=== PATIENT | male | born 1965 | race Caucasian/White ===

== ENCOUNTER 2016-08-30 08:44 | Inpatient (IN) | payer OTHER ==
[2016-08-30 10:52] VITALS: BMI 24.5
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
[2016-08-30] MEDS ORDERED: diphenhydrAMINE HCL 50 MG CAPSULE PO PRN (12:52)
[2016-08-30] MEDS ORDERED: MAGNESIUM HYDROX 2400MG/30ML ORAL SUSPENSION 30 ML CUP PO PRN (12:52)
[2016-08-30] MEDS ORDERED: MAGNESIUM CITRATE 300 ML BOTTLE PO PRN (12:52)
[2016-08-30] MEDS ORDERED: MENTHOL/PHENOL 1 EACH UD MM PRN (12:52)
[2016-08-30] MEDS ORDERED: LOPERAMIDE HCL 2 MG CAPSULE PO PRN (12:52)
[2016-08-30] MEDS ORDERED: hydrOXYzine PAMOATE 50 MG CAPSULE (FP) PO PRN (12:52)
[2016-08-30] MEDS ORDERED: MAG HYDROX/AL HYDROX/SIMETH 30 ML UNIT-DOSE CUP PO PRN (12:52)
[2016-08-30] MEDS ORDERED: P-EPHED 60MG/TRIPROLIDI 2.5MG TABLET PO PRN (12:52)
[2016-08-30] MEDS ORDERED: chlordiazePOXIDE HCL 25 MG CAPSULE PO PRN (12:52)
[2016-08-30] MEDS ORDERED: NICOTINE POLACRILEX 2 MG GUM BUC PRN (12:52)
[2016-08-30] MEDS ORDERED: ACETAMINOPHEN 325 MG TABLET (FP) PO PRN (12:52)
[2016-08-30] MEDS ORDERED: guaiFENesin/D-METHORPHAN HB 10 ML UNIT-DOSE CUPS PO PRN (12:52)
[2016-08-30] MEDS ORDERED: chlordiazePOXIDE HCL 25 MG CAPSULE PO ONE (13:03)
[2016-08-30] MEDS: NICOTINE 21 MG/24 HOURS TOPICAL PATCH TD SCH (13:55)
[2016-08-30] MEDS: chlordiazePOXIDE HCL 25 MG CAPSULE PO SCH ×2 (17:13→22:20)
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
[2016-08-30 20:01] LABS: URINE APPEARANCE CLEAR; URINE BILIRUBIN NEGATIVE (NEGATIVE); URINE COLOR STRAW; URINE GLUCOSE (UA) NEGATIVE (NEGATIVE); URINE KETONE NEGATIVE (NEGATIVE); URINE LEUK ESTERASE NEGATIVE (NEGATIVE); URINE NITRITE NEGATIVE (NEGATIVE); URINE PROTEIN NEGATIVE (NEGATIVE); URINE UROBILINOGEN NEGATIVE E.U./dl (0.2-1.0)
[2016-08-30 20:03] LABS: URINE BLOOD 1+ (NEGATIVE)
[2016-08-30 20:15] LABS: URINE RBC 1 /hpf (0-3); URINE WBC <1 /hpf (3-5)
[2016-08-30] MEDS: THIAMINE HCL 100 MG TABLET (FP) PO SCH (22:20)
[2016-08-30] MEDS: MIRTAZAPINE 15 MG TABLET (FP) PO SCH (22:21)
[2016-08-31] MEDS: chlordiazePOXIDE HCL 25 MG CAPSULE PO SCH ×4 (05:20→22:24)
[2016-08-31] MEDS: IBUPROFEN 400 MG TABLET (FP) PO PRN ×2 (05:21→12:15)
[2016-08-31] MEDS: METHADONE HCL 40 MG DISPERSABLE TABLET PO SCH (05:21)
[2016-08-31] MEDS: PRENATAL VITAMINS W/ FOLIC ACID TABLET (FP) PO SCH (10:33)
[2016-08-31] MEDS: NICOTINE 21 MG/24 HOURS TOPICAL PATCH TD SCH (10:34)
[2016-08-31 10:36] LABS: MCH 29.1 pg (25.7-33.7); MCHC 33.7 g/dl (32.0-35.9); MEAN CELL VOLUME 86.3 fl (80-96); PLATELET COUNT 128 K/MM3 (134-434); RDW 14.9 % (11.9-15.9); WHITE BLOOD COUNT 4.1 K/mm3 (4.0-10.0)
[2016-08-31 10:46] LABS: ALBUMIN 3.8 g/dl (3.4-5.0); ANION GAP 9 (8-16); CALCIUM 8.6 mg/dL (8.5-10.1); CO2 28 mmol/L (21-32); GLUCOSE,RANDOM 92 mg/dL (74-106)
[2016-08-31 10:50] LABS: ALK PHOS 149 U/L (45-117); BILIRUBIN,TOTAL 0.8 mg/dL (0.2-1.0); CREATININE 0.9 mg/dL (0.7-1.3); SGOT/AST 70 U/L (15-37); SGPT/ALT 41 U/L (12-78); TOT PROT 7.8 g/dl (6.4-8.2)
--- NOTE | 2016-08-31 13:38 | PN ---
[facility] CIWA - CIWA Score Nausea/Vomitin-Mild Nausea/No Vomiting Muscle Tremors: 4-Moderate,w/Arms Extend Anxiety: 4-Mod. Anxious/Guarded Agitation: 4-Moderately Restless Paroxysmal Sweats: 3 Orientation: 0-Oriented Tacttile Disturbances: 1-Very Mild Itch/Numbness Auditory Disturbances: 0-None Visual Disturbances: 0-None Headache: 0-None Present CIWA-Ar Total Score: 17 BHS Progress Note (SOAP) Subjective: Anxiety,tremors,sweating,interrupted sleep,restless. Objective: 08/31/16 13:37 Vital Signs - 8 hr 08/31/16 08/31/16 06:20 09:29 Temperature 95.8 F L 96.6 F L Pulse Rate 80 68 Respiratory 16 18 Rate Blood Pressure 113/78 94/63 Laboratory Tests 08/30/16 08/31/16 08/31/16 19:45 06:20 06:20 WBC 4.1 RBC 4.60 Hgb 13.4 Hct 39.6 MCV 86.3 MCHC 33.7 RDW 14.9 D Plt Count 128 L D MPV 8.0 Sodium 135 L Potassium 4.2 Chloride 98 Carbon Dioxide 28 Anion Gap 9 BUN 7 Creatinine 0.9 D Creat Clearance w eGFR > 60 Random Glucose 92 Calcium 8.6 Total Bilirubin 0.8 AST 70 H D ALT 41 D Alkaline Phosphatase 149 H D Total Protein 7.8 Albumin 3.8 Urine Color Straw Urine Appearance Clear Urine pH 6.0 D Ur Specific [place] 1.003 Urine Protein Negative Urine Glucose (UA) Negative Urine Ketones Negative Urine Blood 1+ H Urine Nitrite Negative Urine Bilirubin Negative Urine Urobilinogen Negative Ur Leukocyte Esterase Negative Urine RBC 1 Urine WBC <1 Ur Epithelial Cells Rare labs noted Assessment: 08/31/16 13:38 Withdrawal sx Plan: Continue detox
--- NOTE | 2016-08-31 18:32 | EKG ---
Test Reason : Blood Pressure : / mmHG Vent. Rate : 069 BPM Atrial Rate : 069 BPM P-R Int : 140 ms QRS Dur : 094 ms QT Int : 436 ms P-R-T Axes : 020 019 049 degrees QTc Int : 467 ms NORMAL SINUS RHYTHM NORMAL ECG WHEN COMPARED WITH ECG OF 13-APR-2013 09:03, NO SIGNIFICANT CHANGE WAS FOUND Confirmed by KARYN CASAREZ MD ([id number]) on 08/31/2016 6:31:46 PM Referred By: Kodi Garcia Confirmed By:KARYN CASAREZ MD
[2016-08-31] MEDS: MIRTAZAPINE 15 MG TABLET (FP) PO SCH (22:24)
[2016-08-31] MEDS: THIAMINE HCL 100 MG TABLET (FP) PO SCH (22:24)
[2016-09-01] MEDS: IBUPROFEN 400 MG TABLET (FP) PO PRN ×3 (05:20→22:26)
[2016-09-01] MEDS: METHADONE HCL 40 MG DISPERSABLE TABLET PO SCH (05:21)
[2016-09-01] MEDS: chlordiazePOXIDE HCL 25 MG CAPSULE PO SCH ×2 (05:21→10:22)
[2016-09-01] MEDS: PRENATAL VITAMINS W/ FOLIC ACID TABLET (FP) PO SCH (10:22)
[2016-09-01] MEDS: NICOTINE 21 MG/24 HOURS TOPICAL PATCH TD SCH (10:22)
--- NOTE | 2016-09-01 11:09 | PN ---
[facility] CIWA - CIWA Score Nausea/Vomitin-No Nausea/No Vomiting Muscle Tremors: 4-Moderate,w/Arms Extend Anxiety: 4-Mod. Anxious/Guarded Agitation: 3 Paroxysmal Sweats: 3 Orientation: 0-Oriented Tacttile Disturbances: 0-None Auditory Disturbances: 0-None Visual Disturbances: 0-None Headache: 0-None Present CIWA-Ar Total Score: 14 S Progress Note (SOAP) Subjective: Anxiety,tremors,sweating,interrupted sleep,restless Objective: 09/01/16 11:08 Vital Signs - 8 hr 09/01/16 09/01/16 09/01/16 03:32 06:24 09:36 Temperature 97.0 F L 98.2 F Pulse Rate 63 58 L Respiratory 18 18 18 Rate Blood Pressure 109/73 106/67 Laboratory Last Values WBC 4.1 K/mm3 (4.0-10.0) 08/31/16 06:20 RBC 4.60 M/mm3 (4.00-5.60) 08/31/16 06:20 Hgb 13.4 GM/dL (11.7-16.9) 08/31/16 06:20 Hct 39.6 % (35.4-49) 08/31/16 06:20 MCV 86.3 fl (80-96) 08/31/16 06:20 MCHC 33.7 g/dl (32.0-35.9) 08/31/16 06:20 RDW 14.9 % (11.9-15.9) D 08/31/16 06:20 Plt Count 128 K/MM3 (134-434) L D 08/31/16 06:20 MPV 8.0 fl (7.5-11.1) 08/31/16 06:20 Sodium 135 mmol/L (136-145) L 08/31/16 06:20 Potassium 4.2 mmol/L (3.5-5.1) 08/31/16 06:20 Chloride 98 mmol/L (98-107) 08/31/16 06:20 Carbon Dioxide 28 mmol/L (21-32) 08/31/16 06:20 Anion Gap 9 (8-16) 08/31/16 06:20 BUN 7 mg/dL (7-18) 08/31/16 06:20 Creatinine 0.9 mg/dL (0.7-1.3) D 08/31/16 06:20 Creat Clearance w eGFR > 60 (>60) 08/31/16 06:20 Random Glucose 92 mg/dL (74-106) 08/31/16 06:20 Calcium 8.6 mg/dL (8.5-10.1) 08/31/16 06:20 Total Bilirubin 0.8 mg/dL (0.2-1.0) 08/31/16 06:20 AST 70 U/L (15-37) H D 08/31/16 06:20 ALT 41 U/L (12-78) D 08/31/16 06:20 Alkaline Phosphatase 149 U/L (45-117) H D 08/31/16 06:20 Total Protein 7.8 g/dl (6.4-8.2) 08/31/16 06:20 Albumin 3.8 g/dl (3.4-5.0) 08/31/16 06:20 Urine Color Straw 08/30/16 19:45 Urine Appearance Clear 08/30/16 19:45 Urine pH 6.0 (5.0-8.0) D 08/30/16 19:45 Ur Specific [place] 1.003 (1.001-1.035) 08/30/16 19:45 Urine Protein Negative (NEGATIVE) 08/30/16 19:45 Urine Glucose (UA) Negative (NEGATIVE) 08/30/16 19:45 Urine Ketones Negative (NEGATIVE) 08/30/16 19:45 Urine Blood 1+ (NEGATIVE) H 08/30/16 19:45 Urine Nitrite Negative (NEGATIVE) 08/30/16 19:45 Urine Bilirubin Negative (NEGATIVE) 08/30/16 19:45 Urine Urobilinogen Negative E.U./dl (0.2-1.0) 08/30/16 19:45 Ur Leukocyte Esterase Negative (NEGATIVE) 08/30/16 19:45 Urine RBC 1 /hpf (0-3) 08/30/16 19:45 Urine WBC <1 /hpf (3-5) 08/30/16 19:45 Ur Epithelial Cells Rare /hpf (FEW) 08/30/16 19:45 RPR Titer Nonreactive (NONREACTIVE) 08/31/16 06:20 labs noted Assessment: 09/01/16 11:08 Withdrawal sx. Plan: Continue detox
[2016-09-01] MEDS: chlordiazePOXIDE 5 MG CAPSULE PO SCH ×2 (17:16→22:25)
[2016-09-01] MEDS: MIRTAZAPINE 15 MG TABLET (FP) PO SCH (22:25)
[2016-09-01] MEDS: THIAMINE HCL 100 MG TABLET (FP) PO SCH (22:25)
[2016-09-02] MEDS: IBUPROFEN 400 MG TABLET (FP) PO PRN ×3 (05:03→22:16)
[2016-09-02] MEDS: METHADONE HCL 40 MG DISPERSABLE TABLET PO SCH (05:03)
[2016-09-02] MEDS: chlordiazePOXIDE 5 MG CAPSULE PO SCH ×2 (05:03→10:17)
[2016-09-02] MEDS: PRENATAL VITAMINS W/ FOLIC ACID TABLET (FP) PO SCH (10:17)
[2016-09-02] MEDS: NICOTINE 21 MG/24 HOURS TOPICAL PATCH TD SCH (10:17)
--- NOTE | 2016-09-02 13:30 | PN ---
BHS Progress Note (SOAP) Subjective: Sweating,interrupted sleep,restless Objective: 09/02/16 13:29 Vital Signs - 8 hr 09/02/16 09/02/16 06:14 10:25 Temperature 96.4 F L 97 F L Pulse Rate 62 64 Respiratory 18 18 Rate Blood Pressure 105/63 97/61 Laboratory Last Values WBC 4.1 K/mm3 (4.0-10.0) 08/31/16 06:20 RBC 4.60 M/mm3 (4.00-5.60) 08/31/16 06:20 Hgb 13.4 GM/dL (11.7-16.9) 08/31/16 06:20 Hct 39.6 % (35.4-49) 08/31/16 06:20 MCV 86.3 fl (80-96) 08/31/16 06:20 MCHC 33.7 g/dl (32.0-35.9) 08/31/16 06:20 RDW 14.9 % (11.9-15.9) D 08/31/16 06:20 Plt Count 128 K/MM3 (134-434) L D 08/31/16 06:20 MPV 8.0 fl (7.5-11.1) 08/31/16 06:20 Sodium 135 mmol/L (136-145) L 08/31/16 06:20 Potassium 4.2 mmol/L (3.5-5.1) 08/31/16 06:20 Chloride 98 mmol/L (98-107) 08/31/16 06:20 Carbon Dioxide 28 mmol/L (21-32) 08/31/16 06:20 Anion Gap 9 (8-16) 08/31/16 06:20 BUN 7 mg/dL (7-18) 08/31/16 06:20 Creatinine 0.9 mg/dL (0.7-1.3) D 08/31/16 06:20 Creat Clearance w eGFR > 60 (>60) 08/31/16 06:20 Random Glucose 92 mg/dL (74-106) 08/31/16 06:20 Calcium 8.6 mg/dL (8.5-10.1) 08/31/16 06:20 Total Bilirubin 0.8 mg/dL (0.2-1.0) 08/31/16 06:20 AST 70 U/L (15-37) H D 08/31/16 06:20 ALT 41 U/L (12-78) D 08/31/16 06:20 Alkaline Phosphatase 149 U/L (45-117) H D 08/31/16 06:20 Total Protein 7.8 g/dl (6.4-8.2) 08/31/16 06:20 Albumin 3.8 g/dl (3.4-5.0) 08/31/16 06:20 Urine Color Straw 08/30/16 19:45 Urine Appearance Clear 08/30/16 19:45 Urine pH 6.0 (5.0-8.0) D 08/30/16 19:45 Ur Specific [place] 1.003 (1.001-1.035) 08/30/16 19:45 Urine Protein Negative (NEGATIVE) 08/30/16 19:45 Urine Glucose (UA) Negative (NEGATIVE) 08/30/16 19:45 Urine Ketones Negative (NEGATIVE) 08/30/16 19:45 Urine Blood 1+ (NEGATIVE) H 08/30/16 19:45 Urine Nitrite Negative (NEGATIVE) 08/30/16 19:45 Urine Bilirubin Negative (NEGATIVE) 08/30/16 19:45 Urine Urobilinogen Negative E.U./dl (0.2-1.0) 08/30/16 19:45 Ur Leukocyte Esterase Negative (NEGATIVE) 08/30/16 19:45 Urine RBC 1 /hpf (0-3) 08/30/16 19:45 Urine WBC <1 /hpf (3-5) 08/30/16 19:45 Ur Epithelial Cells Rare /hpf (FEW) 08/30/16 19:45 RPR Titer Nonreactive (NONREACTIVE) 08/31/16 06:20 labs noted Assessment: 09/02/16 13:29 Withdrawal sx. Plan: Continue detox
[2016-09-02] MEDS: chlordiazePOXIDE HCL 10 MG CAPSULE PO SCH ×2 (17:11→22:17)
[2016-09-02] MEDS: MIRTAZAPINE 15 MG TABLET (FP) PO SCH (22:17)
[2016-09-02] MEDS: THIAMINE HCL 100 MG TABLET (FP) PO SCH (22:17)
[2016-09-03] MEDS: chlordiazePOXIDE HCL 10 MG CAPSULE PO SCH (05:09)
[2016-09-03] MEDS: METHADONE HCL 40 MG DISPERSABLE TABLET PO SCH (05:09)
[2016-09-03 06:02] VITALS: BP 101/63; PULSE 67; TEMP 97.1
[2016-09-03] MEDS: IBUPROFEN 400 MG TABLET (FP) PO PRN (06:09)
--- NOTE | 2016-09-03 10:29 | DS ---
[facility] Detox Discharge Summary Admission Date: 08/30/16 Discharge Date: 09/03/16 - History Present History: Alcohol Dependence, Cannabis Dependence, Cocaine Dependence, MMTP Pertinent Past History: Hep c Psoriasis - Physical Exam Results Vital Signs: Vital Signs Temperature 97.1 F L 09/03/16 06:01 Pulse Rate 67 09/03/16 06:01 Respiratory Rate 16 09/03/16 06:01 Blood Pressure 101/63 09/03/16 06:01 O2 Sat by Pulse Oximetry (%) Pertinent Admission Physical Exam Findings: Withdrawal sx. Laboratory Last Values WBC 4.1 K/mm3 (4.0-10.0) 08/31/16 06:20 RBC 4.60 M/mm3 (4.00-5.60) 08/31/16 06:20 Hgb 13.4 GM/dL (11.7-16.9) 08/31/16 06:20 Hct 39.6 % (35.4-49) 08/31/16 06:20 MCV 86.3 fl (80-96) 08/31/16 06:20 MCHC 33.7 g/dl (32.0-35.9) 08/31/16 06:20 RDW 14.9 % (11.9-15.9) D 08/31/16 06:20 Plt Count 128 K/MM3 (134-434) L D 08/31/16 06:20 MPV 8.0 fl (7.5-11.1) 08/31/16 06:20 Sodium 135 mmol/L (136-145) L 08/31/16 06:20 Potassium 4.2 mmol/L (3.5-5.1) 08/31/16 06:20 Chloride 98 mmol/L (98-107) 08/31/16 06:20 Carbon Dioxide 28 mmol/L (21-32) 08/31/16 06:20 Anion Gap 9 (8-16) 08/31/16 06:20 BUN 7 mg/dL (7-18) 08/31/16 06:20 Creatinine 0.9 mg/dL (0.7-1.3) D 08/31/16 06:20 Creat Clearance w eGFR > 60 (>60) 08/31/16 06:20 Random Glucose 92 mg/dL (74-106) 08/31/16 06:20 Calcium 8.6 mg/dL (8.5-10.1) 08/31/16 06:20 Total Bilirubin 0.8 mg/dL (0.2-1.0) 08/31/16 06:20 AST 70 U/L (15-37) H D 08/31/16 06:20 ALT 41 U/L (12-78) D 08/31/16 06:20 Alkaline Phosphatase 149 U/L (45-117) H D 08/31/16 06:20 Total Protein 7.8 g/dl (6.4-8.2) 08/31/16 06:20 Albumin 3.8 g/dl (3.4-5.0) 08/31/16 06:20 Urine Color Straw 08/30/16 19:45 Urine Appearance Clear 08/30/16 19:45 Urine pH 6.0 (5.0-8.0) D 08/30/16 19:45 Ur Specific [place] 1.003 (1.001-1.035) 08/30/16 19:45 Urine Protein Negative (NEGATIVE) 08/30/16 19:45 Urine Glucose (UA) Negative (NEGATIVE) 08/30/16 19:45 Urine Ketones Negative (NEGATIVE) 08/30/16 19:45 Urine Blood 1+ (NEGATIVE) H 08/30/16 19:45 Urine Nitrite Negative (NEGATIVE) 08/30/16 19:45 Urine Bilirubin Negative (NEGATIVE) 08/30/16 19:45 Urine Urobilinogen Negative E.U./dl (0.2-1.0) 08/30/16 19:45 Ur Leukocyte Esterase Negative (NEGATIVE) 08/30/16 19:45 Urine RBC 1 /hpf (0-3) 08/30/16 19:45 Urine WBC <1 /hpf (3-5) 08/30/16 19:45 Ur Epithelial Cells Rare /hpf (FEW) 08/30/16 19:45 RPR Titer Nonreactive (NONREACTIVE) 08/31/16 06:20 Labs noted - Treatment Hospital Course: Detox Protocol Followed, Detoxed Safely, Responded well, Discharged Condition Good, Rehab Referral Accepted Patient has Accepted a Rehab Referral to: [facility] - Medication Discharge Medications: Ambulatory Orders Mirtazapine [Remeron -] 30 mg PO HS #30 tablet 08/30/16 Mirtazapine [Remeron -] 45 mg PO HS 08/30/16 - Diagnosis (1) Alcohol dependence with uncomplicated withdrawal Current Visit: Yes Status: Acute (2) Opioid dependence on agonist therapy Current Visit: Yes Status: Acute (3) Nicotine dependence Current Visit: Yes Status: Acute Qualifiers: Nicotine product type: cigarettes Substance use status: uncomplicated Qualified Code(s): F17.210 - Nicotine dependence, cigarettes, uncomplicated (4) Cocaine dependence, uncomplicated Current Visit: Yes Status: Acute (5) Insomnia Current Visit: Yes Status: Acute (6) Substance induced mood disorder Current Visit: Yes Status: Acute (7) Hepatitis C Current Visit: Yes Status: Chronic Qualifiers: Viral hepatitis chronicity: chronic Hepatic coma status: without hepatic coma Qualified Code(s): B18.2 - Chronic viral hepatitis C (8) Psoriasis Current Visit: No Status: Chronic - AMA Did Patient Leave Against Medical Advice: No
== END 2016-09-03 09:03 | disposition home or self-care (01) | DRG 773 ==
LOC: YASAS 08:44 → Y3N 12:39
PROVIDERS: ADMIT Internal Medicine; ATTEND Internal Medicine
PROC: HZ2ZZZZ Detoxification Services for Substance Abuse Treatment (ICD-10-PCS; principal; 2016-09-03)
DX: F11.20 Opioid dependence, uncomplicated (principal); F10.230 Alcohol dependence with withdrawal, uncomplicated; F14.20 Cocaine dependence, uncomplicated; F12.20 Cannabis dependence, uncomplicated; F17.210 Nicotine dependence, cigarettes, uncomplicated; F19.24 Other psychoactive substance dependence with psychoactive substance-induced mood disorder; B18.2 Chronic viral hepatitis C; G47.00 Insomnia, unspecified; L40.9 Psoriasis, unspecified
CPT/HCPCS: 36415; 80053; 81003; 81015; 85027; 86593; 93005; 93010

== ENCOUNTER 2017-01-07 11:16 | Inpatient (IN) | payer OTHER ==
[2017-01-07 11:46] VITALS: BMI 23.5
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
[2017-01-07] MEDS ORDERED: MAGNESIUM CITRATE 300 ML BOTTLE PO PRN (14:24)
[2017-01-07] MEDS ORDERED: MAGNESIUM HYDROX 2400MG/30ML ORAL SUSPENSION 30 ML CUP PO PRN (14:24)
[2017-01-07] MEDS ORDERED: NICOTINE POLACRILEX 4 MG GUM BUC PRN (14:24)
[2017-01-07] MEDS ORDERED: guaiFENesin/D-METHORPHAN HB 10 ML UNIT-DOSE CUPS PO PRN (14:24)
[2017-01-07] MEDS ORDERED: chlordiazePOXIDE HCL 25 MG CAPSULE PO PRN (14:24)
[2017-01-07] MEDS ORDERED: MENTHOL/PHENOL 1 EACH UD MM PRN (14:24)
[2017-01-07] MEDS ORDERED: P-EPHED 60MG/TRIPROLIDI 2.5MG TABLET PO PRN (14:24)
[2017-01-07] MEDS ORDERED: LOPERAMIDE HCL 2 MG CAPSULE PO PRN (14:24)
[2017-01-07] MEDS ORDERED: hydrOXYzine PAMOATE 50 MG CAPSULE (FP) PO PRN (14:24)
[2017-01-07] MEDS ORDERED: MAG HYDROX/AL HYDROX/SIMETH 30 ML UNIT-DOSE CUP PO PRN (14:24)
[2017-01-07] MEDS ORDERED: chlordiazePOXIDE HCL 25 MG CAPSULE PO ONE (14:33)
[2017-01-07 16:45] LABS: URINE APPEARANCE CLEAR; URINE BILIRUBIN NEGATIVE (NEGATIVE); URINE BLOOD 2+ (NEGATIVE); URINE COLOR STRAW; URINE GLUCOSE (UA) NEGATIVE (NEGATIVE); URINE KETONE NEGATIVE (NEGATIVE); URINE LEUK ESTERASE NEGATIVE (NEGATIVE); URINE NITRITE NEGATIVE (NEGATIVE); URINE PROTEIN NEGATIVE (NEGATIVE); URINE UROBILINOGEN NEGATIVE mg/dL (0.2-1.0)
[2017-01-07] MEDS: chlordiazePOXIDE HCL 25 MG CAPSULE PO SCH ×2 (16:51→22:11)
[2017-01-07 17:04] LABS: URINE RBC 1 /hpf (0-3)
[2017-01-07] MEDS: THIAMINE HCL 100 MG TABLET (FP) PO SCH (22:11)
[2017-01-07] MEDS: diphenhydrAMINE HCL 50 MG CAPSULE PO PRN (22:11)
[2017-01-07] MEDS: FLUOCINONIDE 0.05% CREAM (15 GM TUBE) TP SCH ×2 (22:11)
[2017-01-08] MEDS: IBUPROFEN 400 MG TABLET (FP) PO PRN ×2 (05:57→19:56)
[2017-01-08] MEDS: chlordiazePOXIDE HCL 25 MG CAPSULE PO SCH ×4 (05:58→22:36)
[2017-01-08] MEDS ORDERED: ONDANSETRON *ODT* 4 MG TABLET SL PRN (09:07)
--- NOTE | 2017-01-08 09:12 | CONSULT ---
[facility] Psychiatric Consult - Data Date of interview: 01/08/17 Admission source: [facility] Identifying data: This is 51 years old male with no psychiatric hospitalization history intoxicated with: Alcohol, Methadone, Cannabis and Nicotine Substance Abuse History: - Smoking Cessation. Smoking history: Current every day smoker. Have you smoked in the past 12 months: Yes. Aproximately how many cigarettes per day: 10. Cigars Per Day: 0. Hx Chewing Tobacco Use: No. Initiated information on smoking cessation: Yes. 'Breaking Loose' booklet given : 01/07/17. - Substance & Tx. History. Hx Alcohol Use: Yes. Hx Substance Use : Yes. Substance Use Type: Alcohol, Heroin, Marijuana. Hx Substance Use Treatment: Yes (last detox 08/2016 with [facility]). - Substances Abused. Heroin. Route: Injection. Frequency: Daily. Amount used: 1-2 bags. Age of first use: 13. Date of Last Use: 01/06/17. Alcohol. Route: Oral. Frequency: Daily. Amount used: malt liquor(24 cans-16 oz cans). Age of first use: 13. Date of Last Use: 01/07/17. Marijuana/Hashish. Route: Smoking. Frequency: Daily. Amount used: 1 blunt. Age of first use: 13. Date of Last Use: 01/06/17 Medical History: Psoriasis, Seizure history, MMTP 120mg per day, Hep C+ Psychiatric History: Patient reprots history of depression , as per computer carries MDD, preoccupied with insomnia, reportsd taking prior to admission: Remeron 45mg po qhs Mental Status Exam - Mental Status Exam Alert and Oriented to: Person Cognitive Function: Fair Patient Appearance: Unkempt, Disheveled Mood: Sad Affect: Flat Patient Behavior: Sedated Speech Pattern: Delayed Voice Loudness: Mildly Soft/Quiet Thought Process: Circumstantial Thought Disorder: Being Controlled Hallucinations: Denies Suicidal Ideation: Denies Homicidal Ideation: Denies Insight/Judgement: Fair Sleep: Difficulty falling asleep Appetite: Fair Muscle strength/Tone: Mild Hypotonicity Gait/Station: Shuffling Additional Comments: Remeron 45mg po qhs Psychiatric Findings - Problem List ([place] 1, 2,3) (1) Alcohol dependence with uncomplicated withdrawal Current Visit: Yes Status: Chronic (2) Methadone maintenance therapy patient Current Visit: Yes Status: Chronic Comment: last dose taken today 120mg. dose verification pending (3) Nicotine dependence Current Visit: Yes Status: Chronic Qualifiers: Nicotine product type: cigarettes Substance use status: uncomplicated Qualified Code(s): F17.210 - Nicotine dependence, cigarettes, uncomplicated (4) Opioid dependence Current Visit: Yes Status: Acute (5) Drug-induced mood disorder Current Visit: Yes Status: Acute - Initial Treatment Plan Initial Treatment Plan: Remeron 45mg po qhs
[2017-01-08 10:06] LABS: ALBUMIN 3.8 g/dl (3.4-5.0); ALK PHOS 163 U/L (45-117); ANION GAP 8 (8-16); BILIRUBIN,TOTAL 0.7 mg/dL (0.2-1.0); CALCIUM 8.7 mg/dL (8.5-10.1); CO2 30 mmol/L (21-32); CREATININE 0.6 mg/dL (0.7-1.3); GLUCOSE,RANDOM 94 mg/dL (74-106); SGOT/AST 98 U/L (15-37); SGPT/ALT 81 U/L (12-78); TOT PROT 7.8 g/dl (6.4-8.2)
[2017-01-08 10:17] LABS: MCH 29.7 pg (25.7-33.7); MCHC 34.1 g/dl (32.0-35.9); MEAN CELL VOLUME 87.2 fl (80-96); MEAN PLT VOLUME 7.8 fl (7.5-11.1); PLATELET COUNT 111 K/MM3 (134-434); RDW 13.7 % (11.9-15.9); WHITE BLOOD COUNT 5.4 K/mm3 (4.0-10.0)
--- NOTE | 2017-01-08 10:31 | PN ---
S CIWA - CIWA Score Nausea/Vomitin Muscle Tremors: 3 Anxiety: 3 Agitation: 3 Paroxysmal Sweats: 1-Minimal Palms Moist Orientation: 0-Oriented Tacttile Disturbances: 1-Very Mild Itch/Numbness Auditory Disturbances: 1-Very Mild Visual Disturbances: 1-Very Mild Sensitivity Headache: 2-Mild CIWA-Ar Total Score: 18 BHS Progress Note (SOAP) Subjective: alert,irritable,anxious,interrupted sleep,tremor,nausea,vomiting,pain in the back Objective: 01/08/17 10:29 Vital Signs Temperature 98.1 F 01/08/17 10:04 Pulse Rate 82 01/08/17 10:04 Respiratory Rate 18 01/08/17 10:04 Blood Pressure 146/82 01/08/17 10:04 O2 Sat by Pulse Oximetry (%) ekgnsr,normal ecg Laboratory Last Values WBC 5.4 K/mm3 (4.0-10.0) D 01/08/17 06:00 RBC 4.52 M/mm3 (4.00-5.60) 01/08/17 06:00 Hgb 13.4 GM/dL (11.7-16.9) 01/08/17 06:00 Hct 39.4 % (35.4-49) 01/08/17 06:00 MCV 87.2 fl (80-96) 01/08/17 06:00 MCH 29.7 pg (25.7-33.7) 01/08/17 06:00 MCHC 34.1 g/dl (32.0-35.9) 01/08/17 06:00 RDW 13.7 % (11.9-15.9) 01/08/17 06:00 Plt Count 111 K/MM3 (134-434) L 01/08/17 06:00 MPV 7.8 fl (7.5-11.1) 01/08/17 06:00 Urine Color Straw 01/07/17 15:00 Urine Appearance Clear 01/07/17 15:00 Urine pH 6.0 (5.0-8.0) 01/07/17 15:00 Ur Specific [place] <= 1.005 (1.005-1.025) 01/07/17 15:00 Urine Protein Negative (NEGATIVE) 01/07/17 15:00 Urine Glucose (UA) Negative (NEGATIVE) 01/07/17 15:00 Urine Ketones Negative (NEGATIVE) 01/07/17 15:00 Urine Blood 2+ (NEGATIVE) H 01/07/17 15:00 Urine Nitrite Negative (NEGATIVE) 01/07/17 15:00 Urine Bilirubin Negative (NEGATIVE) 01/07/17 15:00 Urine Urobilinogen Negative mg/dL (0.2-1.0) 01/07/17 15:00 Ur Leukocyte Esterase Negative (NEGATIVE) 01/07/17 15:00 Urine RBC 1 /hpf (0-3) 01/07/17 15:00 Urine WBC None /hpf (3-5) 01/07/17 15:00 Ur Epithelial Cells Rare /hpf (FEW) 01/07/17 15:00 labs pending Assessment: 01/08/17 10:30 withdrawal symptom Plan: continue detox
[2017-01-08] MEDS: PRENATAL VITAMINS W/ FOLIC ACID TABLET (FP) PO SCH (10:35)
[2017-01-08] MEDS: METHADONE HCL 40 MG DISPERSABLE TABLET PO SCH (10:35)
[2017-01-08] MEDS: FLUOCINONIDE 0.05% CREAM (15 GM TUBE) TP SCH ×4 (10:36→22:50)
[2017-01-08] MEDS: NICOTINE 21 MG/24 HOURS TOPICAL PATCH TD SCH (10:36)
--- NOTE | 2017-01-08 12:56 | EKG ---
Test Reason : Blood Pressure : / mmHG Vent. Rate : 067 BPM Atrial Rate : 067 BPM P-R Int : 148 ms QRS Dur : 096 ms QT Int : 442 ms P-R-T Axes : 031 022 060 degrees QTc Int : 467 ms NORMAL SINUS RHYTHM NORMAL ECG WHEN COMPARED WITH ECG OF 30-AUG-2016 13:06, NO SIGNIFICANT CHANGE WAS FOUND Confirmed by GLENN HOWARD MD ([id number]) on 01/08/2017 12:55:27 PM Referred By: Kodi Garcia Confirmed By:GLENN HOWARD MD
[2017-01-08] MEDS: CYCLOBENZAPRINE HCL 10 MG TABLET (FP) PO PRN (22:37)
[2017-01-08] MEDS: MIRTAZAPINE 15 MG TABLET (FP) PO SCH (22:37)
[2017-01-08] MEDS: THIAMINE HCL 100 MG TABLET (FP) PO SCH (22:37)
[2017-01-09] MEDS: chlordiazePOXIDE HCL 25 MG CAPSULE PO SCH ×2 (05:58→11:08)
[2017-01-09] MEDS: METHADONE HCL 40 MG DISPERSABLE TABLET PO SCH (05:58)
[2017-01-09] MEDS: CYCLOBENZAPRINE HCL 10 MG TABLET (FP) PO PRN ×2 (05:59→22:25)
[2017-01-09] MEDS: IBUPROFEN 400 MG TABLET (FP) PO PRN ×2 (06:00→22:26)
--- NOTE | 2017-01-09 11:00 | PN ---
S CIWA - CIWA Score Nausea/Vomitin Muscle Tremors: 3 Anxiety: 3 Agitation: 2 Paroxysmal Sweats: 1-Minimal Palms Moist Orientation: 0-Oriented Tacttile Disturbances: 1-Very Mild Itch/Numbness Auditory Disturbances: 1-Very Mild Visual Disturbances: 1-Very Mild Sensitivity Headache: 2-Mild CIWA-Ar Total Score: 17 BHS Progress Note (SOAP) Subjective: ALERT,IRRITABLE,ANXIOUS,INTERRUPTED SLEEP,TREMOR Objective: 01/09/17 10:58 Vital Signs Temperature 98.4 F 01/09/17 09:28 Pulse Rate 77 01/09/17 09:28 Respiratory Rate 16 01/09/17 09:28 Blood Pressure 124/77 01/09/17 09:28 O2 Sat by Pulse Oximetry (%) Laboratory Last Values WBC 5.4 K/mm3 (4.0-10.0) D 01/08/17 06:00 RBC 4.52 M/mm3 (4.00-5.60) 01/08/17 06:00 Hgb 13.4 GM/dL (11.7-16.9) 01/08/17 06:00 Hct 39.4 % (35.4-49) 01/08/17 06:00 MCV 87.2 fl (80-96) 01/08/17 06:00 MCH 29.7 pg (25.7-33.7) 01/08/17 06:00 MCHC 34.1 g/dl (32.0-35.9) 01/08/17 06:00 RDW 13.7 % (11.9-15.9) 01/08/17 06:00 Plt Count 111 K/MM3 (134-434) L 01/08/17 06:00 MPV 7.8 fl (7.5-11.1) 01/08/17 06:00 Sodium 136 mmol/L (136-145) 01/08/17 06:00 Potassium 3.9 mmol/L (3.5-5.1) 01/08/17 06:00 Chloride 98 mmol/L (98-107) 01/08/17 06:00 Carbon Dioxide 30 mmol/L (21-32) 01/08/17 06:00 Anion Gap 8 (8-16) 01/08/17 06:00 BUN 5 mg/dL (7-18) L D 01/08/17 06:00 Creatinine 0.6 mg/dL (0.7-1.3) L D 01/08/17 06:00 Creat Clearance w eGFR > 60 (>60) 01/08/17 06:00 Random Glucose 94 mg/dL (74-106) 01/08/17 06:00 Calcium 8.7 mg/dL (8.5-10.1) 01/08/17 06:00 Total Bilirubin 0.7 mg/dL (0.2-1.0) 01/08/17 06:00 AST 98 U/L (15-37) H D 01/08/17 06:00 ALT 81 U/L (12-78) H D 01/08/17 06:00 Alkaline Phosphatase 163 U/L (45-117) H 01/08/17 06:00 Total Protein 7.8 g/dl (6.4-8.2) 01/08/17 06:00 Albumin 3.8 g/dl (3.4-5.0) 01/08/17 06:00 Urine Color Straw 01/07/17 15:00 Urine Appearance Clear 01/07/17 15:00 Urine pH 6.0 (5.0-8.0) 01/07/17 15:00 Ur Specific [place] <= 1.005 (1.005-1.025) 01/07/17 15:00 Urine Protein Negative (NEGATIVE) 01/07/17 15:00 Urine Glucose (UA) Negative (NEGATIVE) 01/07/17 15:00 Urine Ketones Negative (NEGATIVE) 01/07/17 15:00 Urine Blood 2+ (NEGATIVE) H 01/07/17 15:00 Urine Nitrite Negative (NEGATIVE) 01/07/17 15:00 Urine Bilirubin Negative (NEGATIVE) 01/07/17 15:00 Urine Urobilinogen Negative mg/dL (0.2-1.0) 01/07/17 15:00 Ur Leukocyte Esterase Negative (NEGATIVE) 01/07/17 15:00 Urine RBC 1 /hpf (0-3) 01/07/17 15:00 Urine WBC None /hpf (3-5) 01/07/17 15:00 Ur Epithelial Cells Rare /hpf (FEW) 01/07/17 15:00 RPR Titer Nonreactive (NONREACTIVE) 01/08/17 06:00 Assessment: 01/09/17 10:59 WITHDRAWAL SYMPTOM Plan: CONTINUE DETOX
[2017-01-09] MEDS: FLUOCINONIDE 0.05% CREAM (15 GM TUBE) TP SCH ×4 (11:06→22:28)
[2017-01-09] MEDS: NICOTINE 21 MG/24 HOURS TOPICAL PATCH TD SCH (11:07)
[2017-01-09] MEDS: PRENATAL VITAMINS W/ FOLIC ACID TABLET (FP) PO SCH (11:08)
[2017-01-09] MEDS: ACETAMINOPHEN 325 MG TABLET (FP) PO PRN (15:30)
[2017-01-09] MEDS: chlordiazePOXIDE 5 MG CAPSULE PO SCH ×2 (17:33→22:25)
[2017-01-09] MEDS: diphenhydrAMINE HCL 50 MG CAPSULE PO PRN (22:25)
[2017-01-09] MEDS: MIRTAZAPINE 15 MG TABLET (FP) PO SCH (22:25)
[2017-01-09] MEDS: THIAMINE HCL 100 MG TABLET (FP) PO SCH (22:25)
[2017-01-10] MEDS: ACETAMINOPHEN 325 MG TABLET (FP) PO PRN (03:23)
[2017-01-10] MEDS: chlordiazePOXIDE 5 MG CAPSULE PO SCH ×2 (05:29→11:00)
[2017-01-10] MEDS: METHADONE HCL 40 MG DISPERSABLE TABLET PO SCH (05:29)
[2017-01-10] MEDS: CYCLOBENZAPRINE HCL 10 MG TABLET (FP) PO PRN ×2 (05:31→22:31)
[2017-01-10] MEDS: PRENATAL VITAMINS W/ FOLIC ACID TABLET (FP) PO SCH (10:59)
[2017-01-10] MEDS: IBUPROFEN 400 MG TABLET (FP) PO PRN (11:01)
[2017-01-10] MEDS: FLUOCINONIDE 0.05% CREAM (15 GM TUBE) TP SCH ×4 (11:03→22:55)
[2017-01-10] MEDS: NICOTINE 21 MG/24 HOURS TOPICAL PATCH TD SCH (11:11)
--- NOTE | 2017-01-10 11:51 | PN ---
S Progress Note (SOAP) Subjective: ALERT,IRRITABLE,ANXIOUS,INTERRUPTED SLEEP Objective: 01/10/17 11:50 Vital Signs Temperature 96.6 F L 01/10/17 10:00 Pulse Rate 95 H 01/10/17 10:00 Respiratory Rate 20 01/10/17 10:00 Blood Pressure 120/81 01/10/17 10:00 O2 Sat by Pulse Oximetry (%) Assessment: 01/10/17 11:51 WITHDRAWAL SYMPTOM Plan: CONTINUE DETOX,DISCHARGE IN AM AT 0700
[2017-01-10] MEDS: chlordiazePOXIDE HCL 10 MG CAPSULE PO SCH ×2 (17:15→22:30)
[2017-01-10] MEDS: THIAMINE HCL 100 MG TABLET (FP) PO SCH (22:29)
[2017-01-10] MEDS: MIRTAZAPINE 15 MG TABLET (FP) PO SCH (22:29)
[2017-01-11] MEDS: ACETAMINOPHEN 325 MG TABLET (FP) PO PRN (02:45)
[2017-01-11] MEDS: METHADONE HCL 40 MG DISPERSABLE TABLET PO SCH (05:33)
[2017-01-11] MEDS: chlordiazePOXIDE HCL 10 MG CAPSULE PO SCH (05:33)
[2017-01-11] MEDS: CYCLOBENZAPRINE HCL 10 MG TABLET (FP) PO PRN (05:33)
[2017-01-11] MEDS: IBUPROFEN 400 MG TABLET (FP) PO PRN (05:35)
[2017-01-11 06:14] VITALS: BP 116/70; PULSE 80; TEMP 97.5
== END 2017-01-11 06:50 | disposition home or self-care (01) | DRG 773 ==
LOC: YASAS 11:16 → Y6N 14:11
PROVIDERS: ADMIT Internal Medicine; ATTEND Internal Medicine
PROC: HZ2ZZZZ Detoxification Services for Substance Abuse Treatment (ICD-10-PCS; principal; 2017-01-07)
DX: F10.230 Alcohol dependence with withdrawal, uncomplicated (principal); F11.20 Opioid dependence, uncomplicated; F17.210 Nicotine dependence, cigarettes, uncomplicated; F19.24 Other psychoactive substance dependence with psychoactive substance-induced mood disorder; L40.9 Psoriasis, unspecified; Z86.69 Personal history of other diseases of the nervous system and sense organs
CPT/HCPCS: 36415; 80053; 81003; 81015; 85027; 86593; 93005; 93010

== ENCOUNTER 2017-03-11 14:37 | Inpatient (IN) | payer OTHER ==
[2017-03-11 16:59] VITALS: BMI 22.9
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
[2017-03-11] MEDS ORDERED: guaiFENesin/D-METHORPHAN HB 10 ML UNIT-DOSE CUPS PO PRN (18:46)
[2017-03-11] MEDS ORDERED: MENTHOL/PHENOL 1 EACH UD MM PRN (18:46)
[2017-03-11] MEDS ORDERED: P-EPHED 60MG/TRIPROLIDI 2.5MG TABLET PO PRN (18:46)
[2017-03-11] MEDS ORDERED: MAG HYDROX/AL HYDROX/SIMETH 30 ML UNIT-DOSE CUP PO PRN (18:46)
[2017-03-11] MEDS ORDERED: chlordiazePOXIDE HCL 25 MG CAPSULE PO PRN (18:46)
[2017-03-11] MEDS ORDERED: chlordiazePOXIDE HCL 25 MG CAPSULE PO ONE (18:46)
[2017-03-11] MEDS ORDERED: NICOTINE POLACRILEX 2 MG GUM BUC PRN (18:46)
[2017-03-11] MEDS ORDERED: LOPERAMIDE HCL 2 MG CAPSULE PO PRN (18:46)
[2017-03-11] MEDS ORDERED: MAGNESIUM CITRATE 300 ML BOTTLE PO PRN (18:46)
[2017-03-11] MEDS ORDERED: ONDANSETRON *ODT* 4 MG TABLET SL PRN (18:51)
[2017-03-11] MEDS ORDERED: cloNIDine HCL 0.1 MG TABLET PO PRN ×2 (18:52→18:53)
[2017-03-11] MEDS ORDERED: diphenhydrAMINE HCL 50 MG CAPSULE PO PRN (22:00)
[2017-03-11] MEDS: METHOCARBAMOL 500 MG TABLET PO SCH (22:24)
[2017-03-11] MEDS: RANITIDINE HCL 150 MG TABLET (FP) PO SCH (22:24)
[2017-03-11] MEDS: THIAMINE HCL 100 MG TABLET (FP) PO SCH (22:24)
[2017-03-11] MEDS: chlordiazePOXIDE HCL 25 MG CAPSULE PO SCH (22:26)
[2017-03-11] MEDS: TRIAMCINOLONE ACET 0.1% OINT 15 GM TUBE TP SCH (22:26)
[2017-03-11] MEDS: LIDOCAINE PATCH REMOVAL MC SCH (22:27)
[2017-03-11 23:13] LABS: URINE APPEARANCE CLEAR; URINE BILIRUBIN NEGATIVE (NEGATIVE); URINE BLOOD 2+ (NEGATIVE); URINE COLOR LTYELLOW; URINE GLUCOSE (UA) NEGATIVE (NEGATIVE); URINE KETONE NEGATIVE (NEGATIVE); URINE LEUK ESTERASE NEGATIVE (NEGATIVE); URINE NITRITE NEGATIVE (NEGATIVE); URINE PROTEIN NEGATIVE (NEGATIVE); URINE UROBILINOGEN NEGATIVE mg/dL (0.2-1.0)
[2017-03-11 23:34] LABS: URINE RBC 2 /hpf (0-3); URINE WBC <1 /hpf (3-5)
[2017-03-12] MEDS: chlordiazePOXIDE HCL 25 MG CAPSULE PO SCH ×4 (05:36→22:22)
[2017-03-12] MEDS ORDERED: METHADONE HCL 10 MG TABLET PO SCH (08:45)
[2017-03-12 09:41] LABS: MCH 28.5 pg (25.7-33.7); MCHC 33.4 g/dl (32.0-35.9); MEAN CELL VOLUME 85.2 fl (80-96); MEAN PLT VOLUME 7.6 fl (7.5-11.1); PLATELET COUNT 115 K/MM3 (134-434); RDW 14.4 % (11.9-15.9)
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
[2017-03-12] MEDS ORDERED: METHADONE HCL 40 MG DISPERSABLE TABLET ONE (09:56)
[2017-03-12] MEDS ORDERED: METHADONE HCL 10 MG TABLET ONE (09:56)
[2017-03-12 10:07] LABS: ALBUMIN 3.3 g/dl (3.4-5.0); ALK PHOS 133 U/L (45-117); ANION GAP 6 (8-16); BILIRUBIN,TOTAL 0.8 mg/dL (0.2-1.0); CO2 30 mmol/L (21-32); CREATININE 0.7 mg/dL (0.7-1.3); GLUCOSE,RANDOM 85 mg/dL (74-106); SGOT/AST 65 U/L (15-37); SGPT/ALT 43 U/L (12-78); TOT PROT 7.4 g/dl (6.4-8.2)
[2017-03-12] MEDS: TRIAMCINOLONE ACET 0.1% OINT 15 GM TUBE TP SCH ×4 (10:33→22:22)
[2017-03-12] MEDS: LIDOCAINE 5% TOPICAL PATCH TP SCH (10:33)
[2017-03-12] MEDS: METHADONE 120 MG, METHADONE 20 MG PO SCH (10:34)
[2017-03-12] MEDS: NICOTINE 14 MG/24 HOURS TOPICAL PATCH TD SCH (11:52)
[2017-03-12] MEDS: PRENATAL VITAMINS W/ FOLIC ACID TABLET (FP) PO SCH (11:53)
[2017-03-12] MEDS: RANITIDINE HCL 150 MG TABLET (FP) PO SCH ×2 (11:53→22:23)
--- NOTE | 2017-03-12 11:53 | EKG ---
Test Reason : Blood Pressure : / mmHG Vent. Rate : 064 BPM Atrial Rate : 064 BPM P-R Int : 136 ms QRS Dur : 096 ms QT Int : 456 ms P-R-T Axes : 035 054 068 degrees QTc Int : 470 ms NORMAL SINUS RHYTHM WITH SINUS ARRHYTHMIA NORMAL ECG WHEN COMPARED WITH ECG OF 07-JAN-2017 15:55, NO SIGNIFICANT CHANGE WAS FOUND Confirmed by LEE CALERO, GLENN ([id number]) on 03/12/2017 11:52:32 AM Referred By: Kodi Garcia Confirmed By:GLENN HOWARD MD
[2017-03-12] MEDS: METHOCARBAMOL 500 MG TABLET PO SCH ×4 (11:54→22:23)
--- NOTE | 2017-03-12 12:53 | PN ---
S CIWA - CIWA Score Nausea/Vomitin Muscle Tremors: None Anxiety: 4-Mod. Anxious/Guarded Agitation: 2 Paroxysmal Sweats: 3 Orientation: 0-Oriented Tacttile Disturbances: 0-None Auditory Disturbances: 3-Moderate Harsh/Frighten Visual Disturbances: 2-Mild Sensitivity Headache: 0-None Present CIWA-Ar Total Score: 17 BHS Progress Note (SOAP) Subjective: Nausea, Sweating, Body Aches, Interrupted sleep. Objective: PT. A & O X 3. NO ACUTE DISTRESS. 03/12/17 12:51 Vital Signs Temperature 97.0 F L 03/12/17 09:42 Pulse Rate 81 03/12/17 09:42 Respiratory Rate 20 03/12/17 09:42 Blood Pressure 97/65 03/12/17 09:42 O2 Sat by Pulse Oximetry (%) Laboratory Tests 03/11/17 03/12/17 03/12/17 21:30 07:00 07:00 WBC 4.0 RBC 4.55 Hgb 12.9 Hct 38.8 MCV 85.2 MCH 28.5 MCHC 33.4 RDW 14.4 Plt Count 115 L MPV 7.6 Sodium 135 L Potassium 4.2 Chloride 99 Carbon Dioxide 30 Anion Gap 6 L BUN 8 D Creatinine 0.7 Creat Clearance w eGFR > 60 Random Glucose 85 Calcium 9.0 Total Bilirubin 0.8 AST 65 H D ALT 43 D Alkaline Phosphatase 133 H Total Protein 7.4 Albumin 3.3 L Urine Color Ltyellow Urine Appearance Clear Urine pH 6.0 Ur Specific [place] <= 1.005 Urine Protein Negative Urine Glucose (UA) Negative Urine Ketones Negative Urine Blood 2+ H Urine Nitrite Negative Urine Bilirubin Negative Urine Urobilinogen Negative Urine RBC 2 Urine WBC <1 Ur Epithelial Cells Rare RPR Titer 03/12/17 07:00 WBC RBC Hgb Hct MCV MCH MCHC RDW Plt Count MPV Sodium Potassium Chloride Carbon Dioxide Anion Gap BUN Creatinine Creat Clearance w eGFR Random Glucose Calcium Total Bilirubin AST ALT Alkaline Phosphatase Total Protein Albumin Urine Color Urine Appearance Urine pH Ur Specific [place] Urine Protein Urine Glucose (UA) Urine Ketones Urine Blood Urine Nitrite Urine Bilirubin Urine Urobilinogen Urine RBC Urine WBC Ur Epithelial Cells RPR Titer Nonreactive LABS NOTED. Assessment: 03/12/17 12:51 WITHDRAWAL SYMPTOMS. Plan: CONTINUE DETOX. REPEAT UA. INCREASE DAILY PO FLUID INTAKE.
[2017-03-12] MEDS: THIAMINE HCL 100 MG TABLET (FP) PO SCH (22:22)
[2017-03-12] MEDS: MIRTAZAPINE 15 MG TABLET (FP) PO SCH (22:23)
[2017-03-12] MEDS: LIDOCAINE PATCH REMOVAL MC SCH (23:12)
[2017-03-13] MEDS ORDERED: METHADONE HCL 10 MG TABLET ONE (03:23)
[2017-03-13] MEDS ORDERED: METHADONE HCL 40 MG DISPERSABLE TABLET ONE (03:24)
[2017-03-13] MEDS: METHADONE 120 MG, METHADONE 20 MG PO SCH (05:41)
[2017-03-13] MEDS: chlordiazePOXIDE HCL 25 MG CAPSULE PO SCH ×3 (05:41→17:20)
[2017-03-13] MEDS: ACETAMINOPHEN 325 MG TABLET (FP) PO PRN (05:42)
[2017-03-13] MEDS: PRENATAL VITAMINS W/ FOLIC ACID TABLET (FP) PO SCH (10:26)
[2017-03-13] MEDS: TRIAMCINOLONE ACET 0.1% OINT 15 GM TUBE TP SCH ×4 (10:26→22:18)
[2017-03-13] MEDS: METHOCARBAMOL 500 MG TABLET PO SCH ×4 (10:26→22:16)
[2017-03-13] MEDS: RANITIDINE HCL 150 MG TABLET (FP) PO SCH ×2 (10:27→22:17)
[2017-03-13] MEDS: NICOTINE 14 MG/24 HOURS TOPICAL PATCH TD SCH (10:27)
[2017-03-13] MEDS: LIDOCAINE 5% TOPICAL PATCH TP SCH (10:28)
--- NOTE | 2017-03-13 12:13 | PN ---
[facility] CIWA - CIWA Score Nausea/Vomitin-No Nausea/No Vomiting Muscle Tremors: 4-Moderate,w/Arms Extend Anxiety: 3 Agitation: 2 Paroxysmal Sweats: 3 Orientation: 0-Oriented Tacttile Disturbances: 0-None Auditory Disturbances: 2-Mild Harshness/Frighten Visual Disturbances: 3-Moderate Sensitivity Headache: 0-None Present CIWA-Ar Total Score: 17 S Progress Note (SOAP) Subjective: Tremors, Body Aches, Sweating, Interrupted sleep. Objective: PT. A & O X 3. NO ACUTE DISTRESS. 03/13/17 12:13 Vital Signs Temperature 96.7 F L 03/13/17 09:24 Pulse Rate 107 H 03/13/17 09:24 Respiratory Rate 20 03/13/17 09:24 Blood Pressure 147/84 03/13/17 09:24 O2 Sat by Pulse Oximetry (%) Laboratory Tests 03/11/17 03/12/17 03/12/17 21:30 07:00 07:00 WBC 4.0 RBC 4.55 Hgb 12.9 Hct 38.8 MCV 85.2 MCH 28.5 MCHC 33.4 RDW 14.4 Plt Count 115 L MPV 7.6 Sodium 135 L Potassium 4.2 Chloride 99 Carbon Dioxide 30 Anion Gap 6 L BUN 8 D Creatinine 0.7 Creat Clearance w eGFR > 60 Random Glucose 85 Calcium 9.0 Total Bilirubin 0.8 AST 65 H D ALT 43 D Alkaline Phosphatase 133 H Total Protein 7.4 Albumin 3.3 L Urine Color Ltyellow Urine Appearance Clear Urine pH 6.0 Ur Specific [place] <= 1.005 Urine Protein Negative Urine Glucose (UA) Negative Urine Ketones Negative Urine Blood 2+ H Urine Nitrite Negative Urine Bilirubin Negative Urine Urobilinogen Negative Urine RBC 2 Urine WBC <1 Ur Epithelial Cells Rare RPR Titer 03/12/17 07:00 WBC RBC Hgb Hct MCV MCH MCHC RDW Plt Count MPV Sodium Potassium Chloride Carbon Dioxide Anion Gap BUN Creatinine Creat Clearance w eGFR Random Glucose Calcium Total Bilirubin AST ALT Alkaline Phosphatase Total Protein Albumin Urine Color Urine Appearance Urine pH Ur Specific [place] Urine Protein Urine Glucose (UA) Urine Ketones Urine Blood Urine Nitrite Urine Bilirubin Urine Urobilinogen Urine RBC Urine WBC Ur Epithelial Cells RPR Titer Nonreactive LABS NOTED. RESULTS OF REPEAT UA NOTED. 03/13/17 12:15 Assessment: 03/13/17 12:14 WITHDRAWAL SYMPTOMS. Plan: CONTINUE DETOX.
[2017-03-13 16:15] LABS: URINE APPEARANCE CLEAR; URINE BILIRUBIN NEGATIVE (NEGATIVE); URINE BLOOD 1+ (NEGATIVE); URINE COLOR AMBER; URINE GLUCOSE (UA) NEGATIVE (NEGATIVE); URINE KETONE NEGATIVE (NEGATIVE); URINE LEUK ESTERASE TRACE (NEGATIVE); URINE NITRITE NEGATIVE (NEGATIVE); URINE PROTEIN NEGATIVE (NEGATIVE)
[2017-03-13 16:28] LABS: URINE BACTERIA RARE /hpf (NONE SEEN); URINE MUCUS RARE; URINE RBC 5 /hpf (0-3); URINE WBC 1 /hpf (3-5)
[2017-03-13] MEDS: THIAMINE HCL 100 MG TABLET (FP) PO SCH (22:16)
[2017-03-13] MEDS: chlordiazePOXIDE 5 MG CAPSULE PO SCH (22:16)
[2017-03-13] MEDS: LIDOCAINE PATCH REMOVAL MC SCH (22:17)
[2017-03-13] MEDS: MIRTAZAPINE 15 MG TABLET (FP) PO SCH (22:17)
[2017-03-14] MEDS ORDERED: METHADONE HCL 10 MG TABLET ONE (03:50)
[2017-03-14] MEDS ORDERED: METHADONE HCL 40 MG DISPERSABLE TABLET ONE (03:51)
[2017-03-14] MEDS: chlordiazePOXIDE 5 MG CAPSULE PO SCH ×3 (05:20→17:21)
[2017-03-14] MEDS: METHADONE 120 MG, METHADONE 20 MG PO SCH (05:20)
[2017-03-14] MEDS: ACETAMINOPHEN 325 MG TABLET (FP) PO PRN (05:21)
[2017-03-14] MEDS: RANITIDINE HCL 150 MG TABLET (FP) PO SCH ×2 (10:10→22:10)
[2017-03-14] MEDS: METHOCARBAMOL 500 MG TABLET PO SCH ×4 (10:10→22:10)
[2017-03-14] MEDS: PRENATAL VITAMINS W/ FOLIC ACID TABLET (FP) PO SCH (10:10)
[2017-03-14] MEDS: LIDOCAINE 5% TOPICAL PATCH TP SCH (10:11)
[2017-03-14] MEDS: TRIAMCINOLONE ACET 0.1% OINT 15 GM TUBE TP SCH ×4 (10:11→22:09)
[2017-03-14] MEDS: NICOTINE 14 MG/24 HOURS TOPICAL PATCH TD SCH (10:11)
[2017-03-14] MEDS: DOCUSATE SODIUM 100 MG CAPSULE (FP) PO SCH ×2 (12:12→22:10)
--- NOTE | 2017-03-14 12:55 | PN ---
BHS Progress Note (SOAP) Subjective: Interrupted sleep, Body Aches, Constipation, Stomach cramping. Objective: PT. A & O X 3, OBSERVED AMBULATING ON UNIT. NO ACUTE DISTRESS. 03/14/17 12:52 Vital Signs Temperature 98.0 F 03/14/17 10:16 Pulse Rate 85 03/14/17 10:16 Respiratory Rate 18 03/14/17 10:16 Blood Pressure 143/93 03/14/17 10:16 O2 Sat by Pulse Oximetry (%) Laboratory Tests 03/11/17 03/12/17 03/12/17 21:30 07:00 07:00 WBC 4.0 RBC 4.55 Hgb 12.9 Hct 38.8 MCV 85.2 MCH 28.5 MCHC 33.4 RDW 14.4 Plt Count 115 L MPV 7.6 Sodium 135 L Potassium 4.2 Chloride 99 Carbon Dioxide 30 Anion Gap 6 L BUN 8 D Creatinine 0.7 Creat Clearance w eGFR > 60 Random Glucose 85 Calcium 9.0 Total Bilirubin 0.8 AST 65 H D ALT 43 D Alkaline Phosphatase 133 H Total Protein 7.4 Albumin 3.3 L Urine Color Ltyellow Urine Appearance Clear Urine pH 6.0 Ur Specific [place] <= 1.005 Urine Protein Negative Urine Glucose (UA) Negative Urine Ketones Negative Urine Blood 2+ H Urine Nitrite Negative Urine Bilirubin Negative Urine Urobilinogen Negative Ur Leukocyte Esterase Urine RBC 2 Urine WBC <1 Ur Epithelial Cells Rare Urine Bacteria Urine Mucus RPR Titer 03/12/17 03/13/17 07:00 16:00 WBC RBC Hgb Hct MCV MCH MCHC RDW Plt Count MPV Sodium Potassium Chloride Carbon Dioxide Anion Gap BUN Creatinine Creat Clearance w eGFR Random Glucose Calcium Total Bilirubin AST ALT Alkaline Phosphatase Total Protein Albumin Urine Color [place] Urine Appearance Clear Urine pH 6.0 Ur Specific [place] 1.020 Urine Protein Negative Urine Glucose (UA) Negative Urine Ketones Negative Urine Blood 1+ H Urine Nitrite Negative Urine Bilirubin Negative Urine Urobilinogen 2.0 Ur Leukocyte Esterase Trace Urine RBC 5 Urine WBC 1 Ur Epithelial Cells Rare Urine Bacteria Rare Urine Mucus Rare RPR Titer Nonreactive LABS NOTED. RESULTS OF REPEAT UA NOTED. 03/14/17 12:53 Assessment: 03/14/17 12:52 WITHDRAWAL SYMPTOMS. Plan: CONTINUE DETOX. INCREASE DAILY PO FLUID INTAKE. PATIENT ADVISED TO FOLLOW-UP [facility] ([facility] FOR AFTERCARE AFTER DISCHARGE FROM DETOX.
[2017-03-14] MEDS: chlordiazePOXIDE HCL 10 MG CAPSULE PO SCH (22:09)
[2017-03-14] MEDS: MIRTAZAPINE 15 MG TABLET (FP) PO SCH (22:10)
[2017-03-14 22:34] VITALS: BP 125/83; PULSE 73; TEMP 96.3
[2017-03-14] MEDS: LIDOCAINE PATCH REMOVAL MC SCH (22:50)
[2017-03-14] MEDS: THIAMINE HCL 100 MG TABLET (FP) PO SCH (22:51)
[2017-03-15] MEDS ORDERED: METHADONE HCL 40 MG DISPERSABLE TABLET ONE (04:31)
[2017-03-15] MEDS ORDERED: METHADONE HCL 10 MG TABLET ONE (04:31)
[2017-03-15] MEDS: METHADONE 120 MG, METHADONE 20 MG PO SCH (05:17)
[2017-03-15] MEDS: chlordiazePOXIDE HCL 10 MG CAPSULE PO SCH (05:17)
[2017-03-15] MEDS: ACETAMINOPHEN 325 MG TABLET (FP) PO PRN (05:19)
--- NOTE | 2017-04-03 17:45 | DS ---
[facility] Detox Discharge Summary Admission Date: 03/11/17 Discharge Date: 03/15/17 - History Present History: Alcohol Dependence Additional Comments: return to [facility] Pertinent Past History: ancxiety, depression, insomnia, nicotine dependence - Physical Exam Results Vital Signs: Vital Signs Temperature 96.3 F L 03/14/17 22:33 Pulse Rate 73 03/14/17 22:33 Respiratory Rate 18 03/15/17 03:33 Blood Pressure 125/83 03/14/17 22:33 O2 Sat by Pulse Oximetry (%) Pertinent Admission Physical Exam Findings: withdrawal sx - Treatment Hospital Course: Detox Protocol Followed Patient has Accepted a Rehab Referral to: [facility] for follow up - Medication Discharge Medications: Ambulatory Orders Clonidine HCl [Catapres -] 0.3 mg PO DAILY 03/11/17 Mirtazapine [Remeron -] 45 mg PO HS #30 tablet 03/12/17 - Diagnosis (1) Alcohol dependence with uncomplicated withdrawal Status: Acute (2) Drug-induced mood disorder Status: Acute (3) History of posttraumatic stress disorder (PTSD) Status: Acute (4) MDD (major depressive disorder) Status: Acute (5) Nicotine dependence Status: Acute Qualifiers: Nicotine product type: cigarettes Substance use status: in withdrawal Qualified Code(s): F17.213 - Nicotine dependence, cigarettes, with withdrawal; F17.213 - Nicotine dependence, cigarettes, with withdrawal (6) Opioid dependence Status: Acute (7) Weight loss Status: Acute (8) GERD (gastroesophageal reflux disease) Status: Chronic Qualifiers: Esophagitis presence: without esophagitis Qualified Code(s): K21.9 - Gastro-esophageal reflux disease without esophagitis; K21.9 - Gastro- esophageal reflux disease without esophagitis; K21.9 - Gastro-esophageal reflux disease without esophagitis (9) Hepatitis C carrier Status: Chronic (10) Methadone maintenance therapy patient Status: Chronic (11) Psoriasis Status: Chronic - AMA Did Patient Leave Against Medical Advice: No
== END 2017-03-15 06:45 | disposition home or self-care (01) | DRG 773 ==
LOC: YASAS 14:37 → Y3N 19:25
PROVIDERS: ADMIT Internal Medicine; ATTEND Internal Medicine
PROC: HZ2ZZZZ Detoxification Services for Substance Abuse Treatment (ICD-10-PCS; principal; 2017-03-11)
DX: F10.230 Alcohol dependence with withdrawal, uncomplicated (principal); F11.20 Opioid dependence, uncomplicated; F17.213 Nicotine dependence, cigarettes, with withdrawal; F33.9 Major depressive disorder, recurrent, unspecified; F43.10 Post-traumatic stress disorder, unspecified; B18.2 Chronic viral hepatitis C; L40.9 Psoriasis, unspecified; K21.9 Gastro-esophageal reflux disease without esophagitis; Z86.69 Personal history of other diseases of the nervous system and sense organs; Z87.898 Personal history of other specified conditions
CPT/HCPCS: 36415; 80053; 81003; 81015; 85027; 86593; 93005; 93010

== ENCOUNTER 2017-05-15 11:21 | Inpatient (IN) | payer OTHER ==
[2017-05-15 11:56] VITALS: BMI 23.8
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
[2017-05-15] MEDS ORDERED: MENTHOL/PHENOL 1 EACH UD MM PRN (13:58)
[2017-05-15] MEDS ORDERED: P-EPHED 60MG/TRIPROLIDI 2.5MG TABLET PO PRN (13:58)
[2017-05-15] MEDS ORDERED: guaiFENesin/D-METHORPHAN HB 10 ML UNIT-DOSE CUPS PO PRN (13:58)
[2017-05-15] MEDS ORDERED: chlordiazePOXIDE HCL 25 MG CAPSULE PO PRN (13:58)
[2017-05-15] MEDS ORDERED: LOPERAMIDE HCL 2 MG CAPSULE PO PRN (13:58)
[2017-05-15] MEDS ORDERED: MAGNESIUM CITRATE 300 ML BOTTLE PO PRN (13:58)
[2017-05-15] MEDS ORDERED: NICOTINE POLACRILEX 4 MG GUM BUC PRN (13:58)
[2017-05-15] MEDS ORDERED: hydrOXYzine PAMOATE 50 MG CAPSULE (FP) PO PRN (13:58)
[2017-05-15] MEDS ORDERED: IBUPROFEN 400 MG TABLET (FP) PO PRN (13:58)
[2017-05-15] MEDS ORDERED: MAGNESIUM HYDROX 2400MG/30ML ORAL SUSPENSION 30 ML CUP PO PRN (13:58)
[2017-05-15] MEDS ORDERED: MAG HYDROX/AL HYDROX/SIMETH 30 ML UNIT-DOSE CUP PO PRN (13:58)
[2017-05-15] MEDS ORDERED: ACETAMINOPHEN 325 MG TABLET (FP) PO PRN (14:08)
[2017-05-15] MEDS ORDERED: chlordiazePOXIDE HCL 25 MG CAPSULE PO ONE (14:10)
[2017-05-15 16:42] LABS: URINE APPEARANCE CLEAR; URINE BILIRUBIN NEGATIVE (NEGATIVE); URINE BLOOD 2+ (NEGATIVE); URINE COLOR STRAW; URINE GLUCOSE (UA) NEGATIVE (NEGATIVE); URINE KETONE NEGATIVE (NEGATIVE); URINE LEUK ESTERASE NEGATIVE (NEGATIVE); URINE NITRITE NEGATIVE (NEGATIVE); URINE PROTEIN NEGATIVE (NEGATIVE); URINE UROBILINOGEN NEGATIVE mg/dL (0.2-1.0)
[2017-05-15 17:24] LABS: URINE WBC <1 /hpf (3-5)
[2017-05-15] MEDS: chlordiazePOXIDE HCL 25 MG CAPSULE PO SCH ×2 (17:55→22:38)
[2017-05-15 20:14] LABS: URINE LEUK ESTERASE Negative (NEGATIVE)
[2017-05-15] MEDS: THIAMINE HCL 100 MG TABLET (FP) PO SCH (22:38)
[2017-05-15] MEDS: DICLOFENAC SODIUM PO SCH (22:38)
[2017-05-16] MEDS: chlordiazePOXIDE HCL 25 MG CAPSULE PO SCH ×4 (05:55→22:26)
[2017-05-16] MEDS ORDERED: METHADONE HCL 10 MG TABLET PO ONE (09:00)
[2017-05-16] MEDS ORDERED: METHADONE 120 MG, METHADONE 20 MG, METHADONE 5 MG PO ONE (09:20)
--- NOTE | 2017-05-16 10:50 | EKG ---
Test Reason : Blood Pressure : / mmHG Vent. Rate : 062 BPM Atrial Rate : 062 BPM P-R Int : 136 ms QRS Dur : 094 ms QT Int : 466 ms P-R-T Axes : 005 024 031 degrees QTc Int : 472 ms NORMAL SINUS RHYTHM NORMAL ECG WHEN COMPARED WITH ECG OF 11-MAR-2017 20:22, NO SIGNIFICANT CHANGE WAS FOUND Confirmed by MD DEEDEE, LEBRON ([id number]) on 05/16/2017 10:50:46 AM Referred By: Confirmed By:LEBRON MARK MD
[2017-05-16] MEDS ORDERED: METHADONE HCL 40 MG DISPERSABLE TABLET ONE (10:51)
[2017-05-16] MEDS ORDERED: METHADONE HCL 10 MG TABLET ONE (10:51)
--- NOTE | 2017-05-16 10:52 | PN ---
S CIWA - CIWA Score Nausea/Vomitin-Mild Nausea/No Vomiting Muscle Tremors: 4-Moderate,w/Arms Extend Anxiety: 4-Mod. Anxious/Guarded Agitation: 3 Paroxysmal Sweats: 3 Orientation: 0-Oriented Tacttile Disturbances: 1-Very Mild Itch/Numbness Auditory Disturbances: 0-None Visual Disturbances: 0-None Headache: 0-None Present CIWA-Ar Total Score: 16 BHS Progress Note (SOAP) Subjective: Sweating,anxiety,tremors,interrupted sleep,restless. Objective: 05/16/17 10:51 Vital Signs - 8 hr 05/16/17 05/16/17 05/16/17 03:30 06:00 10:00 Temperature 97.9 F 97.7 F Pulse Rate 57 L 63 Respiratory 18 18 18 Rate Blood Pressure 138/74 115/71 Laboratory Tests 05/15/17 15:15 Urine Color Straw Urine Appearance Clear Urine pH 6.0 Ur Specific [place] 1.002 Urine Protein Negative Urine Glucose (UA) Negative Urine Ketones Negative Urine Blood 2+ H Urine Nitrite Negative Urine Bilirubin Negative Urine Urobilinogen Negative Ur Leukocyte Esterase Negative Urine WBC (Auto) <1 Urine RBC (Auto) None Ur Epithelial Cells Rare Assessment: 05/16/17 10:51 Withdrawal sx. Plan: Continue detox
[2017-05-16] MEDS: NICOTINE 21 MG/24 HOURS TOPICAL PATCH TD SCH (10:53)
[2017-05-16] MEDS: PRENATAL VITAMINS W/ FOLIC ACID TABLET (FP) PO SCH (10:53)
[2017-05-16] MEDS: DICLOFENAC SODIUM PO SCH ×2 (10:54→22:26)
--- NOTE | 2017-05-16 10:54 | PN ---
Psychiatric Progress Note Vital Signs: Vital Signs Period Temp Pulse Resp BP Sys/Buenrostro Pulse Ox Last 24 Hr 97.6 F-97.9 F 57-96 18-19 95-138/48-78 Current Medications: Active Medications Generic Name Dose Route Start Last Admin Trade Name Freq PRN Reason Stop Dose Admin Acetaminophen 650 mg 05/15/17 14:08 05/16/17 05:57 Tylenol - PO 650 mg Q4H PRN Administration FEVER OR PAIN Al Hydroxide/Mg Hydroxide 30 ml 05/15/17 13:58 Mylanta Oral Suspension - PO Q6H PRN DYSPEPSIA Chlordiazepoxide HCl 50 mg 05/15/17 17:00 05/16/17 05:55 Librium - PO 05/16/17 11:01 50 mg [id number] MARILIA Administration Chlordiazepoxide HCl 25 mg 05/16/17 17:00 Librium - PO 05/17/17 11:01 [id number] MARILIA Chlordiazepoxide HCl 15 mg 05/17/17 17:00 Librium - PO 05/18/17 11:01 [id number] MARILIA Chlordiazepoxide HCl 25 mg 05/15/17 13:58 Librium - PO 05/18/17 13:57 Q4H PRN WITHDRAWAL(CONT SUBST) Chlordiazepoxide HCl 10 mg 05/18/17 17:00 Librium - PO 05/19/17 11:01 [id number] MARILIA Eucalyptus/Menthol/Phenol/Sorbitol 1 each 05/15/17 13:58 Cepastat Lozenge - MM Q4H PRN SORE THROAT Guaifenesin 10 ml 05/15/17 13:58 Robitussin Dm - PO Q6H PRN COUGH Hydroxyzine Pamoate 50 mg 05/15/17 13:58 Vistaril - PO Q4H PRN AGITATION Loperamide HCl 4 mg 05/15/17 13:58 Imodium - PO Q6H PRN DIARRHEA Magnesium Citrate 300 ml 05/15/17 13:58 Citroma - PO Q48H PRN CONSTIPATION Magnesium Hydroxide 30 ml 05/15/17 13:58 Milk Of Magnesia - PO DAILY PRN CONSTIPATION Methadone HCl 120 mg/ 145 mg 05/17/17 06:00 Methadone HCl 20 mg/ Methadone PO 05/23/17 05:59 HCl 5 mg DAILY@0600 MARILIA Nicotine 21 mg 05/16/17 10:00 Nicoderm Patch - TD DAILY MARILIA Nicotine Polacrilex 4 mg 05/15/17 13:58 Nicorette Gum - BUC Q2H PRN NICOTINE REPLACEMENT RX Non-Formulary Medication 75 mg 05/15/17 22:00 05/15/17 22:38 Diclofenac Sodium [Voltaren -] PO 75 mg BID MARILIA Administration Multivit/Folic Acid/Iron 1 tab 05/16/17 10:00 Vitamins (Sjr) - PO DAILY MARILIA Pseudoephedrine/Triprolidine 1 combo 05/15/17 13:58 Actifed - PO TID PRN NASAL CONGESTION Thiamine HCl 100 mg 05/15/17 22:00 05/15/17 22:38 Vitamin B1 - PO 100 mg HS MARILIA Administration
[2017-05-16 11:03] LABS: MCH 28.9 pg (25.7-33.7); MCHC 33.7 g/dl (32.0-35.9); MEAN CELL VOLUME 85.9 fl (80-96); MEAN PLT VOLUME 7.8 fl (7.5-11.1); PLATELET COUNT 118 K/MM3 (134-434); RDW 15.6 % (11.9-15.9); WHITE BLOOD COUNT 6.3 K/mm3 (4.0-10.0)
[2017-05-16 11:07] LABS: ALBUMIN 3.7 g/dl (3.4-5.0); ANION GAP 6 (8-16); CALCIUM 8.2 mg/dL (8.5-10.1); CO2 28 mmol/L (21-32); GLUCOSE,RANDOM 91 mg/dL (74-106)
[2017-05-16 11:11] LABS: ALK PHOS 178 U/L (45-117); BILIRUBIN,TOTAL 0.8 mg/dL (0.2-1.0); CREATININE 0.7 mg/dL (0.7-1.3); SGOT/AST 104 U/L (15-37); SGPT/ALT 75 U/L (12-78); TOT PROT 8.1 g/dl (6.4-8.2)
[2017-05-16] MEDS ORDERED: ONDANSETRON *ODT* 4 MG TABLET SL PRN (11:53)
[2017-05-16] MEDS ORDERED: ONDANSETRON *ODT* 4 MG TABLET SL ONE (12:26)
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
[2017-05-16] MEDS: MIRTAZAPINE 15 MG TABLET (FP) PO SCH (22:26)
[2017-05-16] MEDS: THIAMINE HCL 100 MG TABLET (FP) PO SCH (22:27)
[2017-05-17] MEDS ORDERED: METHADONE HCL 5 MG TABLET ONE (04:54)
[2017-05-17] MEDS ORDERED: METHADONE HCL 10 MG TABLET ONE (04:55)
[2017-05-17] MEDS ORDERED: METHADONE HCL 40 MG DISPERSABLE TABLET ONE (04:55)
[2017-05-17] MEDS: chlordiazePOXIDE HCL 25 MG CAPSULE PO SCH ×2 (05:24→11:09)
[2017-05-17] MEDS: METHADONE 120 MG, METHADONE 20 MG, METHADONE 5 MG PO SCH (05:24)
[2017-05-17] MEDS ORDERED: METHADONE HCL 10 MG TABLET PO SCH (06:00)
[2017-05-17] MEDS ORDERED: METHADONE 120 MG, METHADONE 20 MG, METHADONE 5 MG PO SCH (06:00)
[2017-05-17] MEDS: DICLOFENAC SODIUM PO SCH ×2 (11:09→22:57)
[2017-05-17] MEDS: PRENATAL VITAMINS W/ FOLIC ACID TABLET (FP) PO SCH (11:09)
[2017-05-17] MEDS: NICOTINE 21 MG/24 HOURS TOPICAL PATCH TD SCH (11:10)
--- NOTE | 2017-05-17 14:25 | PN ---
S CIWA - CIWA Score Nausea/Vomitin Muscle Tremors: 4-Moderate,w/Arms Extend Anxiety: 3 Agitation: 3 Paroxysmal Sweats: 3 Orientation: 0-Oriented Tacttile Disturbances: 0-None Auditory Disturbances: 0-None Visual Disturbances: 0-None Headache: 0-None Present CIWA-Ar Total Score: 15 S Progress Note (SOAP) Subjective: Sweating,anxiety,tremors,restless,interrupted sleep Objective: 05/17/17 14:24 Vital Signs - 8 hr 05/17/17 05/17/17 06:27 10:00 Temperature 97.7 F 98.1 F Pulse Rate 74 71 Respiratory 18 18 Rate Blood Pressure 107/68 96/59 Laboratory Tests 05/15/17 05/16/17 05/16/17 15:15 06:00 06:00 WBC 6.3 D RBC 4.76 Hgb 13.8 Hct 40.9 MCV 85.9 MCH 28.9 MCHC 33.7 RDW 15.6 Plt Count 118 L MPV 7.8 Sodium 132 L Potassium 4.3 Chloride 98 Carbon Dioxide 28 Anion Gap 6 L BUN 5 L D Creatinine 0.7 Creat Clearance w eGFR > 60 Random Glucose 91 Calcium 8.2 L Total Bilirubin 0.8 AST 104 H D ALT 75 D Alkaline Phosphatase 178 H D Total Protein 8.1 Albumin 3.7 Urine Color Straw Urine Appearance Clear Urine pH 6.0 Ur Specific [place] 1.002 Urine Protein Negative Urine Glucose (UA) Negative Urine Ketones Negative Urine Blood 2+ H Urine Nitrite Negative Urine Bilirubin Negative Urine Urobilinogen Negative Ur Leukocyte Esterase Negative Urine WBC (Auto) <1 Urine RBC (Auto) None Ur Epithelial Cells Rare RPR Titer 05/16/17 06:00 WBC RBC Hgb Hct MCV MCH MCHC RDW Plt Count MPV Sodium Potassium Chloride Carbon Dioxide Anion Gap BUN Creatinine Creat Clearance w eGFR Random Glucose Calcium Total Bilirubin AST ALT Alkaline Phosphatase Total Protein Albumin Urine Color Urine Appearance Urine pH Ur Specific [place] Urine Protein Urine Glucose (UA) Urine Ketones Urine Blood Urine Nitrite Urine Bilirubin Urine Urobilinogen Ur Leukocyte Esterase Urine WBC (Auto) Urine RBC (Auto) Ur Epithelial Cells RPR Titer Nonreactive Assessment: 05/17/17 14:25 Withdrawal sx. Plan: Continue detox
[2017-05-17] MEDS: chlordiazePOXIDE 5 MG CAPSULE PO SCH ×2 (17:18→22:56)
[2017-05-17] MEDS: THIAMINE HCL 100 MG TABLET (FP) PO SCH (22:55)
[2017-05-17] MEDS: MIRTAZAPINE 15 MG TABLET (FP) PO SCH (22:56)
[2017-05-18] MEDS ORDERED: METHADONE HCL 5 MG TABLET ONE (05:22)
[2017-05-18] MEDS ORDERED: METHADONE HCL 40 MG DISPERSABLE TABLET ONE (05:23)
[2017-05-18] MEDS ORDERED: METHADONE HCL 10 MG TABLET ONE (05:23)
[2017-05-18] MEDS: METHADONE 120 MG, METHADONE 20 MG, METHADONE 5 MG PO SCH (05:49)
[2017-05-18] MEDS: chlordiazePOXIDE 5 MG CAPSULE PO SCH ×2 (05:50→10:27)
[2017-05-18] MEDS: PRENATAL VITAMINS W/ FOLIC ACID TABLET (FP) PO SCH (10:27)
[2017-05-18] MEDS: NICOTINE 21 MG/24 HOURS TOPICAL PATCH TD SCH (10:27)
[2017-05-18] MEDS: DICLOFENAC SODIUM PO SCH ×2 (10:27→22:32)
--- NOTE | 2017-05-18 14:04 | PN ---
[facility] Progress Note (SOAP) Subjective: unable to sleep throughout the night anxiousness Objective: 05/18/17 14:04 Vital Signs Temperature 97 F L 05/18/17 10:25 Pulse Rate 74 05/18/17 10:25 Respiratory Rate 18 05/18/17 10:25 Blood Pressure 98/61 05/18/17 10:25 O2 Sat by Pulse Oximetry (%) Laboratory Last Values WBC 6.3 K/mm3 (4.0-10.0) D 05/16/17 06:00 RBC 4.76 M/mm3 (4.00-5.60) 05/16/17 06:00 Hgb 13.8 GM/dL (11.7-16.9) 05/16/17 06:00 Hct 40.9 % (35.4-49) 05/16/17 06:00 MCV 85.9 fl (80-96) 05/16/17 06:00 MCH 28.9 pg (25.7-33.7) 05/16/17 06:00 MCHC 33.7 g/dl (32.0-35.9) 05/16/17 06:00 RDW 15.6 % (11.9-15.9) 05/16/17 06:00 Plt Count 118 K/MM3 (134-434) L 05/16/17 06:00 MPV 7.8 fl (7.5-11.1) 05/16/17 06:00 Sodium 132 mmol/L (136-145) L 05/16/17 06:00 Potassium 4.3 mmol/L (3.5-5.1) 05/16/17 06:00 Chloride 98 mmol/L (98-107) 05/16/17 06:00 Carbon Dioxide 28 mmol/L (21-32) 05/16/17 06:00 Anion Gap 6 (8-16) L 05/16/17 06:00 BUN 5 mg/dL (7-18) L D 05/16/17 06:00 Creatinine 0.7 mg/dL (0.7-1.3) 05/16/17 06:00 Creat Clearance w eGFR > 60 (>60) 05/16/17 06:00 Random Glucose 91 mg/dL (74-106) 05/16/17 06:00 Calcium 8.2 mg/dL (8.5-10.1) L 05/16/17 06:00 Total Bilirubin 0.8 mg/dL (0.2-1.0) 05/16/17 06:00 AST 104 U/L (15-37) H D 05/16/17 06:00 ALT 75 U/L (12-78) D 05/16/17 06:00 Alkaline Phosphatase 178 U/L (45-117) H D 05/16/17 06:00 Total Protein 8.1 g/dl (6.4-8.2) 05/16/17 06:00 Albumin 3.7 g/dl (3.4-5.0) 05/16/17 06:00 Urine Color Straw 05/15/17 15:15 Urine Appearance Clear 05/15/17 15:15 Urine pH 6.0 (5.0-8.0) 05/15/17 15:15 Ur Specific Rebuck 1.002 (1.001-1.035) 05/15/17 15:15 Urine Protein Negative (NEGATIVE) 05/15/17 15:15 Urine Glucose (UA) Negative (NEGATIVE) 05/15/17 15:15 Urine Ketones Negative (NEGATIVE) 05/15/17 15:15 Urine Blood 2+ (NEGATIVE) H 05/15/17 15:15 Urine Nitrite Negative (NEGATIVE) 05/15/17 15:15 Urine Bilirubin Negative (NEGATIVE) 05/15/17 15:15 Urine Urobilinogen Negative mg/dL (0.2-1.0) 05/15/17 15:15 Ur Leukocyte Esterase Negative (NEGATIVE) 05/15/17 15:15 Urine WBC (Auto) <1 /hpf (3-5) 05/15/17 15:15 Urine RBC (Auto) None /hpf (0-3) 05/15/17 15:15 Ur Epithelial Cells Rare /HPF (FEW) 05/15/17 15:15 RPR Titer Nonreactive (NONREACTIVE) 05/16/17 06:00 lab noted Assessment: 05/18/17 14:04 withdrawal sx Plan: continue detox
[2017-05-18] MEDS: chlordiazePOXIDE HCL 10 MG CAPSULE PO SCH ×2 (17:45→22:32)
[2017-05-18] MEDS: THIAMINE HCL 100 MG TABLET (FP) PO SCH (22:32)
[2017-05-18] MEDS: MIRTAZAPINE 15 MG TABLET (FP) PO SCH (22:32)
[2017-05-19] MEDS ORDERED: METHADONE HCL 5 MG TABLET ONE (04:34)
[2017-05-19] MEDS ORDERED: METHADONE HCL 10 MG TABLET ONE (04:35)
[2017-05-19] MEDS ORDERED: METHADONE HCL 40 MG DISPERSABLE TABLET ONE (04:35)
[2017-05-19] MEDS: chlordiazePOXIDE HCL 10 MG CAPSULE PO SCH (05:29)
[2017-05-19] MEDS: METHADONE 120 MG, METHADONE 20 MG, METHADONE 5 MG PO SCH (05:29)
--- NOTE | 2017-05-19 08:38 | DS ---
[facility] Detox Discharge Summary Admission Date: 05/15/17 Discharge Date: 05/19/17 - History Present History: Alcohol Dependence, Cocaine Dependence, Opioid Dependence, MMTP - Physical Exam Results Vital Signs: Vital Signs Temperature 97.5 F L 05/19/17 06:13 Pulse Rate 58 L 05/19/17 06:13 Respiratory Rate 16 05/19/17 06:13 Blood Pressure 138/85 05/19/17 06:13 O2 Sat by Pulse Oximetry (%) - Treatment Hospital Course: Detox Protocol Followed, Detoxed Safely, Responded well, Discharged Condition Good, Rehab Referral Accepted - Medication Discharge Medications: Ambulatory Orders Diclofenac Sodium [Voltaren -] 75 mg PO BID 05/15/17 - Diagnosis (1) Alcohol dependence with uncomplicated withdrawal Current Visit: Yes Status: Chronic (2) Nicotine dependence Current Visit: Yes Status: Chronic Qualifiers: Nicotine product type: cigarettes Substance use status: uncomplicated Qualified Code(s): F17.210 - Nicotine dependence, cigarettes, uncomplicated (3) GERD (gastroesophageal reflux disease) Current Visit: Yes Status: Chronic Qualifiers: Esophagitis presence: without esophagitis (4) Hepatitis C carrier Current Visit: Yes Status: Chronic (5) Methadone maintenance therapy patient Current Visit: Yes Status: Chronic - AMA Did Patient Leave Against Medical Advice: No
[2017-05-19 09:59] VITALS: BP 114/78; PULSE 97; TEMP 96.6
== END 2017-05-19 09:18 | disposition home or self-care (01) | DRG 773 ==
LOC: YASAS 11:21 → Y6N 13:37
PROVIDERS: ADMIT Internal Medicine; ATTEND Internal Medicine
PROC: HZ2ZZZZ Detoxification Services for Substance Abuse Treatment (ICD-10-PCS; principal; 2017-05-15)
DX: F11.20 Opioid dependence, uncomplicated (principal); F10.230 Alcohol dependence with withdrawal, uncomplicated; F14.20 Cocaine dependence, uncomplicated; F17.210 Nicotine dependence, cigarettes, uncomplicated; F33.9 Major depressive disorder, recurrent, unspecified; B18.2 Chronic viral hepatitis C; K21.9 Gastro-esophageal reflux disease without esophagitis
CPT/HCPCS: 36415; 80053; 81003; 81015; 85027; 86593; 93005; 93010

== ENCOUNTER 2018-12-02 11:38 | Inpatient (IN) | payer OTHER ==
[2018-12-02 13:41] VITALS: BMI 24.7
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
[2018-12-02] MEDS ORDERED: chlordiazePOXIDE HCL 25 MG CAPSULE PO PRN (16:25)
[2018-12-02] MEDS ORDERED: MAG HYDROX/AL HYDROX/SIMETH 30 ML UNIT-DOSE CUP PO PRN (16:25)
[2018-12-02] MEDS ORDERED: ACETAMINOPHEN 325 MG TABLET (FP) PO PRN ×2 (16:25)
[2018-12-02] MEDS ORDERED: hydrOXYzine PAMOATE 25 MG CAPSULE (FP) PO PRN (16:25)
[2018-12-02] MEDS ORDERED: MENTHOL/PHENOL 1 EACH UD MM PRN (16:25)
[2018-12-02] MEDS ORDERED: METHOCARBAMOL 500 MG TABLET PO PRN (16:25)
[2018-12-02] MEDS ORDERED: NICOTINE POLACRILEX 4 MG GUM BUC PRN (16:25)
[2018-12-02] MEDS ORDERED: MAGNESIUM HYDROX 2400MG/30ML ORAL SUSPENSION 30 ML CUP PO PRN (16:25)
[2018-12-02] MEDS ORDERED: ONDANSETRON *ODT* 4 MG TABLET SL PRN (16:25)
[2018-12-02] MEDS ORDERED: P-EPHED 60MG/TRIPROLIDI 2.5MG TABLET PO PRN (16:25)
[2018-12-02] MEDS ORDERED: BISMUTH SUBSALICYLATE 524 MG/30 ML UD PO PRN (16:25)
[2018-12-02] MEDS ORDERED: MAGNESIUM CITRATE 300 ML BOTTLE PO PRN (16:25)
[2018-12-02] MEDS ORDERED: chlordiazePOXIDE HCL 25 MG CAPSULE PO ONE (17:00)
[2018-12-02] MEDS ORDERED: TUBERCULIN PPD 5 TU/0.1ML VIAL ID ONE (17:22)
[2018-12-02] MEDS: FLUOCINONIDE 0.05% CREAM (60 GM TUBE) TP SCH ×2 (18:40→22:01)
[2018-12-02] MEDS: THIAMINE HCL 100 MG TABLET (FP) PO SCH (22:00)
[2018-12-02] MEDS: chlordiazePOXIDE HCL 25 MG CAPSULE PO SCH (22:00)
[2018-12-03] MEDS ORDERED: METHADONE HCL 40 MG DISPERSABLE TABLET ONE (04:46)
[2018-12-03] MEDS ORDERED: METHADONE HCL 10 MG TABLET ONE (04:46)
[2018-12-03] MEDS ORDERED: METHADONE HCL 5 MG TABLET ONE (04:46)
[2018-12-03] MEDS: chlordiazePOXIDE HCL 25 MG CAPSULE PO SCH ×4 (05:18→22:05)
[2018-12-03] MEDS: IBUPROFEN 400 MG TABLET (FP) PO PRN (05:18)
[2018-12-03] MEDS: METHADONE 120 MG, METHADONE 20 MG, METHADONE 5 MG PO SCH (05:18)
[2018-12-03] MEDS ORDERED: METHADONE HCL 40 MG DISPERSABLE TABLET PO SCH (06:00)
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
[2018-12-03] MEDS: NICOTINE 21 MG/24 HOURS TOPICAL PATCH TD SCH (10:17)
[2018-12-03] MEDS: FLUOCINONIDE 0.05% CREAM (60 GM TUBE) TP SCH ×4 (10:18→22:05)
[2018-12-03] MEDS: PRENATAL VITAMINS W/ FOLIC ACID TABLET (FP) PO SCH (10:18)
[2018-12-03 11:03] LABS: HEMATOCRIT 41.7 % (35.4-49); HEMOGLOBIN 13.9 GM/dL (11.7-16.9); MCH 29.4 pg (25.7-33.7); MCHC 33.3 g/dl (32.0-35.9); MEAN CELL VOLUME 88.2 fl (80-96); MEAN PLT VOLUME 7.6 fl (7.5-11.1); PLATELET COUNT 125 K/MM3 (134-434); RBC 4.73 M/mm3 (4.00-5.60); RDW 14.3 % (11.9-15.9); WHITE BLOOD COUNT 3.5 K/mm3 (4.0-10.0)
[2018-12-03 11:06] LABS: ALBUMIN 3.7 g/dl (3.4-5.0); BILIRUBIN,TOTAL 1.6 mg/dL (0.2-1); BLOOD UREA NITROGEN 6.7 mg/dL (7-18); CALCIUM 9.5 mg/dL (8.5-10.1); CREATININE 0.7 mg/dL (0.55-1.3); POTASSIUM 3.9 mmol/L (3.5-5.1); TOT PROT 8.4 g/dl (6.4-8.2)
--- NOTE | 2018-12-03 13:34 | PN ---
S CIWA - CIWA Score Nausea/Vomitin Muscle Tremors: 2 Anxiety: 2 Agitation: 2 Paroxysmal Sweats: 1-Minimal Palms Moist Orientation: 0-Oriented Tacttile Disturbances: 1-Very Mild Itch/Numbness Auditory Disturbances: 1-Very Mild Visual Disturbances: 0-None Headache: 2-Mild CIWA-Ar Total Score: 13 S Progress Note (SOAP) Subjective: alert,irritable,anxious,interrupted sleep,tremor,painin the body Objective: 12/03/18 13:32 Vital Signs Temperature 97.0 F L 12/03/18 13:08 Pulse Rate 70 12/03/18 13:08 Respiratory Rate 18 12/03/18 13:08 Blood Pressure 108/68 12/03/18 13:08 O2 Sat by Pulse Oximetry (%) Laboratory Last Values WBC 3.5 K/mm3 (4.0-10.0) L 12/03/18 07:30 RBC 4.73 M/mm3 (4.00-5.60) 12/03/18 07:30 Hgb 13.9 GM/dL (11.7-16.9) 12/03/18 07:30 Hct 41.7 % (35.4-49) 12/03/18 07:30 MCV 88.2 fl (80-96) 12/03/18 07:30 MCH 29.4 pg (25.7-33.7) 12/03/18 07:30 MCHC 33.3 g/dl (32.0-35.9) 12/03/18 07:30 RDW 14.3 % (11.9-15.9) 12/03/18 07:30 Plt Count 125 K/MM3 (134-434) L 12/03/18 07:30 MPV 7.6 fl (7.5-11.1) 12/03/18 07:30 Sodium 133 mmol/L (136-145) L 12/03/18 07:30 Potassium 3.9 mmol/L (3.5-5.1) 12/03/18 07:30 Chloride 96 mmol/L (98-107) L 12/03/18 07:30 Carbon Dioxide 33 mmol/L (21-32) H 12/03/18 07:30 Anion Gap 5 MMOL/L (8-16) L 12/03/18 07:30 BUN 6.7 mg/dL (7-18) L 12/03/18 07:30 Creatinine 0.7 mg/dL (0.55-1.3) 12/03/18 07:30 Est GFR (CKD-EPI)AfAm 125.75 12/03/18 07:30 Est GFR (CKD-EPI)NonAf 108.50 12/03/18 07:30 Random Glucose 87 mg/dL (74-106) 12/03/18 07:30 Calcium 9.5 mg/dL (8.5-10.1) 12/03/18 07:30 Total Bilirubin 1.6 mg/dL (0.2-1) H 12/03/18 07:30 AST 75 U/L (15-37) H 12/03/18 07:30 ALT 33 U/L (13-61) 12/03/18 07:30 Alkaline Phosphatase 156 U/L (45-117) H 12/03/18 07:30 Total Protein 8.4 g/dl (6.4-8.2) H 12/03/18 07:30 Albumin 3.7 g/dl (3.4-5.0) 12/03/18 07:30 RPR Titer Nonreactive (NONREACTIVE) 12/03/18 07:30 Assessment: 12/03/18 13:33 withdrawal symptom Plan: continue detox
--- NOTE | 2018-12-03 13:41 | EKG ---
Test Reason : Blood Pressure : / mmHG Vent. Rate : 057 BPM Atrial Rate : 057 BPM P-R Int : 136 ms QRS Dur : 094 ms QT Int : 506 ms P-R-T Axes : 003 034 054 degrees QTc Int : 492 ms SINUS BRADYCARDIA PROLONGED QT ABNORMAL ECG WHEN COMPARED WITH ECG OF 15-MAY-2017 15:03, NO SIGNIFICANT CHANGE WAS FOUND Confirmed by NADIR CANAS MD ([id number]) on 12/03/2018 1:41:21 PM Referred By: Confirmed By:NADIR CANAS MD
[2018-12-03] MEDS: MIRTAZAPINE 15 MG TABLET (FP) PO SCH (22:05)
[2018-12-03] MEDS: THIAMINE HCL 100 MG TABLET (FP) PO SCH (22:05)
[2018-12-03] MEDS: MELATONIN 5 MG TABLETS PO PRN (22:06)
[2018-12-04] MEDS ORDERED: METHADONE HCL 10 MG TABLET ONE (04:40)
[2018-12-04] MEDS ORDERED: METHADONE HCL 40 MG DISPERSABLE TABLET ONE (04:41)
[2018-12-04] MEDS ORDERED: METHADONE HCL 5 MG TABLET ONE (04:41)
[2018-12-04] MEDS: METHADONE 120 MG, METHADONE 20 MG, METHADONE 5 MG PO SCH (05:53)
[2018-12-04] MEDS: chlordiazePOXIDE HCL 25 MG CAPSULE PO SCH ×3 (05:54→17:14)
[2018-12-04] MEDS: IBUPROFEN 400 MG TABLET (FP) PO PRN (07:15)
[2018-12-04] MEDS: PRENATAL VITAMINS W/ FOLIC ACID TABLET (FP) PO SCH (10:14)
[2018-12-04] MEDS: FLUOCINONIDE 0.05% CREAM (60 GM TUBE) TP SCH ×4 (10:14→22:12)
[2018-12-04] MEDS: NICOTINE 21 MG/24 HOURS TOPICAL PATCH TD SCH (10:14)
--- NOTE | 2018-12-04 13:17 | PN ---
S CIWA - CIWA Score Nausea/Vomitin Muscle Tremors: 2 Anxiety: 2 Agitation: 2 Paroxysmal Sweats: No Perspiration Orientation: 0-Oriented Tacttile Disturbances: 1-Very Mild Itch/Numbness Auditory Disturbances: 1-Very Mild Visual Disturbances: 0-None Headache: 2-Mild CIWA-Ar Total Score: 12 S Progress Note (SOAP) Subjective: alert,irritable,anxious,interrupted sleep,tremor Objective: 12/04/18 13:17 Vital Signs Temperature 98.3 F 12/04/18 09:34 Pulse Rate 76 12/04/18 09:34 Respiratory Rate 18 12/04/18 09:34 Blood Pressure 102/65 12/04/18 09:34 O2 Sat by Pulse Oximetry (%) 12/04/18 13:18 Laboratory Last Values WBC 3.5 K/mm3 (4.0-10.0) L 12/03/18 07:30 RBC 4.73 M/mm3 (4.00-5.60) 12/03/18 07:30 Hgb 13.9 GM/dL (11.7-16.9) 12/03/18 07:30 Hct 41.7 % (35.4-49) 12/03/18 07:30 MCV 88.2 fl (80-96) 12/03/18 07:30 MCH 29.4 pg (25.7-33.7) 12/03/18 07:30 MCHC 33.3 g/dl (32.0-35.9) 12/03/18 07:30 RDW 14.3 % (11.9-15.9) 12/03/18 07:30 Plt Count 125 K/MM3 (134-434) L 12/03/18 07:30 MPV 7.6 fl (7.5-11.1) 12/03/18 07:30 Sodium 133 mmol/L (136-145) L 12/03/18 07:30 Potassium 3.9 mmol/L (3.5-5.1) 12/03/18 07:30 Chloride 96 mmol/L (98-107) L 12/03/18 07:30 Carbon Dioxide 33 mmol/L (21-32) H 12/03/18 07:30 Anion Gap 5 MMOL/L (8-16) L 12/03/18 07:30 BUN 6.7 mg/dL (7-18) L 12/03/18 07:30 Creatinine 0.7 mg/dL (0.55-1.3) 12/03/18 07:30 Est GFR (CKD-EPI)AfAm 125.75 12/03/18 07:30 Est GFR (CKD-EPI)NonAf 108.50 12/03/18 07:30 Random Glucose 87 mg/dL (74-106) 12/03/18 07:30 Calcium 9.5 mg/dL (8.5-10.1) 12/03/18 07:30 Total Bilirubin 1.6 mg/dL (0.2-1) H 12/03/18 07:30 AST 75 U/L (15-37) H 12/03/18 07:30 ALT 33 U/L (13-61) 12/03/18 07:30 Alkaline Phosphatase 156 U/L (45-117) H 12/03/18 07:30 Total Protein 8.4 g/dl (6.4-8.2) H 12/03/18 07:30 Albumin 3.7 g/dl (3.4-5.0) 12/03/18 07:30 RPR Titer Nonreactive (NONREACTIVE) 12/03/18 07:30 Assessment: 12/04/18 13:17 withdrawal symptom Plan: continue detox
[2018-12-04] MEDS: MIRTAZAPINE 15 MG TABLET (FP) PO SCH (22:11)
[2018-12-04] MEDS: THIAMINE HCL 100 MG TABLET (FP) PO SCH (22:11)
[2018-12-04] MEDS: chlordiazePOXIDE HCL 10 MG CAPSULE PO SCH (22:11)
[2018-12-04] MEDS: MELATONIN 5 MG TABLETS PO PRN (22:12)
[2018-12-05] MEDS ORDERED: METHADONE HCL 10 MG TABLET ONE (04:10)
[2018-12-05] MEDS ORDERED: METHADONE HCL 40 MG DISPERSABLE TABLET ONE (04:10)
[2018-12-05] MEDS ORDERED: METHADONE HCL 5 MG TABLET ONE (04:10)
[2018-12-05] MEDS: METHADONE 120 MG, METHADONE 20 MG, METHADONE 5 MG PO SCH (05:50)
[2018-12-05] MEDS: IBUPROFEN 400 MG TABLET (FP) PO PRN (05:50)
[2018-12-05] MEDS: chlordiazePOXIDE HCL 10 MG CAPSULE PO SCH ×3 (05:50→17:56)
[2018-12-05] MEDS: PRENATAL VITAMINS W/ FOLIC ACID TABLET (FP) PO SCH (10:42)
[2018-12-05] MEDS: FLUOCINONIDE 0.05% CREAM (60 GM TUBE) TP SCH ×4 (10:42→22:48)
[2018-12-05] MEDS: NICOTINE 21 MG/24 HOURS TOPICAL PATCH TD SCH (10:43)
--- NOTE | 2018-12-05 14:17 | PN ---
[facility] CIWA - CIWA Score Nausea/Vomitin-No Nausea/No Vomiting Muscle Tremors: None Anxiety: 0-No Anxiety, at Ease Agitation: 1-Slight > Activity Paroxysmal Sweats: No Perspiration Orientation: 0-Oriented Tacttile Disturbances: 0-None Auditory Disturbances: 0-None Visual Disturbances: 0-None Headache: 0-None Present CIWA-Ar Total Score: 1 BHS Progress Note (SOAP) Subjective: Patient denies current Withdrawal / Detox symptoms and reports that he feels well overall at this time. Objective: PATIENT A & O X 3, OBSERVED AMBULATING ON UNIT UNASSISTED. IN NO ACUTE DISTRESS. 12/05/18 14:12 Vital Signs Temperature 96.4 F L 12/05/18 13:39 Pulse Rate 81 12/05/18 13:39 Respiratory Rate 18 12/05/18 13:39 Blood Pressure 92/63 12/05/18 13:39 O2 Sat by Pulse Oximetry (%) Laboratory Tests 12/03/18 12/03/18 12/03/18 07:30 07:30 07:30 WBC 3.5 L RBC 4.73 Hgb 13.9 Hct 41.7 MCV 88.2 MCH 29.4 MCHC 33.3 RDW 14.3 Plt Count 125 L MPV 7.6 Sodium 133 L Potassium 3.9 Chloride 96 L Carbon Dioxide 33 H Anion Gap 5 L BUN 6.7 L Creatinine 0.7 Est GFR (CKD-EPI)AfAm 125.75 Est GFR (CKD-EPI)NonAf 108.50 Random Glucose 87 Calcium 9.5 Total Bilirubin 1.6 H AST 75 H ALT 33 Alkaline Phosphatase 156 H Total Protein 8.4 H Albumin 3.7 RPR Titer Nonreactive LABS NOTED. PATIENT HAS HAD LOW WBC AND PLATELET LEVELS AND ELEVATED TOTAL BILIRUBIN AND LIVER ENZYMES LEVELS ON PREVIOUS ADMISSIONS. 12/05/18 14:14 Assessment: 12/05/18 14:16 WITHDRAWAL SYMPTOMS. LEUKOPENIA. ELVATED AST LEVEL ELEVATED ALKALINE PHOSPHATASE LEVEL. HYPERBILIRUBINEMIA. Plan: CONTINUE DETOX. PATIENT REPORTS PRODUCTIVE COUGH (YELLOW-COLORED PHLEGM) X APPROX. 2 WEEKS. PATIENT ALSO REPORTS NASAL CONGESTION. LUNG SOUNDS AUSCULTATED CLEAR AND EQUAL BILATERALLY. Z-PACK NOT ADVISED AT THIS TIME DUE TO HISTORY OF M.M.T.P. WILL ORDERED AUGMENTIN X 7 DAYS.
[2018-12-05] MEDS: AMOX TR/POT CLAV 875MG/125MG TABLETS (FP) PO SCH (17:56)
[2018-12-05] MEDS: MIRTAZAPINE 15 MG TABLET (FP) PO SCH (22:48)
[2018-12-05] MEDS: THIAMINE HCL 100 MG TABLET (FP) PO SCH (22:49)
[2018-12-05] MEDS: MELATONIN 5 MG TABLETS PO PRN (22:49)
[2018-12-05] MEDS ORDERED: chlordiazePOXIDE HCL 10 MG CAPSULE PO SCH (23:00)
[2018-12-06] MEDS ORDERED: METHADONE HCL 5 MG TABLET ONE (04:20)
[2018-12-06] MEDS ORDERED: METHADONE HCL 10 MG TABLET ONE (04:20)
[2018-12-06] MEDS ORDERED: METHADONE HCL 40 MG DISPERSABLE TABLET ONE (04:20)
[2018-12-06] MEDS: METHADONE 120 MG, METHADONE 20 MG, METHADONE 5 MG PO SCH (05:57)
[2018-12-06 06:22] VITALS: BP 108/66; PULSE 90; TEMP 97.6
[2018-12-06] MEDS: AMOX TR/POT CLAV 875MG/125MG TABLETS (FP) PO SCH (08:16)
--- NOTE | 2018-12-06 12:37 | DS ---
[facility] Detox Discharge Summary Admission Date: 12/02/18 Discharge Date: 12/06/18 - History Present History: Alcohol Dependence, Cocaine Dependence, MMTP Additional Comments: Pt discharged today. To follow up with MMTP for CD aftercare. Pt reports he has primary care with Dr. Doug Davis at [address] [place] [address]. Pertinent Past History: Please see Dx below - Physical Exam Results Vital Signs: Vital Signs Temperature 97.6 F 12/06/18 06:21 Pulse Rate 90 12/06/18 06:21 Respiratory Rate 18 12/06/18 06:21 Blood Pressure 108/66 12/06/18 06:21 O2 Sat by Pulse Oximetry (%) Pertinent Admission Physical Exam Findings: withdrawal sx Laboratory Tests 12/03/18 12/03/18 12/03/18 07:30 07:30 07:30 WBC 3.5 L RBC 4.73 Hgb 13.9 Hct 41.7 MCV 88.2 MCH 29.4 MCHC 33.3 RDW 14.3 Plt Count 125 L MPV 7.6 Sodium 133 L Potassium 3.9 Chloride 96 L Carbon Dioxide 33 H Anion Gap 5 L BUN 6.7 L Creatinine 0.7 Est GFR (CKD-EPI)AfAm 125.75 Est GFR (CKD-EPI)NonAf 108.50 Random Glucose 87 Calcium 9.5 Total Bilirubin 1.6 H AST 75 H ALT 33 Alkaline Phosphatase 156 H Total Protein 8.4 H Albumin 3.7 RPR Titer Nonreactive - Treatment Hospital Course: Detox Protocol Followed, Detoxed Safely, Responded well, Discharged Condition Good - Medication Discharge Medications: Ambulatory Orders Clonazepam [Klonopin] 1 mg PO 12/02/18 Remeron Soltab - 12/02/18 Amoxicillin/Potassium Clav [Augmentin 875-125 Tablet] 1 each PO BID 7 Days #14 tablet 12/05/18 - Diagnosis (1) Alcohol dependence with uncomplicated withdrawal Status: Acute (2) Cocaine dependence Status: Acute Qualifiers: Substance use status: uncomplicated Qualified Code(s): F14.20 - Cocaine dependence, uncomplicated (3) GERD (gastroesophageal reflux disease) Status: Chronic Qualifiers: Esophagitis presence: without esophagitis (4) Hepatitis C carrier Status: Chronic (5) Methadone maintenance therapy patient Status: Chronic (6) Nicotine dependence Status: Acute Qualifiers: Nicotine product type: cigarettes Substance use status: in withdrawal Qualified Code(s): F17.213 - Nicotine dependence, cigarettes, with withdrawal (7) Psoriasis Status: Chronic - AMA Did Patient Leave Against Medical Advice: No
== END 2018-12-06 08:50 | disposition home or self-care (01) | DRG 773 ==
LOC: YASAS 11:38 → Y3N 16:32
PROVIDERS: ADMIT Surgery; ATTEND Surgery
PROC: HZ2ZZZZ Detoxification Services for Substance Abuse Treatment (ICD-10-PCS; principal; 2018-12-02)
DX: F10.230 Alcohol dependence with withdrawal, uncomplicated (principal); F11.20 Opioid dependence, uncomplicated; F14.20 Cocaine dependence, uncomplicated; F17.213 Nicotine dependence, cigarettes, with withdrawal; F19.24 Other psychoactive substance dependence with psychoactive substance-induced mood disorder; F19.282 Other psychoactive substance dependence with psychoactive substance-induced sleep disorder; F32.9 Major depressive disorder, single episode, unspecified; K21.9 Gastro-esophageal reflux disease without esophagitis; B18.2 Chronic viral hepatitis C; L40.9 Psoriasis, unspecified; D72.819 Decreased white blood cell count, unspecified; R74.0 Nonspecific elevation of levels of transaminase and lactic acid dehydrogenase [LDH]; R74.8 Abnormal levels of other serum enzymes; R63.4 Abnormal weight loss; Z86.69 Personal history of other diseases of the nervous system and sense organs
CPT/HCPCS: 36415; 80053; 85027; 86593; 93005; 93010; Q0162

== ENCOUNTER 2020-01-08 18:17 | Inpatient (IN) | payer OTHER ==
[2020-01-08 21:45] VITALS: BMI 18.5
[2020-01-08] MEDS ORDERED: chlordiazePOXIDE HCL 25 MG CAPSULE PO PRN (21:56)
[2020-01-08] MEDS ORDERED: MAGNESIUM HYDROX 2400MG/30ML ORAL SUSPENSION 30 ML CUP PO PRN (21:56)
[2020-01-08] MEDS ORDERED: NICOTINE POLACRILEX 2 MG GUM BUC PRN (21:56)
[2020-01-08] MEDS ORDERED: BISMUTH SUBSALICYLATE 524 MG/30 ML UD PO PRN (21:56)
[2020-01-08] MEDS ORDERED: hydrOXYzine PAMOATE 25 MG CAPSULE (FP) PO PRN (21:56)
[2020-01-08] MEDS ORDERED: IBUPROFEN 400 MG TABLET (FP) PO PRN (21:56)
[2020-01-08] MEDS ORDERED: MAGNESIUM CITRATE 300 ML BOTTLE PO PRN (21:56)
[2020-01-08] MEDS ORDERED: MAG HYDROX/AL HYDROX/SIMETH 30 ML UNIT-DOSE CUP PO PRN (21:56)
[2020-01-08] MEDS ORDERED: MENTHOL/PHENOL 1 EACH UD MM PRN (21:56)
[2020-01-08] MEDS ORDERED: ACETAMINOPHEN 325 MG TABLET (FP) PO PRN ×2 (21:56)
[2020-01-08] MEDS ORDERED: METHOCARBAMOL 500 MG TABLET PO PRN (21:56)
[2020-01-08] MEDS ORDERED: THIAMINE HCL 100 MG TABLET (FP) PO SCH (22:00)
[2020-01-08] MEDS ORDERED: MELATONIN 5 MG TABLETS PO SCH (22:00)
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
[2020-01-08] MEDS ORDERED: LORazepam 1 MG TABLET PO PRN ×3 (22:25→23:44)
[2020-01-08] MEDS ORDERED: LORazepam 2 MG/ML SDV VIAL IM ONE (22:37)
[2020-01-08] MEDS ORDERED: ONDANSETRON *ODT* 4 MG TABLET SL ONE (22:45)
[2020-01-08 22:56] VITALS: TEMP 97.3
[2020-01-08 22:57] VITALS: BP 150/96; PULSE 89
[2020-01-08] MEDS ORDERED: LORazepam 2 MG TABLET PO SCH (23:00)
[2020-01-08] MEDS ORDERED: chlordiazePOXIDE HCL 25 MG CAPSULE PO SCH (23:00)
--- NOTE | 2020-01-08 23:26 | PN ---
[facility] Progress Note Note: Patient was admitted to detox from alcohol. He was actively withdrawing, lethargic and dehydrated. He was sent to the floor at 10.17PM and had a a grand mal seizure for about 3 minutes at 10.40PM. Patient has a history of alcohol related seizures. Ativan 2mg intramuscular, oxygen at 3 liters per minute and 911 call initiated. Patient denies chest pain, shortness of breath, abdominal pain, headache, palpitations, dizziness, fever, chills, nausea, vomiting, diarrhea, constipation, dysuria, frequency and urgency. Patient is to be transferred to [facility] ER for further evaluation. Endorsed to Dr. Nunes Vital Signs Temperature 97.3 F L 01/08/20 22:17 Pulse Rate 89 01/08/20 22:55 Respiratory Rate 20 01/08/20 22:17 Blood Pressure 150/96 01/08/20 22:55 O2 Sat by Pulse Oximetry (%) 93 L 01/08/20 22:55 Action: Transfer patient to ER
[2020-01-09] MEDS: LORazepam 2 MG TABLET PO SCH ×4 (01:20→11:00)
[2020-01-09] MEDS ORDERED: LORazepam 1 MG TABLET PO SCH (05:00)
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
[2020-01-09] MEDS ORDERED: NICOTINE 14 MG/24 HOURS TOPICAL PATCH TD SCH (10:00)
[2020-01-09] MEDS ORDERED: PRENATAL VITAMINS W/ FOLIC ACID TABLET (FP) PO SCH (10:00)
[2020-01-10] MEDS ORDERED: LORazepam 0.5 MG TABLET PO PRN ×2
[2020-01-10] MEDS ORDERED: LORazepam 0.5 MG TABLET PO SCH (05:00)
[2020-01-10] MEDS ORDERED: LORazepam 1 MG TABLET PO SCH ×2 (05:00)
[2020-01-10] MEDS ORDERED: chlordiazePOXIDE HCL 25 MG CAPSULE PO SCH (05:00)
--- NOTE | 2020-01-10 10:27 | EKG ---
Test Reason : Blood Pressure : / mmHG Vent. Rate : 059 BPM Atrial Rate : 059 BPM P-R Int : 130 ms QRS Dur : 100 ms QT Int : 504 ms P-R-T Axes : 018 057 068 degrees QTc Int : 498 ms SINUS BRADYCARDIA PROLONGED QT ABNORMAL ECG WHEN COMPARED WITH ECG OF 09-JAN-2020 00:40, VENT. RATE HAS DECREASED BY 33 BPM Confirmed by Rodrick Childress ([id number]) on 01/10/2020 10:27:06 AM Referred By: Confirmed By:Rodrick Childress
[2020-01-11] MEDS ORDERED: LORazepam 0.5 MG TABLET PO PRN
[2020-01-11] MEDS ORDERED: chlordiazePOXIDE HCL 10 MG CAPSULE PO PRN
[2020-01-11] MEDS ORDERED: LORazepam 0.5 MG TABLET PO SCH ×2 (05:00)
[2020-01-11] MEDS ORDERED: chlordiazePOXIDE HCL 10 MG CAPSULE PO SCH (05:00)
[2020-01-11] MEDS ORDERED: LORazepam 0.5 MG TABLET PO ONE (05:00)
[2020-01-12] MEDS ORDERED: chlordiazePOXIDE HCL 10 MG CAPSULE PO SCH (05:00)
[2020-01-12] MEDS ORDERED: LORazepam 0.5 MG TABLET PO ONE ×2 (05:00)
[2020-01-13] MEDS ORDERED: chlordiazePOXIDE HCL 10 MG CAPSULE PO ONE (05:00)
== END 2020-01-09 14:47 | disposition short-term general hospital (02) | DRG 773 ==
LOC: YASAS 18:17 → Y6N 22:18
PROVIDERS: ADMIT Allergy & Immunology; ATTEND Allergy & Immunology
PROC: HZ2ZZZZ Detoxification Services for Substance Abuse Treatment (ICD-10-PCS; principal; 2020-01-08)
DX: F10.230 Alcohol dependence with withdrawal, uncomplicated (principal); F10.220 Alcohol dependence with intoxication, uncomplicated; F11.23 Opioid dependence with withdrawal; F17.210 Nicotine dependence, cigarettes, uncomplicated; F33.9 Major depressive disorder, recurrent, unspecified; K21.9 Gastro-esophageal reflux disease without esophagitis; G40.409 Other generalized epilepsy and epileptic syndromes, not intractable, without status epilepticus; R53.83 Other fatigue; E86.0 Dehydration; R00.0 Tachycardia, unspecified; L40.9 Psoriasis, unspecified
CPT/HCPCS: 82962; 93005; 93010; U0003

== ENCOUNTER 2020-01-08 23:24 | Inpatient (IN) | payer OTHER ==
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
[2020-01-09] MEDS ORDERED: LORazepam 2 MG/ML SDV VIAL ONE ×2 (00:12→01:00)
[2020-01-09 00:53] LABS: BASO % 0.4 % (0-2.0); HEMATOCRIT 34.6 % (35.4-49); HEMOGLOBIN 11.5 GM/dL (11.7-16.9); LYMPH % 6.8 % (8-40); MCH 29.1 pg (25.7-33.7); MCHC 33.2 g/dl (32.0-35.9); MEAN CELL VOLUME 87.6 fl (80-96); MEAN PLT VOLUME 7.7 fl (7.5-11.1); MONO % 4.5 % (3.8-10.2); NEUT % 88.3 % (42.8-82.8); PLATELET COUNT 56 K/MM3 (134-434); RBC 3.96 M/mm3 (4.00-5.60); RDW 15.5 % (11.9-15.9)
[2020-01-09 01:00] LABS: INR 0.99 (0.83-1.09); PROTHROMBIN TIME (PATIENT) 11.7 SEC (9.7-13.0)
[2020-01-09] MEDS ORDERED: FAMOTIDINE 20 MG/50 ML IVPB 20 MG/50 ML MG IVPB ONE ×2 (01:00→01:21)
[2020-01-09 01:02] LABS: ACTIVATED PTT 29.8 SECONDS (25.2-36.5)
[2020-01-09 01:14] LABS: ALBUMIN 3.3 g/dl (3.4-5.0); ALK PHOS 112 U/L (45-117); ANION GAP 14 MMOL/L (8-16); BILIRUBIN,TOTAL 1.1 mg/dL (0.2-1); BLOOD UREA NITROGEN 4.9 mg/dL (7-18); CHLORIDE 101 mmol/L (98-107); CO2 26 mmol/L (21-32); CREATININE 0.8 mg/dL (0.55-1.3); GLUCOSE,RANDOM 133 mg/dL (74-106); POTASSIUM 4.4 mmol/L (3.5-5.1); SGOT/AST 69 U/L (15-37); SGPT/ALT 24 U/L (13-61); SODIUM 140 mmol/L (136-145); TOT PROT 7.9 g/dl (6.4-8.2)
[2020-01-09 01:40] LABS: EPI CELLS >36 /uL (0-25.1); HYALINE CASTS 3 /uL (0-3.1); URINE APPEARANCE CLEAR; URINE BACTERIA 244 /uL (0-1359); URINE BILIRUBIN NEGATIVE (NEGATIVE); URINE COLOR YELLOW; URINE GLUCOSE (UA) NEGATIVE (NEGATIVE); URINE KETONE NEGATIVE (NEGATIVE); URINE LEUK ESTERASE NEGATIVE (NEGATIVE); URINE NITRITE NEGATIVE (NEGATIVE); URINE PROTEIN 3+ (NEGATIVE); URINE WBC 25 /uL (0-25.8)
[2020-01-09 01:54] LABS: COCAINE, UR NEGATIVE ng/ml (CUTOFF=300); PHENCYCLIDINE,URINE NEGATIVE ng/ml (CUTOFF=25); URINE AMPHETAMINES NEGATIVE ng/ml (CUTOFF=500); URINE BARBITURATES NEGATIVE ng/ml (CUTOFF=200)
--- NOTE | 2020-01-09 02:11 | CONSULT ---
Consultation: REQUESTING PROVIDER:ED CONSULT REQUEST: We have been asked to medically evaluate this patient for ICU HISTORY OF PRESENT ILLNESS: 54 yo M PMH of seizure disorder,GERD, arthritis, psoriasis, Hep. C. (treated), anxiety, and depression. polysubstance abuse( alcohol, heroin) presents to ED from [facility] for 3 minute tonic -clonic seizure . Seizure was ablated with ativan. pt was at [facility] for alcohol detox. pt states he drinks 3 -six packs of beer and malt liquor daily. his last drink was yesterday morning. pt states tht he has a history of seizures and used to be on medication for seizures. REVIEW OF SYSTEMS: CONSTITUTIONAL: Absent: fever, chills, diaphoresis, generalized weakness, malaise, loss of appetite, weight change HEENT: Absent: rhinorrhea, nasal congestion, throat pain, throat swelling, difficulty swallowing, mouth swelling, ear pain, eye pain, visual changes CARDIOVASCULAR: Absent: chest pain, syncope, palpitations, irregular heart rate, lightheadedness, peripheral edema RESPIRATORY: Absent: cough, shortness of breath, dyspnea with exertion, orthopnea, wheezing, stridor, hemoptysis GASTROINTESTINAL: Present: nausea Absent: abdominal pain, abdominal distension, nausea, vomiting, diarrhea, constipation, melena, hematochezia GENITOURINARY: Absent: dysuria, frequency, urgency, hesitancy, hematuria, flank pain, genital pain MUSCULOSKELETAL: Absent: myalgia, arthralgia, joint swelling, back pain, neck pain SKIN: Absent: rash, itching, pallor NEUROLOGIC: Absent: headache, focal weakness or paresthesias, dizziness, unsteady gait, seizure, mental status changes, bladder or bowel incontinence PSYCHIATRIC: Present: anxiety Absent:depression, suicidal or homicidal ideation, hallucinations. PHYSICAL EXAMINATION Vital Signs - 24 hr 01/08/20 23:39 Temperature 98.3 F Pulse Rate 102 H Respiratory 20 Rate Blood Pressure 144/93 O2 Sat by Pulse 95 Oximetry (%) GENERAL: Awake, alert, and fully oriented, in no acute distress. HEAD: Normal with no signs of trauma. EARS, NOSE, THROAT: dry mucous membranes. LUNGS: Breath sounds equal, clear to auscultation bilaterally. No accessory muscle use. HEART: Regular rate and rhythm, normal S1 and S2 without murmur, ABDOMEN: Soft, nontender, not distended, normoactive bowel sounds, no guarding, no rebound, MUSCULOSKELETAL: No CVA tenderness. UPPER EXTREMITIES: 2+ pulses, warm, well-perfused. No peripheral edema. LOWER EXTREMITIES: 2+ pulses, warm, well-perfused. No calf tenderness. No peripheral edema. NEUROLOGICAL: Cranial nerves II-XII intact. Normal speech CIWA 8 , tremulous, nausea, anxiety, agitation Laboratory Last Values WBC 7.0 K/mm3 (4.0-10.0) 01/09/20 00:31 RBC 3.96 M/mm3 (4.00-5.60) L 01/09/20 00:31 Hgb 11.5 GM/dL (11.7-16.9) L 01/09/20 00: Hct 34.6 % (35.4-49) L D 01/09/20 00: MCV 87.6 fl (80-96) 01/09/20 00: MCH 29.1 pg (25.7-33.7) 01/09/20 00: MCHC 33.2 g/dl (32.0-35.9) 01/09/20 00: RDW 15.5 % (11.9-15.9) 01/09/20 00: Plt Count 56 K/MM3 (134-434) L D 01/09/20 00: MPV 7.7 fl (7.5-11.1) 01/09/20 00: Absolute Neuts (auto) 6.1 K/mm3 (1.5-8.0) 01/09/20 00: Neutrophils % 88.3 % (42.8-82.8) H D 01/09/20 00: Lymphocytes % 6.8 % (8-40) L D 01/09/20 00: Monocytes % 4.5 % (3.8-10.2) 01/09/20 00: Eosinophils % 0.0 % (0-4.5) D 01/09/20 00: Basophils % 0.4 % (0-2.0) 01/09/20 00: Nucleated RBC % 0 % (0-0) 01/09/20 00: PT with INR 11.70 SEC (9.7-13.0) 01/09/20 00:31 INR 0.99 (0.83-1.09) 01/09/20 00:31 PTT (Actin FS) 29.8 SECONDS (25.2-36.5) 01/09/20 00:31 Sodium 140 mmol/L (136-145) 01/09/20 00:31 Potassium 4.4 mmol/L (3.5-5.1) 01/09/20 00:31 Chloride 101 mmol/L (98-107) 01/09/20 00:31 Carbon Dioxide 26 mmol/L (21-32) 01/09/20 00:31 Anion Gap 14 MMOL/L (8-16) 01/09/20 00:31 BUN 4.9 mg/dL (7-18) L 01/09/20 00:31 Creatinine 0.8 mg/dL (0.55-1.3) 01/09/20 00:31 Est GFR (CKD-EPI)AfAm 118.20 08 00:31 Est GFR (CKD-EPI)NonAf 101.99 01/09/20 00:31 Random Glucose 133 mg/dL (74-106) H 01/09/20 00:31 Calcium 9.0 mg/dL (8.5-10.1) 01/09/20 00:31 Total Bilirubin 1.1 mg/dL (0.2-1) H 01/09/20 00:31 AST 69 U/L (15-37) H 01/09/20 00:31 ALT 24 U/L (13-61) 01/09/20 00:31 Alkaline Phosphatase 112 U/L (45-117) 01/09/20 00:31 Creatine Kinase 389 U/L (26-308) H 01/09/20 00:31 Creatine Kinase Index 3.4 % (0.0-5.0) 01/09/20 00:31 CK-MB (CK-2) 13.3 ng/mL (0.5-3.6) H 01/09/20 00:31 Troponin I < 0.02 ng/ml (0.00-0.05) 01/09/20 00:31 Total Protein 7.9 g/dl (6.4-8.2) 01/09/20 00:31 Albumin 3.3 g/dl (3.4-5.0) L 01/09/20 00:31 Urine Color Yellow 01/09/20 00:12 Urine Appearance Clear 01/09/20 00:12 Urine pH 7.0 (5.0-8.0) 01/09/20 00:12 Ur Specific [place] 1.015 (1.010-1.035) 01/09/20 00:12 Urine Protein 3+ (NEGATIVE) H 01/09/20 00:12 Urine Glucose (UA) Negative (NEGATIVE) 01/09/20 00:12 Urine Ketones Negative (NEGATIVE) 01/09/20 00:12 Urine Blood 2+ (NEGATIVE) H 01/09/20 00:12 Urine Nitrite Negative (NEGATIVE) 01/09/20 00:12 Urine Bilirubin Negative (NEGATIVE) 01/09/20 00:12 Urine Urobilinogen 1.0 mg/dL (0.2-1.0) 01/09/20 00:12 Ur Leukocyte Esterase Negative (NEGATIVE) 01/09/20 00:12 Urine WBC (Auto) 25 /uL (0-25.8) 01/09/20 00:12 Urine Casts (Auto) 3 /uL (0-3.1) 01/09/20 00:12 U Epithel Cells (Auto) >36 /uL (0-25.1) 01/09/20 00:12 Urine Bacteria (Auto) 244 /uL (0-1359) 01/09/20 00:12 Barbiturate Screen Negative ng/ml (AJYPGV=847) 01/09/20 00:12 Phencyclidine Screen Negative ng/ml (CUTOFF=25) 01/09/20 00:12 Ur Amphetamines Screen Negative ng/ml (ADMLDZ=778) 01/09/20 00:12 MDMA (Ecstasy) Screen Negative ng/ml (WXUWJB=900) 01/09/20 00:12 Cocaine Screen Negative ng/ml (RVDFFP=908) 01/09/20 00:12 U Marijuana (THC) Screen Negative ng/ml (CUTOFF=50) 01/09/20 00:12 ASSESSMENT/PLAN: 54 yo M PMH of seizure disorder, alcohol abuse presents to ED from [facility] for 3 minute tonic -clonic seizure . ICU is consulted for alcohol withdrawal seizure 2/2 Alcohol withdrawal vs SDH? vs other neuro cause on my exam pt is in no acute distress, communicating and participating in exam , CIWA 8. pt received Ativan 2mg x 2 doses while in ED . would recommend CT head . last CT head was in 2012. especially considering thrombocytopenia would recommend alcohol level would recommend Neuro consult would recommend keppra load please check electrolytes would give thiamine, folate , IVF , Multivitamins continue to monitor CIWA closely and place on Ativan protocol seizure precaution, aspiration precaution would need medical reconciliation at this time, pt has no indication for ICU level care, please re-consult if necessary Dispo: Please feel free to re-consult if necessary. Thank you for this consultative opportunity. ATTENDING PHYSICIAN STATEMENT I saw and evaluated the patient. I reviewed the resident's note and discussed the case with the resident. I agree with the resident's findings and plan as documented. SUBJECTIVE: OBJECTIVE: ASSESSMENT AND PLAN:
--- NOTE | 2020-01-09 02:35 | PN ---
Teaching Attending Note Name of Resident: Anurag Hunt ATTENDING PHYSICIAN STATEMENT I saw and evaluated the patient. I reviewed the resident's note and discussed the case with the resident. I agree with the resident's findings and plan as documented. SUBJECTIVE: Patient is a 54 year old undomiciled man with a PMH of Seizure disorder (used to be on anticonvulsant medication), Low back pain, Tobacco use, GERD, Arthritis, Psoriasis, Hepatitis C disease, Anxiety, Depression and Polysubstance abuse (alcohol, heroin - on methadone) who presents to ER from [facility] after a 3 minute tonic -clonic seizure. Seizure was treated with Ativan. Patient reports he drinks 3 -six packs of beer and malt liquor daily. His last drink was yesterday morning. Patient denies chest pain, shortness of breath, abdominal pain, headache, palpitations, dizziness, fever, chills, nausea, vomiting, diarrhea, constipation, dysuria, frequency, urgency, melena, hematochezia or hematuria. No sick contacts or recent travels. Family history is unremarkable. OBJECTIVE: Somnolent but arousable Vital Signs Period Temp Pulse Resp BP Sys/Buenrostro Pulse Ox Last 24 Hr 98.3 F 102 20 144/93 95 HEENT: No Jaundice, eye redness or discharge, PERRLA, EOMI. Normocephalic, atraumatic. External ears are normal and hearing is grossly intact. No nasal dis charge. Neck: Supple, nontender. No palpable adenopathy or thyromegaly. No JVD Chest: Good effort. Clear to auscultation and percussion. Heart: Regular. No S3, rub or murmur Abdomen: Not distended, soft, nontender and no HSM. No rebound or guarding. Normal bowel sounds. Ext: Peripheral pulses intact. No leg edema. Skin: Warm and dry. No petechiae, rash or ecchymosis. Neuro: Somnolent but arousable. No asterexis or tremors. Oriented x3. CN 2-12 grossly intact. Sensation grossly intact in all four extremities and DTR are symmetric. Psych: Appropriate mood and affect. Good insight. Home Medications Medication Instructions Recorded Mirtazapine [Remeron -] 45 mg PO HS 01/08/20 Abnormal Lab Results 01/09/20 01/09/20 01/09/20 00:12 00:12 00:31 RBC 3.96 L Hgb 11.5 L Hct 34.6 L D Plt Count 56 L D Neutrophils % 88.3 H D Lymphocytes % 6.8 L D BUN Random Glucose Total Bilirubin AST Creatine Kinase CK-MB (CK-2) Albumin Urine Protein 3+ H Urine Blood 2+ H Opiates Screen Positive A* Methadone Screen Positive A* Benzodiazepines Screen Positive A* 01/09/20 00:31 RBC Hgb Hct Plt Count Neutrophils % Lymphocytes % BUN 4.9 L Random Glucose 133 H Total Bilirubin 1.1 H AST 69 H Creatine Kinase 389 H CK-MB (CK-2) 13.3 H Albumin 3.3 L Urine Protein Urine Blood Opiates Screen Methadone Screen Benzodiazepines Screen ASSESSMENT AND PLAN: 1. Seizure/Alcohol withdrawal - Unclear if he had epilepsy or whether his seizure history was all due to alcohol withdrawal. Will load him with Keppra 1 gm IV pending verification form his PCP. No evidence of acute intracranial pathology on noncontrast head CT scan. Consult Neurology. Will implement [facility] alcohol withdrawal protocol and do neurochecks. Implement seizure, fall and aspiration precautions. Treat with IV Banana bag, thiamine and folic acid. Monitor and replete electrolytes (Ca,Mg,K,P). Counseled patient about abstaining from alcohol. Will consult data capture specialist and refer to alcohol detox upon discharge. Severe thrombocytopenia likely related to alcoholism. Platelet count was 125K in November 2018. Will get upper abdominal sonogram, avoid Heparin and consult Hematology. Rhabdomyolysis and "myoglobinuria" likely due to seizure - will monitor CPK, calcium and phosphate as he is hydrated. Viral testing for COVID-19 ordered and patient placed on airborne, droplet and contact isolation. EKG shows NSR at 92/minute and QTc [address]-T wave changes. Initial troponin is negative. Will avoid drugs that may prolong QTc. Urine toxicology showed opiates, methadone and benzodiazepines. Will continue comprehensive care for all of patients comorbid conditions. 2. Hypoalbuminemia - Possibly due to combined effects of proteinuria, malnutrition and inflammation associated with comorbid conditions. Will ensure adequate dietary protein intake and also consult wire basket maker. 3. Tobacco Use Counseled on risks associated with tobacco use. We will provide patient all the necessary assistance to facilitate smoking cessation and prescribe Nicotine patch. 4. Anemia - Likely multifactorial. Will do basic anemia work up including serial stool guaiacs, reticulocyte count, B12/folate levels and iron studies. 5. DVT prophylaxis - SCD -monitor for capillary rupture. 6. Advance directives - Full code
[2020-01-09 02:42] LABS: OPIATES, URI POSITIVE ng/ml (CUTOFF=300); URINE BENZODIAZEPINES POSITIVE ng/ml (CUTOFF=200)
[2020-01-09 02:43] LABS: METHADONE, UR POSITIVE ng/ml (CUTOFF=300)
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
[2020-01-09] MEDS ORDERED: DOCUSATE SODIUM 100 MG CAPSULE (FP) PO PRN (04:26)
[2020-01-09] MEDS ORDERED: LORazepam 1 MG TABLET PO PRN (04:39)
[2020-01-09] MEDS ORDERED: FOLIC ACID 1 MG TABLET (FP) PO ONE (04:47)
[2020-01-09] MEDS ORDERED: THIAMINE HCL 200 MG/2 ML VIAL IVPB ONE (04:47)
[2020-01-09] MEDS ORDERED: LORazepam 0.5 MG TABLET ONE ×2 (05:37→11:05)
[2020-01-09] MEDS ORDERED: THIAMINE HCL 200 MG/2 ML VIAL ONE (05:37)
[2020-01-09] MEDS ORDERED: FOLIC ACID 1 MG TABLET (FP) ONE (05:38)
[2020-01-09] MEDS: LORazepam 2 MG TABLET PO SCH ×3 (05:40→17:49)
[2020-01-09] MEDS: SODIUM CHLORIDE 1,000 ML IV SCH (05:51)
[2020-01-09] MEDS: INSULIN SLIDING SCALE (NOVOLOG) 1 VIAL SQ SCH ×4 (06:31→22:52)
[2020-01-09 06:47] LABS: BASO % 0.6 % (0-2.0); HEMATOCRIT 31.4 % (35.4-49); HEMOGLOBIN 10.4 GM/dL (11.7-16.9); LYMPH % 16.4 % (8-40); MCH 28.9 pg (25.7-33.7); MCHC 33.1 g/dl (32.0-35.9); MEAN CELL VOLUME 87.2 fl (80-96); MEAN PLT VOLUME 7.5 fl (7.5-11.1); MONO % 5.3 % (3.8-10.2); NEUT % 77.7 % (42.8-82.8); PLATELET COUNT 48 K/MM3 (134-434); RDW 15.3 % (11.9-15.9); WHITE BLOOD COUNT 4.7 K/mm3 (4.0-10.0)
[2020-01-09 07:02] LABS: INR 1.03 (0.83-1.09); PROTHROMBIN TIME (PATIENT) 12.1 SEC (9.7-13.0)
[2020-01-09 07:05] LABS: ACTIVATED PTT 31.4 SECONDS (25.2-36.5)
[2020-01-09 07:18] LABS: MAGNESIUM 1.7 mg/dL (1.8-2.4); PHOSPHOROUS 3.1 mg/dL (2.5-4.9)
--- NOTE | 2020-01-09 08:17 | HOSP ---
Subjective - Review of Symptoms Events since last encounter: Seen and examined on stretcher in ED. Sent from [facility] after witness seizure. States he was taking a "yellow pill" for his seizures years ago. No anticonvu lsants on file at home pharmacy Would like to go back to [facility] when medically stable. General: Yes: Fatigue Neurological: Yes: Seizures, Other (tremors) Physical Examination Vital Signs: Vital Signs Temperature 98.9 F 01/09/20 06:05 Pulse Rate 63 01/09/20 07:43 Respiratory Rate 16 01/09/20 07:43 Blood Pressure 150/96 01/09/20 07:43 O2 Sat by Pulse Oximetry (%) 98 01/09/20 07:43 Constitutional: Yes: No Distress, Anxious, Thin Eyes: Yes: WNL, Conjunctiva Clear, EOM Intact HENT: Yes: WNL, Atraumatic, Normocephalic Neck: Yes: WNL, Supple, Trachea Midline Cardiovascular: Yes: WNL, Regular Rate and Rhythm Respiratory: Yes: WNL, Regular, CTA Bilaterally Gastrointestinal: Yes: WNL, Normal Bowel Sounds ...Rectal Exam: Yes: Deferred Renal/: Yes: WNL Breast(s): Yes: WNL Musculoskeletal: Yes: WNL Edema: No Peripheral Pulses WNL: Yes Peripheral Pulses: Left Radial: 2+, Right Radial: 2+, Left Doralis Pedis: 2+, Right Dorsalis Pedis: 2+, Left Femoral: 2+, Right Femoral: 2+ Integumentary: Yes: WNL Neurological: Yes: Alert, Oriented, Cran Nerves II-XII Intact, Tremors ...Motor Strength: WNL Psychiatric: Yes: Alert, Oriented Labs: CBC, BMP 01/09/20 06:00 01/09/20 00:31 Hospitalist Encounter Assessment: Admitted for witness seizure at [facility]. No seizure activity noted overnight. Seizures possibly 2/2 EtOH withdrawal vs Seizure Disorder -[facility] IMG-ONCALL:: neg acute path. Mild cortical atrophy -UDS: positive for opiates, methadone, benzo - s/p keppra load w/ 1000BID - Neuro consult([facility]): -c/w keppra can change to PO Polysubstance Use -CIWA 19(at [facility]), current CIWA 6 - c/wAtivan protocol - c/w thiamine, folate, mvi - Addiction Medicine consult(Arvin) --recs pending Thrombocytopenia --new, possibly related to EtOH vs splenomegaly vs other > Plt 46 -US-abd US +splenomegaly, fatty liver - c/t Plt - no chemical dvt ppx - hematology consult tomorrow if plt do not trend up Mild Rhabdomyolysis --likely 2/2 to seizure - CK 389 - UA: protein 3+, blood 2+(likely myoglobin), WBC 25, bact 244, epith >36 - IVF - c/t trend Transmaminitis --possibly 2/2 EtOH hepatitis -AST/ALT 69/24, Tbil 1.1 -US RUQ --with fatty liver -avoid hepatotoxic agents FEN - sodium controlled diet - NS @75 Dispo mainatin as inpatinet full code Full note to follow tomorrow CIWA Score - CIWA Score Nausea/Vomitin-Mild Nausea/No Vomiting Muscle Tremors: 3 Anxiety: 1-Mildly Anxious Agitation: 0-Normal Activity Paroxysmal Sweats: No Perspiration Orientation: 0-Oriented Tacttile Disturbances: 1-Very Mild Itch/Numbness Auditory Disturbances: 0-None Visual Disturbances: 0-None Headache: 0-None Present CIWA-Ar Total Score: 6
[2020-01-09 08:34] LABS: URINE RBC 142.7 /uL (0-23.9)
[2020-01-09 08:35] LABS: YEAST NON SEEN (NEGATIVE)
[2020-01-09] MEDS ORDERED: levETIRAcetam 500 MG/5 ML INJECTION VIAL IVPB ONE (09:11)
[2020-01-09] MEDS ORDERED: MULTIVITAMINS (DAILY MVI) TABLET (FP) ONE (09:11)
[2020-01-09] MEDS: MULTIVITAMINS (DAILY MVI) TABLET (FP) PO SCH (09:19)
[2020-01-09] MEDS ORDERED: levETIRAcetam 500 MG/5 ML INJECTION VIAL IVPB SCH (10:00)
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
--- NOTE | 2020-01-09 13:14 | PDOC ---
*Physical Exam - Vital Signs Last Vital Signs Temp Pulse Resp BP Pulse Ox 97.9 F 63 17 143/77 100 01/09/20 13:09 01/09/20 13:09 01/09/20 13:09 01/09/20 13:09 01/09/20 12:50 ED Treatment Course - LABORATORY CBC & Chemistry Diagram: 01/09/20 06:00 01/09/20 00:31 - ADDITIONAL ORDERS Additional order review: Laboratory Results 01/09/20 01/09/20 01/09/20 00:31 00:31 00:12 Sodium 140 Potassium 4.4 Chloride 101 Carbon Dioxide 26 Anion Gap 14 BUN 4.9 L Creatinine 0.8 Est GFR (CKD-EPI)AfAm 118.20 Est GFR (CKD-EPI)NonAf 101.99 Random Glucose 133 H Calcium 9.0 Total Bilirubin 1.1 H AST 69 H ALT 24 Alkaline Phosphatase 112 Creatine Kinase 389 H Creatine Kinase Index 3.4 CK-MB (CK-2) 13.3 H Troponin I < 0.02 Total Protein 7.9 Albumin 3.3 L Urine Color Urine Appearance Urine pH Ur Specific Mck[place] Urine Protein Urine Glucose (UA) Urine Ketones Urine Blood Urine Nitrite Urine Bilirubin Urine Urobilinogen Ur Leukocyte Esterase Urine WBC (Auto) Urine RBC (Auto) Urine Casts (Auto) U Epithel Cells (Auto) U Sm Round Cell (Auto) Urine Bacteria (Auto) Urine Yeast (Auto) Opiates Screen Positive A* Methadone Screen Positive A* Barbiturate Screen Negative Phencyclidine Screen Negative Ur Amphetamines Screen Negative MDMA (Ecstasy) Screen Negative Benzodiazepines Screen Positive A* Cocaine Screen Negative U Marijuana (THC) Screen Negative Alcohol, Quantitative < 3 01/09/20 00:12 Sodium Potassium Chloride Carbon Dioxide Anion Gap BUN Creatinine Est GFR (CKD-EPI)AfAm Est GFR (CKD-EPI)NonAf Random Glucose Calcium Total Bilirubin AST ALT Alkaline Phosphatase Creatine Kinase Creatine Kinase Index CK-MB (CK-2) Troponin I Total Protein Albumin Urine Color Yellow Urine Appearance Clear Urine pH 7.0 Ur Specific Mck[place]ney 1.015 Urine Protein 3+ H Urine Glucose (UA) Negative Urine Ketones Negative Urine Blood 2+ H Urine Nitrite Negative Urine Bilirubin Negative Urine Urobilinogen 1.0 Ur Leukocyte Esterase Negative Urine WBC (Auto) 25 Urine RBC (Auto) 142.7 Urine Casts (Auto) 3 U Epithel Cells (Auto) >36 U Sm Round Cell (Auto) Non seen Urine Bacteria (Auto) 244 Urine Yeast (Auto) Non seen Opiates Screen Methadone Screen Barbiturate Screen Phencyclidine Screen Ur Amphetamines Screen MDMA (Ecstasy) Screen Benzodiazepines Screen Cocaine Screen U Marijuana (THC) Screen Alcohol, Quantitative 01/09/20 00:31 RBC 3.96 L MCV 87.6 MCHC 33.2 RDW 15.5 MPV 7.7 Neutrophils % 88.3 H D Lymphocytes % 6.8 L D Monocytes % 4.5 Eosinophils % 0.0 D Basophils % 0.4 - Medications Given in the ED: ED Medications Discontinued Medications Generic Name Dose Route Start Last Admin Trade Name Freq PRN Reason Stop Dose Admin Folic Acid 1 mg 01/09/20 04:47 01/09/20 05:40 Folic Acid - PO 01/09/20 04:48 1 mg ONCE ONE Administration Famotidine/Sodium Chloride 20 mg in 50 mls @ 100 mls/hr 01/09/20 01:00 01/09/20 01:28 Pepcid 20 Mg Premixed Ivpb - IVPB 01/09/20 01:29 100 mls/hr ONCE ONE Administration Lorazepam 2 mg 01/09/20 00:06 01/09/20 00:45 Ativan Injection - IVPUSH 01/09/20 00:07 2 mg ONCE ONE Administration Lorazepam 2 mg 01/09/20 00:19 01/09/20 01:21 Ativan Injection - IVPUSH 01/09/20 00:20 2 mg ONCE ONE Administration Thiamine HCl 200 mg 01/09/20 04:47 01/09/20 05:40 Vitamin B1 Injection - IVPB 01/09/20 04:48 200 mg ONCE ONE Administration Medical Decision Making - Medical Decision Making 01/09/20 13:12 Called to pt's bedside for unwitnessed fall. Pt states he slipped while getting out of bed, landed forward on his outstretched hands. Denies headstrike. Complains of mild pain in R shoulder. On my exam, pt has no evidence of head injury. No spinal tenderness or stepoffs. No bony deformity in RUE. Full ROM. Pt assisted back into bed. Discharge - Discharge Information Problems reviewed: Yes Clinical Impression/Diagnosis: Fall - Follow up/Referral - Patient Discharge Instructions - Post Discharge Activity
[2020-01-09] MEDS ORDERED: LORazepam 1 MG TABLET PO SCH (17:30)
[2020-01-09 18:15] VITALS: BMI 17.7
[2020-01-09] MEDS: LORazepam 1 MG TABLET PO SCH ×2 (18:30→22:53)
[2020-01-09 19:56] LABS: HEMATOCRIT 32.6 % (35.4-49); MCH 29.7 pg (25.7-33.7); MCHC 33.9 g/dl (32.0-35.9); MEAN CELL VOLUME 87.8 fl (80-96); MEAN PLT VOLUME 8.3 fl (7.5-11.1); PLATELET COUNT 41 K/MM3 (134-434); RBC 3.71 M/mm3 (4.00-5.60); RDW 15.3 % (11.9-15.9)
[2020-01-09] MEDS: levETIRAcetam 500 MG TABLET (FP) PO SCH (22:53)
[2020-01-10] MEDS: LORazepam 1 MG TABLET PO SCH ×3 (04:25→17:49)
[2020-01-10] MEDS: INSULIN SLIDING SCALE (NOVOLOG) 1 VIAL SQ SCH ×3 (06:27→17:51)
[2020-01-10 06:48] LABS: BASO % 0.5 % (0-2.0); EOS % 0.5 % (0-4.5); HEMATOCRIT 34.1 % (35.4-49); HEMOGLOBIN 11.3 GM/dL (11.7-16.9); LYMPH % 25.2 % (8-40); MCHC 33.2 g/dl (32.0-35.9); MEAN CELL VOLUME 87.5 fl (80-96); MEAN PLT VOLUME 8.3 fl (7.5-11.1); NEUT % 67.8 % (42.8-82.8); PLATELET COUNT 44 K/MM3 (134-434); RDW 15.5 % (11.9-15.9); WHITE BLOOD COUNT 4.1 K/mm3 (4.0-10.0)
[2020-01-10 06:59] LABS: ALBUMIN 3.2 g/dl (3.4-5.0); BILIRUBIN,TOTAL 1.8 mg/dL (0.2-1); BLOOD UREA NITROGEN 5.2 mg/dL (7-18); CALCIUM 8.8 mg/dL (8.5-10.1); CREATININE 0.5 mg/dL (0.55-1.3); MAGNESIUM 1.3 mg/dL (1.8-2.4); POTASSIUM 3.1 mmol/L (3.5-5.1); TOT PROT 7.6 g/dl (6.4-8.2)
--- NOTE | 2020-01-10 08:35 | PN ---
Progress Note (short form) - Note Progress Note: Neurology CHIEF COMPLAINT: seizure HISTORY OF PRESENT ILLNESS: 54M w/ pmh of HepC (dx 2004, spontaneous resolution), GERD, depression, Methadone(80mg, [address] w/ [facility]), heroin bag yesterday, usually takes daily via sniffing, has history of IVDU, chronic EtOH usage disorder(6- pack x3 or 4). BIBA from [facility] after sustaining a "grand mal seizure" lasting 3mins shortly after being admitted to [facility] recently. Last drink was morning prior to presenting to [facility]. Patient states he drinks first thing in the morning; has tremors when he doesn't drink, says onset "depends". Last seizure was a "while back"; states he has a seizure medication, doesn't recall which and doesn't take it daily. Patient states he has had 3 seizures in his life. Thinks that only 1 was related to EtOH-withdrawal. Has had IVDU-related abscesses. Homeless since 17y/o. Gets money because he "hustles". Walks the streets without assistive device. Occasionally, will stay his mother's house. 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 CIWA score of 19. Platelets 48, AST/ALT 69/24. Patient received ativan 2mg IM x2 in ER. Head CT completed, right paramedian lacunar infart, likely chronic, no evidence of acute intracranial pathology. Seizure episode likely in context of substance abuse. This morning, asking for his pills, slightly aggitated. No significant neurologic complaints at this time and otherwise appears to be at baseline. Active Medications Docusate Sodium (Colace -) 100 mg PO BID PRN PRN Reason: CONSTIPATION Sodium Chloride (Normal Saline -) 1,000 mls @ 75 mls/hr IV ASDIR [facility] Last Admin: 01/09/20 05:51 Dose: 75 mls/hr Documented by: Insulin Aspart (Novolog Vial Sliding Scale -) 1 vial SQ [facility]; Protocol Last Admin: 01/10/20 06:27 Dose: Not Given Documented by: Levetiracetam (Keppra -) 1,000 mg PO BID [facility] Last Admin: 01/09/20 22:53 Dose: 1,000 mg Documented by: Lorazepam (Ativan -) 1 mg PO 0500,1100,1700,2300 [facility] Stop: 01/10/20 23:01 Last Admin: 01/10/20 04:25 Dose: 1 mg Documented by: Lorazepam (Ativan -) 1 mg PO Q4H PRN PRN Reason: Symptoms of Withdrawal Stop: 01/11/20 00:00 Last Admin: 01/10/20 07:06 Dose: 1 mg Documented by: Lorazepam (Ativan -) 0.5 mg PO Q6H [facility] Stop: 01/11/20 23:01 Lorazepam (Ativan -) 0.5 mg PO Q4H PRN PRN Reason: Symptoms of Withdrawal Stop: 01/12/20 00:00 Lorazepam (Ativan -) 0.5 mg PO ONCE ONE Stop: 01/12/20 05:01 Multivitamins/Minerals/Vitamin C (Tab-A-Vit -) 1 tab PO DAILY [facility] Last Admin: 01/09/20 09:19 Dose: 1 tab Documented by: Thiamine HCl (Vitamin B1 -) 100 mg PO DAILY [facility] PHYSICAL EXAMINATION Vital Signs Period Temp Pulse Resp BP Sys/Buenrostro Pulse Ox Last 24 Hr 97.9 F-98.4 F 60-81 16-18 139-167/73-82 100-100 GENERAL: lethargic, somonlent, A&Ox4, in no acute distress. HEAD: NC. Mild temporal wasting EYES: Pupils equal, round and reactive to light, no pinpoint pupils, sclera anicteric, conjunctiva clear. EARS, NOSE, THROAT: Moist mucous membranes. No orophayngeal exudate. No tongue fasciculations NECK: supple without lymphadenopathy, JVD, or masses. LUNGS: Breath sounds equal, clear to auscultation bilaterally. No wheezes, and no crackles. No accessory muscle use. HEART: Regular rate and rhythm, normal S1 and S2 without murmur, rub or gallop. ABDOMEN: Soft, nontender, not distended, no guarding, no rebound, no masses. MUSCULOSKELETAL: Normal range of motion at all joints. No bony deformities or tenderness. No CVA tenderness. Thin muscle bulk UPPER EXTREMITIES: 2+ pulses, warm, well-perfused. No cyanosis. No clubbing. No peripheral edema. LOWER EXTREMITIES: 2+ pulses, warm, well-perfused. No calf tenderness. No peripheral edema. B/l fungal toenails NEUROLOGICAL: Normal speech. CN II-XII intact. Strength 5/5 of BUE and BLE. CIWA 9: mild GE, agitation, moderate tremors with outsretched hands, no tongue f asisculations CBCD WBC 4.1 K/mm3 (4.0-10.0) 01/10/20 05:24 RBC 3.90 M/mm3 (4.00-5.60) L 01/10/20 05:24 Hgb 11.3 GM/dL (11.7-16.9) L 01/10/20 05:24 Hct 34.1 % (35.4-49) L 01/10/20 05:24 MCV 87.5 fl (80-96) 01/10/20 05:24 MCHC 33.2 g/dl (32.0-35.9) 01/10/20 05:24 RDW 15.5 % (11.9-15.9) 01/10/20 05:24 Plt Count 44 K/MM3 (134-434) L 01/10/20 05:24 MPV 8.3 fl (7.5-11.1) 01/10/20 05:24 CMP Sodium 135 mmol/L (136-145) L 01/10/20 05:24 Potassium 3.1 mmol/L (3.5-5.1) L 01/10/20 05:24 Chloride 97 mmol/L (98-107) L 01/10/20 05:24 Carbon Dioxide 27 mmol/L (21-32) 01/10/20 05:24 Anion Gap 11 MMOL/L (8-16) 01/10/20 05:24 BUN 5.2 mg/dL (7-18) L 01/10/20 05:24 Creatinine 0.5 mg/dL (0.55-1.3) L 01/10/20 05:24 Random Glucose 79 mg/dL (74-106) 01/10/20 05:24 Calcium 8.8 mg/dL (8.5-10.1) 01/10/20 05:24 Total Bilirubin 1.8 mg/dL (0.2-1) H 01/10/20 05:24 AST 84 U/L (15-37) H 01/10/20 05:24 ALT 30 U/L (13-61) 01/10/20 05:24 Alkaline Phosphatase 108 U/L (45-117) 01/10/20 05:24 Total Protein 7.6 g/dl (6.4-8.2) 01/10/20 05:24 Albumin 3.2 g/dl (3.4-5.0) L 01/10/20 05:24 CARDIAC ENZYMES Creatine Kinase 393 U/L (26-308) H 01/09/20 19:17 Troponin I < 0.02 ng/ml (0.00-0.05) 01/09/20 00:31 ASSESSMENT/PLAN: 54M w/ pmh of HepC (dx 2004, spontaneous resolution), GERD, depression, Methadone(80mg, [address] w/ [facility]), heroin bag yesterday, usually takes daily via sniffing, has history of IVDU, chronic EtOH usage disorder(6- pack x3 or 4). BIBA from [facility] after sustaining a "grand mal seizure" lasting 3mins shortly after being admitted to [facility] recently. Last drink was morning prior to presenting to [facility]. Patient states he drinks first thing in the morning; has tremors when he doesn't drink, says onset "depends". Last seizure was a "while back"; states he has a seizure medication, doesn't recall which and doesn't take it daily. Patient states he has had 3 seizures in his life. Thinks that only 1 was related to EtOH-withdrawal. Has had IVDU-related abscesses. Homeless since 17y/o. Gets money because he "hustles". Walks the streets without assistive device. Occasionally, will stay his mother's house. 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 CIWA score of 19. Platelets 48, AST/ALT 69/24. Patient received ativan 2mg IM x2 in ER. Head CT completed, right paramedian lacunar infart, likely chronic, no evidence of acute intracranial pathology.Seizure episode likely in context of substance abuse. Treatment requires cessation of substances, AEDS would not be effective in patients with abuse/withdrawal but Keppra has be continued. Continue mgmt of substance abuse, detox, librium protocal. Monitor lytes, maintain hydration. Etoh cessation.
[2020-01-10] MEDS ORDERED: MAGNESIUM SULF 50% (8.12 MEQ/2 ML-1 GM VIAL) IVPB ONE (09:11)
--- NOTE | 2020-01-10 09:14 | PN ---
Progress Note, Physician Chief Complaint: Patient wants to go as he could not get his meds and denies any nausea vomiting abdominal pain he is unaware about time place and person but no hallucinations no delusions. History of Present Illness: 54 years old man poor historian was transferred to [place] ED from [facility] on January 09, 2020 after a witnessed tonic-clonic seizure after few hours of hospitalization, patient has history of polysubstance abuse active heroine on methadone program (80mg, [address] w/ [facility]), patient has history of seizure disorder, hypertension, polysubstance abuse, active heroin, cocaine, alcohol recently discharged from [facility] on December 19, 2020 following medication: Keppra 500 mg twice daily, thiamine 100 mg daily, folic acid 1 g daily, labetalol 100 mg twice daily, amlodipine 10 mg daily [confirm from patient pharmacy] patient blood work-up shows hypokalemia and hypomagnesemia that is repleted, patient U tox is positive for opiates, methadon e and barbiturate, office hospitalization evaluated by neurology consult recommended continue Keppra, CT head shows no acute changes, case discussed with addiction consult Dr. Arvin corrales at [facility] for detox program. - Current Medication List Current Medications: Active Medications Docusate Sodium (Colace -) 100 mg PO BID PRN PRN Reason: CONSTIPATION Sodium Chloride (Normal Saline -) 1,000 mls @ 75 mls/hr IV ASDIR [facility] Last Admin: 01/09/20 05:51 Dose: 75 mls/hr Documented by: Insulin Aspart (Novolog Vial Sliding Scale -) 1 vial SQ [facility]; Protocol Last Admin: 01/10/20 06:27 Dose: Not Given Documented by: Levetiracetam (Keppra -) 1,000 mg PO BID [facility] Last Admin: 01/09/20 22:53 Dose: 1,000 mg Documented by: Lorazepam (Ativan -) 1 mg PO 0500,1100,1700,2300 [facility] Stop: 01/10/20 23:01 Last Admin: 01/10/20 04:25 Dose: 1 mg Documented by: Lorazepam (Ativan -) 1 mg PO Q4H PRN PRN Reason: Symptoms of Withdrawal Stop: 01/11/20 00:00 Last Admin: 01/10/20 07:06 Dose: 1 mg Documented by: Lorazepam (Ativan -) 0.5 mg PO Q6H MARILIA Stop: 01/11/20 23:01 Lorazepam (Ativan -) 0.5 mg PO Q4H PRN PRN Reason: Symptoms of Withdrawal Stop: 01/12/20 00:00 Lorazepam (Ativan -) 0.5 mg PO ONCE ONE Stop: 01/12/20 05:01 Magnesium Sulfate (Magnesium Sulfate) 2 gm IVPB ONCE ONE Stop: 01/10/20 09:12 Multivitamins/Minerals/Vitamin C (Tab-A-Vit -) 1 tab PO DAILY [facility] Last Admin: 01/09/20 09:19 Dose: 1 tab Documented by: Thiamine HCl (Vitamin B1 -) 100 mg PO DAILY [facility] - Objective Vital Signs: Vital Signs Temperature 98.1 F 01/10/20 06:00 Pulse Rate 81 01/10/20 06:00 Respiratory Rate 18 01/10/20 06:00 Blood Pressure 151/73 01/10/20 06:00 O2 Sat by Pulse Oximetry (%) 100 01/09/20 21:00 General: Middle-aged man confused and disabled, comfortable, not in distress HEENT mucous membranes moist, no anemia, no jaundice, PERRLA, no nystagmus Neck: No JVD, supple, no bruit, thyroid palpably normal, normal carotid pulsations. Chest: Nontender, clear to auscultation bilaterally CVS: S1-S2 regular no murmur/gallop/rub Abdomen: Nondistended, soft, bowel sounds present. 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) Ultrasound: Report Reviewed (Right upper quadrant: Fatty infiltration, gallbladder polyps require follow-up imaging) EKG: Report Reviewed (94/min regular, QTc [address] changes) Problem List - Problems (1) Alcohol related seizure Assessment/Plan: Patient is history of alcohol withdrawal seizure on Keppra confirm from patient pharmacy and previous medication takes Keppra 500 mg twice daily present with seizure witnessed at [facility], remained seizure-free after receiving Keppra loading, will start on Keppra 500 mg twice daily, evaluated by neurology consult recommended continue Keppra 5 mg twice daily. Problems reviewed: Yes Code(s): R56.9 - UNSPECIFIED CONVULSIONS (2) GERD (gastroesophageal reflux disease) Assessment/Plan: Continue PPI Problems reviewed: Yes Code(s): K21.9 - GASTRO-ESOPHAGEAL REFLUX DISEASE WITHOUT ESOPHAGITIS Qualifiers: Esophagitis presence: without esophagitis Qualified Code(s): K21.9 - Gastro-esophageal reflux disease without esophagitis (3) Hepatitis C carrier Assessment/Plan: History of lipid hepatitis C unclear with associated are not Problems reviewed: Yes Code(s): B18.2 - CHRONIC VIRAL HEPATITIS C (4) MDD (major depressive disorder) Assessment/Plan: Not on any medication at present not in acute psychosis or depressive episodes. Problems reviewed: Yes Code(s): F32.9 - MAJOR DEPRESSIVE DISORDER, SINGLE EPISODE, UNSPECIFIED Qualifiers: Major depression recurrence: unspecified whether recurrent (5) Methadone maintenance therapy patient Assessment/Plan: History of IV drug use methadone dose confirmed from [facility] methadone clinic patient is taking 80 mg/day last dose was filled on January 07. Problems reviewed: Yes Code(s): F11.20 - OPIOID DEPENDENCE, UNCOMPLICATED (6) Transaminitis Assessment/Plan: Due to polysubstance abuse, hep C and alcohol ultrasound shows fatty infil tration and Problems reviewed: Yes Code(s): R74.0 - NONSPEC ELEV OF LEVELS OF TRANSAMNS & LACTIC ACID DEHYDRGNSE (7) Hypertension Assessment/Plan: Education confirmed from pharmacy is and amlodipine 10 mg daily, currently blood pressure is well controlled on amlodipine 5 mg" optimize as needed. Problems reviewed: Yes Code(s): I10 - ESSENTIAL (PRIMARY) HYPERTENSION (8) Alcohol withdrawal Assessment/Plan: Monitor CIWA score, continue thiamine, folic acid lorazepam every 6 hourly for alcohol withdrawal seizure and agitation. Problems reviewed: Yes Code(s): F10.239 - ALCOHOL DEPENDENCE WITH WITHDRAWAL, UNSPECIFIED (9) Hypokalemia Assessment/Plan: 3.1 today received KCl 40 mEq p.o. and 20 mEq once follow-up BMP in a.m. Problems reviewed: Yes Code(s): E87.6 - HYPOKALEMIA (10) Hypomagnesemia Assessment/Plan: Magnesium level 1.3 received 2 mg magnesium sulfate follow-up magnesium level in a.m. Problems reviewed: Yes Code(s): E83.42 - HYPOMAGNESEMIA
[2020-01-10] MEDS: MULTIVITAMINS (DAILY MVI) TABLET (FP) PO SCH (09:24)
[2020-01-10] MEDS: levETIRAcetam 500 MG TABLET (FP) PO SCH (09:24)
[2020-01-10] MEDS ORDERED: THIAMINE HCL 100 MG TABLET (FP) PO SCH (10:00)
[2020-01-10] MEDS ORDERED: MAGNESIUM SULFATE IN WATER 2 GM/50 ML IVPB IVPB ONE (10:00)
--- NOTE | 2020-01-10 10:03 | EKG ---
Test Reason : Blood Pressure : / mmHG Vent. Rate : 092 BPM Atrial Rate : 092 BPM P-R Int : 124 ms QRS Dur : 090 ms QT Int : 410 ms P-R-T Axes : 034 066 081 degrees QTc Int : 507 ms NORMAL SINUS RHYTHM PROLONGED QT ABNORMAL ECG WHEN COMPARED WITH ECG OF 02-DEC-2018 16:43, VENT. RATE HAS INCREASED BY 35 BPM Confirmed by Rodrick Childress ([id number]) on 01/10/2020 10:03:39 AM Referred By: Confirmed By:Rodrick Childress
[2020-01-10] MEDS: SODIUM CHLORIDE 1,000 ML IV SCH (11:15)
[2020-01-10] MEDS ORDERED: METHADONE HCL 40 MG DISPERSABLE TABLET PO SCH (12:15)
[2020-01-10] MEDS ORDERED: POTASSIUM CHLORIDE TABS 20 MEQ TABLET.ER (FP) PO SCH (12:45)
[2020-01-10] MEDS ORDERED: POTASSIUM CHLORIDE 20 MEQ PREMIX IVPB 100 ML IVPB SCH (12:45)
[2020-01-10 13:15] VITALS: BP 121/65; PULSE 85; TEMP 98.3
[2020-01-10] MEDS: KCL 10 MEQ IVPB 10 MEQ/100 ML INFUS.BAG IVPB SCH ×2 (13:39→14:37)
--- NOTE | 2020-01-10 15:43 | DS ---
Physical Examination Vital Signs: Vital Signs Temperature 98.3 F 01/10/20 11:11 Pulse Rate 85 01/10/20 11:11 Respiratory Rate 16 01/10/20 11:11 Blood Pressure 121/65 01/10/20 11:11 O2 Sat by Pulse Oximetry (%) 99 01/10/20 10:00 General: Middle-aged man confused and disheveld, comfortable, not in distress HEENT mucous membranes moist, no anemia, no jaundice, PERRLA, no nystagmus Neck: No JVD, supple, no bruit, thyroid palpably normal, normal carotid pulsations. Chest: Nontender, clear to auscultation bilaterally CVS: S1-S2 regular no murmur/gallop/rub Abdomen: Nondistended, soft, bowel sounds present. Extremities: No edema., No Calf tenderness, pulses present TREASURY CONSULTANT: Alert but confused, no gross motor sensory deficit Labs: CBC, BMP 01/10/20 05:24 01/10/20 05:24 Discharge Summary Problems reviewed: Yes Reason For Visit: ALCOHOL WITHDRAWL SEIZURE Current Active Problems Alcohol withdrawal (Acute) Fall (Acute) Hypertension (Acute) Hypokalemia (Acute) Hypomagnesemia (Acute) Transaminitis (Acute) Hospital Course: 54 years old man poor historian was transferred to [place] ED from [facility] on January 09, 2020 after a witnessed tonic-clonic seizure after few hours of hospitalization, patient has history of polysubstance abuse active heroine on methadone program (80mg, [address] w/ [facility]), patient has history of seizure disorder, hypertension, polysubstance abuse, active heroin, cocaine, al cohol recently discharged from [facility] on December 19, 2020 following medication: Keppra 500 mg twice daily, thiamine 100 mg daily, folic acid 1 g daily, labetalol 100 mg twice daily, amlodipine 10 mg daily [confirm from patient pharmacy] patient blood work-up shows hypokalemia and hypomagnesemia that is repleted, patient U tox is positive for opiates, methadone and barbiturate, office hospitalization evaluated by neurology consult recommended continue Keppra, CT head shows no acute changes, case discussed with addiction consult Dr. Sheridan accepted at [facility] for detox program. - Instructions Diet, Activity, Other Instructions: Low-salt low-cholesterol Referrals: ON STAFF,NOT [Primary Care Provider] - Disposition: TRANSFER ACUTE CARE/OTHER HOSP - Home Medications Comprehensive Discharge Medication List: Ambulatory Orders Mirtazapine [Remeron -] 45 mg PO HS 01/08/20 Amlodipine Besylate [Norvasc -] 5 mg PO DAILY tablet 01/10/20 Docusate Sodium [Colace -] 100 mg PO BID PRN capsule 01/10/20 LORazepam [Ativan] 1 mg PO 0500,1100,1700,2300 tablet 01/10/20 LORazepam [Ativan] 1 mg PO Q4H PRN tablet 01/10/20 Methadone [Dolophine -] 80 mg PO DAILY@0600 tablet 01/10/20 Thiamine HCl [Vitamin B1 -] 100 mg PO DAILY tablet 01/10/20 levETIRAcetam [Keppra -] 500 mg PO BID tablet 01/10/20
[2020-01-10] MEDS ORDERED: levETIRAcetam 500 MG TABLET (FP) PO SCH (22:00)
[2020-01-11] MEDS ORDERED: LORazepam 0.5 MG TABLET PO PRN
[2020-01-11] MEDS ORDERED: LORazepam 0.5 MG TABLET PO SCH (05:00)
[2020-01-11] MEDS ORDERED: amLODIPine BESYLATE 5 MG TABLET (FP) PO SCH (10:00)
[2020-01-12] MEDS ORDERED: LORazepam 0.5 MG TABLET PO ONE (05:00)
--- NOTE | 2020-01-14 19:37 | PDOC ---
Documentation entered by Neena Aburto SCRIBE, acting as scribe for Khadijah Kendrick MD. Khadijah Kendrick MD: This documentation has been prepared by the Lamonte stanford Lincy, SCRIBE, under my direction and personally reviewed by me in its entirety. I confirm that the documentation accurately reflects all work, treatment, procedures, and medical decision making performed by me. Attending Attestation - Resident Resident Name: ManjuMariela - ED Attending Attestation I have performed the following: I have examined & evaluated the patient, The case was reviewed & discussed with the resident, I agree w/resident's findings & plan - HPI HPI: 01/09/20 02:10 The patient is a 54-year-old male who presents to the emergency department from [facility] s/p a 3-minute seizure episode. The patient was given 2mg Ativan at [facility]. Per records, the patient had a history of alcohol-related seizure - Physicial Exam PE: 01/14/20 19:37 PE: GENERAL: A+Ox3 NAD HEAD: NCAT EYES: PERRLA, EOMI, sclera anicteric, conjunctiva clear ENT: Auricles normal inspection, hearing grossly normal, nares patent, oropharynx clear without exudates. Moist mucosa NECK: Normal ROM, supple, no lymphadenopathy, JVD, or masses LUNGS: No distress, speaks full sentences, clear to auscultation bilaterally HEART: [id number], no murmurs, rubs or gallops, peripheral pulses normal and equal bilaterally. ABDOMEN: Soft, nontender, normoactive bowel sounds. No guarding, no rebound. No masses EXTREMITIES :hand tremor with extension. No abrsions lesions; no asymmetry NEUROLOGICAL:CN2-12 intact. Normal speech, normal gait, no gross focal deficits SKIN: Warm, Dry, normal turgor, no rashes/lesions - Medical Decision Making 01/14/20 19:39 Pt admitted. See resident note for details Discharge - Discharge Information Problems reviewed: Yes Clinical Impression/Diagnosis: Fall Condition: Stable Disposition: I.P. ALCOHOL/SUBS ABUSE REHAB - Follow up/Referral - Patient Discharge Instructions - Post Discharge Activity
== END 2020-01-10 18:40 | disposition short-term general hospital (02) | DRG 53 ==
LOC: JER 23:24 → JERBED 01-09 02:22 → J7W 01-09 17:18
PROVIDERS: ADMIT Internal Medicine; ATTEND Internal Medicine
DX: G40.909 Epilepsy, unspecified, not intractable, without status epilepticus (principal); F10.239 Alcohol dependence with withdrawal, unspecified; F17.210 Nicotine dependence, cigarettes, uncomplicated; B18.2 Chronic viral hepatitis C; I10 Essential (primary) hypertension; K21.9 Gastro-esophageal reflux disease without esophagitis; E88.09 Other disorders of plasma-protein metabolism, not elsewhere classified; F11.20 Opioid dependence, uncomplicated; D69.6 Thrombocytopenia, unspecified; R82.1 Myoglobinuria; E83.42 Hypomagnesemia; E87.6 Hypokalemia; R74.0 Nonspecific elevation of levels of transaminase and lactic acid dehydrogenase [LDH]; M62.82 Rhabdomyolysis; E46 Unspecified protein-calorie malnutrition; Z68.1 Body mass index [BMI] 19.9 or less, adult; L40.9 Psoriasis, unspecified; F41.8 Other specified anxiety disorders; D64.9 Anemia, unspecified
CPT/HCPCS: 36415; 70450-TC; 76700-TC; 80053; 80307; 81003; 82550; 82553; 82607; 82728; 82746; 82962; 83540; 83550; 83735; 84100; 84443; 84484; 85025; 85027; 85610; 85730; 93005; 93010; 97116-GP; 97161-GP; 99285-25

== ENCOUNTER 2021-09-25 11:33 | Inpatient (IN) | payer OTHER ==
[2021-09-25] MEDS ORDERED: DICYCLOMINE HCL 10 MG CAPSULE PO PRN (12:35)
[2021-09-25] MEDS ORDERED: ACETAMINOPHEN 325 MG TABLET (FP) PO PRN ×2 (12:35)
[2021-09-25] MEDS ORDERED: BENZOCAINE/MENTHOL (CHLORASEPTIC ) LOZENGE MM PRN (12:35)
[2021-09-25] MEDS ORDERED: NICOTINE 10 MG CARTRIDGE (INHALER) IH PRN (12:35)
[2021-09-25] MEDS ORDERED: METHOCARBAMOL 500 MG TABLET PO PRN (12:35)
[2021-09-25] MEDS ORDERED: ONDANSETRON *ODT* 4 MG TABLET SL PRN (12:35)
[2021-09-25] MEDS ORDERED: MAG HYDROX/AL HYDROX/SIMETH 30 ML UNIT-DOSE CUP PO PRN (12:35)
[2021-09-25] MEDS ORDERED: LORazepam 1 MG TABLET PO PRN (12:35)
[2021-09-25] MEDS ORDERED: LOPERAMIDE HCL 2 MG CAPSULE PO PRN (12:35)
[2021-09-25] MEDS ORDERED: MAGNESIUM HYDROX 2400MG/30ML ORAL SUSPENSION 30 ML CUP PO PRN (12:35)
[2021-09-25] MEDS ORDERED: BISMUTH SUBSALICYLATE 262 MG/15 ML BTL PO PRN (12:35)
[2021-09-25] MEDS ORDERED: MAGNESIUM CITRATE 300 ML BOTTLE PO PRN (12:35)
[2021-09-25 14:34] VITALS: BMI 21.9
[2021-09-25] MEDS: IBUPROFEN 400 MG TABLET (FP) PO PRN (15:50)
[2021-09-25] MEDS: CLINDAMYCIN HCL 150 MG CAPSULE (FP) PO SCH ×2 (15:50→22:29)
[2021-09-25] MEDS: hydrOXYzine PAMOATE 25 MG CAPSULE (FP) PO SCH ×3 (15:50→22:30)
[2021-09-25] MEDS: PRENATAL VITAMINS W/ FOLIC ACID TABLET (FP) PO SCH (15:52)
[2021-09-25] MEDS: NICOTINE 14 MG/24 HOURS TOPICAL PATCH TD SCH (15:52)
[2021-09-25 17:06] LABS: HEMATOCRIT 30.1 % (35.4-49); HEMOGLOBIN 10.1 GM/dL (11.7-16.9); MCHC 33.5 g/dl (32.0-35.9); MEAN CELL VOLUME 92.4 fl (80-96); MEAN PLT VOLUME 7.7 fl (7.5-11.1); PLATELET COUNT 173 10^3/uL (134-434); RBC 3.25 M/mm3 (4.00-5.60); RDW 12.3 % (11.9-15.9); WHITE BLOOD COUNT 5.1 K/mm3 (4.0-10.0)
[2021-09-25 17:21] LABS: CALCIUM 8.5 mg/dL (8.5-10.1)
[2021-09-25 17:22] LABS: ALBUMIN 3.1 g/dl (3.4-5.0); BLOOD UREA NITROGEN 8.8 mg/dL (7-18)
[2021-09-25 17:25] LABS: CREATININE 0.8 mg/dL (0.55-1.3)
[2021-09-25 17:26] LABS: BILIRUBIN,TOTAL 0.8 mg/dL (0.2-1)
[2021-09-25 17:27] LABS: TOT PROT 7.2 g/dl (6.4-8.2)
[2021-09-25] MEDS: LORazepam 2 MG TABLET PO SCH ×2 (17:33→22:30)
[2021-09-25] MEDS: MELATONIN 5 MG TABLETS PO SCH (22:30)
[2021-09-25] MEDS: THIAMINE HCL 100 MG TABLET (FP) PO SCH (22:30)
[2021-09-25] MEDS: levETIRAcetam 500 MG TABLET (FP) PO SCH (22:30)
[2021-09-26] MEDS: hydrOXYzine PAMOATE 25 MG CAPSULE (FP) PO SCH ×5 (05:25→22:33)
[2021-09-26] MEDS: CLINDAMYCIN HCL 150 MG CAPSULE (FP) PO SCH ×3 (05:25→22:33)
[2021-09-26] MEDS: LORazepam 2 MG TABLET PO SCH ×4 (05:25→22:34)
[2021-09-26] MEDS ORDERED: methaDONE HCL 10 MG TABLET PO ONE (09:18)
[2021-09-26] MEDS ORDERED: methaDONE HCL 10 MG TABLET PO SCH (09:30)
[2021-09-26] MEDS ORDERED: methaDONE HCL 10 MG TABLET ONE ×2 (09:57→10:25)
[2021-09-26] MEDS ORDERED: methaDONE HCL 40 MG DISPERSABLE TABLET ONE (10:26)
[2021-09-26] MEDS: levETIRAcetam 500 MG TABLET (FP) PO SCH ×2 (10:42→22:33)
[2021-09-26] MEDS: amLODIPine BESYLATE 5 MG TABLET (FP) PO SCH (10:42)
[2021-09-26] MEDS: NICOTINE 14 MG/24 HOURS TOPICAL PATCH TD SCH (10:46)
[2021-09-26] MEDS: PRENATAL VITAMINS W/ FOLIC ACID TABLET (FP) PO SCH (10:46)
[2021-09-26] MEDS: IBUPROFEN 400 MG TABLET (FP) PO PRN (15:01)
[2021-09-26] MEDS: MIRTAZAPINE 15 MG TABLET (FP) PO SCH (22:33)
[2021-09-26] MEDS: MELATONIN 5 MG TABLETS PO SCH (22:33)
[2021-09-26] MEDS: THIAMINE HCL 100 MG TABLET (FP) PO SCH (22:33)
[2021-09-27] MEDS: hydrOXYzine PAMOATE 25 MG CAPSULE (FP) PO SCH ×5 (05:34→22:52)
[2021-09-27] MEDS: CLINDAMYCIN HCL 150 MG CAPSULE (FP) PO SCH ×3 (05:34→22:52)
[2021-09-27] MEDS ORDERED: methaDONE HCL 40 MG DISPERSABLE TABLET ONE (05:35)
[2021-09-27] MEDS ORDERED: methaDONE HCL 10 MG TABLET ONE (05:35)
[2021-09-27] MEDS: LORazepam 1 MG TABLET PO SCH ×4 (05:35→22:56)
[2021-09-27] MEDS: levETIRAcetam 500 MG TABLET (FP) PO SCH ×2 (10:34→22:53)
[2021-09-27] MEDS: amLODIPine BESYLATE 5 MG TABLET (FP) PO SCH (10:34)
[2021-09-27] MEDS: IBUPROFEN 400 MG TABLET (FP) PO PRN (10:35)
[2021-09-27] MEDS: NICOTINE 14 MG/24 HOURS TOPICAL PATCH TD SCH (11:02)
[2021-09-27] MEDS: PRENATAL VITAMINS W/ FOLIC ACID TABLET (FP) PO SCH (11:03)
[2021-09-27 16:08] LABS: SARS-CoV-2 NAA Not Detected (Not Detected)
[2021-09-27] MEDS: MELATONIN 5 MG TABLETS PO SCH (22:52)
[2021-09-27] MEDS: MIRTAZAPINE 15 MG TABLET (FP) PO SCH (22:53)
[2021-09-27] MEDS: THIAMINE HCL 100 MG TABLET (FP) PO SCH (22:53)
[2021-09-28] MEDS ORDERED: LORazepam 0.5 MG TABLET PO PRN
[2021-09-28] MEDS ORDERED: methaDONE HCL 40 MG DISPERSABLE TABLET ONE (04:39)
[2021-09-28] MEDS ORDERED: methaDONE HCL 10 MG TABLET ONE (04:39)
[2021-09-28] MEDS: CLINDAMYCIN HCL 150 MG CAPSULE (FP) PO SCH ×3 (05:36→22:31)
[2021-09-28] MEDS: LORazepam 0.5 MG TABLET PO SCH ×4 (05:37→22:33)
[2021-09-28] MEDS: hydrOXYzine PAMOATE 25 MG CAPSULE (FP) PO SCH ×5 (08:01→22:31)
[2021-09-28] MEDS: PRENATAL VITAMINS W/ FOLIC ACID TABLET (FP) PO SCH (10:43)
[2021-09-28] MEDS: NICOTINE 14 MG/24 HOURS TOPICAL PATCH TD SCH (10:43)
[2021-09-28] MEDS: amLODIPine BESYLATE 5 MG TABLET (FP) PO SCH (10:43)
[2021-09-28] MEDS: levETIRAcetam 500 MG TABLET (FP) PO SCH ×2 (10:43→22:31)
[2021-09-28] MEDS ORDERED: ALBUTEROL SO4 HFA INHALER IH PRN (15:40)
[2021-09-28] MEDS: IBUPROFEN 400 MG TABLET (FP) PO PRN (18:59)
[2021-09-28] MEDS: MELATONIN 5 MG TABLETS PO SCH (22:31)
[2021-09-28] MEDS: THIAMINE HCL 100 MG TABLET (FP) PO SCH (22:31)
[2021-09-28] MEDS: MIRTAZAPINE 15 MG TABLET (FP) PO SCH (22:32)
[2021-09-29] MEDS ORDERED: methaDONE HCL 10 MG TABLET ONE (04:20)
[2021-09-29] MEDS ORDERED: methaDONE HCL 40 MG DISPERSABLE TABLET ONE (04:20)
[2021-09-29] MEDS ORDERED: LORazepam 0.5 MG TABLET PO ONE (05:00)
[2021-09-29] MEDS: CLINDAMYCIN HCL 150 MG CAPSULE (FP) PO SCH ×3 (05:55→22:07)
[2021-09-29] MEDS: hydrOXYzine PAMOATE 25 MG CAPSULE (FP) PO SCH ×2 (06:01→10:28)
[2021-09-29] MEDS: PRENATAL VITAMINS W/ FOLIC ACID TABLET (FP) PO SCH (10:28)
[2021-09-29] MEDS: levETIRAcetam 500 MG TABLET (FP) PO SCH ×2 (10:28→22:07)
[2021-09-29] MEDS: amLODIPine BESYLATE 5 MG TABLET (FP) PO SCH (10:28)
[2021-09-29] MEDS: NICOTINE 14 MG/24 HOURS TOPICAL PATCH TD SCH (10:29)
[2021-09-29] MEDS ORDERED: hydrOXYzine PAMOATE 25 MG CAPSULE (FP) PO PRN (13:34)
[2021-09-29] MEDS: IBUPROFEN 400 MG TABLET (FP) PO PRN (18:06)
[2021-09-29] MEDS: FLUOCINONIDE 0.05% CREAM (15 GM TUBE) TP SCH ×2 (19:10→23:33)
[2021-09-29] MEDS: MIRTAZAPINE 15 MG TABLET (FP) PO SCH (22:07)
[2021-09-29] MEDS: THIAMINE HCL 100 MG TABLET (FP) PO SCH (22:08)
[2021-09-29] MEDS: MELATONIN 5 MG TABLETS PO SCH (22:09)
[2021-09-30] MEDS ORDERED: methaDONE HCL 10 MG TABLET ONE (04:21)
[2021-09-30] MEDS ORDERED: methaDONE HCL 40 MG DISPERSABLE TABLET ONE (04:21)
[2021-09-30] MEDS: CLINDAMYCIN HCL 150 MG CAPSULE (FP) PO SCH (06:08)
[2021-09-30 09:02] VITALS: PULSE 82
[2021-09-30] MEDS: amLODIPine BESYLATE 5 MG TABLET (FP) PO SCH (09:30)
[2021-09-30] MEDS: levETIRAcetam 500 MG TABLET (FP) PO SCH (09:30)
[2021-09-30] MEDS: PRENATAL VITAMINS W/ FOLIC ACID TABLET (FP) PO SCH (09:31)
[2021-09-30] MEDS: FLUOCINONIDE 0.05% CREAM (15 GM TUBE) TP SCH (09:31)
[2021-09-30] MEDS: NICOTINE 14 MG/24 HOURS TOPICAL PATCH TD SCH (09:31)
[2021-09-30 09:42] VITALS: BP 155/90; TEMP 97.8
== END 2021-09-30 10:00 | disposition home or self-care (01) | DRG 773 ==
LOC: YASAS 11:33 → Y6N 14:52
PROVIDERS: ADMIT Allergy & Immunology; ATTEND Allergy & Immunology
PROC: HZ2ZZZZ Detoxification Services for Substance Abuse Treatment (ICD-10-PCS; principal; 2021-09-25)
DX: F10.230 Alcohol dependence with withdrawal, uncomplicated (principal); F14.20 Cocaine dependence, uncomplicated; F11.20 Opioid dependence, uncomplicated; F17.210 Nicotine dependence, cigarettes, uncomplicated; F10.280 Alcohol dependence with alcohol-induced anxiety disorder; F32.A Depression, unspecified; D50.9 Iron deficiency anemia, unspecified; G40.909 Epilepsy, unspecified, not intractable, without status epilepticus; I10 Essential (primary) hypertension; J45.909 Unspecified asthma, uncomplicated; B18.2 Chronic viral hepatitis C; L40.0 Psoriasis vulgaris; L03.115 Cellulitis of right lower limb; L03.116 Cellulitis of left lower limb; M54.50 Low back pain, unspecified; Z62.810 Personal history of physical and sexual abuse in childhood; R63.4 Abnormal weight loss; Z68.21 Body mass index [BMI] 21.0-21.9, adult; Z28.310 Unvaccinated for COVID-19
CPT/HCPCS: 36415; 73610-TC-RT-FY; 73630-TC-RT-FY; 80053; 82962; 85027; 86780; C9803-CS; U0003; U0005

== ENCOUNTER 2021-12-14 15:54 | Inpatient (IN) | payer OTHER ==
[2021-12-14 19:25] VITALS: BMI 23.1
[2021-12-14] MEDS ORDERED: DICYCLOMINE HCL 10 MG CAPSULE PO PRN (20:09)
[2021-12-14] MEDS ORDERED: BENZOCAINE/MENTHOL (CHLORASEPTIC ) LOZENGE MM PRN (20:09)
[2021-12-14] MEDS ORDERED: ACETAMINOPHEN 325 MG TABLET (FP) PO PRN ×2 (20:09)
[2021-12-14] MEDS ORDERED: BISMUTH SUBSALICYLATE 524 MG/30 ML PO PRN (20:09)
[2021-12-14] MEDS ORDERED: ONDANSETRON *ODT* 4 MG TABLET SL PRN (20:09)
[2021-12-14] MEDS ORDERED: IBUPROFEN 400 MG TABLET (FP) PO PRN (20:09)
[2021-12-14] MEDS ORDERED: chlordiazePOXIDE HCL 25 MG CAPSULE PO PRN (20:09)
[2021-12-14] MEDS ORDERED: MAG HYDROX/AL HYDROX/SIMETH 30 ML UNIT-DOSE CUP PO PRN (20:09)
[2021-12-14] MEDS ORDERED: IBUPROFEN 600 MG TABLET (FP) PO PRN (20:09)
[2021-12-14] MEDS ORDERED: LOPERAMIDE HCL 2 MG CAPSULE PO PRN (20:09)
[2021-12-14] MEDS ORDERED: MAGNESIUM HYDROX 2400MG/30ML ORAL SUSPENSION 30 ML CUP PO PRN (20:09)
[2021-12-14] MEDS ORDERED: MAGNESIUM CITRATE 300 ML BOTTLE PO PRN (20:09)
[2021-12-14] MEDS: NICOTINE 14 MG/24 HOURS TOPICAL PATCH TD SCH (21:44)
[2021-12-14] MEDS ORDERED: chlordiazePOXIDE HCL 25 MG CAPSULE ONE (21:47)
[2021-12-14] MEDS ORDERED: hydrOXYzine PAMOATE 25 MG CAPSULE (FP) PO ONE (21:47)
[2021-12-14] MEDS: hydrOXYzine PAMOATE 25 MG CAPSULE (FP) PO SCH (21:48)
[2021-12-14] MEDS: MELATONIN 5 MG TABLETS PO SCH (21:48)
[2021-12-14] MEDS: THIAMINE HCL 100 MG TABLET (FP) PO SCH (21:48)
[2021-12-14] MEDS: chlordiazePOXIDE HCL 25 MG CAPSULE PO SCH (22:14)
[2021-12-15] MEDS ORDERED: chlordiazePOXIDE HCL 25 MG CAPSULE ONE ×2 (06:40→10:21)
[2021-12-15] MEDS: hydrOXYzine PAMOATE 25 MG CAPSULE (FP) PO SCH ×5 (06:40→22:19)
[2021-12-15] MEDS: chlordiazePOXIDE HCL 25 MG CAPSULE PO SCH ×4 (06:40→22:20)
[2021-12-15] MEDS ORDERED: hydrOXYzine PAMOATE 25 MG CAPSULE (FP) PO ONE (06:40)
[2021-12-15] MEDS ORDERED: ONDANSETRON *ODT* 4 MG TABLET ONE (06:44)
[2021-12-15] MEDS ORDERED: methaDONE HCL 40 MG DISPERSABLE TABLET PO SCH (08:30)
[2021-12-15] MEDS ORDERED: methaDONE HCL 10 MG TABLET (FOR DETOX USE ONLY) ONE (09:42)
[2021-12-15 10:33] LABS: HEMATOCRIT 31.6 % (35.4-49); HEMOGLOBIN 10.9 GM/dL (11.7-16.9); MCH 29.8 pg (25.7-33.7); MCHC 34.5 g/dl (32.0-35.9); MEAN CELL VOLUME 86.4 fl (80-96); MEAN PLT VOLUME 7.3 fl (7.5-11.1); PLATELET COUNT 77 10^3/uL (134-434); RBC 3.65 M/mm3 (4.00-5.60); RDW 13.9 % (11.9-15.9); WHITE BLOOD COUNT 3.1 K/mm3 (4.0-10.0)
[2021-12-15 10:42] LABS: CALCIUM 8.7 mg/dL (8.5-10.1)
[2021-12-15 10:43] LABS: ALBUMIN 3.3 g/dl (3.4-5.0); BLOOD UREA NITROGEN 8.4 mg/dL (7-18)
[2021-12-15 10:46] LABS: CREATININE 0.8 mg/dL (0.55-1.3)
[2021-12-15 10:47] LABS: BILIRUBIN,TOTAL 1.2 mg/dL (0.2-1); TOT PROT 7.3 g/dl (6.4-8.2)
[2021-12-15] MEDS ORDERED: methaDONE HCL 40 MG DISPERSABLE TABLET ONE (11:35)
[2021-12-15] MEDS ORDERED: methaDONE HCL 10 MG TABLET ONE (11:35)
[2021-12-15] MEDS: NICOTINE 14 MG/24 HOURS TOPICAL PATCH TD SCH (11:49)
[2021-12-15] MEDS: levETIRAcetam 500 MG TABLET (FP) PO SCH ×2 (11:49→22:19)
[2021-12-15] MEDS: amLODIPine BESYLATE 10 MG TABLET (FP) PO SCH (11:49)
[2021-12-15] MEDS: PRENATAL VITAMINS W/ FOLIC ACID TABLET (FP) PO SCH (11:49)
[2021-12-15] MEDS: PANTOPRAZOLE 40 MG TABLET PO SCH (11:49)
[2021-12-15] MEDS: metoPROLOL SUCCINATE 25 MG TAB.SR.24H (FP) PO SCH (11:49)
[2021-12-15] MEDS: MIRTAZAPINE 15 MG TABLET (FP) PO SCH (22:19)
[2021-12-15] MEDS: THIAMINE HCL 100 MG TABLET (FP) PO SCH (22:19)
[2021-12-15] MEDS: MELATONIN 5 MG TABLETS PO SCH (22:19)
[2021-12-16] MEDS ORDERED: methaDONE HCL 10 MG TABLET ONE (03:28)
[2021-12-16] MEDS ORDERED: methaDONE HCL 40 MG DISPERSABLE TABLET ONE (03:28)
[2021-12-16] MEDS: hydrOXYzine PAMOATE 25 MG CAPSULE (FP) PO SCH ×6 (05:29→22:27)
[2021-12-16] MEDS: chlordiazePOXIDE HCL 25 MG CAPSULE PO SCH ×4 (05:29→22:28)
[2021-12-16] MEDS: PRENATAL VITAMINS W/ FOLIC ACID TABLET (FP) PO SCH (10:15)
[2021-12-16] MEDS: amLODIPine BESYLATE 10 MG TABLET (FP) PO SCH (10:15)
[2021-12-16] MEDS: levETIRAcetam 500 MG TABLET (FP) PO SCH ×2 (10:15→22:27)
[2021-12-16] MEDS: PANTOPRAZOLE 40 MG TABLET PO SCH (10:15)
[2021-12-16] MEDS: metoPROLOL SUCCINATE 25 MG TAB.SR.24H (FP) PO SCH (10:15)
[2021-12-16] MEDS: METHOCARBAMOL 500 MG TABLET PO PRN (10:16)
[2021-12-16] MEDS: NICOTINE 14 MG/24 HOURS TOPICAL PATCH TD SCH (10:19)
[2021-12-16] MEDS: MELATONIN 5 MG TABLETS PO SCH (22:27)
[2021-12-16] MEDS: MIRTAZAPINE 15 MG TABLET (FP) PO SCH (22:28)
[2021-12-16] MEDS: THIAMINE HCL 100 MG TABLET (FP) PO SCH (22:28)
[2021-12-17] MEDS ORDERED: chlordiazePOXIDE HCL 10 MG CAPSULE PO PRN
[2021-12-17] MEDS ORDERED: methaDONE HCL 10 MG TABLET ONE (04:28)
[2021-12-17] MEDS ORDERED: methaDONE HCL 40 MG DISPERSABLE TABLET ONE (04:29)
[2021-12-17] MEDS: hydrOXYzine PAMOATE 25 MG CAPSULE (FP) PO SCH ×5 (06:33→22:20)
[2021-12-17] MEDS: chlordiazePOXIDE HCL 10 MG CAPSULE PO SCH ×4 (06:33→22:20)
[2021-12-17] MEDS: NICOTINE 14 MG/24 HOURS TOPICAL PATCH TD SCH (10:17)
[2021-12-17] MEDS: PANTOPRAZOLE 40 MG TABLET PO SCH (10:18)
[2021-12-17] MEDS: PRENATAL VITAMINS W/ FOLIC ACID TABLET (FP) PO SCH (10:18)
[2021-12-17] MEDS: amLODIPine BESYLATE 10 MG TABLET (FP) PO SCH (10:18)
[2021-12-17] MEDS: metoPROLOL SUCCINATE 25 MG TAB.SR.24H (FP) PO SCH (10:18)
[2021-12-17] MEDS: levETIRAcetam 500 MG TABLET (FP) PO SCH ×2 (10:18→22:19)
[2021-12-17] MEDS: MIRTAZAPINE 15 MG TABLET (FP) PO SCH (22:19)
[2021-12-17] MEDS: THIAMINE HCL 100 MG TABLET (FP) PO SCH (22:20)
[2021-12-17] MEDS: MELATONIN 5 MG TABLETS PO SCH (22:20)
[2021-12-17] MEDS: METHOCARBAMOL 500 MG TABLET PO PRN (22:21)
[2021-12-18] MEDS ORDERED: methaDONE HCL 40 MG DISPERSABLE TABLET ONE (04:41)
[2021-12-18] MEDS ORDERED: methaDONE HCL 10 MG TABLET ONE (04:41)
[2021-12-18] MEDS: hydrOXYzine PAMOATE 25 MG CAPSULE (FP) PO SCH ×5 (06:24→23:04)
[2021-12-18] MEDS: chlordiazePOXIDE HCL 10 MG CAPSULE PO SCH ×2 (06:24→18:50)
[2021-12-18] MEDS: amLODIPine BESYLATE 10 MG TABLET (FP) PO SCH (10:28)
[2021-12-18] MEDS: PANTOPRAZOLE 40 MG TABLET PO SCH (10:28)
[2021-12-18] MEDS: NICOTINE 14 MG/24 HOURS TOPICAL PATCH TD SCH (10:28)
[2021-12-18] MEDS: PRENATAL VITAMINS W/ FOLIC ACID TABLET (FP) PO SCH (10:28)
[2021-12-18] MEDS: levETIRAcetam 500 MG TABLET (FP) PO SCH ×2 (10:28→23:04)
[2021-12-18] MEDS: metoPROLOL SUCCINATE 25 MG TAB.SR.24H (FP) PO SCH (10:28)
[2021-12-18] MEDS: MIRTAZAPINE 15 MG TABLET (FP) PO SCH (23:04)
[2021-12-18] MEDS: THIAMINE HCL 100 MG TABLET (FP) PO SCH (23:04)
[2021-12-18] MEDS: MELATONIN 5 MG TABLETS PO SCH (23:04)
[2021-12-19] MEDS ORDERED: methaDONE HCL 10 MG TABLET ONE (04:51)
[2021-12-19] MEDS ORDERED: methaDONE HCL 40 MG DISPERSABLE TABLET ONE (04:52)
[2021-12-19] MEDS ORDERED: chlordiazePOXIDE HCL 10 MG CAPSULE PO ONE (05:00)
[2021-12-19] MEDS: hydrOXYzine PAMOATE 25 MG CAPSULE (FP) PO SCH ×2 (05:31→10:06)
[2021-12-19] MEDS: levETIRAcetam 500 MG TABLET (FP) PO SCH (10:06)
[2021-12-19] MEDS: metoPROLOL SUCCINATE 25 MG TAB.SR.24H (FP) PO SCH (10:06)
[2021-12-19] MEDS: NICOTINE 14 MG/24 HOURS TOPICAL PATCH TD SCH (10:06)
[2021-12-19] MEDS: amLODIPine BESYLATE 10 MG TABLET (FP) PO SCH (10:06)
[2021-12-19] MEDS: PANTOPRAZOLE 40 MG TABLET PO SCH (10:06)
[2021-12-19] MEDS: PRENATAL VITAMINS W/ FOLIC ACID TABLET (FP) PO SCH (10:06)
[2021-12-19 12:48] VITALS: BP 119/74; PULSE 74; TEMP 97.5
== END 2021-12-19 12:50 | disposition other institution (70) | DRG 773 ==
LOC: YASAS 15:54 → Y3N 12-15 11:51
PROVIDERS: ADMIT Allergy & Immunology; ATTEND Surgery
PROC: HZ2ZZZZ Detoxification Services for Substance Abuse Treatment (ICD-10-PCS; principal; 2021-12-15)
DX: F10.230 Alcohol dependence with withdrawal, uncomplicated (principal); F11.20 Opioid dependence, uncomplicated; F12.10 Cannabis abuse, uncomplicated; F17.210 Nicotine dependence, cigarettes, uncomplicated; F19.24 Other psychoactive substance dependence with psychoactive substance-induced mood disorder; F41.9 Anxiety disorder, unspecified; F32.A Depression, unspecified; F43.10 Post-traumatic stress disorder, unspecified; I10 Essential (primary) hypertension; L40.9 Psoriasis, unspecified; B18.2 Chronic viral hepatitis C; R63.4 Abnormal weight loss; Z68.23 Body mass index [BMI] 23.0-23.9, adult; Z28.310 Unvaccinated for COVID-19; Z91.14 Patient's other noncompliance with medication regimen
CPT/HCPCS: 36415; 80053; 85027; 86780; C9803-CS; Q0162; U0003; U0005

== ENCOUNTER 2021-12-19 12:53 | Inpatient (IN) | payer OTHER ==
[2021-12-19] MEDS ORDERED: MAGNESIUM HYDROX 2400MG/30ML ORAL SUSPENSION 30 ML CUP PO PRN (14:10)
[2021-12-19] MEDS ORDERED: LOPERAMIDE HCL 2 MG CAPSULE PO PRN (14:10)
[2021-12-19] MEDS ORDERED: IBUPROFEN 400 MG TABLET (FP) PO PRN (14:10)
[2021-12-19] MEDS ORDERED: guaiFENesin 200 MG/10 ML 10 ML UNIT-DOSE CUPS PO PRN (14:10)
[2021-12-19] MEDS ORDERED: P-EPHED 60MG/TRIPROLIDI 2.5MG TABLET PO PRN (14:10)
[2021-12-19] MEDS ORDERED: MAGNESIUM CITRATE 300 ML BOTTLE PO PRN (14:10)
[2021-12-19] MEDS ORDERED: BENZOCAINE/MENTHOL (CHLORASEPTIC ) LOZENGE MM PRN (14:10)
[2021-12-19] MEDS ORDERED: ALBUTEROL SO4 HFA INHALER IH PRN (14:12)
[2021-12-19] MEDS: MIRTAZAPINE 15 MG TABLET (FP) PO SCH (21:03)
[2021-12-19] MEDS: levETIRAcetam 500 MG TABLET (FP) PO SCH (21:03)
[2021-12-19] MEDS: THIAMINE HCL 100 MG TABLET (FP) PO SCH (21:03)
[2021-12-19] MEDS: MELATONIN 5 MG TABLETS PO SCH (21:04)
[2021-12-20] MEDS ORDERED: methaDONE HCL 40 MG DISPERSABLE TABLET ONE (05:58)
[2021-12-20] MEDS ORDERED: methaDONE HCL 10 MG TABLET ONE (05:58)
[2021-12-20] MEDS ORDERED: methaDONE HCL 10 MG TABLET PO SCH (06:00)
[2021-12-20] MEDS: levETIRAcetam 500 MG TABLET (FP) PO SCH ×2 (09:35→21:05)
[2021-12-20] MEDS: PRENATAL VITAMINS W/ FOLIC ACID TABLET (FP) PO SCH (09:35)
[2021-12-20] MEDS: amLODIPine BESYLATE 10 MG TABLET (FP) PO SCH (09:36)
[2021-12-20] MEDS: NICOTINE 7 MG/24 HOURS TOPICAL PATCH TD SCH (09:36)
[2021-12-20] MEDS: PANTOPRAZOLE 40 MG TABLET PO SCH (09:37)
[2021-12-20] MEDS: metoPROLOL SUCCINATE 25 MG TAB.SR.24H (FP) PO SCH (09:37)
[2021-12-20] MEDS: MELATONIN 5 MG TABLETS PO SCH (21:05)
[2021-12-20] MEDS: THIAMINE HCL 100 MG TABLET (FP) PO SCH (21:05)
[2021-12-20] MEDS: MIRTAZAPINE 15 MG TABLET (FP) PO SCH (21:05)
[2021-12-21] MEDS ORDERED: methaDONE HCL 40 MG DISPERSABLE TABLET ONE (03:29)
[2021-12-21] MEDS ORDERED: methaDONE HCL 10 MG TABLET ONE (03:29)
[2021-12-21] MEDS: NICOTINE 7 MG/24 HOURS TOPICAL PATCH TD SCH (09:32)
[2021-12-21] MEDS: PRENATAL VITAMINS W/ FOLIC ACID TABLET (FP) PO SCH (09:32)
[2021-12-21] MEDS: levETIRAcetam 500 MG TABLET (FP) PO SCH ×2 (09:33→21:02)
[2021-12-21] MEDS: PANTOPRAZOLE 40 MG TABLET PO SCH (09:33)
[2021-12-21] MEDS: MAG HYDROX/AL HYDROX/SIMETH 30 ML UNIT-DOSE CUP PO PRN (11:56)
[2021-12-21] MEDS: metoPROLOL SUCCINATE 25 MG TAB.SR.24H (FP) PO SCH (12:02)
[2021-12-21] MEDS: amLODIPine BESYLATE 10 MG TABLET (FP) PO SCH (12:03)
[2021-12-21] MEDS: MELATONIN 5 MG TABLETS PO SCH (21:01)
[2021-12-21] MEDS: THIAMINE HCL 100 MG TABLET (FP) PO SCH (21:01)
[2021-12-21] MEDS: MIRTAZAPINE 15 MG TABLET (FP) PO SCH (21:02)
[2021-12-22] MEDS ORDERED: methaDONE HCL 10 MG TABLET ONE (03:56)
[2021-12-22] MEDS ORDERED: methaDONE HCL 40 MG DISPERSABLE TABLET ONE (03:57)
[2021-12-22] MEDS: PANTOPRAZOLE 40 MG TABLET PO SCH (09:45)
[2021-12-22] MEDS: metoPROLOL SUCCINATE 25 MG TAB.SR.24H (FP) PO SCH ×2 (09:45→09:50)
[2021-12-22] MEDS: NICOTINE 7 MG/24 HOURS TOPICAL PATCH TD SCH (09:46)
[2021-12-22] MEDS: levETIRAcetam 500 MG TABLET (FP) PO SCH ×2 (09:47→21:22)
[2021-12-22] MEDS: amLODIPine BESYLATE 10 MG TABLET (FP) PO SCH (09:49)
[2021-12-22] MEDS: PRENATAL VITAMINS W/ FOLIC ACID TABLET (FP) PO SCH (09:49)
[2021-12-22] MEDS: MELATONIN 5 MG TABLETS PO SCH (21:22)
[2021-12-22] MEDS: MIRTAZAPINE 15 MG TABLET (FP) PO SCH (21:22)
[2021-12-22] MEDS: THIAMINE HCL 100 MG TABLET (FP) PO SCH (21:22)
[2021-12-23] MEDS ORDERED: methaDONE HCL 10 MG TABLET ONE (04:02)
[2021-12-23] MEDS ORDERED: methaDONE HCL 40 MG DISPERSABLE TABLET ONE (04:02)
[2021-12-23] MEDS: PRENATAL VITAMINS W/ FOLIC ACID TABLET (FP) PO SCH (09:53)
[2021-12-23] MEDS: levETIRAcetam 500 MG TABLET (FP) PO SCH ×2 (09:54→21:12)
[2021-12-23] MEDS: metoPROLOL SUCCINATE 25 MG TAB.SR.24H (FP) PO SCH (09:54)
[2021-12-23] MEDS: NICOTINE 7 MG/24 HOURS TOPICAL PATCH TD SCH (09:55)
[2021-12-23] MEDS: amLODIPine BESYLATE 10 MG TABLET (FP) PO SCH (09:55)
[2021-12-23] MEDS: PANTOPRAZOLE 40 MG TABLET PO SCH (09:55)
[2021-12-23] MEDS: MELATONIN 5 MG TABLETS PO SCH (21:12)
[2021-12-23] MEDS: MIRTAZAPINE 15 MG TABLET (FP) PO SCH (21:12)
[2021-12-23] MEDS: THIAMINE HCL 100 MG TABLET (FP) PO SCH (21:12)
[2021-12-24] MEDS ORDERED: methaDONE HCL 10 MG TABLET ONE (03:43)
[2021-12-24] MEDS ORDERED: methaDONE HCL 40 MG DISPERSABLE TABLET ONE (03:43)
[2021-12-24] MEDS: metoPROLOL SUCCINATE 25 MG TAB.SR.24H (FP) PO SCH (09:48)
[2021-12-24] MEDS: levETIRAcetam 500 MG TABLET (FP) PO SCH ×2 (09:48→21:01)
[2021-12-24] MEDS: PRENATAL VITAMINS W/ FOLIC ACID TABLET (FP) PO SCH (09:48)
[2021-12-24] MEDS: amLODIPine BESYLATE 10 MG TABLET (FP) PO SCH (09:48)
[2021-12-24] MEDS: PANTOPRAZOLE 40 MG TABLET PO SCH (09:48)
[2021-12-24] MEDS: NICOTINE 7 MG/24 HOURS TOPICAL PATCH TD SCH (09:49)
[2021-12-24] MEDS: THIAMINE HCL 100 MG TABLET (FP) PO SCH (21:01)
[2021-12-24] MEDS: FLUOCINONIDE 0.05% CREAM (15 GM TUBE) TP SCH (21:02)
[2021-12-24] MEDS: MIRTAZAPINE 15 MG TABLET (FP) PO SCH (21:02)
[2021-12-24] MEDS: MELATONIN 5 MG TABLETS PO SCH (21:02)
[2021-12-25] MEDS ORDERED: methaDONE HCL 40 MG DISPERSABLE TABLET ONE (04:14)
[2021-12-25] MEDS ORDERED: methaDONE HCL 10 MG TABLET ONE (04:14)
[2021-12-25] MEDS: PANTOPRAZOLE 40 MG TABLET PO SCH (06:00)
[2021-12-25] MEDS: PRENATAL VITAMINS W/ FOLIC ACID TABLET (FP) PO SCH (09:44)
[2021-12-25] MEDS: levETIRAcetam 500 MG TABLET (FP) PO SCH ×2 (09:44→21:09)
[2021-12-25] MEDS: metoPROLOL SUCCINATE 25 MG TAB.SR.24H (FP) PO SCH (09:44)
[2021-12-25] MEDS: FLUOCINONIDE 0.05% CREAM (15 GM TUBE) TP SCH ×2 (09:45→21:10)
[2021-12-25] MEDS: NICOTINE 7 MG/24 HOURS TOPICAL PATCH TD SCH (09:45)
[2021-12-25] MEDS: amLODIPine BESYLATE 10 MG TABLET (FP) PO SCH (09:45)
[2021-12-25] MEDS: NICOTINE 10 MG CARTRIDGE (INHALER) IH PRN (09:46)
[2021-12-25] MEDS: MELATONIN 5 MG TABLETS PO SCH (21:09)
[2021-12-25] MEDS: THIAMINE HCL 100 MG TABLET (FP) PO SCH (21:09)
[2021-12-25] MEDS: hydrOXYzine PAMOATE 25 MG CAPSULE (FP) PO PRN (21:09)
[2021-12-25] MEDS: MIRTAZAPINE 15 MG TABLET (FP) PO SCH (21:09)
[2021-12-26] MEDS ORDERED: methaDONE HCL 40 MG DISPERSABLE TABLET ONE (03:47)
[2021-12-26] MEDS ORDERED: methaDONE HCL 10 MG TABLET ONE (03:47)
[2021-12-26] MEDS: PANTOPRAZOLE 40 MG TABLET PO SCH (06:25)
[2021-12-26] MEDS: NICOTINE 10 MG CARTRIDGE (INHALER) IH PRN (06:25)
[2021-12-26] MEDS: PRENATAL VITAMINS W/ FOLIC ACID TABLET (FP) PO SCH (09:41)
[2021-12-26] MEDS: amLODIPine BESYLATE 10 MG TABLET (FP) PO SCH (09:41)
[2021-12-26] MEDS: levETIRAcetam 500 MG TABLET (FP) PO SCH ×2 (09:41→21:07)
[2021-12-26] MEDS: NICOTINE 7 MG/24 HOURS TOPICAL PATCH TD SCH (09:42)
[2021-12-26] MEDS: FLUOCINONIDE 0.05% CREAM (15 GM TUBE) TP SCH ×2 (09:42→21:07)
[2021-12-26] MEDS: metoPROLOL SUCCINATE 25 MG TAB.SR.24H (FP) PO SCH (09:43)
[2021-12-26] MEDS ORDERED: ONDANSETRON *ODT* 4 MG TABLET SL PRN (12:19)
[2021-12-26] MEDS: THIAMINE HCL 100 MG TABLET (FP) PO SCH (21:07)
[2021-12-26] MEDS: MAG HYDROX/AL HYDROX/SIMETH 30 ML UNIT-DOSE CUP PO PRN (21:07)
[2021-12-26] MEDS: MELATONIN 5 MG TABLETS PO SCH (21:07)
[2021-12-26] MEDS: MIRTAZAPINE 15 MG TABLET (FP) PO SCH (21:07)
[2021-12-27] MEDS ORDERED: methaDONE HCL 10 MG TABLET ONE (05:44)
[2021-12-27] MEDS ORDERED: methaDONE HCL 40 MG DISPERSABLE TABLET ONE (05:44)
[2021-12-27] MEDS: PANTOPRAZOLE 40 MG TABLET PO SCH (06:04)
[2021-12-27] MEDS: NICOTINE 10 MG CARTRIDGE (INHALER) IH PRN ×2 (09:54→21:02)
[2021-12-27] MEDS: amLODIPine BESYLATE 10 MG TABLET (FP) PO SCH (09:54)
[2021-12-27] MEDS: metoPROLOL SUCCINATE 25 MG TAB.SR.24H (FP) PO SCH (09:54)
[2021-12-27] MEDS: PRENATAL VITAMINS W/ FOLIC ACID TABLET (FP) PO SCH (09:54)
[2021-12-27] MEDS: levETIRAcetam 500 MG TABLET (FP) PO SCH ×2 (09:55→21:01)
[2021-12-27] MEDS: NICOTINE 7 MG/24 HOURS TOPICAL PATCH TD SCH (09:55)
[2021-12-27] MEDS: FLUOCINONIDE 0.05% CREAM (15 GM TUBE) TP SCH ×2 (09:55→21:01)
[2021-12-27] MEDS: ACETAMINOPHEN 325 MG TABLET (FP) PO PRN (17:27)
[2021-12-27] MEDS: MELATONIN 5 MG TABLETS PO SCH (21:01)
[2021-12-27] MEDS: THIAMINE HCL 100 MG TABLET (FP) PO SCH (21:01)
[2021-12-27] MEDS: MIRTAZAPINE 15 MG TABLET (FP) PO SCH (21:01)
[2021-12-27] MEDS: hydrOXYzine PAMOATE 25 MG CAPSULE (FP) PO PRN (21:03)
[2021-12-28] MEDS ORDERED: methaDONE HCL 10 MG TABLET ONE (03:12)
[2021-12-28] MEDS ORDERED: methaDONE HCL 40 MG DISPERSABLE TABLET ONE (03:12)
[2021-12-28] MEDS: NICOTINE 10 MG CARTRIDGE (INHALER) IH PRN (06:21)
[2021-12-28] MEDS: PANTOPRAZOLE 40 MG TABLET PO SCH (06:22)
[2021-12-28] MEDS: PRENATAL VITAMINS W/ FOLIC ACID TABLET (FP) PO SCH (09:37)
[2021-12-28] MEDS: levETIRAcetam 500 MG TABLET (FP) PO SCH ×2 (09:37→21:07)
[2021-12-28] MEDS: metoPROLOL SUCCINATE 25 MG TAB.SR.24H (FP) PO SCH (09:38)
[2021-12-28] MEDS: NICOTINE 7 MG/24 HOURS TOPICAL PATCH TD SCH (09:38)
[2021-12-28] MEDS: amLODIPine BESYLATE 10 MG TABLET (FP) PO SCH (09:38)
[2021-12-28] MEDS: FLUOCINONIDE 0.05% CREAM (15 GM TUBE) TP SCH ×2 (09:38→21:07)
[2021-12-28] MEDS: ACETAMINOPHEN 325 MG TABLET (FP) PO PRN (09:39)
[2021-12-28] MEDS: THIAMINE HCL 100 MG TABLET (FP) PO SCH (21:07)
[2021-12-28] MEDS: MIRTAZAPINE 15 MG TABLET (FP) PO SCH (21:07)
[2021-12-28] MEDS: MELATONIN 5 MG TABLETS PO SCH (21:07)
[2021-12-28 21:50] VITALS: RESP 18
[2021-12-29] MEDS ORDERED: methaDONE HCL 40 MG DISPERSABLE TABLET ONE (03:40)
[2021-12-29] MEDS ORDERED: methaDONE HCL 10 MG TABLET ONE (03:40)
[2021-12-29] MEDS: NICOTINE 10 MG CARTRIDGE (INHALER) IH PRN (05:48)
[2021-12-29] MEDS: PANTOPRAZOLE 40 MG TABLET PO SCH (07:06)
[2021-12-29] MEDS: levETIRAcetam 500 MG TABLET (FP) PO SCH ×2 (09:52→21:04)
[2021-12-29] MEDS: PRENATAL VITAMINS W/ FOLIC ACID TABLET (FP) PO SCH (09:52)
[2021-12-29] MEDS: metoPROLOL SUCCINATE 25 MG TAB.SR.24H (FP) PO SCH (09:52)
[2021-12-29] MEDS: amLODIPine BESYLATE 10 MG TABLET (FP) PO SCH (09:52)
[2021-12-29] MEDS: FLUOCINONIDE 0.05% CREAM (15 GM TUBE) TP SCH ×2 (09:53→21:04)
[2021-12-29] MEDS: NICOTINE 7 MG/24 HOURS TOPICAL PATCH TD SCH (09:53)
[2021-12-29] MEDS: MELATONIN 5 MG TABLETS PO SCH (21:03)
[2021-12-29] MEDS: THIAMINE HCL 100 MG TABLET (FP) PO SCH (21:03)
[2021-12-29] MEDS: MIRTAZAPINE 15 MG TABLET (FP) PO SCH (21:04)
[2021-12-30] MEDS ORDERED: methaDONE HCL 10 MG TABLET ONE (06:08)
[2021-12-30] MEDS ORDERED: methaDONE HCL 40 MG DISPERSABLE TABLET ONE (06:09)
[2021-12-30] MEDS: PANTOPRAZOLE 40 MG TABLET PO SCH (06:37)
[2021-12-30] MEDS: PRENATAL VITAMINS W/ FOLIC ACID TABLET (FP) PO SCH (09:41)
[2021-12-30] MEDS: metoPROLOL SUCCINATE 25 MG TAB.SR.24H (FP) PO SCH (09:41)
[2021-12-30] MEDS: levETIRAcetam 500 MG TABLET (FP) PO SCH ×2 (09:42→21:18)
[2021-12-30] MEDS: NICOTINE 10 MG CARTRIDGE (INHALER) IH PRN (09:43)
[2021-12-30] MEDS: amLODIPine BESYLATE 10 MG TABLET (FP) PO SCH (09:43)
[2021-12-30] MEDS: FLUOCINONIDE 0.05% CREAM (15 GM TUBE) TP SCH ×2 (09:43→21:19)
[2021-12-30] MEDS: NICOTINE 7 MG/24 HOURS TOPICAL PATCH TD SCH (09:43)
[2021-12-30] MEDS: hydrOXYzine PAMOATE 25 MG CAPSULE (FP) PO PRN (09:43)
[2021-12-30] MEDS: MELATONIN 5 MG TABLETS PO SCH (21:18)
[2021-12-30] MEDS: MIRTAZAPINE 15 MG TABLET (FP) PO SCH (21:18)
[2021-12-30] MEDS: THIAMINE HCL 100 MG TABLET (FP) PO SCH (21:18)
[2021-12-31] MEDS ORDERED: methaDONE HCL 10 MG TABLET ONE (04:52)
[2021-12-31] MEDS ORDERED: methaDONE HCL 40 MG DISPERSABLE TABLET ONE (04:52)
[2021-12-31] MEDS: PANTOPRAZOLE 40 MG TABLET PO SCH (06:35)
[2021-12-31] MEDS: FLUOCINONIDE 0.05% CREAM (15 GM TUBE) TP SCH ×2 (09:38→21:11)
[2021-12-31] MEDS: metoPROLOL SUCCINATE 25 MG TAB.SR.24H (FP) PO SCH (09:38)
[2021-12-31] MEDS: PRENATAL VITAMINS W/ FOLIC ACID TABLET (FP) PO SCH (09:38)
[2021-12-31] MEDS: NICOTINE 7 MG/24 HOURS TOPICAL PATCH TD SCH (09:38)
[2021-12-31] MEDS: NICOTINE 10 MG CARTRIDGE (INHALER) IH PRN (09:38)
[2021-12-31] MEDS: levETIRAcetam 500 MG TABLET (FP) PO SCH ×2 (09:38→21:11)
[2021-12-31] MEDS: hydrOXYzine PAMOATE 25 MG CAPSULE (FP) PO PRN (09:38)
[2021-12-31] MEDS: amLODIPine BESYLATE 10 MG TABLET (FP) PO SCH (09:40)
[2021-12-31] MEDS: MIRTAZAPINE 15 MG TABLET (FP) PO SCH (21:11)
[2021-12-31] MEDS: MELATONIN 5 MG TABLETS PO SCH (21:11)
[2021-12-31] MEDS: THIAMINE HCL 100 MG TABLET (FP) PO SCH (21:11)
[2022-01-01] MEDS ORDERED: methaDONE HCL 10 MG TABLET ONE (03:52)
[2022-01-01] MEDS ORDERED: methaDONE HCL 40 MG DISPERSABLE TABLET ONE (03:53)
[2022-01-01] MEDS: PANTOPRAZOLE 40 MG TABLET PO SCH (06:07)
[2022-01-01] MEDS: levETIRAcetam 500 MG TABLET (FP) PO SCH ×2 (10:14→21:04)
[2022-01-01] MEDS: PRENATAL VITAMINS W/ FOLIC ACID TABLET (FP) PO SCH (10:16)
[2022-01-01] MEDS: FLUOCINONIDE 0.05% CREAM (15 GM TUBE) TP SCH ×2 (10:45→21:05)
[2022-01-01] MEDS: NICOTINE 7 MG/24 HOURS TOPICAL PATCH TD SCH (10:45)
[2022-01-01] MEDS: amLODIPine BESYLATE 10 MG TABLET (FP) PO SCH (10:46)
[2022-01-01] MEDS: metoPROLOL SUCCINATE 25 MG TAB.SR.24H (FP) PO SCH (10:46)
[2022-01-01] MEDS: MIRTAZAPINE 15 MG TABLET (FP) PO SCH (21:04)
[2022-01-01] MEDS: THIAMINE HCL 100 MG TABLET (FP) PO SCH (21:04)
[2022-01-01] MEDS: MELATONIN 5 MG TABLETS PO SCH (21:05)
[2022-01-01] MEDS ORDERED: DOCUSATE SODIUM 100 MG CAPSULE (FP) PO SCH (22:00)
[2022-01-02] MEDS ORDERED: methaDONE HCL 40 MG DISPERSABLE TABLET ONE (03:57)
[2022-01-02] MEDS ORDERED: methaDONE HCL 10 MG TABLET ONE (03:57)
[2022-01-02] MEDS: PANTOPRAZOLE 40 MG TABLET PO SCH (06:24)
[2022-01-02] MEDS: hydrOXYzine PAMOATE 25 MG CAPSULE (FP) PO PRN (06:24)
[2022-01-02 08:23] VITALS: BP 161/89; PULSE 81; TEMP 98.2
[2022-01-02] MEDS: levETIRAcetam 500 MG TABLET (FP) PO SCH (09:04)
[2022-01-02] MEDS: PRENATAL VITAMINS W/ FOLIC ACID TABLET (FP) PO SCH (09:04)
[2022-01-02] MEDS: amLODIPine BESYLATE 10 MG TABLET (FP) PO SCH (09:04)
[2022-01-02] MEDS: FLUOCINONIDE 0.05% CREAM (15 GM TUBE) TP SCH (09:05)
[2022-01-02] MEDS: metoPROLOL SUCCINATE 25 MG TAB.SR.24H (FP) PO SCH (09:05)
[2022-01-02] MEDS: NICOTINE 7 MG/24 HOURS TOPICAL PATCH TD SCH (09:05)
== END 2022-01-02 09:17 | disposition home or self-care (01) | DRG 772 ==
LOC: YASAS 12:53 → Y5N 12:54 → Y3W 12-31 22:14
PROVIDERS: ADMIT Allergy & Immunology; ATTEND Psychiatry & Neurology Pain Medicine
PROC: HZ42ZZZ Group Counseling for Substance Abuse Treatment, Cognitive-Behavioral (ICD-10-PCS; principal; 2021-12-19)
DX: F11.20 Opioid dependence, uncomplicated (principal); F10.20 Alcohol dependence, uncomplicated; F14.20 Cocaine dependence, uncomplicated; F12.20 Cannabis dependence, uncomplicated; F17.210 Nicotine dependence, cigarettes, uncomplicated; I10 Essential (primary) hypertension; J45.909 Unspecified asthma, uncomplicated; L40.9 Psoriasis, unspecified; B18.2 Chronic viral hepatitis C; R56.9 Unspecified convulsions; R63.4 Abnormal weight loss; Z68.22 Body mass index [BMI] 22.0-22.9, adult
CPT/HCPCS: Q0162

== ENCOUNTER 2022-02-13 16:18 | Inpatient (IN) | payer OTHER ==
[2022-02-13 22:06] VITALS: BMI 18.6
[2022-02-13] MEDS ORDERED: ALBUTEROL SO4 HFA INHALER IH PRN (22:19)
[2022-02-13] MEDS ORDERED: MAG HYDROX/AL HYDROX/SIMETH 30 ML UNIT-DOSE CUP PO PRN (22:26)
[2022-02-13] MEDS ORDERED: guaiFENesin 200 MG/10 ML 10 ML UNIT-DOSE CUPS PO PRN (22:26)
[2022-02-13] MEDS ORDERED: P-EPHED 60MG/TRIPROLIDI 2.5MG TABLET PO PRN (22:26)
[2022-02-13] MEDS ORDERED: DICYCLOMINE HCL 10 MG CAPSULE PO PRN (22:26)
[2022-02-13] MEDS ORDERED: IBUPROFEN 600 MG TABLET (FP) PO PRN (22:26)
[2022-02-13] MEDS ORDERED: NICOTINE POLACRILEX 2 MG GUM BUC PRN (22:26)
[2022-02-13] MEDS ORDERED: ACETAMINOPHEN 325 MG TABLET (FP) PO PRN ×2 (22:26)
[2022-02-13] MEDS ORDERED: MAGNESIUM CITRATE 300 ML BOTTLE PO PRN (22:26)
[2022-02-13] MEDS ORDERED: BISMUTH SUBSALICYLATE 524 MG/30 ML PO PRN (22:26)
[2022-02-13] MEDS ORDERED: BENZOCAINE/MENTHOL (CHLORASEPTIC ) LOZENGE MM PRN (22:26)
[2022-02-13] MEDS ORDERED: MAGNESIUM HYDROX 2400MG/30ML ORAL SUSPENSION 30 ML CUP PO PRN (22:26)
[2022-02-13] MEDS ORDERED: ONDANSETRON *ODT* 4 MG TABLET SL PRN (22:26)
[2022-02-13] MEDS ORDERED: LOPERAMIDE HCL 2 MG CAPSULE PO PRN (22:26)
[2022-02-13] MEDS ORDERED: IBUPROFEN 400 MG TABLET (FP) PO PRN (22:26)
[2022-02-13] MEDS ORDERED: chlordiazePOXIDE HCL 25 MG CAPSULE PO PRN (22:28)
[2022-02-13] MEDS ORDERED: MIRTAZAPINE 15 MG TABLET (FP) PO ONE (22:28)
[2022-02-14] MEDS: levETIRAcetam 500 MG TABLET (FP) PO SCH ×3 (00:21→22:13)
[2022-02-14] MEDS: chlordiazePOXIDE HCL 25 MG CAPSULE PO SCH ×5 (00:21→22:14)
[2022-02-14 09:40] LABS: HEMATOCRIT 32.6 % (35.4-49); HEMOGLOBIN 11.3 GM/dL (11.7-16.9); MCH 30.6 pg (25.7-33.7); MCHC 34.6 g/dl (32.0-35.9); MEAN CELL VOLUME 88.5 fl (80-96); MEAN PLT VOLUME 6.9 fl (7.5-11.1); PLATELET COUNT 145 10^3/uL (134-434); RBC 3.68 M/mm3 (4.00-5.60); RDW 15.2 % (11.9-15.9); WHITE BLOOD COUNT 4.6 K/mm3 (4.0-10.0)
[2022-02-14] MEDS ORDERED: methaDONE HCL 40 MG DISPERSABLE TABLET PO SCH (10:15)
[2022-02-14 10:19] LABS: ALBUMIN 3.6 g/dl (3.4-5.0); BILIRUBIN,TOTAL 0.8 mg/dL (0.2-1); BLOOD UREA NITROGEN 13.7 mg/dL (7-18); CALCIUM 9.4 mg/dL (8.5-10.1); CREATININE 0.9 mg/dL (0.55-1.3); TOT PROT 7.8 g/dl (6.4-8.2)
[2022-02-14] MEDS: amLODIPine BESYLATE 10 MG TABLET (FP) PO SCH (10:23)
[2022-02-14] MEDS: metoPROLOL SUCCINATE 25 MG TAB.SR.24H (FP) PO SCH (10:23)
[2022-02-14] MEDS: PANTOPRAZOLE 40 MG TABLET PO SCH (10:24)
[2022-02-14] MEDS: PRENATAL VITAMINS W/ FOLIC ACID TABLET (FP) PO SCH (10:25)
[2022-02-14] MEDS: MELATONIN 5 MG TABLETS PO SCH (22:13)
[2022-02-14] MEDS: THIAMINE HCL 100 MG TABLET (FP) PO SCH (22:13)
[2022-02-14] MEDS: MIRTAZAPINE 15 MG TABLET (FP) PO SCH (22:13)
[2022-02-14] MEDS: METHOCARBAMOL 500 MG TABLET PO PRN (22:15)
[2022-02-15] MEDS: chlordiazePOXIDE HCL 10 MG CAPSULE PO SCH ×4 (06:05→22:14)
[2022-02-15] MEDS: METHOCARBAMOL 500 MG TABLET PO PRN (06:05)
[2022-02-15] MEDS: PRENATAL VITAMINS W/ FOLIC ACID TABLET (FP) PO SCH (10:56)
[2022-02-15] MEDS: levETIRAcetam 500 MG TABLET (FP) PO SCH ×2 (10:56→22:13)
[2022-02-15] MEDS: metoPROLOL SUCCINATE 25 MG TAB.SR.24H (FP) PO SCH (10:56)
[2022-02-15] MEDS: amLODIPine BESYLATE 10 MG TABLET (FP) PO SCH (10:56)
[2022-02-15] MEDS: PANTOPRAZOLE 40 MG TABLET PO SCH (10:56)
[2022-02-15] MEDS: MELATONIN 5 MG TABLETS PO SCH (22:13)
[2022-02-15] MEDS: MIRTAZAPINE 15 MG TABLET (FP) PO SCH (22:13)
[2022-02-15] MEDS: THIAMINE HCL 100 MG TABLET (FP) PO SCH (22:13)
[2022-02-16] MEDS ORDERED: chlordiazePOXIDE HCL 10 MG CAPSULE PO PRN
[2022-02-16] MEDS: chlordiazePOXIDE HCL 10 MG CAPSULE PO ONE (05:33)
[2022-02-16] MEDS: chlordiazePOXIDE HCL 10 MG CAPSULE PO SCH ×2 (05:35→17:45)
[2022-02-16] MEDS: amLODIPine BESYLATE 10 MG TABLET (FP) PO SCH (10:11)
[2022-02-16] MEDS: levETIRAcetam 500 MG TABLET (FP) PO SCH ×2 (10:11→22:08)
[2022-02-16] MEDS: PRENATAL VITAMINS W/ FOLIC ACID TABLET (FP) PO SCH (10:11)
[2022-02-16] MEDS: metoPROLOL SUCCINATE 25 MG TAB.SR.24H (FP) PO SCH (10:11)
[2022-02-16] MEDS: PANTOPRAZOLE 40 MG TABLET PO SCH (10:11)
[2022-02-16] MEDS: METHOCARBAMOL 500 MG TABLET PO PRN (10:12)
[2022-02-16] MEDS: THIAMINE HCL 100 MG TABLET (FP) PO SCH (22:08)
[2022-02-16] MEDS: MIRTAZAPINE 15 MG TABLET (FP) PO SCH (22:08)
[2022-02-16] MEDS: MELATONIN 5 MG TABLETS PO SCH (22:08)
[2022-02-17] MEDS: chlordiazePOXIDE HCL 10 MG CAPSULE PO ONE (05:40)
[2022-02-17 09:22] VITALS: BP 159/84; PULSE 74; RESP 18; TEMP 97.7
[2022-02-17] MEDS: levETIRAcetam 500 MG TABLET (FP) PO SCH (09:41)
[2022-02-17] MEDS: amLODIPine BESYLATE 10 MG TABLET (FP) PO SCH (09:41)
[2022-02-17] MEDS: PRENATAL VITAMINS W/ FOLIC ACID TABLET (FP) PO SCH (09:41)
[2022-02-17] MEDS: metoPROLOL SUCCINATE 25 MG TAB.SR.24H (FP) PO SCH (09:41)
[2022-02-17] MEDS: PANTOPRAZOLE 40 MG TABLET PO SCH (09:41)
== END 2022-02-17 09:34 | disposition home or self-care (01) | DRG 773 ==
LOC: YASAS 16:18 → Y3N 23:36
PROVIDERS: ADMIT Allergy & Immunology; ATTEND Family Medicine Addiction Medicine
PROC: HZ2ZZZZ Detoxification Services for Substance Abuse Treatment (ICD-10-PCS; principal; 2022-02-13)
DX: F11.23 Opioid dependence with withdrawal (principal); F10.230 Alcohol dependence with withdrawal, uncomplicated; F14.20 Cocaine dependence, uncomplicated; F17.210 Nicotine dependence, cigarettes, uncomplicated; F19.24 Other psychoactive substance dependence with psychoactive substance-induced mood disorder; F43.10 Post-traumatic stress disorder, unspecified; I10 Essential (primary) hypertension; K21.9 Gastro-esophageal reflux disease without esophagitis; Z86.19 Personal history of other infectious and parasitic diseases; Z28.310 Unvaccinated for COVID-19; Z28.9 Immunization not carried out for unspecified reason
CPT/HCPCS: 36415; 80053; 85027; 86780; C9803-CS; Q0162; U0003; U0005

== ENCOUNTER 2022-06-12 12:27 | Inpatient (IN) | payer OTHER ==
[2022-06-12 13:44] VITALS: BMI 22.8
[2022-06-12] MEDS ORDERED: POLYETHYLENE GLYCOL (HEALTHYLAX) 3350 17 GM PACKET PO PRN (14:58)
[2022-06-12] MEDS ORDERED: MAGNESIUM HYDROX 2400MG/30ML ORAL SUSPENSION 30 ML CUP PO PRN (14:58)
[2022-06-12] MEDS ORDERED: LOPERAMIDE HCL 2 MG CAPSULE PO PRN (14:58)
[2022-06-12] MEDS ORDERED: hydrOXYzine PAMOATE 25 MG CAPSULE (FP) PO PRN (14:58)
[2022-06-12] MEDS ORDERED: IBUPROFEN 600 MG TABLET (FP) PO PRN (14:58)
[2022-06-12] MEDS ORDERED: DICYCLOMINE HCL 10 MG CAPSULE PO PRN (14:58)
[2022-06-12] MEDS ORDERED: BISMUTH SUBSALICYLATE 524 MG/30 ML PO PRN (14:58)
[2022-06-12] MEDS ORDERED: MAG HYDROX/AL HYDROX/SIMETH 30 ML UNIT-DOSE CUP PO PRN (14:58)
[2022-06-12] MEDS ORDERED: BENZOCAINE/MENTHOL (CHLORASEPTIC ) LOZENGE MM PRN (14:58)
[2022-06-12] MEDS ORDERED: NALOXONE HCL (KLOXXADO) 8 MG SPRAY NS PRN (14:58)
[2022-06-12] MEDS ORDERED: ACETAMINOPHEN 325 MG TABLET (FP) PO PRN ×2 (14:58)
[2022-06-12] MEDS ORDERED: IBUPROFEN 400 MG TABLET (FP) PO PRN (14:58)
[2022-06-12] MEDS ORDERED: NICOTINE POLACRILEX 4 MG GUM BUC PRN (14:58)
[2022-06-12] MEDS ORDERED: ONDANSETRON *ODT* 4 MG TABLET SL PRN (14:58)
[2022-06-12] MEDS ORDERED: LORazepam 1 MG TABLET PO PRN (15:23)
[2022-06-12] MEDS: LORazepam 2 MG TABLET PO SCH ×2 (16:40→22:10)
[2022-06-12] MEDS: levETIRAcetam 500 MG TABLET (FP) PO SCH (22:10)
[2022-06-12] MEDS: THIAMINE HCL 100 MG TABLET (FP) PO SCH (22:10)
[2022-06-12] MEDS: MELATONIN 5 MG TABLETS PO SCH (22:24)
[2022-06-13] MEDS: LORazepam 2 MG TABLET PO SCH ×4 (05:41→22:40)
[2022-06-13] MEDS ORDERED: methaDONE HCL 10 MG TABLET PO SCH ×3 (06:00→10:15)
[2022-06-13] MEDS: levETIRAcetam 500 MG TABLET (FP) PO SCH ×2 (10:16→22:39)
[2022-06-13] MEDS: PRENATAL VITAMINS W/ FOLIC ACID TABLET (FP) PO SCH (10:16)
[2022-06-13 10:44] LABS: HEMATOCRIT 28.3 % (35.4-49); HEMOGLOBIN 9.6 GM/dL (11.7-16.9); MCH 30.3 pg (25.7-33.7); PLATELET COUNT 155 10^3/uL (134-434); RBC 3.18 M/mm3 (4.00-5.60); RDW 13.2 % (11.9-15.9); RETICULOCYTES 1.43 % (0.5-1.5); WHITE BLOOD COUNT 3.7 K/mm3 (4.0-10.0)
[2022-06-13 10:56] LABS: INR 1.03 (0.83-1.09); PROTHROMBIN TIME (PATIENT) 11.8 SEC (9.7-13.0)
[2022-06-13 10:58] LABS: ACTIVATED PTT 28.7 SECONDS (25.2-36.5)
[2022-06-13 11:05] LABS: CALCIUM 8.7 mg/dL (8.5-10.1)
[2022-06-13 11:06] LABS: ALBUMIN 2.9 g/dl (3.4-5.0); BLOOD UREA NITROGEN 12.1 mg/dL (7-18)
[2022-06-13 11:10] LABS: BILIRUBIN,TOTAL 0.8 mg/dL (0.2-1); TOT PROT 6.4 g/dl (6.4-8.2)
[2022-06-13] MEDS: NICOTINE 21 MG/24 HOURS TOPICAL PATCH TD SCH (11:25)
[2022-06-13] MEDS: MIRTAZAPINE 15 MG TABLET (FP) PO SCH (22:39)
[2022-06-13] MEDS: THIAMINE HCL 100 MG TABLET (FP) PO SCH (22:39)
[2022-06-13] MEDS: MELATONIN 5 MG TABLETS PO SCH (22:40)
[2022-06-14] MEDS: LORazepam 1 MG TABLET PO SCH ×4 (05:36→22:10)
[2022-06-14] MEDS: levETIRAcetam 500 MG TABLET (FP) PO SCH ×2 (10:17→22:09)
[2022-06-14] MEDS: PRENATAL VITAMINS W/ FOLIC ACID TABLET (FP) PO SCH (10:17)
[2022-06-14] MEDS: NICOTINE 21 MG/24 HOURS TOPICAL PATCH TD SCH (10:17)
[2022-06-14 14:34] LABS: HEMATOCRIT 29.4 % (35.4-49); HEMOGLOBIN 9.9 GM/dL (11.7-16.9); MCH 30.3 pg (25.7-33.7); MCHC 33.7 g/dl (32.0-35.9); MEAN CELL VOLUME 89.7 fl (80-96); MEAN PLT VOLUME 8.1 fl (7.5-11.1); PLATELET COUNT 183 10^3/uL (134-434); RBC 3.28 M/mm3 (4.00-5.60); RDW 13.2 % (11.9-15.9); RETICULOCYTES 1.58 % (0.5-1.5); WHITE BLOOD COUNT 4.2 K/mm3 (4.0-10.0)
[2022-06-14] MEDS: MIRTAZAPINE 15 MG TABLET (FP) PO SCH (22:10)
[2022-06-14] MEDS: MELATONIN 5 MG TABLETS PO SCH (22:10)
[2022-06-14] MEDS: THIAMINE HCL 100 MG TABLET (FP) PO SCH (22:10)
[2022-06-15] MEDS ORDERED: LORazepam 0.5 MG TABLET PO PRN
[2022-06-15] MEDS: LORazepam 0.5 MG TABLET PO SCH ×4 (05:27→22:06)
[2022-06-15] MEDS: PRENATAL VITAMINS W/ FOLIC ACID TABLET (FP) PO SCH (10:41)
[2022-06-15] MEDS: NICOTINE 21 MG/24 HOURS TOPICAL PATCH TD SCH (10:41)
[2022-06-15] MEDS: levETIRAcetam 500 MG TABLET (FP) PO SCH ×2 (10:41→22:05)
[2022-06-15] MEDS: MELATONIN 5 MG TABLETS PO SCH (22:05)
[2022-06-15] MEDS: THIAMINE HCL 100 MG TABLET (FP) PO SCH (22:05)
[2022-06-15] MEDS: MIRTAZAPINE 15 MG TABLET (FP) PO SCH (22:05)
[2022-06-16] MEDS ORDERED: LORazepam 0.5 MG TABLET PO ONE (05:00)
[2022-06-16] MEDS ORDERED: ALBUTEROL SO4 HFA INHALER IH PRN (08:54)
[2022-06-16] MEDS ORDERED: LACTULOSE 20 GM/30 ML UDC (FOR ORAL USE ONLY) PO SCH (10:00)
[2022-06-16 10:01] VITALS: RESP 18
[2022-06-16] MEDS: PRENATAL VITAMINS W/ FOLIC ACID TABLET (FP) PO SCH (10:48)
[2022-06-16] MEDS: levETIRAcetam 500 MG TABLET (FP) PO SCH (10:48)
[2022-06-16] MEDS: NICOTINE 21 MG/24 HOURS TOPICAL PATCH TD SCH (10:51)
[2022-06-16] MEDS ORDERED: FERROUS SO4 325 MG TABLET (FP) PO SCH (12:00)
[2022-06-16 13:29] VITALS: BP 125/77; PULSE 91; TEMP 97.8
== END 2022-06-16 13:45 | disposition home or self-care (01) | DRG 773 ==
LOC: YASAS 12:27 → Y6N 15:08
PROVIDERS: ADMIT Allergy & Immunology; ATTEND Surgery
PROC: HZ2ZZZZ Detoxification Services for Substance Abuse Treatment (ICD-10-PCS; principal; 2022-06-12)
DX: F10.230 Alcohol dependence with withdrawal, uncomplicated (principal); F11.20 Opioid dependence, uncomplicated; F12.20 Cannabis dependence, uncomplicated; F17.210 Nicotine dependence, cigarettes, uncomplicated; F19.280 Other psychoactive substance dependence with psychoactive substance-induced anxiety disorder; F19.282 Other psychoactive substance dependence with psychoactive substance-induced sleep disorder; F19.24 Other psychoactive substance dependence with psychoactive substance-induced mood disorder; F32.9 Major depressive disorder, single episode, unspecified; F43.10 Post-traumatic stress disorder, unspecified; D50.8 Other iron deficiency anemias; I10 Essential (primary) hypertension; J45.20 Mild intermittent asthma, uncomplicated; K21.9 Gastro-esophageal reflux disease without esophagitis; L40.9 Psoriasis, unspecified; B18.2 Chronic viral hepatitis C; R56.9 Unspecified convulsions; R79.89 Other specified abnormal findings of blood chemistry; Z62.810 Personal history of physical and sexual abuse in childhood; R63.4 Abnormal weight loss; Z68.22 Body mass index [BMI] 22.0-22.9, adult; Z28.310 Unvaccinated for COVID-19; Z28.9 Immunization not carried out for unspecified reason
CPT/HCPCS: 36415; 80053; 82140; 82607; 82746; 83540; 83550; 84450; 85027; 85045; 85610; 85730; 86780; 86803; 87522; 93005; 93010; C9803-CS; U0003; U0005

== ENCOUNTER 2022-06-17 12:10 | Inpatient (IN) | payer OTHER ==
[2022-06-17 12:40] VITALS: BMI 22.6
[2022-06-17] MEDS ORDERED: MAGNESIUM HYDROX 2400MG/30ML ORAL SUSPENSION 30 ML CUP PO PRN (14:11)
[2022-06-17] MEDS ORDERED: IBUPROFEN 400 MG TABLET (FP) PO PRN (14:11)
[2022-06-17] MEDS ORDERED: ACETAMINOPHEN 325 MG TABLET (FP) PO PRN (14:11)
[2022-06-17] MEDS ORDERED: BENZOCAINE/MENTHOL (CHLORASEPTIC ) LOZENGE MM PRN (14:11)
[2022-06-17] MEDS ORDERED: MAG HYDROX/AL HYDROX/SIMETH 30 ML UNIT-DOSE CUP PO PRN (14:11)
[2022-06-17] MEDS ORDERED: P-EPHED 60MG/TRIPROLIDI 2.5MG TABLET PO PRN (14:11)
[2022-06-17] MEDS ORDERED: LOPERAMIDE HCL 2 MG CAPSULE PO PRN (14:11)
[2022-06-17] MEDS ORDERED: POLYETHYLENE GLYCOL (HEALTHYLAX) 3350 17 GM PACKET PO PRN (14:11)
[2022-06-17] MEDS ORDERED: hydrOXYzine PAMOATE 25 MG CAPSULE (FP) PO PRN (14:11)
[2022-06-17] MEDS ORDERED: NICOTINE 10 MG CARTRIDGE (INHALER) IH PRN (14:11)
[2022-06-17] MEDS ORDERED: guaiFENesin 200 MG/10 ML 10 ML UNIT-DOSE CUPS PO PRN (14:11)
[2022-06-17] MEDS ORDERED: ALBUTEROL SO4 HFA INHALER IH PRN (14:16)
[2022-06-17] MEDS ORDERED: metoPROLOL SUCCINATE 25 MG TAB.SR.24H (FP) PO SCH (14:30)
[2022-06-17] MEDS ORDERED: amLODIPine BESYLATE 10 MG TABLET (FP) PO SCH (14:30)
[2022-06-17] MEDS: FERROUS SO4 325 MG TABLET (FP) PO SCH ×2 (19:18→22:01)
[2022-06-17] MEDS: NICOTINE 7 MG/24 HOURS TOPICAL PATCH TD SCH (19:18)
[2022-06-17] MEDS: metoPROLOL SUCCINATE 25 MG TAB.SR.24H (FP) PO SCH (19:19)
[2022-06-17] MEDS: amLODIPine BESYLATE 10 MG TABLET (FP) PO SCH (19:20)
[2022-06-17] MEDS: levETIRAcetam 500 MG TABLET (FP) PO SCH (22:01)
[2022-06-17] MEDS: LACTULOSE 20 GM/30 ML UDC (FOR ORAL USE ONLY) PO SCH (22:02)
[2022-06-17] MEDS: THIAMINE HCL 100 MG TABLET (FP) PO SCH (22:02)
[2022-06-17] MEDS: MELATONIN 5 MG TABLETS PO SCH (22:02)
[2022-06-18 00:10] LABS: URINE APPEARANCE CLEAR; URINE BILIRUBIN NEGATIVE (NEGATIVE); URINE COLOR YELLOW; URINE GLUCOSE (UA) NEGATIVE (NEGATIVE); URINE KETONE NEGATIVE (NEGATIVE); URINE LEUK ESTERASE NEGATIVE (NEGATIVE); URINE NITRITE NEGATIVE (NEGATIVE); URINE PROTEIN TRACE (NEGATIVE)
[2022-06-18] MEDS: FERROUS SO4 325 MG TABLET (FP) PO SCH ×3 (06:24→21:03)
[2022-06-18] MEDS ORDERED: methaDONE HCL 10 MG TABLET PO SCH (07:45)
[2022-06-18] MEDS: metoPROLOL SUCCINATE 25 MG TAB.SR.24H (FP) PO SCH (10:20)
[2022-06-18] MEDS: amLODIPine BESYLATE 10 MG TABLET (FP) PO SCH (10:20)
[2022-06-18] MEDS: levETIRAcetam 500 MG TABLET (FP) PO SCH ×2 (10:20→21:03)
[2022-06-18] MEDS: PRENATAL VITAMINS W/ FOLIC ACID TABLET (FP) PO SCH (10:20)
[2022-06-18] MEDS: NICOTINE 7 MG/24 HOURS TOPICAL PATCH TD SCH (10:21)
[2022-06-18] MEDS: LACTULOSE 20 GM/30 ML UDC (FOR ORAL USE ONLY) PO SCH ×2 (10:21→21:03)
[2022-06-18] MEDS: MELATONIN 5 MG TABLETS PO SCH (21:03)
[2022-06-18] MEDS: THIAMINE HCL 100 MG TABLET (FP) PO SCH (21:03)
[2022-06-19] MEDS: FERROUS SO4 325 MG TABLET (FP) PO SCH ×3 (06:25→21:24)
[2022-06-19] MEDS: levETIRAcetam 500 MG TABLET (FP) PO SCH ×2 (10:17→21:24)
[2022-06-19] MEDS: LACTULOSE 20 GM/30 ML UDC (FOR ORAL USE ONLY) PO SCH ×2 (10:17→21:25)
[2022-06-19] MEDS: NICOTINE 7 MG/24 HOURS TOPICAL PATCH TD SCH (10:17)
[2022-06-19] MEDS: metoPROLOL SUCCINATE 25 MG TAB.SR.24H (FP) PO SCH (10:18)
[2022-06-19] MEDS: amLODIPine BESYLATE 10 MG TABLET (FP) PO SCH (10:18)
[2022-06-19] MEDS: PRENATAL VITAMINS W/ FOLIC ACID TABLET (FP) PO SCH (10:18)
[2022-06-19] MEDS: THIAMINE HCL 100 MG TABLET (FP) PO SCH (21:24)
[2022-06-19] MEDS: MELATONIN 5 MG TABLETS PO SCH (21:24)
[2022-06-20] MEDS: FERROUS SO4 325 MG TABLET (FP) PO SCH ×3 (06:19→21:10)
[2022-06-20] MEDS: levETIRAcetam 500 MG TABLET (FP) PO SCH ×2 (09:30→21:10)
[2022-06-20] MEDS: PRENATAL VITAMINS W/ FOLIC ACID TABLET (FP) PO SCH (09:30)
[2022-06-20] MEDS: NICOTINE 7 MG/24 HOURS TOPICAL PATCH TD SCH (09:31)
[2022-06-20] MEDS: LACTULOSE 20 GM/30 ML UDC (FOR ORAL USE ONLY) PO SCH (09:31)
[2022-06-20] MEDS: metoPROLOL SUCCINATE 25 MG TAB.SR.24H (FP) PO SCH (09:31)
[2022-06-20] MEDS: amLODIPine BESYLATE 10 MG TABLET (FP) PO SCH (09:31)
[2022-06-20] MEDS: MELATONIN 5 MG TABLETS PO SCH (21:10)
[2022-06-20] MEDS: THIAMINE HCL 100 MG TABLET (FP) PO SCH (21:10)
[2022-06-21] MEDS: FERROUS SO4 325 MG TABLET (FP) PO SCH ×3 (05:58→21:20)
[2022-06-21] MEDS: metoPROLOL SUCCINATE 25 MG TAB.SR.24H (FP) PO SCH (09:47)
[2022-06-21] MEDS: levETIRAcetam 500 MG TABLET (FP) PO SCH ×2 (09:47→21:20)
[2022-06-21] MEDS: amLODIPine BESYLATE 10 MG TABLET (FP) PO SCH (09:47)
[2022-06-21] MEDS: PRENATAL VITAMINS W/ FOLIC ACID TABLET (FP) PO SCH (09:47)
[2022-06-21] MEDS: NICOTINE 7 MG/24 HOURS TOPICAL PATCH TD SCH (09:48)
[2022-06-21] MEDS: MELATONIN 5 MG TABLETS PO SCH (21:20)
[2022-06-21] MEDS: THIAMINE HCL 100 MG TABLET (FP) PO SCH (21:20)
[2022-06-22] MEDS: FERROUS SO4 325 MG TABLET (FP) PO SCH ×3 (05:49→21:24)
[2022-06-22] MEDS: PRENATAL VITAMINS W/ FOLIC ACID TABLET (FP) PO SCH (09:39)
[2022-06-22] MEDS: amLODIPine BESYLATE 10 MG TABLET (FP) PO SCH (09:41)
[2022-06-22] MEDS: NICOTINE 7 MG/24 HOURS TOPICAL PATCH TD SCH (09:41)
[2022-06-22] MEDS: levETIRAcetam 500 MG TABLET (FP) PO SCH ×2 (09:41→21:24)
[2022-06-22] MEDS: metoPROLOL SUCCINATE 25 MG TAB.SR.24H (FP) PO SCH (09:42)
[2022-06-22] MEDS: THIAMINE HCL 100 MG TABLET (FP) PO SCH (21:24)
[2022-06-22] MEDS: MELATONIN 5 MG TABLETS PO SCH (21:24)
[2022-06-23] MEDS: FERROUS SO4 325 MG TABLET (FP) PO SCH ×3 (05:50→21:05)
[2022-06-23] MEDS: levETIRAcetam 500 MG TABLET (FP) PO SCH ×2 (09:24→21:04)
[2022-06-23] MEDS: NICOTINE 7 MG/24 HOURS TOPICAL PATCH TD SCH (09:24)
[2022-06-23] MEDS: PRENATAL VITAMINS W/ FOLIC ACID TABLET (FP) PO SCH (09:24)
[2022-06-23] MEDS: metoPROLOL SUCCINATE 25 MG TAB.SR.24H (FP) PO SCH (09:25)
[2022-06-23] MEDS: MIRTAZAPINE 15 MG TABLET (FP) PO SCH (21:05)
[2022-06-23] MEDS: MELATONIN 5 MG TABLETS PO SCH (21:05)
[2022-06-23] MEDS: THIAMINE HCL 100 MG TABLET (FP) PO SCH (21:05)
[2022-06-24] MEDS: FERROUS SO4 325 MG TABLET (FP) PO SCH ×3 (06:13→21:09)
[2022-06-24] MEDS: PRENATAL VITAMINS W/ FOLIC ACID TABLET (FP) PO SCH (09:58)
[2022-06-24] MEDS: metoPROLOL SUCCINATE 25 MG TAB.SR.24H (FP) PO SCH (09:58)
[2022-06-24] MEDS: levETIRAcetam 500 MG TABLET (FP) PO SCH ×2 (09:58→21:09)
[2022-06-24] MEDS: NICOTINE 7 MG/24 HOURS TOPICAL PATCH TD SCH (09:59)
[2022-06-24] MEDS: MIRTAZAPINE 15 MG TABLET (FP) PO SCH (21:09)
[2022-06-24] MEDS: THIAMINE HCL 100 MG TABLET (FP) PO SCH (21:09)
[2022-06-24] MEDS: MELATONIN 5 MG TABLETS PO SCH (21:09)
[2022-06-25] MEDS: FERROUS SO4 325 MG TABLET (FP) PO SCH ×3 (05:55→21:07)
[2022-06-25] MEDS: levETIRAcetam 500 MG TABLET (FP) PO SCH ×2 (09:31→21:07)
[2022-06-25] MEDS: NICOTINE 7 MG/24 HOURS TOPICAL PATCH TD SCH (09:31)
[2022-06-25] MEDS: PRENATAL VITAMINS W/ FOLIC ACID TABLET (FP) PO SCH (09:31)
[2022-06-25] MEDS: amLODIPine BESYLATE 10 MG TABLET (FP) PO SCH (09:32)
[2022-06-25] MEDS: metoPROLOL SUCCINATE 25 MG TAB.SR.24H (FP) PO SCH (09:32)
[2022-06-25] MEDS: THIAMINE HCL 100 MG TABLET (FP) PO SCH (21:07)
[2022-06-25] MEDS: MIRTAZAPINE 15 MG TABLET (FP) PO SCH (21:07)
[2022-06-25] MEDS: MELATONIN 5 MG TABLETS PO SCH (21:07)
[2022-06-26] MEDS: FERROUS SO4 325 MG TABLET (FP) PO SCH ×3 (06:07→21:09)
[2022-06-26] MEDS: NICOTINE 7 MG/24 HOURS TOPICAL PATCH TD SCH (10:00)
[2022-06-26] MEDS: metoPROLOL SUCCINATE 25 MG TAB.SR.24H (FP) PO SCH (10:00)
[2022-06-26] MEDS: PRENATAL VITAMINS W/ FOLIC ACID TABLET (FP) PO SCH (10:00)
[2022-06-26] MEDS: amLODIPine BESYLATE 10 MG TABLET (FP) PO SCH (10:00)
[2022-06-26] MEDS: levETIRAcetam 500 MG TABLET (FP) PO SCH ×2 (10:00→21:08)
[2022-06-26] MEDS: THIAMINE HCL 100 MG TABLET (FP) PO SCH (21:08)
[2022-06-26] MEDS: MELATONIN 5 MG TABLETS PO SCH (21:08)
[2022-06-26] MEDS: MIRTAZAPINE 15 MG TABLET (FP) PO SCH (21:08)
[2022-06-27] MEDS: FERROUS SO4 325 MG TABLET (FP) PO SCH ×3 (06:09→21:05)
[2022-06-27] MEDS: levETIRAcetam 500 MG TABLET (FP) PO SCH ×2 (09:42→21:05)
[2022-06-27] MEDS: NICOTINE 7 MG/24 HOURS TOPICAL PATCH TD SCH (09:42)
[2022-06-27] MEDS: amLODIPine BESYLATE 10 MG TABLET (FP) PO SCH (09:42)
[2022-06-27] MEDS: PRENATAL VITAMINS W/ FOLIC ACID TABLET (FP) PO SCH (09:42)
[2022-06-27] MEDS: metoPROLOL SUCCINATE 25 MG TAB.SR.24H (FP) PO SCH (09:42)
[2022-06-27] MEDS: MIRTAZAPINE 15 MG TABLET (FP) PO SCH (21:05)
[2022-06-27] MEDS: MELATONIN 5 MG TABLETS PO SCH (21:05)
[2022-06-27] MEDS: THIAMINE HCL 100 MG TABLET (FP) PO SCH (21:06)
[2022-06-28] MEDS: FERROUS SO4 325 MG TABLET (FP) PO SCH ×3 (05:58→21:17)
[2022-06-28] MEDS: PRENATAL VITAMINS W/ FOLIC ACID TABLET (FP) PO SCH (09:53)
[2022-06-28] MEDS: metoPROLOL SUCCINATE 25 MG TAB.SR.24H (FP) PO SCH (09:53)
[2022-06-28] MEDS: amLODIPine BESYLATE 10 MG TABLET (FP) PO SCH (09:53)
[2022-06-28] MEDS: levETIRAcetam 500 MG TABLET (FP) PO SCH ×2 (09:53→21:17)
[2022-06-28] MEDS: NICOTINE 7 MG/24 HOURS TOPICAL PATCH TD SCH (09:54)
[2022-06-28] MEDS: MIRTAZAPINE 15 MG TABLET (FP) PO SCH (21:17)
[2022-06-28] MEDS: MELATONIN 5 MG TABLETS PO SCH (21:17)
[2022-06-28] MEDS: THIAMINE HCL 100 MG TABLET (FP) PO SCH (21:18)
[2022-06-29] MEDS: FERROUS SO4 325 MG TABLET (FP) PO SCH ×3 (05:57→21:08)
[2022-06-29] MEDS: NICOTINE 7 MG/24 HOURS TOPICAL PATCH TD SCH (09:42)
[2022-06-29] MEDS: levETIRAcetam 500 MG TABLET (FP) PO SCH ×2 (09:43→21:08)
[2022-06-29] MEDS: metoPROLOL SUCCINATE 25 MG TAB.SR.24H (FP) PO SCH (09:43)
[2022-06-29] MEDS: amLODIPine BESYLATE 10 MG TABLET (FP) PO SCH (09:43)
[2022-06-29] MEDS: PRENATAL VITAMINS W/ FOLIC ACID TABLET (FP) PO SCH (09:43)
[2022-06-29] MEDS: MELATONIN 5 MG TABLETS PO SCH (21:08)
[2022-06-29] MEDS: MIRTAZAPINE 15 MG TABLET (FP) PO SCH (21:08)
[2022-06-29] MEDS: THIAMINE HCL 100 MG TABLET (FP) PO SCH (21:08)
[2022-06-30] MEDS: FERROUS SO4 325 MG TABLET (FP) PO SCH ×3 (06:10→21:13)
[2022-06-30] MEDS: PRENATAL VITAMINS W/ FOLIC ACID TABLET (FP) PO SCH (09:34)
[2022-06-30] MEDS: NICOTINE 7 MG/24 HOURS TOPICAL PATCH TD SCH (09:35)
[2022-06-30] MEDS: amLODIPine BESYLATE 10 MG TABLET (FP) PO SCH (09:35)
[2022-06-30] MEDS: levETIRAcetam 500 MG TABLET (FP) PO SCH ×2 (09:35→21:13)
[2022-06-30] MEDS: metoPROLOL SUCCINATE 25 MG TAB.SR.24H (FP) PO SCH (09:35)
[2022-06-30] MEDS: THIAMINE HCL 100 MG TABLET (FP) PO SCH (21:13)
[2022-06-30] MEDS: MIRTAZAPINE 15 MG TABLET (FP) PO SCH (21:13)
[2022-06-30] MEDS: MELATONIN 5 MG TABLETS PO SCH (21:13)
[2022-07-01] MEDS: FERROUS SO4 325 MG TABLET (FP) PO SCH (05:47)
[2022-07-01 06:47] VITALS: BP 108/77; PULSE 73; RESP 18; TEMP 97.8
[2022-07-01] MEDS: levETIRAcetam 500 MG TABLET (FP) PO SCH (09:03)
[2022-07-01] MEDS: amLODIPine BESYLATE 10 MG TABLET (FP) PO SCH (09:03)
[2022-07-01] MEDS: NICOTINE 7 MG/24 HOURS TOPICAL PATCH TD SCH (09:03)
[2022-07-01] MEDS: metoPROLOL SUCCINATE 25 MG TAB.SR.24H (FP) PO SCH (09:03)
[2022-07-01] MEDS: PRENATAL VITAMINS W/ FOLIC ACID TABLET (FP) PO SCH (09:04)
== END 2022-07-01 09:09 | disposition home or self-care (01) | DRG 772 ==
LOC: YASAS 12:10 → Y3W 16:13
PROVIDERS: ADMIT Allergy & Immunology; ATTEND Psychiatry & Neurology Pain Medicine
PROC: HZ42ZZZ Group Counseling for Substance Abuse Treatment, Cognitive-Behavioral (ICD-10-PCS; principal; 2022-06-17)
DX: F11.20 Opioid dependence, uncomplicated (principal); F10.20 Alcohol dependence, uncomplicated; F17.210 Nicotine dependence, cigarettes, uncomplicated; F19.282 Other psychoactive substance dependence with psychoactive substance-induced sleep disorder; F19.24 Other psychoactive substance dependence with psychoactive substance-induced mood disorder; F31.9 Bipolar disorder, unspecified; F41.9 Anxiety disorder, unspecified; F43.10 Post-traumatic stress disorder, unspecified; I10 Essential (primary) hypertension; J45.909 Unspecified asthma, uncomplicated; B18.2 Chronic viral hepatitis C; R79.89 Other specified abnormal findings of blood chemistry; R63.4 Abnormal weight loss; Z68.22 Body mass index [BMI] 22.0-22.9, adult; Z28.310 Unvaccinated for COVID-19; Z28.9 Immunization not carried out for unspecified reason; Z86.69 Personal history of other diseases of the nervous system and sense organs
CPT/HCPCS: 81003; 82140; 87811; C9803-CS; U0003; U0005

== ENCOUNTER 2022-09-27 14:27 | Inpatient (IN) | payer OTHER ==
[2022-09-27 14:47] VITALS: BMI 21.2
[2022-09-27] MEDS ORDERED: NICOTINE 10 MG CARTRIDGE (INHALER) IH PRN (15:11)
[2022-09-27] MEDS ORDERED: NICOTINE POLACRILEX 2 MG GUM BUC PRN (15:11)
[2022-09-27] MEDS ORDERED: NALOXONE HCL (KLOXXADO) 8 MG SPRAY NS PRN (15:11)
[2022-09-27] MEDS ORDERED: LOPERAMIDE HCL 2 MG CAPSULE PO PRN (15:11)
[2022-09-27] MEDS ORDERED: MAGNESIUM HYDROX 2400MG/30ML ORAL SUSPENSION 30 ML CUP PO PRN (15:11)
[2022-09-27] MEDS ORDERED: IBUPROFEN 400 MG TABLET (FP) PO PRN (15:11)
[2022-09-27] MEDS ORDERED: MAG HYDROX/AL HYDROX/SIMETH 30 ML UNIT-DOSE CUP PO PRN (15:11)
[2022-09-27] MEDS ORDERED: IBUPROFEN 600 MG TABLET (FP) PO PRN (15:11)
[2022-09-27] MEDS ORDERED: BENZONATATE 200 MG CAPSULE PO PRN (15:11)
[2022-09-27] MEDS ORDERED: ONDANSETRON *ODT* 4 MG TABLET SL PRN (15:11)
[2022-09-27] MEDS ORDERED: NALOXONE HCL 0.4 MG/ML VIAL IM PRN (15:11)
[2022-09-27] MEDS ORDERED: POLYETHYLENE GLYCOL (HEALTHYLAX) 3350 17 GM PACKET PO PRN (15:11)
[2022-09-27] MEDS ORDERED: ACETAMINOPHEN 325 MG TABLET (FP) PO PRN (15:11)
[2022-09-27] MEDS ORDERED: BENZOCAINE/MENTHOL (CHLORASEPTIC ) LOZENGE MM PRN (15:11)
[2022-09-27] MEDS ORDERED: BISMUTH SUBSALICYLATE 262 MG/15 ML BTL PO PRN (15:11)
[2022-09-27] MEDS ORDERED: DICYCLOMINE HCL 10 MG CAPSULE PO PRN (15:11)
[2022-09-27] MEDS ORDERED: guaiFENesin 600 MG TABLET.ER (FP) PO PRN (15:11)
[2022-09-27] MEDS ORDERED: ALBUTEROL SO4 HFA INHALER IH PRN (15:14)
[2022-09-27] MEDS ORDERED: chlordiazePOXIDE HCL 25 MG CAPSULE PO PRN (15:15)
[2022-09-27] MEDS ORDERED: MIRTAZAPINE 15 MG TABLET (FP) PO ONE (22:00)
[2022-09-27] MEDS ORDERED: MELATONIN 5 MG TABLETS PO SCH (22:00)
[2022-09-27] MEDS: levETIRAcetam 500 MG TABLET (FP) PO SCH (22:42)
[2022-09-27] MEDS: MIRTAZAPINE 15 MG TABLET (FP) PO SCH (22:42)
[2022-09-27] MEDS: THIAMINE HCL 100 MG TABLET (FP) PO SCH (22:42)
[2022-09-27] MEDS: FERROUS SO4 325 MG TABLET (FP) PO SCH (22:43)
[2022-09-28] MEDS: TAMSULOSIN HCL 0.4 MG CAP PO SCH (10:30)
[2022-09-28] MEDS: amLODIPine BESYLATE 5 MG TABLET (FP) PO SCH (10:33)
[2022-09-28] MEDS: PRENATAL VITAMINS W/ FOLIC ACID TABLET (FP) PO SCH (10:33)
[2022-09-28] MEDS: levETIRAcetam 500 MG TABLET (FP) PO SCH ×2 (10:33→22:10)
[2022-09-28 10:34] LABS: CALCIUM 10.3 mg/dL (8.5-10.1)
[2022-09-28] MEDS: FERROUS SO4 325 MG TABLET (FP) PO SCH ×2 (10:34→22:10)
[2022-09-28 10:35] LABS: ALBUMIN 3.3 g/dl (3.4-5.0); BLOOD UREA NITROGEN 33.1 mg/dL (7-18)
[2022-09-28 10:38] LABS: CREATININE 2.1 mg/dL (0.55-1.3); HEMATOCRIT 31.4 % (35.4-49); HEMOGLOBIN 10.9 GM/dL (11.7-16.9); MCH 31.4 pg (25.7-33.7); MCHC 34.6 g/dl (32.0-35.9); MEAN CELL VOLUME 90.8 fl (80-96); MEAN PLT VOLUME 8.6 fl (7.5-11.1); PLATELET COUNT 76 10^3/uL (134-434); RBC 3.46 M/mm3 (4.00-5.60); WHITE BLOOD COUNT 3.1 K/mm3 (4.0-10.0)
[2022-09-28 10:40] LABS: BILIRUBIN,TOTAL 0.6 mg/dL (0.2-1)
[2022-09-28] MEDS ORDERED: PNEUMOC 20-VAL CONJ-DIP CRM/PF 0.5 ML SYRINGE IM ONE (12:00)
[2022-09-28] MEDS ORDERED: FLU VACC QS2022-23(6MOS UP)/PF 60 MCG/0.5 ML SYRINGE IM ONE (12:00)
[2022-09-28] MEDS: THIAMINE HCL 100 MG TABLET (FP) PO SCH (22:10)
[2022-09-28] MEDS: MIRTAZAPINE 15 MG TABLET (FP) PO SCH (22:11)
[2022-09-29] MEDS: chlordiazePOXIDE HCL 25 MG CAPSULE PO SCH ×4 (05:34→22:40)
[2022-09-29] MEDS: TAMSULOSIN HCL 0.4 MG CAP PO SCH (09:03)
[2022-09-29] MEDS: FERROUS SO4 325 MG TABLET (FP) PO SCH ×2 (10:11→22:40)
[2022-09-29] MEDS: PRENATAL VITAMINS W/ FOLIC ACID TABLET (FP) PO SCH (10:11)
[2022-09-29] MEDS: levETIRAcetam 500 MG TABLET (FP) PO SCH ×2 (10:11→22:40)
[2022-09-29] MEDS: amLODIPine BESYLATE 5 MG TABLET (FP) PO SCH (10:12)
[2022-09-29] MEDS: LACTULOSE 20 GM/30 ML UDC (FOR ORAL USE ONLY) PO SCH ×2 (14:09→22:40)
[2022-09-29] MEDS: THIAMINE HCL 100 MG TABLET (FP) PO SCH (22:40)
[2022-09-29] MEDS: MIRTAZAPINE 15 MG TABLET (FP) PO SCH (22:40)
[2022-09-30] MEDS: LACTULOSE 20 GM/30 ML UDC (FOR ORAL USE ONLY) PO SCH ×3 (05:23→22:13)
[2022-09-30] MEDS: chlordiazePOXIDE HCL 10 MG CAPSULE PO SCH ×4 (05:23→22:13)
[2022-09-30] MEDS: TAMSULOSIN HCL 0.4 MG CAP PO SCH (09:25)
[2022-09-30] MEDS: amLODIPine BESYLATE 5 MG TABLET (FP) PO SCH (10:08)
[2022-09-30] MEDS: levETIRAcetam 500 MG TABLET (FP) PO SCH ×2 (10:08→22:13)
[2022-09-30] MEDS: PRENATAL VITAMINS W/ FOLIC ACID TABLET (FP) PO SCH (10:08)
[2022-09-30] MEDS: FERROUS SO4 325 MG TABLET (FP) PO SCH ×2 (10:08→22:13)
[2022-09-30] MEDS: THIAMINE HCL 100 MG TABLET (FP) PO SCH (22:13)
[2022-09-30] MEDS: MIRTAZAPINE 15 MG TABLET (FP) PO SCH (22:13)
[2022-10-01] MEDS: chlordiazePOXIDE HCL 10 MG CAPSULE PO SCH ×2 (05:19→17:12)
[2022-10-01] MEDS: LACTULOSE 20 GM/30 ML UDC (FOR ORAL USE ONLY) PO SCH ×3 (05:19→22:21)
[2022-10-01] MEDS: TAMSULOSIN HCL 0.4 MG CAP PO SCH (08:23)
[2022-10-01] MEDS: amLODIPine BESYLATE 5 MG TABLET (FP) PO SCH (10:11)
[2022-10-01] MEDS: FERROUS SO4 325 MG TABLET (FP) PO SCH ×2 (10:12→22:22)
[2022-10-01] MEDS: levETIRAcetam 500 MG TABLET (FP) PO SCH ×2 (10:12→22:21)
[2022-10-01] MEDS: PRENATAL VITAMINS W/ FOLIC ACID TABLET (FP) PO SCH (10:12)
[2022-10-01 11:52] LABS: CALCIUM 9.3 mg/dL (8.5-10.1)
[2022-10-01 11:53] LABS: ALBUMIN 3.5 g/dl (3.4-5.0); BLOOD UREA NITROGEN 21.4 mg/dL (7-18)
[2022-10-01 11:56] LABS: CREATININE 1.5 mg/dL (0.55-1.3)
[2022-10-01 11:57] LABS: BILIRUBIN,TOTAL 0.4 mg/dL (0.2-1)
[2022-10-01 11:58] LABS: TOT PROT 7.6 g/dl (6.4-8.2)
[2022-10-01] MEDS: MIRTAZAPINE 15 MG TABLET (FP) PO SCH (22:21)
[2022-10-01] MEDS: THIAMINE HCL 100 MG TABLET (FP) PO SCH (22:21)
[2022-10-02] MEDS ORDERED: chlordiazePOXIDE HCL 10 MG CAPSULE PO ONE (05:00)
[2022-10-02] MEDS: LACTULOSE 20 GM/30 ML UDC (FOR ORAL USE ONLY) PO SCH (05:28)
[2022-10-02] MEDS: TAMSULOSIN HCL 0.4 MG CAP PO SCH (08:08)
[2022-10-02] MEDS: amLODIPine BESYLATE 5 MG TABLET (FP) PO SCH (10:28)
[2022-10-02] MEDS: FERROUS SO4 325 MG TABLET (FP) PO SCH (10:28)
[2022-10-02] MEDS: PRENATAL VITAMINS W/ FOLIC ACID TABLET (FP) PO SCH (10:28)
[2022-10-02] MEDS: levETIRAcetam 500 MG TABLET (FP) PO SCH (10:28)
[2022-10-02 13:41] VITALS: BP 106/66; PULSE 68; RESP 17; TEMP 98.1
== END 2022-10-02 01:00 | disposition other institution (70) | DRG 773 ==
LOC: YASAS 14:27 → Y6N 15:21
PROVIDERS: ADMIT Allergy & Immunology; ATTEND Surgery
PROC: HZ2ZZZZ Detoxification Services for Substance Abuse Treatment (ICD-10-PCS; principal; 2022-09-27)
DX: F10.230 Alcohol dependence with withdrawal, uncomplicated (principal); F11.20 Opioid dependence, uncomplicated; F17.210 Nicotine dependence, cigarettes, uncomplicated; F43.10 Post-traumatic stress disorder, unspecified; I10 Essential (primary) hypertension; N40.0 Benign prostatic hyperplasia without lower urinary tract symptoms; R79.89 Other specified abnormal findings of blood chemistry; Z62.810 Personal history of physical and sexual abuse in childhood; Z86.19 Personal history of other infectious and parasitic diseases; Z86.59 Personal history of other mental and behavioral disorders; Z86.69 Personal history of other diseases of the nervous system and sense organs
CPT/HCPCS: 36415; 74177-TC; 80048; 80053; 80307; 82140; 82248; 82962; 83036; 83605; 83690; 83735; 84100; 84484; 85027; 85610; 93005; 93010; 99285-25; C9803-CS; G0378; Q9967; U0003; U0005

== ENCOUNTER 2022-10-02 13:06 | Inpatient (IN) | payer OTHER ==
[2022-10-02] MEDS ORDERED: NICOTINE 7 MG/24 HOURS TOPICAL PATCH TD PRN (14:12)
[2022-10-02] MEDS ORDERED: hydrOXYzine PAMOATE 25 MG CAPSULE (FP) PO PRN (14:12)
[2022-10-02] MEDS ORDERED: POLYETHYLENE GLYCOL (HEALTHYLAX) 3350 17 GM PACKET PO PRN (14:12)
[2022-10-02] MEDS ORDERED: ACETAMINOPHEN 325 MG TABLET (FP) PO PRN (14:12)
[2022-10-02] MEDS ORDERED: BENZOCAINE/MENTHOL (CHLORASEPTIC ) LOZENGE MM PRN (14:12)
[2022-10-02] MEDS ORDERED: NICOTINE POLACRILEX 4 MG GUM BUC PRN (14:12)
[2022-10-02] MEDS ORDERED: NALOXONE HCL (KLOXXADO) 8 MG SPRAY NS PRN (14:12)
[2022-10-02] MEDS ORDERED: IBUPROFEN 600 MG TABLET (FP) PO PRN (14:12)
[2022-10-02] MEDS ORDERED: METHOCARBAMOL 500 MG TABLET PO PRN (14:12)
[2022-10-02] MEDS ORDERED: COLLOIDAL OATMEAL 1 BAR EACH TP PRN (14:12)
[2022-10-02] MEDS ORDERED: MAGNESIUM HYDROX 2400MG/30ML ORAL SUSPENSION 30 ML CUP PO PRN (14:12)
[2022-10-02] MEDS ORDERED: BENZONATATE 200 MG CAPSULE PO PRN (14:12)
[2022-10-02] MEDS ORDERED: NICOTINE 10 MG CARTRIDGE (INHALER) IH PRN (14:12)
[2022-10-02] MEDS ORDERED: guaiFENesin 600 MG TABLET.ER (FP) PO PRN (14:12)
[2022-10-02] MEDS ORDERED: NALOXONE HCL 0.4 MG/ML VIAL IVPUSH PRN (14:12)
[2022-10-02] MEDS ORDERED: AMMONIUM LACTATE 12% LOTION 225 GM BOTTLE TP PRN (14:12)
[2022-10-02] MEDS ORDERED: IBUPROFEN 400 MG TABLET (FP) PO PRN (14:12)
[2022-10-02] MEDS ORDERED: LOPERAMIDE HCL 2 MG CAPSULE PO PRN (14:12)
[2022-10-02] MEDS: LACTULOSE 20 GM/30 ML UDC (FOR ORAL USE ONLY) PO SCH ×2 (15:41→21:38)
[2022-10-02] MEDS: THIAMINE HCL 100 MG TABLET (FP) PO SCH (21:38)
[2022-10-02] MEDS: FERROUS SO4 325 MG TABLET (FP) PO SCH (21:38)
[2022-10-02] MEDS: traZODone HCL 50 MG TABLET (FP) PO PRN (21:38)
[2022-10-02] MEDS: levETIRAcetam 500 MG TABLET (FP) PO SCH (21:38)
[2022-10-02] MEDS: MIRTAZAPINE 15 MG TABLET (FP) PO SCH (21:38)
[2022-10-02] MEDS ORDERED: MELATONIN 5 MG TABLETS PO SCH (22:00)
[2022-10-03] MEDS ORDERED: methaDONE HCL 10 MG TABLET PO SCH (06:00)
[2022-10-03] MEDS: FERROUS SO4 325 MG TABLET (FP) PO SCH ×3 (06:11→21:29)
[2022-10-03] MEDS: LACTULOSE 20 GM/30 ML UDC (FOR ORAL USE ONLY) PO SCH ×2 (06:11→13:12)
[2022-10-03] MEDS: levETIRAcetam 500 MG TABLET (FP) PO SCH ×2 (09:50→21:29)
[2022-10-03] MEDS: TAMSULOSIN HCL 0.4 MG CAP PO SCH (09:50)
[2022-10-03] MEDS: PRENATAL VITAMINS W/ FOLIC ACID TABLET (FP) PO SCH (09:51)
[2022-10-03] MEDS: amLODIPine BESYLATE 5 MG TABLET (FP) PO SCH (09:51)
[2022-10-03] MEDS ORDERED: TUBERCULIN PPD 5 TU/0.1ML VIAL ID ONE (09:55)
[2022-10-03] MEDS: THIAMINE HCL 100 MG TABLET (FP) PO SCH ×2 (09:55→21:29)
[2022-10-03] MEDS: traZODone HCL 50 MG TABLET (FP) PO PRN (21:29)
[2022-10-03] MEDS: MIRTAZAPINE 15 MG TABLET (FP) PO SCH (21:29)
[2022-10-04] MEDS: FERROUS SO4 325 MG TABLET (FP) PO SCH ×3 (07:16→21:28)
[2022-10-04] MEDS: PRENATAL VITAMINS W/ FOLIC ACID TABLET (FP) PO SCH (10:04)
[2022-10-04] MEDS: amLODIPine BESYLATE 5 MG TABLET (FP) PO SCH (10:05)
[2022-10-04] MEDS: levETIRAcetam 500 MG TABLET (FP) PO SCH ×2 (10:05→21:28)
[2022-10-04] MEDS: TAMSULOSIN HCL 0.4 MG CAP PO SCH (10:05)
[2022-10-04] MEDS: THIAMINE HCL 100 MG TABLET (FP) PO SCH ×2 (10:05→21:29)
[2022-10-04] MEDS: MIRTAZAPINE 15 MG TABLET (FP) PO SCH (21:28)
[2022-10-04] MEDS: traZODone HCL 50 MG TABLET (FP) PO PRN (21:29)
[2022-10-05] MEDS: FERROUS SO4 325 MG TABLET (FP) PO SCH ×3 (06:20→21:19)
[2022-10-05] MEDS: MAG HYDROX/AL HYDROX/SIMETH 30 ML UNIT-DOSE CUP PO PRN (06:22)
[2022-10-05] MEDS: amLODIPine BESYLATE 5 MG TABLET (FP) PO SCH (10:13)
[2022-10-05] MEDS: levETIRAcetam 500 MG TABLET (FP) PO SCH ×2 (10:13→21:19)
[2022-10-05] MEDS: PRENATAL VITAMINS W/ FOLIC ACID TABLET (FP) PO SCH (10:13)
[2022-10-05] MEDS: THIAMINE HCL 100 MG TABLET (FP) PO SCH ×2 (10:15→21:19)
[2022-10-05] MEDS: TAMSULOSIN HCL 0.4 MG CAP PO SCH (10:16)
[2022-10-05] MEDS: MIRTAZAPINE 15 MG TABLET (FP) PO SCH (21:19)
[2022-10-06] MEDS: FERROUS SO4 325 MG TABLET (FP) PO SCH ×3 (06:19→21:15)
[2022-10-06] MEDS: THIAMINE HCL 100 MG TABLET (FP) PO SCH ×2 (09:09→21:15)
[2022-10-06] MEDS: amLODIPine BESYLATE 5 MG TABLET (FP) PO SCH (09:09)
[2022-10-06] MEDS: TAMSULOSIN HCL 0.4 MG CAP PO SCH (09:09)
[2022-10-06] MEDS: levETIRAcetam 500 MG TABLET (FP) PO SCH ×2 (09:09→21:15)
[2022-10-06] MEDS: PRENATAL VITAMINS W/ FOLIC ACID TABLET (FP) PO SCH (09:09)
[2022-10-06] MEDS: MAG HYDROX/AL HYDROX/SIMETH 30 ML UNIT-DOSE CUP PO PRN (09:10)
[2022-10-06] MEDS: traZODone HCL 50 MG TABLET (FP) PO PRN (21:15)
[2022-10-06] MEDS: MIRTAZAPINE 15 MG TABLET (FP) PO SCH (21:15)
[2022-10-07] MEDS: FERROUS SO4 325 MG TABLET (FP) PO SCH ×3 (06:17→21:23)
[2022-10-07] MEDS: PRENATAL VITAMINS W/ FOLIC ACID TABLET (FP) PO SCH (09:39)
[2022-10-07] MEDS: TAMSULOSIN HCL 0.4 MG CAP PO SCH (09:40)
[2022-10-07] MEDS: levETIRAcetam 500 MG TABLET (FP) PO SCH ×2 (09:40→21:23)
[2022-10-07] MEDS: THIAMINE HCL 100 MG TABLET (FP) PO SCH ×2 (09:40→21:23)
[2022-10-07] MEDS: amLODIPine BESYLATE 5 MG TABLET (FP) PO SCH (09:41)
[2022-10-07] MEDS: MIRTAZAPINE 15 MG TABLET (FP) PO SCH (21:23)
[2022-10-07] MEDS: traZODone HCL 50 MG TABLET (FP) PO PRN (21:23)
[2022-10-08] MEDS: FERROUS SO4 325 MG TABLET (FP) PO SCH ×3 (06:42→21:27)
[2022-10-08] MEDS: TAMSULOSIN HCL 0.4 MG CAP PO SCH (10:04)
[2022-10-08] MEDS: levETIRAcetam 500 MG TABLET (FP) PO SCH ×2 (10:04→21:27)
[2022-10-08] MEDS: amLODIPine BESYLATE 5 MG TABLET (FP) PO SCH (10:04)
[2022-10-08] MEDS: PRENATAL VITAMINS W/ FOLIC ACID TABLET (FP) PO SCH (10:04)
[2022-10-08] MEDS: THIAMINE HCL 100 MG TABLET (FP) PO SCH ×2 (10:04→21:27)
[2022-10-08] MEDS: MIRTAZAPINE 15 MG TABLET (FP) PO SCH (21:27)
[2022-10-08] MEDS: traZODone HCL 50 MG TABLET (FP) PO PRN (21:27)
[2022-10-09] MEDS: FERROUS SO4 325 MG TABLET (FP) PO SCH ×3 (06:34→21:28)
[2022-10-09] MEDS: TAMSULOSIN HCL 0.4 MG CAP PO SCH (09:06)
[2022-10-09] MEDS: amLODIPine BESYLATE 5 MG TABLET (FP) PO SCH (09:06)
[2022-10-09] MEDS: THIAMINE HCL 100 MG TABLET (FP) PO SCH ×2 (09:06→21:28)
[2022-10-09] MEDS: levETIRAcetam 500 MG TABLET (FP) PO SCH ×2 (09:06→21:28)
[2022-10-09] MEDS: PRENATAL VITAMINS W/ FOLIC ACID TABLET (FP) PO SCH (09:07)
[2022-10-09] MEDS: MIRTAZAPINE 15 MG TABLET (FP) PO SCH (21:28)
[2022-10-09] MEDS: traZODone HCL 50 MG TABLET (FP) PO PRN (21:28)
[2022-10-10] MEDS: FERROUS SO4 325 MG TABLET (FP) PO SCH ×3 (06:11→21:45)
[2022-10-10 06:50] VITALS: RESP 18
[2022-10-10] MEDS: MAG HYDROX/AL HYDROX/SIMETH 30 ML UNIT-DOSE CUP PO PRN (07:39)
[2022-10-10] MEDS: levETIRAcetam 500 MG TABLET (FP) PO SCH ×2 (08:59→21:45)
[2022-10-10] MEDS: amLODIPine BESYLATE 5 MG TABLET (FP) PO SCH (08:59)
[2022-10-10] MEDS: PRENATAL VITAMINS W/ FOLIC ACID TABLET (FP) PO SCH (08:59)
[2022-10-10] MEDS: THIAMINE HCL 100 MG TABLET (FP) PO SCH ×2 (08:59→21:45)
[2022-10-10] MEDS: TAMSULOSIN HCL 0.4 MG CAP PO SCH (08:59)
[2022-10-10] MEDS: MIRTAZAPINE 15 MG TABLET (FP) PO SCH (21:45)
[2022-10-11] MEDS: FERROUS SO4 325 MG TABLET (FP) PO SCH ×3 (06:16→21:28)
[2022-10-11] MEDS: PRENATAL VITAMINS W/ FOLIC ACID TABLET (FP) PO SCH (10:33)
[2022-10-11] MEDS: THIAMINE HCL 100 MG TABLET (FP) PO SCH ×2 (10:33→21:28)
[2022-10-11] MEDS: TAMSULOSIN HCL 0.4 MG CAP PO SCH (10:33)
[2022-10-11] MEDS: amLODIPine BESYLATE 5 MG TABLET (FP) PO SCH (10:33)
[2022-10-11] MEDS: levETIRAcetam 500 MG TABLET (FP) PO SCH ×2 (10:34→21:28)
[2022-10-11] MEDS: MIRTAZAPINE 15 MG TABLET (FP) PO SCH (21:28)
[2022-10-11] MEDS: traZODone HCL 50 MG TABLET (FP) PO PRN (21:28)
[2022-10-12] MEDS: MAG HYDROX/AL HYDROX/SIMETH 30 ML UNIT-DOSE CUP PO PRN (01:02)
[2022-10-12] MEDS: FERROUS SO4 325 MG TABLET (FP) PO SCH ×3 (06:31→21:33)
[2022-10-12] MEDS: amLODIPine BESYLATE 5 MG TABLET (FP) PO SCH (10:16)
[2022-10-12] MEDS: THIAMINE HCL 100 MG TABLET (FP) PO SCH ×2 (10:16→21:33)
[2022-10-12] MEDS: levETIRAcetam 500 MG TABLET (FP) PO SCH ×2 (10:16→21:33)
[2022-10-12] MEDS: PRENATAL VITAMINS W/ FOLIC ACID TABLET (FP) PO SCH (10:16)
[2022-10-12] MEDS: TAMSULOSIN HCL 0.4 MG CAP PO SCH (10:16)
[2022-10-12 10:53] LABS: POTASSIUM 4.4 mmol/L (3.5-5.1)
[2022-10-12 10:58] LABS: CALCIUM 9.8 mg/dL (8.5-10.1)
[2022-10-12 10:59] LABS: ALBUMIN 3.7 g/dl (3.4-5.0); BLOOD UREA NITROGEN 27.3 mg/dL (7-18)
[2022-10-12 11:01] LABS: CREATININE 1.3 mg/dL (0.55-1.3)
[2022-10-12 11:03] LABS: BILIRUBIN,TOTAL 0.3 mg/dL (0.2-1); TOT PROT 7.9 g/dl (6.4-8.2)
[2022-10-12] MEDS: MIRTAZAPINE 15 MG TABLET (FP) PO SCH (21:33)
[2022-10-12] MEDS: traZODone HCL 50 MG TABLET (FP) PO PRN (21:33)
[2022-10-13] MEDS: FERROUS SO4 325 MG TABLET (FP) PO SCH ×3 (06:18→21:23)
[2022-10-13] MEDS: THIAMINE HCL 100 MG TABLET (FP) PO SCH ×2 (09:03→21:23)
[2022-10-13] MEDS: TAMSULOSIN HCL 0.4 MG CAP PO SCH (09:03)
[2022-10-13] MEDS: levETIRAcetam 500 MG TABLET (FP) PO SCH ×2 (09:03→21:23)
[2022-10-13] MEDS: amLODIPine BESYLATE 5 MG TABLET (FP) PO SCH (09:03)
[2022-10-13] MEDS: PRENATAL VITAMINS W/ FOLIC ACID TABLET (FP) PO SCH (09:04)
[2022-10-13] MEDS: traZODone HCL 50 MG TABLET (FP) PO PRN (21:23)
[2022-10-13] MEDS: MIRTAZAPINE 15 MG TABLET (FP) PO SCH (21:24)
[2022-10-14] MEDS: FERROUS SO4 325 MG TABLET (FP) PO SCH ×3 (06:14→21:25)
[2022-10-14] MEDS: TAMSULOSIN HCL 0.4 MG CAP PO SCH (10:16)
[2022-10-14] MEDS: levETIRAcetam 500 MG TABLET (FP) PO SCH ×2 (10:16→21:25)
[2022-10-14] MEDS: amLODIPine BESYLATE 5 MG TABLET (FP) PO SCH (10:17)
[2022-10-14] MEDS: PRENATAL VITAMINS W/ FOLIC ACID TABLET (FP) PO SCH (10:17)
[2022-10-14] MEDS: THIAMINE HCL 100 MG TABLET (FP) PO SCH (10:17)
[2022-10-14] MEDS: traZODone HCL 50 MG TABLET (FP) PO PRN (21:25)
[2022-10-14] MEDS: MIRTAZAPINE 15 MG TABLET (FP) PO SCH (21:25)
[2022-10-15] MEDS: MAG HYDROX/AL HYDROX/SIMETH 30 ML UNIT-DOSE CUP PO PRN (06:08)
[2022-10-15] MEDS: FERROUS SO4 325 MG TABLET (FP) PO SCH (06:09)
[2022-10-15 07:14] VITALS: BP 117/62; PULSE 82; TEMP 97.6
[2022-10-15] MEDS: amLODIPine BESYLATE 5 MG TABLET (FP) PO SCH (09:36)
[2022-10-15] MEDS: TAMSULOSIN HCL 0.4 MG CAP PO SCH (09:36)
[2022-10-15] MEDS: levETIRAcetam 500 MG TABLET (FP) PO SCH (09:36)
[2022-10-15] MEDS: PRENATAL VITAMINS W/ FOLIC ACID TABLET (FP) PO SCH (09:36)
[2022-10-15] MEDS: THIAMINE HCL 100 MG TABLET (FP) PO SCH (09:39)
== END 2022-10-15 10:15 | disposition home or self-care (01) | DRG 772 ==
LOC: YASAS 13:06 → Y5N 13:07
PROVIDERS: ADMIT Allergy & Immunology; ATTEND Psychiatry & Neurology Pain Medicine
PROC: HZ42ZZZ Group Counseling for Substance Abuse Treatment, Cognitive-Behavioral (ICD-10-PCS; principal; 2022-10-02)
DX: F10.20 Alcohol dependence, uncomplicated (principal); F11.20 Opioid dependence, uncomplicated; F12.20 Cannabis dependence, uncomplicated; F17.210 Nicotine dependence, cigarettes, uncomplicated; F32.A Depression, unspecified; F41.9 Anxiety disorder, unspecified; F43.10 Post-traumatic stress disorder, unspecified; I10 Essential (primary) hypertension; K21.9 Gastro-esophageal reflux disease without esophagitis; K74.60 Unspecified cirrhosis of liver; B18.2 Chronic viral hepatitis C; Z86.19 Personal history of other infectious and parasitic diseases
CPT/HCPCS: 36415; 80053; 80177; 82140; 86803; 87522

== ENCOUNTER 2022-11-15 15:41 | Inpatient (IN) | payer OTHER ==
[2022-11-15 16:45] VITALS: BMI 21.5
[2022-11-15] MEDS ORDERED: ALBUTEROL SO4 HFA INHALER IH PRN (17:08)
[2022-11-15] MEDS ORDERED: NALOXONE HCL (KLOXXADO) 8 MG SPRAY NS PRN (17:08)
[2022-11-15] MEDS ORDERED: P-EPHED 60MG/TRIPROLIDI 2.5MG TABLET PO PRN (17:16)
[2022-11-15] MEDS ORDERED: NICOTINE 10 MG CARTRIDGE (INHALER) IH PRN (17:16)
[2022-11-15] MEDS ORDERED: LOPERAMIDE HCL 2 MG CAPSULE PO PRN (17:16)
[2022-11-15] MEDS ORDERED: BISMUTH SUBSALICYLATE 524 MG/30 ML PO PRN (17:16)
[2022-11-15] MEDS ORDERED: IBUPROFEN 600 MG TABLET (FP) PO PRN (17:16)
[2022-11-15] MEDS ORDERED: ONDANSETRON *ODT* 4 MG TABLET SL PRN (17:16)
[2022-11-15] MEDS ORDERED: BENZOCAINE/MENTHOL (CHLORASEPTIC ) LOZENGE MM PRN (17:16)
[2022-11-15] MEDS ORDERED: MAG HYDROX/AL HYDROX/SIMETH 30 ML UNIT-DOSE CUP PO PRN (17:16)
[2022-11-15] MEDS ORDERED: MAGNESIUM HYDROX 2400MG/30ML ORAL SUSPENSION 30 ML CUP PO PRN (17:16)
[2022-11-15] MEDS ORDERED: BENZONATATE 200 MG CAPSULE PO PRN (17:16)
[2022-11-15] MEDS ORDERED: NALOXONE HCL 0.4 MG/ML VIAL IM PRN (17:16)
[2022-11-15] MEDS ORDERED: MELATONIN 5 MG TABLETS PO PRN (17:16)
[2022-11-15] MEDS ORDERED: IBUPROFEN 400 MG TABLET (FP) PO PRN (17:16)
[2022-11-15] MEDS ORDERED: NICOTINE POLACRILEX 2 MG GUM BUC PRN (17:16)
[2022-11-15] MEDS ORDERED: guaiFENesin 600 MG TABLET.ER (FP) PO PRN (17:16)
[2022-11-15] MEDS ORDERED: ACETAMINOPHEN 325 MG TABLET (FP) PO PRN (17:16)
[2022-11-15] MEDS ORDERED: DICYCLOMINE HCL 10 MG CAPSULE PO PRN (17:16)
[2022-11-15] MEDS ORDERED: POLYETHYLENE GLYCOL (HEALTHYLAX) 3350 17 GM PACKET PO PRN (17:16)
[2022-11-15] MEDS ORDERED: chlordiazePOXIDE HCL 25 MG CAPSULE PO PRN (17:20)
[2022-11-15] MEDS ORDERED: chlordiazePOXIDE HCL 25 MG CAPSULE ONE (18:08)
[2022-11-15] MEDS: chlordiazePOXIDE HCL 25 MG CAPSULE PO SCH ×2 (18:17→22:12)
[2022-11-15] MEDS: hydrOXYzine PAMOATE 25 MG CAPSULE (FP) PO PRN (22:11)
[2022-11-15] MEDS: levETIRAcetam 500 MG TABLET (FP) PO SCH (22:11)
[2022-11-15] MEDS: FERROUS SO4 325 MG TABLET (FP) PO SCH (22:12)
[2022-11-15] MEDS: THIAMINE HCL 100 MG TABLET (FP) PO SCH (22:15)
[2022-11-16] MEDS: FERROUS SO4 325 MG TABLET (FP) PO SCH ×3 (05:01→22:14)
[2022-11-16] MEDS: chlordiazePOXIDE HCL 25 MG CAPSULE PO SCH ×4 (05:02→22:12)
[2022-11-16] MEDS: TAMSULOSIN HCL 0.4 MG CAP PO SCH (09:26)
[2022-11-16] MEDS: amLODIPine BESYLATE 5 MG TABLET (FP) PO SCH (09:26)
[2022-11-16] MEDS: PRENATAL VITAMINS W/ FOLIC ACID TABLET (FP) PO SCH (09:26)
[2022-11-16] MEDS: levETIRAcetam 500 MG TABLET (FP) PO SCH ×2 (09:27→22:11)
[2022-11-16 09:50] LABS: HEMATOCRIT 34.8 % (35.4-49); HEMOGLOBIN 11.8 GM/dL (11.7-16.9); MCH 30.1 pg (25.7-33.7); MCHC 33.9 g/dl (32.0-35.9); MEAN CELL VOLUME 88.9 fl (80-96); MEAN PLT VOLUME 7.5 fl (7.5-11.1); PLATELET COUNT 127 10^3/uL (134-434); RBC 3.92 M/mm3 (4.00-5.60); RDW 13.5 % (11.9-15.9); WHITE BLOOD COUNT 5.4 K/mm3 (4.0-10.0)
[2022-11-16 09:57] LABS: POTASSIUM 3.9 mmol/L (3.5-5.1)
[2022-11-16 10:03] LABS: ALBUMIN 3.6 g/dl (3.4-5.0); BLOOD UREA NITROGEN 12.5 mg/dL (7-18)
[2022-11-16 10:04] LABS: CALCIUM 9.2 mg/dL (8.5-10.1)
[2022-11-16 10:06] LABS: CREATININE 0.9 mg/dL (0.55-1.3)
[2022-11-16 10:07] LABS: BILIRUBIN,TOTAL 1.3 mg/dL (0.2-1); TOT PROT 7.5 g/dl (6.4-8.2)
[2022-11-16] MEDS ORDERED: methaDONE HCL 40 MG DISPERSABLE TABLET PO SCH (11:00)
[2022-11-16] MEDS: METHOCARBAMOL 500 MG TABLET PO PRN (17:37)
[2022-11-16] MEDS: hydrOXYzine PAMOATE 25 MG CAPSULE (FP) PO PRN (17:37)
[2022-11-16] MEDS: MIRTAZAPINE 15 MG TABLET (FP) PO SCH (22:11)
[2022-11-16] MEDS: traZODone HCL 50 MG TABLET (FP) PO SCH (22:11)
[2022-11-16] MEDS: THIAMINE HCL 100 MG TABLET (FP) PO SCH (22:11)
[2022-11-17] MEDS: chlordiazePOXIDE HCL 25 MG CAPSULE PO SCH ×4 (05:50→22:16)
[2022-11-17] MEDS: FERROUS SO4 325 MG TABLET (FP) PO SCH ×3 (06:03→22:15)
[2022-11-17] MEDS: METHOCARBAMOL 500 MG TABLET PO PRN (06:04)
[2022-11-17] MEDS: PRENATAL VITAMINS W/ FOLIC ACID TABLET (FP) PO SCH (09:16)
[2022-11-17] MEDS: amLODIPine BESYLATE 5 MG TABLET (FP) PO SCH (09:16)
[2022-11-17] MEDS: TAMSULOSIN HCL 0.4 MG CAP PO SCH (09:16)
[2022-11-17] MEDS: levETIRAcetam 500 MG TABLET (FP) PO SCH ×2 (09:16→22:14)
[2022-11-17] MEDS: traZODone HCL 50 MG TABLET (FP) PO SCH (22:14)
[2022-11-17] MEDS: MIRTAZAPINE 15 MG TABLET (FP) PO SCH (22:15)
[2022-11-17] MEDS: THIAMINE HCL 100 MG TABLET (FP) PO SCH (22:15)
[2022-11-18] MEDS ORDERED: chlordiazePOXIDE HCL 10 MG CAPSULE PO PRN
[2022-11-18] MEDS: FERROUS SO4 325 MG TABLET (FP) PO SCH ×3 (05:43→22:22)
[2022-11-18] MEDS: chlordiazePOXIDE HCL 10 MG CAPSULE PO SCH ×4 (05:44→22:22)
[2022-11-18] MEDS: TAMSULOSIN HCL 0.4 MG CAP PO SCH (08:35)
[2022-11-18] MEDS: levETIRAcetam 500 MG TABLET (FP) PO SCH ×2 (10:10→22:22)
[2022-11-18] MEDS: amLODIPine BESYLATE 5 MG TABLET (FP) PO SCH (10:10)
[2022-11-18] MEDS: PRENATAL VITAMINS W/ FOLIC ACID TABLET (FP) PO SCH (10:10)
[2022-11-18] MEDS: MIRTAZAPINE 15 MG TABLET (FP) PO SCH (22:20)
[2022-11-18] MEDS: traZODone HCL 50 MG TABLET (FP) PO SCH (22:21)
[2022-11-18] MEDS: hydrOXYzine PAMOATE 25 MG CAPSULE (FP) PO PRN (22:21)
[2022-11-18] MEDS: METHOCARBAMOL 500 MG TABLET PO PRN (22:21)
[2022-11-18] MEDS: THIAMINE HCL 100 MG TABLET (FP) PO SCH (22:22)
[2022-11-19] MEDS: chlordiazePOXIDE HCL 10 MG CAPSULE PO SCH ×2 (05:41→17:14)
[2022-11-19] MEDS: FERROUS SO4 325 MG TABLET (FP) PO SCH ×3 (05:41→22:07)
[2022-11-19] MEDS: TAMSULOSIN HCL 0.4 MG CAP PO SCH (07:31)
[2022-11-19] MEDS: amLODIPine BESYLATE 5 MG TABLET (FP) PO SCH (09:50)
[2022-11-19] MEDS: levETIRAcetam 500 MG TABLET (FP) PO SCH ×2 (09:50→22:07)
[2022-11-19] MEDS: PRENATAL VITAMINS W/ FOLIC ACID TABLET (FP) PO SCH (09:51)
[2022-11-19] MEDS: MIRTAZAPINE 15 MG TABLET (FP) PO SCH (22:07)
[2022-11-19] MEDS: traZODone HCL 50 MG TABLET (FP) PO SCH (22:07)
[2022-11-19] MEDS: THIAMINE HCL 100 MG TABLET (FP) PO SCH (22:08)
[2022-11-20] MEDS ORDERED: chlordiazePOXIDE HCL 10 MG CAPSULE PO ONE (05:00)
[2022-11-20] MEDS: FERROUS SO4 325 MG TABLET (FP) PO SCH (05:33)
[2022-11-20 08:53] VITALS: BP 138/83; PULSE 90; RESP 18; TEMP 98.7
[2022-11-20] MEDS: levETIRAcetam 500 MG TABLET (FP) PO SCH (09:02)
[2022-11-20] MEDS: amLODIPine BESYLATE 5 MG TABLET (FP) PO SCH (09:02)
[2022-11-20] MEDS: TAMSULOSIN HCL 0.4 MG CAP PO SCH (09:02)
[2022-11-20] MEDS: PRENATAL VITAMINS W/ FOLIC ACID TABLET (FP) PO SCH (09:04)
== END 2022-11-20 09:05 | disposition home or self-care (01) | DRG 773 ==
LOC: YASAS 15:41 → Y3N 18:31
PROVIDERS: ADMIT Allergy & Immunology; ATTEND Surgery
PROC: HZ2ZZZZ Detoxification Services for Substance Abuse Treatment (ICD-10-PCS; principal; 2022-11-15)
DX: F11.23 Opioid dependence with withdrawal (principal); F10.230 Alcohol dependence with withdrawal, uncomplicated; F17.210 Nicotine dependence, cigarettes, uncomplicated; F19.282 Other psychoactive substance dependence with psychoactive substance-induced sleep disorder; F32.A Depression, unspecified; F41.9 Anxiety disorder, unspecified; I10 Essential (primary) hypertension; J45.20 Mild intermittent asthma, uncomplicated; K21.9 Gastro-esophageal reflux disease without esophagitis; L03.116 Cellulitis of left lower limb; M54.50 Low back pain, unspecified; G89.29 Other chronic pain; N40.0 Benign prostatic hyperplasia without lower urinary tract symptoms; B18.2 Chronic viral hepatitis C; Z62.810 Personal history of physical and sexual abuse in childhood; Z28.310 Unvaccinated for COVID-19; Z28.9 Immunization not carried out for unspecified reason
CPT/HCPCS: 36415; 80053; 85027; 86780; 87635; Q0162

== ENCOUNTER 2022-12-14 14:16 | Inpatient (IN) | payer OTHER ==
[2022-12-14 15:52] VITALS: BMI 23.2
[2022-12-14] MEDS ORDERED: ALBUTEROL SO4 HFA INHALER IH PRN (17:24)
[2022-12-14] MEDS ORDERED: ACETAMINOPHEN 325 MG TABLET (FP) PO PRN (17:25)
[2022-12-14] MEDS ORDERED: NALOXONE HCL 0.4 MG/ML VIAL IM PRN (17:25)
[2022-12-14] MEDS ORDERED: MAG HYDROX/AL HYDROX/SIMETH 30 ML UNIT-DOSE CUP PO PRN (17:25)
[2022-12-14] MEDS ORDERED: guaiFENesin 600 MG TABLET.ER (FP) PO PRN (17:25)
[2022-12-14] MEDS ORDERED: BISMUTH SUBSALICYLATE 524 MG/30 ML PO PRN (17:25)
[2022-12-14] MEDS ORDERED: BENZONATATE 200 MG CAPSULE PO PRN (17:25)
[2022-12-14] MEDS ORDERED: POLYETHYLENE GLYCOL (HEALTHYLAX) 3350 17 GM PACKET PO PRN (17:25)
[2022-12-14] MEDS ORDERED: DICYCLOMINE HCL 10 MG CAPSULE PO PRN (17:25)
[2022-12-14] MEDS ORDERED: IBUPROFEN 400 MG TABLET (FP) PO PRN (17:25)
[2022-12-14] MEDS ORDERED: NALOXONE HCL (KLOXXADO) 8 MG SPRAY NS PRN (17:25)
[2022-12-14] MEDS ORDERED: NICOTINE 10 MG CARTRIDGE (INHALER) IH PRN (17:25)
[2022-12-14] MEDS ORDERED: MAGNESIUM HYDROX 2400MG/30ML ORAL SUSPENSION 30 ML CUP PO PRN (17:25)
[2022-12-14] MEDS ORDERED: BENZOCAINE/MENTHOL (CHLORASEPTIC ) LOZENGE MM PRN (17:25)
[2022-12-14] MEDS ORDERED: LOPERAMIDE HCL 2 MG CAPSULE PO PRN (17:25)
[2022-12-14] MEDS ORDERED: ONDANSETRON *ODT* 4 MG TABLET ONE (18:12)
[2022-12-14] MEDS: ONDANSETRON *ODT* 4 MG TABLET SL PRN (18:26)
[2022-12-14] MEDS ORDERED: MELATONIN 5 MG TABLETS PO SCH (22:00)
[2022-12-14] MEDS: hydrOXYzine PAMOATE 25 MG CAPSULE (FP) PO PRN (22:16)
[2022-12-14] MEDS: METHOCARBAMOL 500 MG TABLET PO PRN (22:16)
[2022-12-14] MEDS: THIAMINE HCL 100 MG TABLET (FP) PO SCH (22:16)
[2022-12-14] MEDS: levETIRAcetam 500 MG TABLET (FP) PO SCH (22:16)
[2022-12-15] MEDS: ONDANSETRON *ODT* 4 MG TABLET SL PRN ×3 (02:52→20:35)
[2022-12-15] MEDS ORDERED: chlordiazePOXIDE HCL 25 MG CAPSULE PO ONE (09:00)
[2022-12-15] MEDS ORDERED: methaDONE HCL 10 MG TABLET PO ONE ×2 (09:29)
[2022-12-15] MEDS: levETIRAcetam 500 MG TABLET (FP) PO SCH ×2 (10:44→22:04)
[2022-12-15] MEDS: NICOTINE 14 MG/24 HOURS TOPICAL PATCH TD SCH (10:44)
[2022-12-15] MEDS: PRENATAL VITAMINS W/ FOLIC ACID TABLET (FP) PO SCH (10:44)
[2022-12-15] MEDS: chlordiazePOXIDE HCL 25 MG CAPSULE PO PRN ×2 (13:07→22:05)
[2022-12-15 13:11] LABS: HEMATOCRIT 34.6 % (35.4-49); HEMOGLOBIN 11.4 GM/dL (11.7-16.9); MCH 29.9 pg (25.7-33.7); MEAN CELL VOLUME 90.4 fl (80-96); MEAN PLT VOLUME 8.7 fl (7.5-11.1); PLATELET COUNT 68 10^3/uL (134-434); RBC 3.83 M/mm3 (4.00-5.60); RDW 13.9 % (11.9-15.9); WHITE BLOOD COUNT 3.8 K/mm3 (4.0-10.0)
[2022-12-15 13:15] LABS: POTASSIUM 3.7 mmol/L (3.5-5.1)
[2022-12-15 13:22] LABS: CALCIUM 9.1 mg/dL (8.5-10.1)
[2022-12-15 13:23] LABS: ALBUMIN 3.6 g/dl (3.4-5.0); BLOOD UREA NITROGEN 9.4 mg/dL (7-18)
[2022-12-15 13:25] LABS: CREATININE 0.8 mg/dL (0.55-1.3)
[2022-12-15 13:27] LABS: BILIRUBIN,TOTAL 1.4 mg/dL (0.2-1); TOT PROT 7.3 g/dl (6.4-8.2)
[2022-12-15] MEDS: FERROUS SO4 325 MG TABLET (FP) PO SCH (14:06)
[2022-12-15] MEDS: chlordiazePOXIDE HCL 25 MG CAPSULE PO SCH ×2 (17:03→22:48)
[2022-12-15] MEDS: MIRTAZAPINE 15 MG TABLET (FP) PO SCH (22:04)
[2022-12-15] MEDS: THIAMINE HCL 100 MG TABLET (FP) PO SCH (22:04)
[2022-12-15] MEDS: TAMSULOSIN HCL 0.4 MG CAP PO SCH (22:04)
[2022-12-15] MEDS: traZODone HCL 50 MG TABLET (FP) PO SCH (22:04)
[2022-12-16] MEDS: chlordiazePOXIDE HCL 25 MG CAPSULE PO SCH ×4 (05:50→22:13)
[2022-12-16] MEDS: IBUPROFEN 600 MG TABLET (FP) PO PRN (05:52)
[2022-12-16] MEDS: METHOCARBAMOL 500 MG TABLET PO PRN (05:52)
[2022-12-16] MEDS: levETIRAcetam 500 MG TABLET (FP) PO SCH ×2 (10:20→22:13)
[2022-12-16] MEDS: PRENATAL VITAMINS W/ FOLIC ACID TABLET (FP) PO SCH (10:20)
[2022-12-16] MEDS: FERROUS SO4 325 MG TABLET (FP) PO SCH (10:20)
[2022-12-16] MEDS: hydrOXYzine PAMOATE 25 MG CAPSULE (FP) PO PRN (10:20)
[2022-12-16] MEDS: NICOTINE 14 MG/24 HOURS TOPICAL PATCH TD SCH (10:23)
[2022-12-16] MEDS ORDERED: methaDONE HCL 10 MG TABLET PO ONE (10:26)
[2022-12-16] MEDS: LIDOCAINE 5% TOPICAL PATCH TP SCH (10:58)
[2022-12-16] MEDS ORDERED: chlordiazePOXIDE HCL 25 MG CAPSULE PO ONE (13:30)
[2022-12-16] MEDS: MIRTAZAPINE 15 MG TABLET (FP) PO SCH (22:13)
[2022-12-16] MEDS: TAMSULOSIN HCL 0.4 MG CAP PO SCH (22:13)
[2022-12-16] MEDS: traZODone HCL 50 MG TABLET (FP) PO SCH (22:13)
[2022-12-16] MEDS: THIAMINE HCL 100 MG TABLET (FP) PO SCH (22:13)
[2022-12-16] MEDS: LIDOCAINE PATCH REMOVAL MC SCH (22:14)
[2022-12-17] MEDS ORDERED: chlordiazePOXIDE HCL 10 MG CAPSULE PO PRN
[2022-12-17] MEDS: chlordiazePOXIDE HCL 10 MG CAPSULE PO SCH ×4 (05:05→22:05)
[2022-12-17] MEDS: METHOCARBAMOL 500 MG TABLET PO PRN (05:06)
[2022-12-17] MEDS: IBUPROFEN 600 MG TABLET (FP) PO PRN (05:08)
[2022-12-17] MEDS ORDERED: methaDONE HCL 10 MG TABLET PO SCH (06:00)
[2022-12-17] MEDS: PRENATAL VITAMINS W/ FOLIC ACID TABLET (FP) PO SCH (10:22)
[2022-12-17] MEDS: LIDOCAINE 5% TOPICAL PATCH TP SCH (10:22)
[2022-12-17] MEDS: FERROUS SO4 325 MG TABLET (FP) PO SCH (10:23)
[2022-12-17] MEDS: levETIRAcetam 500 MG TABLET (FP) PO SCH ×2 (10:23→22:05)
[2022-12-17] MEDS: hydrOXYzine PAMOATE 25 MG CAPSULE (FP) PO PRN (10:23)
[2022-12-17] MEDS: NICOTINE 14 MG/24 HOURS TOPICAL PATCH TD SCH (10:27)
[2022-12-17] MEDS ORDERED: chlordiazePOXIDE HCL 25 MG CAPSULE PO ONE (13:30)
[2022-12-17] MEDS: THIAMINE HCL 100 MG TABLET (FP) PO SCH (22:05)
[2022-12-17] MEDS: MIRTAZAPINE 15 MG TABLET (FP) PO SCH (22:05)
[2022-12-17] MEDS: traZODone HCL 50 MG TABLET (FP) PO SCH (22:05)
[2022-12-17] MEDS: LIDOCAINE PATCH REMOVAL MC SCH (22:05)
[2022-12-17] MEDS: TAMSULOSIN HCL 0.4 MG CAP PO SCH (22:05)
[2022-12-18] MEDS: chlordiazePOXIDE HCL 10 MG CAPSULE PO SCH ×2 (05:27→17:05)
[2022-12-18] MEDS: IBUPROFEN 600 MG TABLET (FP) PO PRN (05:34)
[2022-12-18] MEDS: PRENATAL VITAMINS W/ FOLIC ACID TABLET (FP) PO SCH (10:01)
[2022-12-18] MEDS: NICOTINE 14 MG/24 HOURS TOPICAL PATCH TD SCH (10:01)
[2022-12-18] MEDS: FERROUS SO4 325 MG TABLET (FP) PO SCH (10:02)
[2022-12-18] MEDS: LIDOCAINE 5% TOPICAL PATCH TP SCH (10:02)
[2022-12-18] MEDS: levETIRAcetam 500 MG TABLET (FP) PO SCH ×2 (10:02→22:07)
[2022-12-18] MEDS ORDERED: chlordiazePOXIDE HCL 10 MG CAPSULE PO ONE ×2 (21:00→22:15)
[2022-12-18] MEDS: MIRTAZAPINE 15 MG TABLET (FP) PO SCH (22:07)
[2022-12-18] MEDS: THIAMINE HCL 100 MG TABLET (FP) PO SCH (22:07)
[2022-12-18] MEDS: traZODone HCL 50 MG TABLET (FP) PO SCH (22:07)
[2022-12-18] MEDS: TAMSULOSIN HCL 0.4 MG CAP PO SCH (22:07)
[2022-12-18] MEDS: LIDOCAINE PATCH REMOVAL MC SCH (22:08)
[2022-12-19] MEDS ORDERED: chlordiazePOXIDE HCL 10 MG CAPSULE PO ONE (05:00)
[2022-12-19] MEDS: METHOCARBAMOL 500 MG TABLET PO PRN (05:16)
[2022-12-19 06:20] VITALS: TEMP 97.5
[2022-12-19 09:34] VITALS: BP 130/69; PULSE 103; RESP 18
[2022-12-19] MEDS: LIDOCAINE 5% TOPICAL PATCH TP SCH (10:40)
[2022-12-19] MEDS: NICOTINE 14 MG/24 HOURS TOPICAL PATCH TD SCH (10:40)
[2022-12-19] MEDS: levETIRAcetam 500 MG TABLET (FP) PO SCH (10:40)
[2022-12-19] MEDS: PRENATAL VITAMINS W/ FOLIC ACID TABLET (FP) PO SCH (10:40)
[2022-12-19] MEDS: FERROUS SO4 325 MG TABLET (FP) PO SCH (10:40)
== END 2022-12-19 09:47 | disposition home or self-care (01) | DRG 773 ==
LOC: YASAS 14:16 → Y6N 17:56
PROVIDERS: ADMIT Allergy & Immunology; ATTEND Surgery
PROC: HZ2ZZZZ Detoxification Services for Substance Abuse Treatment (ICD-10-PCS; principal; 2022-12-14)
DX: F10.230 Alcohol dependence with withdrawal, uncomplicated (principal); F11.20 Opioid dependence, uncomplicated; F17.210 Nicotine dependence, cigarettes, uncomplicated; F19.282 Other psychoactive substance dependence with psychoactive substance-induced sleep disorder; F19.24 Other psychoactive substance dependence with psychoactive substance-induced mood disorder; F43.10 Post-traumatic stress disorder, unspecified; F32.A Depression, unspecified; I10 Essential (primary) hypertension; J45.20 Mild intermittent asthma, uncomplicated; K21.9 Gastro-esophageal reflux disease without esophagitis; N40.1 Benign prostatic hyperplasia with lower urinary tract symptoms; R39.11 Hesitancy of micturition; G40.909 Epilepsy, unspecified, not intractable, without status epilepticus; M54.50 Low back pain, unspecified; G89.29 Other chronic pain; Z62.810 Personal history of physical and sexual abuse in childhood; Z86.69 Personal history of other diseases of the nervous system and sense organs
CPT/HCPCS: 36415; 80053; 85027; 86780; 87635; 93005; 93010; Q0162

== ENCOUNTER 2023-01-21 14:38 | Inpatient (IN) | payer OTHER ==
[2023-01-21 16:52] VITALS: BMI 22.5
[2023-01-21] MEDS ORDERED: LORazepam 2 MG/ML SDV VIAL IM ONE (19:02)
[2023-01-21] MEDS ORDERED: guaiFENesin 600 MG TABLET.ER (FP) PO PRN (19:17)
[2023-01-21] MEDS ORDERED: NALOXONE HCL 0.4 MG/ML VIAL IM PRN (19:17)
[2023-01-21] MEDS ORDERED: BISMUTH SUBSALICYLATE 524 MG/30 ML PO PRN (19:17)
[2023-01-21] MEDS ORDERED: POLYETHYLENE GLYCOL (HEALTHYLAX) 3350 17 GM PACKET PO PRN (19:17)
[2023-01-21] MEDS ORDERED: hydrOXYzine PAMOATE 25 MG CAPSULE (FP) PO PRN (19:17)
[2023-01-21] MEDS ORDERED: DICYCLOMINE HCL 10 MG CAPSULE PO PRN (19:17)
[2023-01-21] MEDS ORDERED: IBUPROFEN 400 MG TABLET (FP) PO PRN (19:17)
[2023-01-21] MEDS ORDERED: MAGNESIUM HYDROX 2400MG/30ML ORAL SUSPENSION 30 ML CUP PO PRN (19:17)
[2023-01-21] MEDS ORDERED: MAG HYDROX/AL HYDROX/SIMETH 30 ML UNIT-DOSE CUP PO PRN (19:17)
[2023-01-21] MEDS ORDERED: NICOTINE POLACRILEX 2 MG GUM BUC PRN (19:17)
[2023-01-21] MEDS ORDERED: BENZONATATE 200 MG CAPSULE PO PRN (19:17)
[2023-01-21] MEDS ORDERED: BENZOCAINE/MENTHOL (CHLORASEPTIC ) LOZENGE MM PRN (19:17)
[2023-01-21] MEDS ORDERED: NALOXONE HCL (KLOXXADO) 8 MG SPRAY NS PRN (19:17)
[2023-01-21] MEDS ORDERED: chlordiazePOXIDE HCL 25 MG CAPSULE PO PRN (19:17)
[2023-01-21] MEDS ORDERED: P-EPHED 60MG/TRIPROLIDI 2.5MG TABLET PO PRN (19:17)
[2023-01-21] MEDS: ONDANSETRON *ODT* 4 MG TABLET SL PRN (21:33)
[2023-01-21] MEDS: chlordiazePOXIDE HCL 25 MG CAPSULE PO SCH (22:15)
[2023-01-21] MEDS: THIAMINE HCL 100 MG TABLET (FP) PO SCH (22:16)
[2023-01-21] MEDS: MELATONIN 5 MG TABLETS PO SCH (22:16)
[2023-01-22] MEDS: ONDANSETRON *ODT* 4 MG TABLET SL PRN (04:51)
[2023-01-22] MEDS: chlordiazePOXIDE HCL 25 MG CAPSULE PO SCH ×4 (05:23→22:05)
[2023-01-22] MEDS ORDERED: ONDANSETRON 4 MG/2 ML VIAL IM PRN (08:40)
[2023-01-22] MEDS ORDERED: methaDONE HCL 10 MG TABLET PO ONE (10:12)
[2023-01-22] MEDS: PRENATAL VITAMINS W/ FOLIC ACID TABLET (FP) PO SCH (10:40)
[2023-01-22] MEDS: METHOCARBAMOL 500 MG TABLET PO PRN (10:40)
[2023-01-22 14:03] LABS: HEMATOCRIT 34.5 % (35.4-49); HEMOGLOBIN 11.8 GM/dL (11.7-16.9); MCH 30.6 pg (25.7-33.7); MCHC 34.1 g/dl (32.0-35.9); MEAN CELL VOLUME 89.7 fl (80-96); MEAN PLT VOLUME 7.9 fl (7.5-11.1); PLATELET COUNT 86 10^3/uL (134-434); RBC 3.85 M/mm3 (4.00-5.60); RDW 14.1 % (11.9-15.9); WHITE BLOOD COUNT 3.9 K/mm3 (4.0-10.0)
[2023-01-22] MEDS ORDERED: ONDANSETRON 4 MG/2 ML VIAL IM ONE (14:03)
[2023-01-22 14:17] LABS: POTASSIUM 3.9 mmol/L (3.5-5.1)
[2023-01-22 14:24] LABS: ALBUMIN 3.9 g/dl (3.4-5.0); CALCIUM 9.1 mg/dL (8.5-10.1)
[2023-01-22 14:25] LABS: BLOOD UREA NITROGEN 9.7 mg/dL (7-18)
[2023-01-22 14:28] LABS: CREATININE 0.9 mg/dL (0.55-1.3)
[2023-01-22 14:29] LABS: BILIRUBIN,TOTAL 1.6 mg/dL (0.2-1)
[2023-01-22] MEDS: ACETAMINOPHEN 325 MG TABLET (FP) PO PRN (20:11)
[2023-01-22] MEDS ORDERED: MIRTAZAPINE 15 MG TABLET (FP) PO SCH (22:00)
[2023-01-22] MEDS: traZODone HCL 50 MG TABLET (FP) PO SCH (22:05)
[2023-01-22] MEDS: THIAMINE HCL 100 MG TABLET (FP) PO SCH (22:05)
[2023-01-22] MEDS: MELATONIN 5 MG TABLETS PO SCH (22:06)
[2023-01-23] MEDS: chlordiazePOXIDE HCL 25 MG CAPSULE PO SCH ×4 (05:27→22:05)
[2023-01-23] MEDS: IBUPROFEN 600 MG TABLET (FP) PO PRN (05:29)
[2023-01-23] MEDS: METHOCARBAMOL 500 MG TABLET PO PRN ×2 (05:29→17:19)
[2023-01-23] MEDS ORDERED: methaDONE HCL 10 MG TABLET PO SCH (06:00)
[2023-01-23] MEDS: PRENATAL VITAMINS W/ FOLIC ACID TABLET (FP) PO SCH (10:11)
[2023-01-23] MEDS: LOPERAMIDE HCL 2 MG CAPSULE PO PRN ×2 (10:14→22:07)
[2023-01-23] MEDS ORDERED: ALBUTEROL SO4 HFA INHALER IH PRN (15:35)
[2023-01-23] MEDS: THIAMINE HCL 100 MG TABLET (FP) PO SCH (22:05)
[2023-01-23] MEDS: traZODone HCL 50 MG TABLET (FP) PO SCH (22:05)
[2023-01-23] MEDS: MIRTAZAPINE 15 MG TABLET (FP) PO SCH (22:05)
[2023-01-23] MEDS: levETIRAcetam 500 MG TABLET (FP) PO SCH (22:06)
[2023-01-23] MEDS: TAMSULOSIN HCL 0.4 MG CAP PO SCH (22:06)
[2023-01-23] MEDS: MELATONIN 5 MG TABLETS PO SCH (22:06)
[2023-01-24] MEDS ORDERED: chlordiazePOXIDE HCL 10 MG CAPSULE PO PRN
[2023-01-24] MEDS: chlordiazePOXIDE HCL 10 MG CAPSULE PO SCH ×4 (05:17→22:12)
[2023-01-24] MEDS: levETIRAcetam 500 MG TABLET (FP) PO SCH ×2 (10:06→22:11)
[2023-01-24] MEDS: PRENATAL VITAMINS W/ FOLIC ACID TABLET (FP) PO SCH (10:06)
[2023-01-24] MEDS: IBUPROFEN 600 MG TABLET (FP) PO PRN (17:22)
[2023-01-24] MEDS: THIAMINE HCL 100 MG TABLET (FP) PO SCH (22:10)
[2023-01-24] MEDS: MELATONIN 5 MG TABLETS PO SCH (22:10)
[2023-01-24] MEDS: TAMSULOSIN HCL 0.4 MG CAP PO SCH (22:10)
[2023-01-24] MEDS: MIRTAZAPINE 15 MG TABLET (FP) PO SCH (22:11)
[2023-01-24] MEDS: METHOCARBAMOL 500 MG TABLET PO PRN (22:12)
[2023-01-24] MEDS: traZODone HCL 50 MG TABLET (FP) PO SCH (22:12)
[2023-01-25] MEDS: chlordiazePOXIDE HCL 10 MG CAPSULE PO SCH ×2 (05:01→17:36)
[2023-01-25] MEDS: IBUPROFEN 600 MG TABLET (FP) PO PRN (08:56)
[2023-01-25] MEDS: PRENATAL VITAMINS W/ FOLIC ACID TABLET (FP) PO SCH (10:24)
[2023-01-25] MEDS: LIDOCAINE 5% TOPICAL PATCH TP SCH (10:24)
[2023-01-25] MEDS: levETIRAcetam 500 MG TABLET (FP) PO SCH ×2 (10:24→22:02)
[2023-01-25] MEDS: ACETAMINOPHEN 325 MG TABLET (FP) PO PRN (17:37)
[2023-01-25] MEDS ORDERED: LIDOCAINE PATCH REMOVAL MC SCH (22:00)
[2023-01-25] MEDS: traZODone HCL 50 MG TABLET (FP) PO SCH (22:02)
[2023-01-25] MEDS: MIRTAZAPINE 15 MG TABLET (FP) PO SCH (22:02)
[2023-01-25] MEDS: THIAMINE HCL 100 MG TABLET (FP) PO SCH (22:02)
[2023-01-25] MEDS: MELATONIN 5 MG TABLETS PO SCH (22:02)
[2023-01-25] MEDS: TAMSULOSIN HCL 0.4 MG CAP PO SCH (22:02)
[2023-01-26] MEDS ORDERED: chlordiazePOXIDE HCL 10 MG CAPSULE PO ONE (05:00)
[2023-01-26] MEDS: IBUPROFEN 600 MG TABLET (FP) PO PRN (05:16)
[2023-01-26 09:46] VITALS: RESP 16
[2023-01-26] MEDS: PRENATAL VITAMINS W/ FOLIC ACID TABLET (FP) PO SCH (10:15)
[2023-01-26] MEDS: levETIRAcetam 500 MG TABLET (FP) PO SCH (10:15)
[2023-01-26] MEDS: LIDOCAINE 5% TOPICAL PATCH TP SCH (10:15)
[2023-01-26 13:25] VITALS: BP 114/70; PULSE 80; TEMP 98.2
== END 2023-01-26 13:42 | disposition other institution (70) | DRG 773 ==
LOC: YASAS 14:38 → Y3N 20:22
PROVIDERS: ADMIT Allergy & Immunology; ATTEND Allergy & Immunology
PROC: HZ2ZZZZ Detoxification Services for Substance Abuse Treatment (ICD-10-PCS; principal; 2023-01-21)
DX: F10.230 Alcohol dependence with withdrawal, uncomplicated (principal); F11.20 Opioid dependence, uncomplicated; F12.20 Cannabis dependence, uncomplicated; F17.210 Nicotine dependence, cigarettes, uncomplicated; G47.00 Insomnia, unspecified; I10 Essential (primary) hypertension; J45.20 Mild intermittent asthma, uncomplicated; K21.9 Gastro-esophageal reflux disease without esophagitis; Z28.310 Unvaccinated for COVID-19; Z28.9 Immunization not carried out for unspecified reason
CPT/HCPCS: 36415; 80053; 85027; 86780; 87635; Q0162

== ENCOUNTER 2023-01-26 13:51 | Inpatient (IN) | payer OTHER ==
[2023-01-26] MEDS ORDERED: ALBUTEROL SO4 HFA INHALER IH PRN (14:41)
[2023-01-26] MEDS ORDERED: NALOXONE HCL (KLOXXADO) 8 MG SPRAY NS PRN (14:42)
[2023-01-26] MEDS ORDERED: POLYETHYLENE GLYCOL (HEALTHYLAX) 3350 17 GM PACKET PO PRN (14:42)
[2023-01-26] MEDS ORDERED: guaiFENesin 600 MG TABLET.ER (FP) PO PRN (14:42)
[2023-01-26] MEDS ORDERED: BENZOCAINE/MENTHOL (CHLORASEPTIC ) LOZENGE MM PRN (14:42)
[2023-01-26] MEDS ORDERED: LOPERAMIDE HCL 2 MG CAPSULE PO PRN (14:42)
[2023-01-26] MEDS ORDERED: NICOTINE POLACRILEX 2 MG GUM BUC PRN (14:42)
[2023-01-26] MEDS ORDERED: NALOXONE HCL 0.4 MG/ML VIAL IVPUSH PRN (14:42)
[2023-01-26] MEDS ORDERED: AMMONIUM LACTATE 12% LOTION 225 GM BOTTLE TP PRN (14:42)
[2023-01-26] MEDS ORDERED: P-EPHED 60MG/TRIPROLIDI 2.5MG TABLET PO PRN (14:42)
[2023-01-26] MEDS ORDERED: MAGNESIUM HYDROX 2400MG/30ML ORAL SUSPENSION 30 ML CUP PO PRN (14:42)
[2023-01-26] MEDS ORDERED: BENZONATATE 200 MG CAPSULE PO PRN (14:42)
[2023-01-26] MEDS: FERROUS SO4 325 MG TABLET (FP) PO SCH (17:01)
[2023-01-26] MEDS: MIRTAZAPINE 15 MG TABLET (FP) PO SCH (21:09)
[2023-01-26] MEDS: levETIRAcetam 500 MG TABLET (FP) PO SCH (21:09)
[2023-01-26] MEDS: MELATONIN 5 MG TABLETS PO SCH (21:09)
[2023-01-26] MEDS: traZODone HCL 50 MG TABLET (FP) PO SCH (21:09)
[2023-01-26] MEDS: TAMSULOSIN HCL 0.4 MG CAP PO SCH (21:09)
[2023-01-26] MEDS: THIAMINE HCL 100 MG TABLET (FP) PO SCH (21:09)
[2023-01-27] MEDS ORDERED: methaDONE HCL 40 MG DISPERSABLE TABLET PO SCH (06:00)
[2023-01-27] MEDS: ACETAMINOPHEN 325 MG TABLET (FP) PO PRN (06:14)
[2023-01-27] MEDS: FERROUS SO4 325 MG TABLET (FP) PO SCH ×3 (07:13→19:04)
[2023-01-27] MEDS: PRENATAL VITAMINS W/ FOLIC ACID TABLET (FP) PO SCH (09:46)
[2023-01-27] MEDS: levETIRAcetam 500 MG TABLET (FP) PO SCH ×2 (09:46→21:04)
[2023-01-27] MEDS ORDERED: COLLOIDAL OATMEAL 1 BAR EACH TP PRN (09:57)
[2023-01-27] MEDS: METHOCARBAMOL 500 MG TABLET PO PRN ×2 (13:17→21:06)
[2023-01-27] MEDS: BISMUTH SUBSALICYLATE 262 MG/15 ML BTL PO PRN (14:11)
[2023-01-27] MEDS: MIRTAZAPINE 15 MG TABLET (FP) PO SCH (21:04)
[2023-01-27] MEDS: TAMSULOSIN HCL 0.4 MG CAP PO SCH (21:04)
[2023-01-27] MEDS: THIAMINE HCL 100 MG TABLET (FP) PO SCH (21:04)
[2023-01-27] MEDS: traZODone HCL 50 MG TABLET (FP) PO SCH (21:04)
[2023-01-27] MEDS: MELATONIN 5 MG TABLETS PO SCH (21:04)
[2023-01-28] MEDS: IBUPROFEN 400 MG TABLET (FP) PO PRN (06:19)
[2023-01-28] MEDS: METHOCARBAMOL 500 MG TABLET PO PRN (06:20)
[2023-01-28] MEDS: FERROUS SO4 325 MG TABLET (FP) PO SCH ×3 (07:12→17:12)
[2023-01-28] MEDS: PRENATAL VITAMINS W/ FOLIC ACID TABLET (FP) PO SCH (09:40)
[2023-01-28] MEDS: levETIRAcetam 500 MG TABLET (FP) PO SCH ×2 (09:41→21:05)
[2023-01-28] MEDS: MELATONIN 5 MG TABLETS PO SCH (21:05)
[2023-01-28] MEDS: TAMSULOSIN HCL 0.4 MG CAP PO SCH (21:05)
[2023-01-28] MEDS: THIAMINE HCL 100 MG TABLET (FP) PO SCH (21:05)
[2023-01-28] MEDS: MIRTAZAPINE 15 MG TABLET (FP) PO SCH (21:05)
[2023-01-28] MEDS: traZODone HCL 100 MG TABLET (FP) PO SCH (21:06)
[2023-01-29] MEDS: FERROUS SO4 325 MG TABLET (FP) PO SCH ×3 (07:30→16:59)
[2023-01-29] MEDS: levETIRAcetam 500 MG TABLET (FP) PO SCH ×2 (09:34→21:03)
[2023-01-29] MEDS: PRENATAL VITAMINS W/ FOLIC ACID TABLET (FP) PO SCH (09:34)
[2023-01-29] MEDS: LACTULOSE 20 GM/30 ML UDC (FOR ORAL USE ONLY) PO PRN ×2 (13:38→21:04)
[2023-01-29] MEDS: traZODone HCL 100 MG TABLET (FP) PO SCH (21:03)
[2023-01-29] MEDS: MIRTAZAPINE 15 MG TABLET (FP) PO SCH (21:03)
[2023-01-29] MEDS: TAMSULOSIN HCL 0.4 MG CAP PO SCH (21:03)
[2023-01-29] MEDS: MELATONIN 5 MG TABLETS PO SCH (21:03)
[2023-01-29] MEDS: METHOCARBAMOL 500 MG TABLET PO PRN (21:05)
[2023-01-29] MEDS: SENNOSIDES 8.6MG TABLET (FP) PO SCH (21:06)
[2023-01-29] MEDS: THIAMINE HCL 100 MG TABLET (FP) PO SCH (21:06)
[2023-01-30] MEDS: IBUPROFEN 600 MG TABLET (FP) PO PRN (04:39)
[2023-01-30] MEDS: LACTULOSE 20 GM/30 ML UDC (FOR ORAL USE ONLY) PO PRN ×2 (06:02→21:05)
[2023-01-30] MEDS: FERROUS SO4 325 MG TABLET (FP) PO SCH ×3 (07:08→17:00)
[2023-01-30] MEDS: MAG HYDROX/AL HYDROX/SIMETH 30 ML UNIT-DOSE CUP PO PRN (08:27)
[2023-01-30] MEDS: levETIRAcetam 500 MG TABLET (FP) PO SCH ×2 (09:46→21:05)
[2023-01-30] MEDS: PRENATAL VITAMINS W/ FOLIC ACID TABLET (FP) PO SCH (09:46)
[2023-01-30] MEDS: SENNOSIDES 8.6MG TABLET (FP) PO SCH ×2 (09:47→21:04)
[2023-01-30] MEDS: METHOCARBAMOL 500 MG TABLET PO PRN ×2 (09:47→21:04)
[2023-01-30] MEDS: HYDROCORTISONE 0.5% TOPICAL OINTMENT TUBE TP PRN (09:48)
[2023-01-30] MEDS: MIRTAZAPINE 15 MG TABLET (FP) PO SCH (21:04)
[2023-01-30] MEDS: traZODone HCL 100 MG TABLET (FP) PO SCH (21:05)
[2023-01-30] MEDS: THIAMINE HCL 100 MG TABLET (FP) PO SCH (21:05)
[2023-01-30] MEDS: TAMSULOSIN HCL 0.4 MG CAP PO SCH (21:05)
[2023-01-30] MEDS: MELATONIN 5 MG TABLETS PO SCH (21:05)
[2023-01-31] MEDS: IBUPROFEN 400 MG TABLET (FP) PO PRN (06:14)
[2023-01-31] MEDS: FERROUS SO4 325 MG TABLET (FP) PO SCH ×3 (07:10→17:22)
[2023-01-31] MEDS: PRENATAL VITAMINS W/ FOLIC ACID TABLET (FP) PO SCH (09:51)
[2023-01-31] MEDS: levETIRAcetam 500 MG TABLET (FP) PO SCH ×2 (09:52→21:03)
[2023-01-31] MEDS: SENNOSIDES 8.6MG TABLET (FP) PO SCH ×2 (09:52→21:03)
[2023-01-31] MEDS: METHOCARBAMOL 500 MG TABLET PO PRN ×2 (09:54→17:02)
[2023-01-31] MEDS: MAG HYDROX/AL HYDROX/SIMETH 30 ML UNIT-DOSE CUP PO PRN (17:21)
[2023-01-31] MEDS: traZODone HCL 100 MG TABLET (FP) PO SCH (21:03)
[2023-01-31] MEDS: MIRTAZAPINE 15 MG TABLET (FP) PO SCH (21:03)
[2023-01-31] MEDS: MELATONIN 5 MG TABLETS PO SCH (21:03)
[2023-01-31] MEDS: THIAMINE HCL 100 MG TABLET (FP) PO SCH (21:03)
[2023-01-31] MEDS: TAMSULOSIN HCL 0.4 MG CAP PO SCH (21:03)
[2023-01-31] MEDS: LACTULOSE 20 GM/30 ML UDC (FOR ORAL USE ONLY) PO PRN (21:03)
[2023-02-01] MEDS: BISMUTH SUBSALICYLATE 262 MG/15 ML BTL PO PRN (01:24)
[2023-02-01] MEDS: MAG HYDROX/AL HYDROX/SIMETH 30 ML UNIT-DOSE CUP PO PRN ×2 (06:59→17:33)
[2023-02-01] MEDS: FERROUS SO4 325 MG TABLET (FP) PO SCH ×3 (07:01→17:03)
[2023-02-01] MEDS: levETIRAcetam 500 MG TABLET (FP) PO SCH ×2 (09:47→21:00)
[2023-02-01] MEDS: SENNOSIDES 8.6MG TABLET (FP) PO SCH ×2 (09:48→21:00)
[2023-02-01] MEDS: PRENATAL VITAMINS W/ FOLIC ACID TABLET (FP) PO SCH (09:48)
[2023-02-01] MEDS: HYDROCORTISONE 0.5% TOPICAL OINTMENT TUBE TP PRN (09:50)
[2023-02-01] MEDS: METHOCARBAMOL 500 MG TABLET PO PRN (09:50)
[2023-02-01] MEDS: IBUPROFEN 600 MG TABLET (FP) PO PRN (17:33)
[2023-02-01] MEDS: traZODone HCL 100 MG TABLET (FP) PO SCH (21:00)
[2023-02-01] MEDS: THIAMINE HCL 100 MG TABLET (FP) PO SCH (21:00)
[2023-02-01] MEDS: MELATONIN 5 MG TABLETS PO SCH (21:01)
[2023-02-01] MEDS: MIRTAZAPINE 15 MG TABLET (FP) PO SCH (21:01)
[2023-02-01] MEDS: TAMSULOSIN HCL 0.4 MG CAP PO SCH (21:01)
[2023-02-02] MEDS: ACETAMINOPHEN 325 MG TABLET (FP) PO PRN (06:11)
[2023-02-02] MEDS: MAG HYDROX/AL HYDROX/SIMETH 30 ML UNIT-DOSE CUP PO PRN (06:12)
[2023-02-02] MEDS: FERROUS SO4 325 MG TABLET (FP) PO SCH ×3 (07:07→17:19)
[2023-02-02] MEDS: levETIRAcetam 500 MG TABLET (FP) PO SCH ×2 (09:31→21:07)
[2023-02-02] MEDS: SENNOSIDES 8.6MG TABLET (FP) PO SCH ×2 (09:32→21:07)
[2023-02-02] MEDS: PRENATAL VITAMINS W/ FOLIC ACID TABLET (FP) PO SCH (09:33)
[2023-02-02] MEDS: IBUPROFEN 400 MG TABLET (FP) PO PRN (09:34)
[2023-02-02] MEDS: PANTOPRAZOLE 20 MG TABLET PO PRN (11:57)
[2023-02-02] MEDS: MIRTAZAPINE 15 MG TABLET (FP) PO SCH (21:06)
[2023-02-02] MEDS: MELATONIN 5 MG TABLETS PO SCH (21:06)
[2023-02-02] MEDS: TAMSULOSIN HCL 0.4 MG CAP PO SCH (21:07)
[2023-02-02] MEDS: THIAMINE HCL 100 MG TABLET (FP) PO SCH (21:07)
[2023-02-02] MEDS: traZODone HCL 100 MG TABLET (FP) PO SCH (21:07)
[2023-02-02] MEDS: IBUPROFEN 600 MG TABLET (FP) PO PRN (21:08)
[2023-02-03] MEDS: LACTULOSE 20 GM/30 ML UDC (FOR ORAL USE ONLY) PO PRN (06:25)
[2023-02-03] MEDS: FERROUS SO4 325 MG TABLET (FP) PO SCH ×3 (07:12→17:36)
[2023-02-03] MEDS: levETIRAcetam 500 MG TABLET (FP) PO SCH ×2 (09:26→21:05)
[2023-02-03] MEDS: PRENATAL VITAMINS W/ FOLIC ACID TABLET (FP) PO SCH (09:26)
[2023-02-03] MEDS: SENNOSIDES 8.6MG TABLET (FP) PO SCH ×2 (09:26→21:05)
[2023-02-03] MEDS: IBUPROFEN 600 MG TABLET (FP) PO PRN ×2 (09:27→21:07)
[2023-02-03] MEDS ORDERED: METHOCARBAMOL 500 MG TABLET PO SCH (11:00)
[2023-02-03] MEDS: MAG HYDROX/AL HYDROX/SIMETH 30 ML UNIT-DOSE CUP PO PRN (19:01)
[2023-02-03] MEDS: THIAMINE HCL 100 MG TABLET (FP) PO SCH (21:04)
[2023-02-03] MEDS: MELATONIN 5 MG TABLETS PO SCH (21:04)
[2023-02-03] MEDS: TAMSULOSIN HCL 0.4 MG CAP PO SCH (21:04)
[2023-02-03] MEDS: MIRTAZAPINE 15 MG TABLET (FP) PO SCH (21:05)
[2023-02-03] MEDS: traZODone HCL 100 MG TABLET (FP) PO SCH (21:05)
[2023-02-04] MEDS: FERROUS SO4 325 MG TABLET (FP) PO SCH ×3 (07:21→16:59)
[2023-02-04] MEDS: SENNOSIDES 8.6MG TABLET (FP) PO SCH ×2 (09:27→21:05)
[2023-02-04] MEDS: PRENATAL VITAMINS W/ FOLIC ACID TABLET (FP) PO SCH (09:27)
[2023-02-04] MEDS: levETIRAcetam 500 MG TABLET (FP) PO SCH ×2 (09:27→21:04)
[2023-02-04] MEDS: METHOCARBAMOL 500 MG TABLET PO PRN ×2 (09:28→21:05)
[2023-02-04] MEDS: LACTULOSE 20 GM/30 ML UDC (FOR ORAL USE ONLY) PO PRN (09:28)
[2023-02-04] MEDS: HYDROCORTISONE 0.5% TOPICAL OINTMENT TUBE TP PRN (09:29)
[2023-02-04] MEDS: MIRTAZAPINE 15 MG TABLET (FP) PO SCH (21:04)
[2023-02-04] MEDS: traZODone HCL 100 MG TABLET (FP) PO SCH (21:04)
[2023-02-04] MEDS: THIAMINE HCL 100 MG TABLET (FP) PO SCH (21:04)
[2023-02-04] MEDS: MELATONIN 5 MG TABLETS PO SCH (21:05)
[2023-02-04] MEDS: TAMSULOSIN HCL 0.4 MG CAP PO SCH (21:05)
[2023-02-05] MEDS: ACETAMINOPHEN 325 MG TABLET (FP) PO PRN (06:03)
[2023-02-05] MEDS: FERROUS SO4 325 MG TABLET (FP) PO SCH (07:07)
[2023-02-05] MEDS: LACTULOSE 20 GM/30 ML UDC (FOR ORAL USE ONLY) PO PRN (07:29)
[2023-02-05] MEDS: PANTOPRAZOLE 20 MG TABLET PO PRN (09:33)
[2023-02-05] MEDS: SENNOSIDES 8.6MG TABLET (FP) PO SCH ×2 (09:33→21:04)
[2023-02-05] MEDS: PRENATAL VITAMINS W/ FOLIC ACID TABLET (FP) PO SCH (09:33)
[2023-02-05] MEDS: levETIRAcetam 500 MG TABLET (FP) PO SCH ×2 (09:33→21:03)
[2023-02-05] MEDS ORDERED: DOCUSATE SODIUM 100 MG CAPSULE (FP) PO PRN (12:02)
[2023-02-05] MEDS: ACAMPROSATE CALCIUM 333 MG TABLET.DR PO SCH ×2 (15:06→21:03)
[2023-02-05] MEDS: TAMSULOSIN HCL 0.4 MG CAP PO SCH (21:03)
[2023-02-05] MEDS: THIAMINE HCL 100 MG TABLET (FP) PO SCH (21:03)
[2023-02-05] MEDS: MIRTAZAPINE 15 MG TABLET (FP) PO SCH (21:03)
[2023-02-05] MEDS: traZODone HCL 100 MG TABLET (FP) PO SCH (21:03)
[2023-02-05] MEDS: MELATONIN 5 MG TABLETS PO SCH (21:04)
[2023-02-05] MEDS: METHOCARBAMOL 500 MG TABLET PO PRN (21:06)
[2023-02-05] MEDS: PANTOPRAZOLE 20 MG TABLET PO SCH (21:06)
[2023-02-06] MEDS: IBUPROFEN 400 MG TABLET (FP) PO PRN (06:19)
[2023-02-06] MEDS: METHOCARBAMOL 500 MG TABLET PO PRN ×2 (06:20→21:18)
[2023-02-06] MEDS: ACAMPROSATE CALCIUM 333 MG TABLET.DR PO SCH ×3 (06:20→21:12)
[2023-02-06] MEDS: methaDONE HCL 40 MG DISPERSABLE TABLET PO SCH (06:20)
[2023-02-06] MEDS: PANTOPRAZOLE 20 MG TABLET PO SCH ×2 (09:50→21:15)
[2023-02-06] MEDS: SENNOSIDES 8.6MG TABLET (FP) PO SCH ×2 (09:50→21:14)
[2023-02-06] MEDS: levETIRAcetam 500 MG TABLET (FP) PO SCH ×2 (09:50→21:15)
[2023-02-06] MEDS: PRENATAL VITAMINS W/ FOLIC ACID TABLET (FP) PO SCH (09:50)
[2023-02-06] MEDS ORDERED: PANTOPRAZOLE 20 MG TABLET PO SCH (10:00)
[2023-02-06 10:48] LABS: INR 0.99 (0.83-1.09); PROTHROMBIN TIME (PATIENT) 11.5 SEC (9.7-13.0)
[2023-02-06 10:52] LABS: POTASSIUM 4.5 mmol/L (3.5-5.1)
[2023-02-06 10:57] LABS: ALBUMIN 3.6 g/dl (3.4-5.0)
[2023-02-06 10:58] LABS: BLOOD UREA NITROGEN 29.2 mg/dL (7-18); CALCIUM 9.3 mg/dL (8.5-10.1)
[2023-02-06 11:01] LABS: CREATININE 1.5 mg/dL (0.55-1.3)
[2023-02-06 11:02] LABS: BILIRUBIN,TOTAL 0.5 mg/dL (0.2-1); TOT PROT 7.7 g/dl (6.4-8.2)
[2023-02-06] MEDS: COLLOIDAL OATMEAL 1 BAR EACH TP PRN (13:44)
[2023-02-06] MEDS: TAMSULOSIN HCL 0.4 MG CAP PO SCH (21:14)
[2023-02-06] MEDS: MIRTAZAPINE 15 MG TABLET (FP) PO SCH (21:14)
[2023-02-06] MEDS: traZODone HCL 100 MG TABLET (FP) PO SCH (21:14)
[2023-02-06] MEDS: MELATONIN 5 MG TABLETS PO SCH (21:15)
[2023-02-06] MEDS: THIAMINE HCL 100 MG TABLET (FP) PO SCH (21:15)
[2023-02-06] MEDS: LACTULOSE 20 GM/30 ML UDC (FOR ORAL USE ONLY) PO PRN (21:19)
[2023-02-07] MEDS: methaDONE HCL 40 MG DISPERSABLE TABLET PO SCH (06:05)
[2023-02-07] MEDS: ACAMPROSATE CALCIUM 333 MG TABLET.DR PO SCH ×3 (06:05→21:01)
[2023-02-07] MEDS: IBUPROFEN 400 MG TABLET (FP) PO PRN (06:05)
[2023-02-07] MEDS: PRENATAL VITAMINS W/ FOLIC ACID TABLET (FP) PO SCH (09:27)
[2023-02-07] MEDS: HYDROCORTISONE 0.5% TOPICAL OINTMENT TUBE TP PRN (09:27)
[2023-02-07] MEDS: levETIRAcetam 500 MG TABLET (FP) PO SCH ×2 (09:27→21:01)
[2023-02-07] MEDS: PANTOPRAZOLE 20 MG TABLET PO SCH ×2 (09:27→21:05)
[2023-02-07] MEDS: SENNOSIDES 8.6MG TABLET (FP) PO SCH ×2 (09:27→21:05)
[2023-02-07] MEDS: MIRTAZAPINE 15 MG TABLET (FP) PO SCH (20:59)
[2023-02-07] MEDS: TAMSULOSIN HCL 0.4 MG CAP PO SCH (20:59)
[2023-02-07] MEDS: traZODone HCL 100 MG TABLET (FP) PO SCH (21:00)
[2023-02-07] MEDS: MELATONIN 5 MG TABLETS PO SCH (21:01)
[2023-02-07] MEDS: THIAMINE HCL 100 MG TABLET (FP) PO SCH (21:02)
[2023-02-07] MEDS: METHOCARBAMOL 500 MG TABLET PO PRN (21:03)
[2023-02-08] MEDS: ACAMPROSATE CALCIUM 333 MG TABLET.DR PO SCH ×3 (05:53→21:01)
[2023-02-08] MEDS: methaDONE HCL 40 MG DISPERSABLE TABLET PO SCH (05:53)
[2023-02-08] MEDS: LACTULOSE 20 GM/30 ML UDC (FOR ORAL USE ONLY) PO PRN ×2 (05:57→21:02)
[2023-02-08] MEDS: levETIRAcetam 500 MG TABLET (FP) PO SCH ×2 (09:35→21:02)
[2023-02-08] MEDS: PANTOPRAZOLE 20 MG TABLET PO SCH ×2 (09:35→21:01)
[2023-02-08] MEDS: SENNOSIDES 8.6MG TABLET (FP) PO SCH ×2 (09:35→21:01)
[2023-02-08] MEDS: PRENATAL VITAMINS W/ FOLIC ACID TABLET (FP) PO SCH (09:35)
[2023-02-08] MEDS: METHOCARBAMOL 500 MG TABLET PO PRN ×2 (09:36→21:01)
[2023-02-08 10:43] LABS: CHOLESTEROL 160 mg/dL (50-200)
[2023-02-08 10:46] LABS: HDL CHOLESTEROL 64 mg/dL (40-60)
[2023-02-08 10:49] LABS: BASO % 2.6 % (0-2.0); EOS % 4.6 % (0-4.5); HEMATOCRIT 35.7 % (35.4-49); HEMOGLOBIN 12.1 GM/dL (11.7-16.9); LYMPH % 28.3 % (8-40); MCH 30.6 pg (25.7-33.7); MCHC 33.8 g/dl (32.0-35.9); MEAN CELL VOLUME 90.4 fl (80-96); MEAN PLT VOLUME 8.6 fl (7.5-11.1); MONO % 13.2 % (3.8-10.2); NEUT % 51.3 % (42.8-82.8); PLATELET COUNT 187 10^3/uL (134-434); RBC 3.95 M/mm3 (4.00-5.60); RDW 13.7 % (11.9-15.9); WHITE BLOOD COUNT 5.5 K/mm3 (4.0-10.0)
[2023-02-08] MEDS: IBUPROFEN 400 MG TABLET (FP) PO PRN (11:40)
[2023-02-08] MEDS: MIRTAZAPINE 15 MG TABLET (FP) PO SCH (21:01)
[2023-02-08] MEDS: THIAMINE HCL 100 MG TABLET (FP) PO SCH (21:01)
[2023-02-08] MEDS: traZODone HCL 100 MG TABLET (FP) PO SCH (21:02)
[2023-02-08] MEDS: TAMSULOSIN HCL 0.4 MG CAP PO SCH (21:04)
[2023-02-08] MEDS: MELATONIN 5 MG TABLETS PO SCH (21:43)
[2023-02-09] MEDS: MAG HYDROX/AL HYDROX/SIMETH 30 ML UNIT-DOSE CUP PO PRN ×2 (00:56→18:27)
[2023-02-09] MEDS: ACAMPROSATE CALCIUM 333 MG TABLET.DR PO SCH ×3 (06:07→21:01)
[2023-02-09] MEDS: methaDONE HCL 40 MG DISPERSABLE TABLET PO SCH (06:07)
[2023-02-09 07:19] VITALS: RESP 18
[2023-02-09] MEDS: levETIRAcetam 500 MG TABLET (FP) PO SCH ×2 (09:31→21:02)
[2023-02-09] MEDS: PRENATAL VITAMINS W/ FOLIC ACID TABLET (FP) PO SCH (09:31)
[2023-02-09] MEDS: PANTOPRAZOLE 20 MG TABLET PO SCH ×2 (09:31→21:03)
[2023-02-09] MEDS: SENNOSIDES 8.6MG TABLET (FP) PO SCH ×2 (09:31→21:07)
[2023-02-09] MEDS: CHOLECALCIFEROL (VIT D3) 400 UNIT (10 MCG) TABLET PO SCH (09:31)
[2023-02-09] MEDS: METHOCARBAMOL 500 MG TABLET PO PRN ×2 (09:32→21:02)
[2023-02-09] MEDS: COLLOIDAL OATMEAL 1 BAR EACH TP PRN (09:32)
[2023-02-09] MEDS: MIRTAZAPINE 15 MG TABLET (FP) PO SCH (21:02)
[2023-02-09] MEDS: TAMSULOSIN HCL 0.4 MG CAP PO SCH (21:02)
[2023-02-09] MEDS: traZODone HCL 100 MG TABLET (FP) PO SCH (21:03)
[2023-02-09] MEDS: THIAMINE HCL 100 MG TABLET (FP) PO SCH (21:06)
[2023-02-09] MEDS: MELATONIN 5 MG TABLETS PO SCH (21:07)
[2023-02-10] MEDS: methaDONE HCL 40 MG DISPERSABLE TABLET PO SCH (05:56)
[2023-02-10] MEDS: ACAMPROSATE CALCIUM 333 MG TABLET.DR PO SCH ×3 (05:56→21:04)
[2023-02-10] MEDS: CHOLECALCIFEROL (VIT D3) 400 UNIT (10 MCG) TABLET PO SCH (09:33)
[2023-02-10] MEDS: PRENATAL VITAMINS W/ FOLIC ACID TABLET (FP) PO SCH (09:33)
[2023-02-10] MEDS: levETIRAcetam 500 MG TABLET (FP) PO SCH ×2 (09:33→21:05)
[2023-02-10] MEDS: PANTOPRAZOLE 20 MG TABLET PO SCH ×2 (09:33→21:05)
[2023-02-10] MEDS: METHOCARBAMOL 500 MG TABLET PO PRN ×2 (09:36→21:05)
[2023-02-10] MEDS: SENNOSIDES 8.6MG TABLET (FP) PO SCH ×2 (10:11→21:04)
[2023-02-10] MEDS: HYDROCORTISONE 0.5% TOPICAL OINTMENT TUBE TP PRN (10:13)
[2023-02-10] MEDS: MELATONIN 5 MG TABLETS PO SCH (21:04)
[2023-02-10] MEDS: THIAMINE HCL 100 MG TABLET (FP) PO SCH (21:04)
[2023-02-10] MEDS: TAMSULOSIN HCL 0.4 MG CAP PO SCH (21:05)
[2023-02-10] MEDS: MIRTAZAPINE 15 MG TABLET (FP) PO SCH (21:05)
[2023-02-10] MEDS: traZODone HCL 100 MG TABLET (FP) PO SCH (21:34)
[2023-02-11] MEDS: METHOCARBAMOL 500 MG TABLET PO PRN (06:02)
[2023-02-11] MEDS: methaDONE HCL 40 MG DISPERSABLE TABLET PO SCH (06:02)
[2023-02-11] MEDS: ACAMPROSATE CALCIUM 333 MG TABLET.DR PO SCH (06:02)
[2023-02-11 06:28] VITALS: BP 124/78; PULSE 84; TEMP 97.6
[2023-02-11] MEDS: SENNOSIDES 8.6MG TABLET (FP) PO SCH (09:43)
[2023-02-11] MEDS: PANTOPRAZOLE 20 MG TABLET PO SCH (09:43)
[2023-02-11] MEDS: PRENATAL VITAMINS W/ FOLIC ACID TABLET (FP) PO SCH (09:43)
[2023-02-11] MEDS: CHOLECALCIFEROL (VIT D3) 400 UNIT (10 MCG) TABLET PO SCH (09:43)
[2023-02-11] MEDS: levETIRAcetam 500 MG TABLET (FP) PO SCH (09:43)
== END 2023-02-11 10:20 | disposition home or self-care (01) | DRG 772 ==
LOC: YASAS 13:51 → Y5N 13:52
PROVIDERS: ADMIT Allergy & Immunology; ATTEND Psychiatry & Neurology Pain Medicine
PROC: HZ42ZZZ Group Counseling for Substance Abuse Treatment, Cognitive-Behavioral (ICD-10-PCS; principal; 2023-01-26)
DX: F10.20 Alcohol dependence, uncomplicated (principal); F11.20 Opioid dependence, uncomplicated; F17.210 Nicotine dependence, cigarettes, uncomplicated; F32.A Depression, unspecified; F43.10 Post-traumatic stress disorder, unspecified; E72.20 Disorder of urea cycle metabolism, unspecified; I10 Essential (primary) hypertension; J45.20 Mild intermittent asthma, uncomplicated; K21.9 Gastro-esophageal reflux disease without esophagitis; K59.09 Other constipation; M54.50 Low back pain, unspecified; G89.29 Other chronic pain; N40.0 Benign prostatic hyperplasia without lower urinary tract symptoms; B18.2 Chronic viral hepatitis C
CPT/HCPCS: 36415; 80053; 82140; 82465; 82652; 83036; 83718; 83735; 84478; 85025; 85610

== ENCOUNTER 2023-08-19 11:53 | Inpatient (IN) | payer OTHER ==
[2023-08-19 12:17] VITALS: BMI 23.6
[2023-08-19] MEDS ORDERED: BISMUTH SUBSALICYLATE 524 MG/30 ML PO PRN (13:09)
[2023-08-19] MEDS ORDERED: MAGNESIUM HYDROX 2400MG/30ML ORAL SUSPENSION 30 ML CUP PO PRN (13:09)
[2023-08-19] MEDS ORDERED: BENZOCAINE/MENTHOL (CHLORASEPTIC ) LOZENGE MM PRN (13:09)
[2023-08-19] MEDS ORDERED: NALOXONE HCL (KLOXXADO) 8 MG SPRAY NS PRN (13:09)
[2023-08-19] MEDS ORDERED: BENZONATATE 200 MG CAPSULE PO PRN (13:09)
[2023-08-19] MEDS ORDERED: DICYCLOMINE HCL 10 MG CAPSULE PO PRN (13:09)
[2023-08-19] MEDS ORDERED: IBUPROFEN 400 MG TABLET (FP) PO PRN (13:09)
[2023-08-19] MEDS ORDERED: NICOTINE POLACRILEX 2 MG GUM BUC PRN (13:09)
[2023-08-19] MEDS ORDERED: MAG HYDROX/AL HYDROX/SIMETH 30 ML UNIT-DOSE CUP PO PRN (13:09)
[2023-08-19] MEDS ORDERED: POLYETHYLENE GLYCOL (HEALTHYLAX) 3350 17 GM PACKET PO PRN (13:09)
[2023-08-19] MEDS ORDERED: NALOXONE HCL 0.4 MG/ML VIAL IM PRN (13:09)
[2023-08-19] MEDS ORDERED: LOPERAMIDE HCL 2 MG CAPSULE PO PRN (13:09)
[2023-08-19] MEDS ORDERED: TRIMETHOBENZAMIDE HCL 200MG/2ML INJ IM ONE (13:21)
[2023-08-19] MEDS ORDERED: ONDANSETRON *ODT* 4 MG TABLET ONE (13:29)
[2023-08-19] MEDS: ONDANSETRON *ODT* 4 MG TABLET SL PRN (13:32)
[2023-08-19] MEDS: chlordiazePOXIDE HCL 25 MG CAPSULE PO SCH (17:06)
[2023-08-19] MEDS: METHOCARBAMOL 500 MG TABLET PO PRN (20:35)
[2023-08-19] MEDS: hydrOXYzine PAMOATE 25 MG CAPSULE (FP) PO PRN (20:35)
[2023-08-19] MEDS: MELATONIN 5 MG TABLETS PO SCH (22:04)
[2023-08-19] MEDS: THIAMINE HCL 100 MG TABLET (FP) PO SCH (22:05)
[2023-08-20] MEDS: chlordiazePOXIDE HCL 25 MG CAPSULE PO PRN (08:36)
[2023-08-20] MEDS ORDERED: ALBUTEROL SO4 HFA INHALER IH PRN (08:55)
[2023-08-20] MEDS ORDERED: methaDONE HCL 10 MG TABLET PO ONE (08:59)
[2023-08-20] MEDS: PANTOPRAZOLE 20 MG TABLET PO SCH (09:32)
[2023-08-20] MEDS: PRENATAL VITAMINS W/ FOLIC ACID TABLET (FP) PO SCH (09:32)
[2023-08-20] MEDS: amLODIPine BESYLATE 2.5 MG TABLET (FP) PO SCH (09:32)
[2023-08-20] MEDS: levETIRAcetam 500 MG TABLET (FP) PO SCH (09:32)
[2023-08-20] MEDS: NICOTINE 21 MG/24 HOURS TOPICAL PATCH TD SCH (09:36)
[2023-08-20 12:33] LABS: HEMATOCRIT 39.2 % (35.4-49); MCH 30.9 pg (25.7-33.7); MCHC 33.2 g/dl (32.0-35.9); MEAN CELL VOLUME 93.1 fl (80-96); MEAN PLT VOLUME 7.3 fl (7.5-11.1); PLATELET COUNT 126 10^3/uL (134-434); RBC 4.21 M/mm3 (4.00-5.60); RDW 13.8 % (11.9-15.9); WHITE BLOOD COUNT 4.8 K/mm3 (4.0-10.0)
[2023-08-20 12:39] LABS: CHLORIDE 98 mmol/L (98-107); POTASSIUM 4.3 mmol/L (3.5-5.1); SODIUM 135 mmol/L (136-145)
[2023-08-20 12:41] LABS: ALBUMIN 3.6 g/dl (3.4-5.0); BLOOD UREA NITROGEN 16.1 mg/dL (7-18); CALCIUM 9.1 mg/dL (8.5-10.1); GLUCOSE,RANDOM 109 mg/dL (74-106)
[2023-08-20 12:43] LABS: ANION GAP 7 mmol/L (4-13); CO2 31 mmol/L (21-32); CREATININE 0.9 mg/dL (0.55-1.3); SGOT/AST 32 U/L (15-37); SGPT/ALT 23 U/L (13-61)
[2023-08-20 12:46] LABS: ALK PHOS 94 U/L (45-117); BILIRUBIN,TOTAL 0.9 mg/dL (0.2-1); TOT PROT 7.6 g/dl (6.4-8.2)
[2023-08-20] MEDS: traZODone HCL 50 MG TABLET (FP) PO ONE (23:30)
[2023-08-21] MEDS: chlordiazePOXIDE HCL 25 MG CAPSULE PO SCH (05:14)
[2023-08-21] MEDS ORDERED: methaDONE HCL 10 MG TABLET PO SCH (06:00)
[2023-08-21] MEDS: TAMSULOSIN HCL 0.4 MG CAP PO SCH (07:54)
[2023-08-21] MEDS: IBUPROFEN 600 MG TABLET (FP) PO PRN (10:37)
[2023-08-21] MEDS: traZODone HCL 100 MG TABLET (FP) PO SCH (22:18)
[2023-08-21] MEDS: guaiFENesin 600 MG TABLET.ER (FP) PO PRN (22:22)
[2023-08-22] MEDS ORDERED: chlordiazePOXIDE HCL 10 MG CAPSULE PO PRN
[2023-08-22] MEDS: chlordiazePOXIDE HCL 10 MG CAPSULE PO SCH (05:24)
[2023-08-22] MEDS: ACETAMINOPHEN 325 MG TABLET (FP) PO PRN (05:25)
[2023-08-23] MEDS: chlordiazePOXIDE HCL 10 MG CAPSULE PO SCH (05:50)
[2023-08-24] MEDS: chlordiazePOXIDE HCL 10 MG CAPSULE PO ONE (05:23)
[2023-08-24 11:17] VITALS: BP 110/68; PULSE 98; RESP 16; TEMP 97.7
== END 2023-08-24 10:16 | disposition home or self-care (01) | DRG 773 ==
LOC: YASAS 11:53 → Y6N 13:30
PROVIDERS: ADMIT Allergy & Immunology; ATTEND Surgery
PROC: HZ2ZZZZ Detoxification Services for Substance Abuse Treatment (ICD-10-PCS; principal; 2023-08-18)
DX: F10.230 Alcohol dependence with withdrawal, uncomplicated (principal); F11.20 Opioid dependence, uncomplicated; F12.20 Cannabis dependence, uncomplicated; F17.210 Nicotine dependence, cigarettes, uncomplicated; F19.282 Other psychoactive substance dependence with psychoactive substance-induced sleep disorder; F19.24 Other psychoactive substance dependence with psychoactive substance-induced mood disorder; F43.10 Post-traumatic stress disorder, unspecified; F32.A Depression, unspecified; B18.2 Chronic viral hepatitis C; I10 Essential (primary) hypertension; J45.20 Mild intermittent asthma, uncomplicated; K21.9 Gastro-esophageal reflux disease without esophagitis; N40.1 Benign prostatic hyperplasia with lower urinary tract symptoms; N39.43 Post-void dribbling; R56.9 Unspecified convulsions; Z86.69 Personal history of other diseases of the nervous system and sense organs; Z28.310 Unvaccinated for COVID-19; Z28.9 Immunization not carried out for unspecified reason
CPT/HCPCS: 36415; 80053; 80305; 80307; 85027; 86780; 87635; 87811; 93005; 93010; Q0162

== ENCOUNTER 2023-09-12 12:40 | Inpatient (IN) | payer OTHER ==
[2023-09-12 13:12] VITALS: BMI 23.2
[2023-09-12] MEDS ORDERED: BENZONATATE 200 MG CAPSULE PO PRN (14:26)
[2023-09-12] MEDS ORDERED: guaiFENesin 600 MG TABLET.ER (FP) PO PRN (14:26)
[2023-09-12] MEDS ORDERED: POLYETHYLENE GLYCOL (HEALTHYLAX) 3350 17 GM PACKET PO PRN (14:26)
[2023-09-12] MEDS ORDERED: NALOXONE HCL 0.4 MG/ML VIAL IM PRN (14:26)
[2023-09-12] MEDS ORDERED: BISMUTH SUBSALICYLATE 524 MG/30 ML PO PRN (14:26)
[2023-09-12] MEDS ORDERED: MAGNESIUM HYDROX 2400MG/30ML ORAL SUSPENSION 30 ML CUP PO PRN (14:26)
[2023-09-12] MEDS ORDERED: NALOXONE HCL (KLOXXADO) 8 MG SPRAY NS PRN (14:26)
[2023-09-12] MEDS ORDERED: MAG HYDROX/AL HYDROX/SIMETH 30 ML UNIT-DOSE CUP PO PRN (14:26)
[2023-09-12] MEDS ORDERED: IBUPROFEN 400 MG TABLET (FP) PO PRN (14:26)
[2023-09-12] MEDS ORDERED: DICYCLOMINE HCL 10 MG CAPSULE PO PRN (14:26)
[2023-09-12] MEDS ORDERED: chlordiazePOXIDE HCL 25 MG CAPSULE PO PRN (14:26)
[2023-09-12] MEDS ORDERED: BENZOCAINE/MENTHOL (CHLORASEPTIC ) LOZENGE MM PRN (14:26)
[2023-09-12] MEDS ORDERED: LOPERAMIDE HCL 2 MG CAPSULE PO PRN (14:26)
[2023-09-12] MEDS ORDERED: ONDANSETRON *ODT* 4 MG TABLET SL PRN (14:26)
[2023-09-12] MEDS ORDERED: ALBUTEROL SO4 HFA INHALER IH PRN (14:52)
[2023-09-12] MEDS: chlordiazePOXIDE HCL 25 MG CAPSULE PO SCH (16:29)
[2023-09-12] MEDS: PRENATAL VITAMINS W/ FOLIC ACID TABLET (FP) PO SCH (16:30)
[2023-09-12] MEDS ORDERED: chlordiazePOXIDE HCL 25 MG CAPSULE ONE (16:32)
[2023-09-12] MEDS ORDERED: PRENATAL VITAMINS W/ FOLIC ACID TABLET (FP) PO ONE (16:32)
[2023-09-12] MEDS: FAMOTIDINE 20 MG TABLET PO SCH (17:28)
[2023-09-12] MEDS: METHOCARBAMOL 500 MG TABLET PO PRN (17:30)
[2023-09-12] MEDS: TAMSULOSIN HCL 0.4 MG CAP PO SCH (22:01)
[2023-09-12] MEDS: MELATONIN 5 MG TABLETS PO SCH (22:02)
[2023-09-12] MEDS: THIAMINE HCL 100 MG TABLET (FP) PO SCH (22:02)
[2023-09-12] MEDS: levETIRAcetam 500 MG TABLET (FP) PO SCH (22:02)
[2023-09-13] MEDS: hydrOXYzine PAMOATE 25 MG CAPSULE (FP) PO PRN (01:44)
[2023-09-13] MEDS: IBUPROFEN 600 MG TABLET (FP) PO PRN (01:45)
[2023-09-13] MEDS ORDERED: methaDONE HCL 40 MG DISPERSABLE TABLET PO SCH (10:00)
[2023-09-13] MEDS: amLODIPine BESYLATE 2.5 MG TABLET (FP) PO SCH (10:12)
[2023-09-13] MEDS: NICOTINE 14 MG/24 HOURS TOPICAL PATCH TD SCH (10:17)
[2023-09-13 15:34] LABS: CALCIUM 8.5 mg/dL (8.5-10.1)
[2023-09-13 15:35] LABS: ALBUMIN 3.3 g/dl (3.4-5.0)
[2023-09-13 15:39] LABS: HEMATOCRIT 35.8 % (35.4-49); HEMOGLOBIN 12.1 GM/dL (11.7-16.9); MCH 30.7 pg (25.7-33.7); MCHC 33.7 g/dl (32.0-35.9); MEAN CELL VOLUME 91.1 fl (80-96); MEAN PLT VOLUME 8.2 fl (7.5-11.1); PLATELET COUNT 102 10^3/uL (134-434); RBC 3.93 M/mm3 (4.00-5.60); RDW 13.2 % (11.9-15.9); WHITE BLOOD COUNT 3.9 K/mm3 (4.0-10.0)
[2023-09-13 15:40] LABS: BILIRUBIN,TOTAL 0.4 mg/dL (0.2-1); TOT PROT 6.9 g/dl (6.4-8.2)
[2023-09-13 15:41] LABS: CREATININE 1.1 mg/dL (0.55-1.3)
[2023-09-13] MEDS: traZODone HCL 100 MG TABLET (FP) PO SCH (22:25)
[2023-09-14] MEDS: chlordiazePOXIDE HCL 25 MG CAPSULE PO SCH (05:35)
[2023-09-14] MEDS: LACTULOSE 20 GM/30 ML UDC (FOR ORAL USE ONLY) PO SCH (14:30)
[2023-09-14] MEDS: SODIUM CHLORIDE NASAL SPRAY 44 ML BOTTLE NS SCH (22:12)
[2023-09-15] MEDS ORDERED: chlordiazePOXIDE HCL 10 MG CAPSULE PO PRN
[2023-09-15] MEDS: chlordiazePOXIDE HCL 10 MG CAPSULE PO SCH (05:35)
[2023-09-15] MEDS: ACETAMINOPHEN 325 MG TABLET (FP) PO PRN (17:28)
[2023-09-15] MEDS ORDERED: traZODone HCL 50 MG TABLET (FP) ONE (22:00)
[2023-09-16] MEDS: chlordiazePOXIDE HCL 10 MG CAPSULE PO SCH (05:31)
[2023-09-17] MEDS: chlordiazePOXIDE HCL 10 MG CAPSULE PO ONE (05:52)
[2023-09-17 10:16] VITALS: BP 117/66; PULSE 95; RESP 16; TEMP 98.1
== END 2023-09-17 09:38 | disposition home or self-care (01) | DRG 773 ==
LOC: YASAS 12:40 → Y6N 15:28
PROVIDERS: ADMIT Allergy & Immunology; ATTEND Surgery
PROC: HZ2ZZZZ Detoxification Services for Substance Abuse Treatment (ICD-10-PCS; principal; 2023-09-12)
DX: F10.230 Alcohol dependence with withdrawal, uncomplicated (principal); F11.20 Opioid dependence, uncomplicated; F12.20 Cannabis dependence, uncomplicated; F17.210 Nicotine dependence, cigarettes, uncomplicated; F32.A Depression, unspecified; F41.9 Anxiety disorder, unspecified; F43.10 Post-traumatic stress disorder, unspecified; I10 Essential (primary) hypertension; J45.20 Mild intermittent asthma, uncomplicated; K21.9 Gastro-esophageal reflux disease without esophagitis; N40.1 Benign prostatic hyperplasia with lower urinary tract symptoms; N39.43 Post-void dribbling; B18.2 Chronic viral hepatitis C; R79.89 Other specified abnormal findings of blood chemistry; R56.9 Unspecified convulsions
CPT/HCPCS: 36415; 80053; 80307; 82140; 85027; 86780; 93005; 93010

== ENCOUNTER 2024-01-20 13:52 | Inpatient (IN) | payer OTHER ==
[2024-01-20 14:14] VITALS: BMI 21.1
[2024-01-20] MEDS ORDERED: hydrOXYzine PAMOATE 25 MG CAPSULE (FP) PO PRN (15:02)
[2024-01-20] MEDS ORDERED: IBUPROFEN 400 MG TABLET (FP) PO PRN (15:02)
[2024-01-20] MEDS ORDERED: BENZOCAINE/MENTHOL (CHLORASEPTIC ) LOZENGE MM PRN (15:02)
[2024-01-20] MEDS ORDERED: BISMUTH SUBSALICYLATE 262 MG/15 ML BTL PO PRN (15:02)
[2024-01-20] MEDS ORDERED: LOPERAMIDE HCL 2 MG CAPSULE PO PRN (15:02)
[2024-01-20] MEDS ORDERED: NALOXONE HCL 0.4 MG/ML VIAL IM PRN (15:02)
[2024-01-20] MEDS ORDERED: NALOXONE (NARCAN) HCL 4 MG/0.1 ML SPRAY NS PRN (15:02)
[2024-01-20] MEDS ORDERED: guaiFENesin 600 MG TABLET.ER (FP) PO PRN (15:02)
[2024-01-20] MEDS ORDERED: BENZONATATE 200 MG CAPSULE PO PRN (15:02)
[2024-01-20] MEDS: PRENATAL VITAMINS W/ FOLIC ACID TABLET (FP) PO SCH (16:28)
[2024-01-20] MEDS: chlordiazePOXIDE HCL 25 MG CAPSULE PO SCH (16:31)
[2024-01-20] MEDS ORDERED: chlordiazePOXIDE HCL 25 MG CAPSULE ONE (16:37)
[2024-01-20] MEDS ORDERED: ONDANSETRON *ODT* 4 MG TABLET ONE (16:38)
[2024-01-20] MEDS: ONDANSETRON *ODT* 4 MG TABLET SL PRN (16:44)
[2024-01-20] MEDS: chlordiazePOXIDE HCL 25 MG CAPSULE PO PRN (19:28)
[2024-01-20] MEDS: ACETAMINOPHEN 325 MG TABLET (FP) PO PRN (22:24)
[2024-01-20] MEDS: METHOCARBAMOL 500 MG TABLET PO PRN (22:25)
[2024-01-20] MEDS: MELATONIN 5 MG TABLETS PO SCH (22:25)
[2024-01-20] MEDS: THIAMINE 100 MG TABLET PO SCH (22:25)
[2024-01-21] MEDS: DICYCLOMINE HCL 10 MG CAPSULE PO PRN (04:33)
[2024-01-21] MEDS: TRIMETHOBENZAMIDE HCL 200MG/2ML INJ IM ONE (07:56)
[2024-01-21] MEDS: methaDONE HCL 10 MG TABLET PO SCH (08:09)
[2024-01-21] MEDS: MAG HYDROX/AL HYDROX/SIMETH 30 ML UNIT-DOSE CUP PO PRN (08:39)
[2024-01-21 08:47] LABS: HEMATOCRIT 35.1 % (35.4-49); HEMOGLOBIN 12.2 GM/dL (11.7-16.9); MCH 31.7 pg (25.7-33.7); MCHC 34.8 g/dl (32.0-35.9); MEAN CELL VOLUME 91.1 fl (80-96); MEAN PLT VOLUME 7.9 fl (7.5-11.1); PLATELET COUNT 63 10^3/uL (134-434); RBC 3.85 M/mm3 (4.00-5.60); RDW 13.5 % (11.9-15.9); WHITE BLOOD COUNT 3.2 K/mm3 (4.0-10.0)
[2024-01-21 08:51] LABS: CHLORIDE 94 mmol/L (98-107); POTASSIUM 3.9 mmol/L (3.5-5.1); SODIUM 133 mmol/L (136-145)
[2024-01-21 08:55] LABS: ALBUMIN 3.7 g/dl (3.4-5.0); ANION GAP 9 mmol/L (4-13); BLOOD UREA NITROGEN 10.3 mg/dL (7-18); CALCIUM 9.6 mg/dL (8.5-10.1); CO2 29 mmol/L (21-32); GLUCOSE,RANDOM 111 mg/dL (74-106)
[2024-01-21 08:57] LABS: SGPT/ALT 101 U/L (13-61)
[2024-01-21 08:58] LABS: CREATININE 0.8 mg/dL (0.55-1.3); SGOT/AST 191 U/L (15-37)
[2024-01-21 08:59] LABS: TOT PROT 7.4 g/dl (6.4-8.2)
[2024-01-21 09:03] LABS: ALK PHOS 80 U/L (45-117)
[2024-01-21] MEDS: levETIRAcetam 500 MG TABLET (FP) PO SCH (10:43)
[2024-01-21] MEDS: NICOTINE 14 MG/24 HOURS TOPICAL PATCH TD SCH (10:43)
[2024-01-21] MEDS ORDERED: ALBUTEROL SO4 HFA INHALER IH PRN (14:44)
[2024-01-21] MEDS: FAMOTIDINE 20 MG TABLET PO SCH (17:16)
[2024-01-21] MEDS: IBUPROFEN 600 MG TABLET (FP) PO PRN (22:00)
[2024-01-21] MEDS: TAMSULOSIN HCL 0.4 MG CAP PO SCH (22:02)
[2024-01-21] MEDS: traZODone HCL 100 MG TABLET (FP) PO SCH (22:02)
[2024-01-22] MEDS: chlordiazePOXIDE HCL 25 MG CAPSULE PO SCH (05:47)
[2024-01-22] MEDS: amLODIPine BESYLATE 2.5 MG TABLET (FP) PO SCH (10:32)
[2024-01-23] MEDS: chlordiazePOXIDE HCL 10 MG CAPSULE PO SCH (05:56)
[2024-01-23] MEDS: chlordiazePOXIDE HCL 10 MG CAPSULE PO PRN (08:32)
[2024-01-24] MEDS: chlordiazePOXIDE HCL 10 MG CAPSULE PO SCH (05:31)
[2024-01-24] MEDS: POLYETHYLENE GLYCOL (HEALTHYLAX) 3350 17 GM PACKET PO PRN (10:26)
[2024-01-25] MEDS: chlordiazePOXIDE HCL 10 MG CAPSULE PO ONE (05:54)
[2024-01-25] MEDS: chlordiazePOXIDE HCL 10 MG CAPSULE PO PRN (15:34)
[2024-01-25] MEDS: chlordiazePOXIDE HCL 10 MG CAPSULE PO SCH (17:03)
[2024-01-25] MEDS: MAGNESIUM HYDROX 2400MG/30ML ORAL SUSPENSION 30 ML CUP PO PRN (17:06)
[2024-01-26 05:51] VITALS: RESP 17
[2024-01-26 09:18] VITALS: BP 113/70; PULSE 90; TEMP 97
[2024-01-26] MEDS: levETIRAcetam 500 MG TABLET (FP) PO ONE (10:34)
== END 2024-01-26 10:35 | disposition home or self-care (01) | DRG 773 ==
LOC: YASAS 13:52 → Y3N 15:57
PROVIDERS: ADMIT Allergy & Immunology; ATTEND Psychiatry & Neurology Pain Medicine
PROC: HZ2ZZZZ Detoxification Services for Substance Abuse Treatment (ICD-10-PCS; principal; 2024-01-20)
DX: F10.230 Alcohol dependence with withdrawal, uncomplicated (principal); F11.20 Opioid dependence, uncomplicated; F17.210 Nicotine dependence, cigarettes, uncomplicated; F19.982 Other psychoactive substance use, unspecified with psychoactive substance-induced sleep disorder; F43.0 Acute stress reaction; F41.9 Anxiety disorder, unspecified; F33.9 Major depressive disorder, recurrent, unspecified; I10 Essential (primary) hypertension; G40.909 Epilepsy, unspecified, not intractable, without status epilepticus; N40.0 Benign prostatic hyperplasia without lower urinary tract symptoms; J45.909 Unspecified asthma, uncomplicated; K21.9 Gastro-esophageal reflux disease without esophagitis; G47.00 Insomnia, unspecified; Z86.19 Personal history of other infectious and parasitic diseases; Z56.0 Unemployment, unspecified; Z59.00 Homelessness unspecified
CPT/HCPCS: 36415; 80053; 80305; 80307; 85027; 86780; 93005; 93010; Q0162

== ENCOUNTER 2024-02-12 15:07 | Inpatient (IN) | payer OTHER ==
[2024-02-12 15:47] VITALS: BMI 23.0
[2024-02-12] MEDS ORDERED: TRIMETHOBENZAMIDE HCL 200MG/2ML INJ IM ONE (17:41)
[2024-02-12] MEDS: TRIMETHOBENZAMIDE HCL 200MG/2ML INJ IM ONE (17:51)
[2024-02-12] MEDS ORDERED: BISMUTH SUBSALICYLATE 524 MG/30 ML PO PRN (18:18)
[2024-02-12] MEDS ORDERED: ONDANSETRON *ODT* 4 MG TABLET SL PRN (18:18)
[2024-02-12] MEDS ORDERED: BENZONATATE 200 MG CAPSULE PO PRN (18:18)
[2024-02-12] MEDS ORDERED: POLYETHYLENE GLYCOL (HEALTHYLAX) 3350 17 GM PACKET PO PRN (18:18)
[2024-02-12] MEDS ORDERED: BENZOCAINE/MENTHOL (CHLORASEPTIC ) LOZENGE MM PRN (18:18)
[2024-02-12] MEDS ORDERED: MAG HYDROX/AL HYDROX/SIMETH 30 ML UNIT-DOSE CUP PO PRN (18:18)
[2024-02-12] MEDS ORDERED: ACETAMINOPHEN 325 MG TABLET (FP) PO PRN (18:18)
[2024-02-12] MEDS ORDERED: NALOXONE HCL 0.4 MG/ML VIAL IM PRN (18:18)
[2024-02-12] MEDS ORDERED: LOPERAMIDE HCL 2 MG CAPSULE PO PRN (18:18)
[2024-02-12] MEDS ORDERED: hydrOXYzine PAMOATE 25 MG CAPSULE (FP) PO PRN (18:18)
[2024-02-12] MEDS ORDERED: NALOXONE (NARCAN) HCL 4 MG/0.1 ML SPRAY NS PRN (18:18)
[2024-02-12] MEDS ORDERED: DICYCLOMINE HCL 10 MG CAPSULE PO PRN (18:18)
[2024-02-12] MEDS ORDERED: NICOTINE POLACRILEX 2 MG GUM BUC PRN (18:18)
[2024-02-12] MEDS ORDERED: guaiFENesin 600 MG TABLET.ER (FP) PO PRN (18:18)
[2024-02-12] MEDS ORDERED: MAGNESIUM HYDROX 2400MG/30ML ORAL SUSPENSION 30 ML CUP PO PRN (18:18)
[2024-02-12] MEDS ORDERED: chlordiazePOXIDE HCL 25 MG CAPSULE PO PRN (18:22)
[2024-02-12] MEDS: METHOCARBAMOL 500 MG TABLET PO PRN (19:03)
[2024-02-12] MEDS: THIAMINE 100 MG TABLET PO SCH (22:12)
[2024-02-12] MEDS: chlordiazePOXIDE HCL 25 MG CAPSULE PO SCH (22:12)
[2024-02-12] MEDS: MELATONIN 5 MG TABLETS PO SCH (22:12)
[2024-02-13] MEDS: PRENATAL VITAMINS W/ FOLIC ACID TABLET (FP) PO SCH (10:02)
[2024-02-13] MEDS: NICOTINE 14 MG/24 HOURS TOPICAL PATCH TD SCH (10:02)
[2024-02-13] MEDS ORDERED: ALBUTEROL SO4 HFA INHALER IH PRN (10:41)
[2024-02-13] MEDS ORDERED: methaDONE HCL 10 MG TABLET PO SCH (10:45)
[2024-02-13 12:11] LABS: HEMATOCRIT 34.5 % (35.4-49); HEMOGLOBIN 11.4 GM/dL (11.7-16.9); MCH 31.4 pg (25.7-33.7); MCHC 32.9 g/dl (32.0-35.9); MEAN CELL VOLUME 95.2 fl (80-96); MEAN PLT VOLUME 7.4 fl (7.5-11.1); PLATELET COUNT 172 10^3/uL (134-434); RBC 3.62 M/mm3 (4.00-5.60); RDW 14.1 % (11.9-15.9)
[2024-02-13 12:12] LABS: CHLORIDE 102 mmol/L (98-107); POTASSIUM 3.9 mmol/L (3.5-5.1); SODIUM 137 mmol/L (136-145)
[2024-02-13 12:14] LABS: CALCIUM 8.8 mg/dL (8.5-10.1)
[2024-02-13 12:15] LABS: ALBUMIN 3.1 g/dl (3.4-5.0); ANION GAP 9 mmol/L (4-13); BLOOD UREA NITROGEN 8.4 mg/dL (7-18); CO2 26 mmol/L (21-32); GLUCOSE,RANDOM 127 mg/dL (74-106)
[2024-02-13] MEDS: levETIRAcetam 500 MG TABLET (FP) PO SCH (12:15)
[2024-02-13 12:18] LABS: CREATININE 0.8 mg/dL (0.55-1.3); SGOT/AST 69 U/L (15-37); SGPT/ALT 36 U/L (13-61)
[2024-02-13 12:19] LABS: BILIRUBIN,TOTAL 0.5 mg/dL (0.2-1); TOT PROT 6.5 g/dl (6.4-8.2)
[2024-02-13 12:21] LABS: ALK PHOS 84 U/L (45-117)
[2024-02-13] MEDS: LACTULOSE 20 GM/30 ML UDC (FOR ORAL USE ONLY) PO SCH (14:20)
[2024-02-13] MEDS: FAMOTIDINE 20 MG TABLET PO SCH (17:04)
[2024-02-13] MEDS: traZODone HCL 100 MG TABLET (FP) PO SCH (22:12)
[2024-02-13] MEDS: TAMSULOSIN HCL 0.4 MG CAP PO SCH (22:13)
[2024-02-14] MEDS: chlordiazePOXIDE HCL 25 MG CAPSULE PO SCH (05:59)
[2024-02-14] MEDS: IBUPROFEN 600 MG TABLET (FP) PO PRN (06:00)
[2024-02-15] MEDS ORDERED: chlordiazePOXIDE HCL 10 MG CAPSULE PO PRN
[2024-02-15] MEDS: chlordiazePOXIDE HCL 10 MG CAPSULE PO SCH (05:45)
[2024-02-16] MEDS: chlordiazePOXIDE HCL 10 MG CAPSULE PO SCH (05:55)
[2024-02-16] MEDS: IBUPROFEN 400 MG TABLET (FP) PO PRN (05:57)
[2024-02-16] MEDS: LIDOCAINE 5% TOPICAL PATCH TP SCH (09:56)
[2024-02-16] MEDS: LIDOCAINE PATCH REMOVAL MC SCH (21:25)
[2024-02-17] MEDS: chlordiazePOXIDE HCL 10 MG CAPSULE PO ONE (05:51)
[2024-02-17 06:10] VITALS: RESP 16
[2024-02-17 08:58] VITALS: TEMP 97.6
[2024-02-17 13:44] VITALS: BP 89/57; PULSE 79
== END 2024-02-17 13:53 | disposition other institution (70) | DRG 773 ==
LOC: YASAS 15:07 → Y3N 17:54
PROVIDERS: ADMIT Allergy & Immunology; ATTEND Surgery
PROC: HZ2ZZZZ Detoxification Services for Substance Abuse Treatment (ICD-10-PCS; principal; 2024-02-12)
DX: F10.230 Alcohol dependence with withdrawal, uncomplicated (principal); F11.20 Opioid dependence, uncomplicated; F43.10 Post-traumatic stress disorder, unspecified; G40.909 Epilepsy, unspecified, not intractable, without status epilepticus; G47.00 Insomnia, unspecified; I10 Essential (primary) hypertension; J45.909 Unspecified asthma, uncomplicated; K21.9 Gastro-esophageal reflux disease without esophagitis; M54.50 Low back pain, unspecified; G89.29 Other chronic pain; N40.0 Benign prostatic hyperplasia without lower urinary tract symptoms; R79.89 Other specified abnormal findings of blood chemistry; R94.31 Abnormal electrocardiogram [ECG] [EKG]
CPT/HCPCS: 36415; 80053; 80305; 80307; 82140; 85027; 86780; 87811; 93005; 93010

== ENCOUNTER 2024-02-17 14:01 | Inpatient (IN) | payer OTHER ==
[2024-02-17] MEDS ORDERED: NALOXONE HCL 0.4 MG/ML VIAL IVPUSH PRN (15:37)
[2024-02-17] MEDS ORDERED: NALOXONE (NARCAN) HCL 4 MG/0.1 ML SPRAY NS PRN (15:37)
[2024-02-17] MEDS ORDERED: LOPERAMIDE HCL 2 MG CAPSULE PO PRN (15:37)
[2024-02-17] MEDS ORDERED: ACETAMINOPHEN 325 MG TABLET (FP) PO PRN (15:37)
[2024-02-17] MEDS ORDERED: POLYETHYLENE GLYCOL (HEALTHYLAX) 3350 17 GM PACKET PO PRN (15:37)
[2024-02-17] MEDS ORDERED: IBUPROFEN 400 MG TABLET (FP) PO PRN (15:37)
[2024-02-17] MEDS ORDERED: BENZOCAINE/MENTHOL (CHLORASEPTIC ) LOZENGE MM PRN (15:37)
[2024-02-17] MEDS ORDERED: guaiFENesin 600 MG TABLET.ER (FP) PO PRN (15:37)
[2024-02-17] MEDS ORDERED: BENZONATATE 200 MG CAPSULE PO PRN (15:37)
[2024-02-17] MEDS: PRENATAL VITAMINS W/ FOLIC ACID TABLET (FP) PO SCH (15:43)
[2024-02-17] MEDS: FAMOTIDINE 20 MG TABLET PO SCH (17:02)
[2024-02-17] MEDS: LACTULOSE 20 GM/30 ML UDC (FOR ORAL USE ONLY) PO SCH (17:03)
[2024-02-17] MEDS: METHOCARBAMOL 500 MG TABLET PO PRN (21:29)
[2024-02-17] MEDS: levETIRAcetam 500 MG TABLET (FP) PO SCH (21:29)
[2024-02-17] MEDS: MELATONIN 5 MG TABLETS PO SCH (21:29)
[2024-02-17] MEDS: TAMSULOSIN HCL 0.4 MG CAP PO SCH (21:29)
[2024-02-17] MEDS: THIAMINE 100 MG TABLET PO SCH (21:29)
[2024-02-17] MEDS: traZODone HCL 100 MG TABLET (FP) PO SCH (21:29)
[2024-02-18] MEDS ORDERED: methaDONE HCL 40 MG DISPERSABLE TABLET PO SCH (10:00)
[2024-02-19] MEDS ORDERED: methaDONE HCL 10 MG TABLET ONE (06:43)
[2024-02-19] MEDS: IBUPROFEN 600 MG TABLET (FP) PO PRN (17:41)
[2024-02-21] MEDS: MAG HYDROX/AL HYDROX/SIMETH 30 ML UNIT-DOSE CUP PO PRN (08:02)
[2024-02-21] MEDS: LACTULOSE 20 GM/30 ML UDC (FOR ORAL USE ONLY) PO PRN (10:11)
[2024-02-22] MEDS: hydrOXYzine PAMOATE 25 MG CAPSULE (FP) PO PRN (10:14)
[2024-02-22] MEDS ORDERED: NICOTINE POLACRILEX 2 MG GUM BC PRN (13:38)
[2024-02-22] MEDS: MAGNESIUM HYDROX 2400MG/30ML ORAL SUSPENSION 30 ML CUP PO PRN (21:45)
[2024-02-23] MEDS: NICOTINE 14 MG/24 HOURS TOPICAL PATCH TD SCH (09:57)
[2024-02-27] MEDS ORDERED: AMMONIUM LACTATE 12% LOTION 225 GM BOTTLE TP PRN (12:40)
[2024-03-02] MEDS: LACTULOSE 20 GM/30 ML UDC (FOR ORAL USE ONLY) PO SCH (13:40)
[2024-03-03 07:02] VITALS: TEMP 97.4
[2024-03-03 09:53] VITALS: BP 111/65; PULSE 72; RESP 18
== END 2024-03-03 10:06 | disposition home or self-care (01) | DRG 772 ==
LOC: YASAS 14:01 → Y5N 14:03
PROVIDERS: ADMIT Psychiatry & Neurology Pain Medicine; ATTEND Psychiatry & Neurology Pain Medicine
PROC: HZ42ZZZ Group Counseling for Substance Abuse Treatment, Cognitive-Behavioral (ICD-10-PCS; principal; 2024-02-17)
DX: F10.20 Alcohol dependence, uncomplicated (principal); F11.20 Opioid dependence, uncomplicated; F14.20 Cocaine dependence, uncomplicated; F17.210 Nicotine dependence, cigarettes, uncomplicated; F19.282 Other psychoactive substance dependence with psychoactive substance-induced sleep disorder; F32.A Depression, unspecified; F43.10 Post-traumatic stress disorder, unspecified; E72.20 Disorder of urea cycle metabolism, unspecified; I10 Essential (primary) hypertension; J45.909 Unspecified asthma, uncomplicated; B19.20 Unspecified viral hepatitis C without hepatic coma; M54.50 Low back pain, unspecified; M25.551 Pain in right hip
CPT/HCPCS: 36415; 82140; 86803; 87522

== ENCOUNTER 2024-04-27 16:59 | Inpatient (IN) | payer OTHER ==
[2024-04-27 18:19] VITALS: BMI 21.8
[2024-04-27] MEDS ORDERED: NALOXONE (NARCAN) HCL 4 MG/0.1 ML SPRAY NS PRN (20:03)
[2024-04-27] MEDS ORDERED: MAG HYDROX/AL HYDROX/SIMETH 30 ML UNIT-DOSE CUP PO PRN (20:03)
[2024-04-27] MEDS ORDERED: guaiFENesin 600 MG TABLET.ER (FP) PO PRN (20:03)
[2024-04-27] MEDS ORDERED: hydrOXYzine PAMOATE 25 MG CAPSULE (FP) PO PRN (20:03)
[2024-04-27] MEDS ORDERED: POLYETHYLENE GLYCOL (HEALTHYLAX) 3350 17 GM PACKET PO PRN (20:03)
[2024-04-27] MEDS ORDERED: LOPERAMIDE HCL 2 MG CAPSULE PO PRN (20:03)
[2024-04-27] MEDS ORDERED: BENZOCAINE/MENTHOL (CHLORASEPTIC ) LOZENGE MM PRN (20:03)
[2024-04-27] MEDS ORDERED: NICOTINE POLACRILEX 4 MG GUM BUC PRN (20:03)
[2024-04-27] MEDS ORDERED: DICYCLOMINE HCL 10 MG CAPSULE PO PRN (20:03)
[2024-04-27] MEDS ORDERED: BENZONATATE 200 MG CAPSULE PO PRN (20:03)
[2024-04-27] MEDS ORDERED: BISMUTH SUBSALICYLATE 524 MG/30 ML PO PRN (20:03)
[2024-04-27] MEDS ORDERED: IBUPROFEN 400 MG TABLET (FP) PO PRN (20:03)
[2024-04-27] MEDS ORDERED: chlordiazePOXIDE HCL 25 MG CAPSULE PO PRN (20:03)
[2024-04-27] MEDS ORDERED: MAGNESIUM HYDROX 2400MG/30ML ORAL SUSPENSION 30 ML CUP PO PRN (20:03)
[2024-04-27] MEDS ORDERED: ALBUTEROL SO4 HFA INHALER IH PRN (20:07)
[2024-04-27] MEDS: ONDANSETRON *ODT* 4 MG TABLET SL ONE (20:12)
[2024-04-27] MEDS: levETIRAcetam 500 MG TABLET (FP) PO SCH (22:08)
[2024-04-27] MEDS: MELATONIN 5 MG TABLETS PO SCH (22:08)
[2024-04-27] MEDS: THIAMINE 100 MG TABLET PO SCH (22:08)
[2024-04-27] MEDS: TAMSULOSIN HCL 0.4 MG CAP PO SCH (22:08)
[2024-04-27] MEDS: chlordiazePOXIDE HCL 25 MG CAPSULE PO SCH (22:09)
[2024-04-28] MEDS: FAMOTIDINE 20 MG TABLET PO SCH (06:03)
[2024-04-28] MEDS ORDERED: methaDONE HCL 10 MG TABLET PO SCH (08:30)
[2024-04-28] MEDS: ONDANSETRON *ODT* 4 MG TABLET SL PRN (08:45)
[2024-04-28] MEDS: NICOTINE 14 MG/24 HOURS TOPICAL PATCH TD SCH (09:20)
[2024-04-28] MEDS: PRENATAL VITAMINS W/ FOLIC ACID TABLET (FP) PO SCH (09:22)
[2024-04-28] MEDS: amLODIPine BESYLATE 2.5 MG TABLET (FP) PO SCH (10:40)
[2024-04-28 11:53] LABS: HEMATOCRIT 32.8 % (35.4-49); HEMOGLOBIN 11.3 GM/dL (11.7-16.9); MCH 31.4 pg (25.7-33.7); MCHC 34.3 g/dl (32.0-35.9); MEAN CELL VOLUME 91.3 fl (80-96); MEAN PLT VOLUME 7.3 fl (7.5-11.1); PLATELET COUNT 85 10^3/uL (134-434); RBC 3.59 M/mm3 (4.00-5.60); RDW 15.1 % (11.9-15.9); WHITE BLOOD COUNT 2.5 K/mm3 (4.0-10.0)
[2024-04-28 12:31] LABS: CHLORIDE 99 mmol/L (98-107); POTASSIUM 4.1 mmol/L (3.5-5.1); SODIUM 140 mmol/L (136-145)
[2024-04-28 12:36] LABS: ALBUMIN 3.5 g/dl (3.4-5.0); ANION GAP 14 mmol/L (4-13); CALCIUM 9.2 mg/dL (8.5-10.1); CO2 28 mmol/L (21-32)
[2024-04-28 12:37] LABS: GLUCOSE,RANDOM 126 mg/dL (74-106)
[2024-04-28 12:39] LABS: SGOT/AST 110 U/L (15-37); SGPT/ALT 93 U/L (13-61)
[2024-04-28 12:40] LABS: CREATININE 0.8 mg/dL (0.55-1.3)
[2024-04-28 12:41] LABS: BILIRUBIN,TOTAL 0.8 mg/dL (0.2-1); TOT PROT 6.7 g/dl (6.4-8.2)
[2024-04-28 12:42] LABS: ALK PHOS 76 U/L (45-117)
[2024-04-28] MEDS: MIRTAZAPINE 15 MG TABLET (FP) PO SCH (22:09)
[2024-04-28] MEDS: traZODone HCL 50 MG TABLET (FP) PO SCH (22:09)
[2024-04-29] MEDS: chlordiazePOXIDE HCL 25 MG CAPSULE PO SCH (05:25)
[2024-04-29] MEDS: ACETAMINOPHEN 325 MG TABLET (FP) PO PRN (17:08)
[2024-04-30] MEDS ORDERED: chlordiazePOXIDE HCL 10 MG CAPSULE PO PRN
[2024-04-30] MEDS: chlordiazePOXIDE HCL 10 MG CAPSULE PO SCH (05:49)
[2024-05-01] MEDS: chlordiazePOXIDE HCL 10 MG CAPSULE PO SCH (05:26)
[2024-05-01] MEDS: IBUPROFEN 600 MG TABLET (FP) PO PRN (05:27)
[2024-05-01] MEDS: METHOCARBAMOL 500 MG TABLET PO PRN (05:27)
[2024-05-01] MEDS: NALOXONE (NYS OPIOID OVERDOSE PROGRAM) 4 MG/0.1 ML SPRAY NS SCH (17:54)
[2024-05-02] MEDS: chlordiazePOXIDE HCL 10 MG CAPSULE PO ONE (05:37)
[2024-05-02] MEDS: NALOXONE (NYS OPIOID OVERDOSE PROGRAM) 4 MG/0.1 ML SPRAY NS SCH (09:00)
[2024-05-02 09:09] VITALS: BP 122/76; PULSE 74; RESP 17; TEMP 98.2
== END 2024-05-02 11:56 | disposition other institution (70) | DRG 773 ==
LOC: YASAS 16:59 → Y3N 20:30
PROVIDERS: ADMIT Allergy & Immunology; ATTEND Surgery
PROC: HZ2ZZZZ Detoxification Services for Substance Abuse Treatment (ICD-10-PCS; principal; 2024-04-27)
DX: F10.230 Alcohol dependence with withdrawal, uncomplicated (principal); F11.20 Opioid dependence, uncomplicated; F17.210 Nicotine dependence, cigarettes, uncomplicated; F39 Unspecified mood [affective] disorder; F41.8 Other specified anxiety disorders; F43.10 Post-traumatic stress disorder, unspecified; I10 Essential (primary) hypertension; J45.909 Unspecified asthma, uncomplicated; K21.9 Gastro-esophageal reflux disease without esophagitis; L03.116 Cellulitis of left lower limb; M54.50 Low back pain, unspecified; G89.29 Other chronic pain; N40.0 Benign prostatic hyperplasia without lower urinary tract symptoms; Z86.19 Personal history of other infectious and parasitic diseases
CPT/HCPCS: 36415; 80053; 80305; 80307; 85027; 86780; 87811; 93005; 93010; Q0162

== ENCOUNTER 2024-05-02 11:57 | Inpatient (IN) | payer OTHER ==
[2024-05-02] MEDS ORDERED: guaiFENesin 600 MG TABLET.ER (FP) PO PRN (12:55)
[2024-05-02] MEDS ORDERED: MAGNESIUM HYDROX 2400MG/30ML ORAL SUSPENSION 30 ML CUP PO PRN (12:55)
[2024-05-02] MEDS ORDERED: BENZONATATE 200 MG CAPSULE PO PRN (12:55)
[2024-05-02] MEDS ORDERED: NICOTINE POLACRILEX 2 MG LOZENGE BC PRN (12:55)
[2024-05-02] MEDS ORDERED: NALOXONE (NARCAN) HCL 4 MG/0.1 ML SPRAY NS PRN (12:55)
[2024-05-02] MEDS ORDERED: BENZOCAINE/MENTHOL (CHLORASEPTIC ) LOZENGE MM PRN (12:55)
[2024-05-02] MEDS ORDERED: NICOTINE POLACRILEX 2 MG GUM BUC PRN (12:55)
[2024-05-02] MEDS ORDERED: POLYETHYLENE GLYCOL (HEALTHYLAX) 3350 17 GM PACKET PO PRN (12:55)
[2024-05-02] MEDS ORDERED: NALOXONE HCL 0.4 MG/ML VIAL IVPUSH PRN (12:55)
[2024-05-02] MEDS ORDERED: hydrOXYzine PAMOATE 25 MG CAPSULE (FP) PO PRN (12:55)
[2024-05-02] MEDS ORDERED: ALBUTEROL SO4 HFA INHALER IH PRN (12:56)
[2024-05-02] MEDS: FAMOTIDINE 20 MG TABLET PO SCH (16:24)
[2024-05-02] MEDS: traZODone HCL 50 MG TABLET (FP) PO SCH (21:21)
[2024-05-02] MEDS: MELATONIN 5 MG TABLETS PO SCH (21:21)
[2024-05-02] MEDS: levETIRAcetam 500 MG TABLET (FP) PO SCH (21:21)
[2024-05-02] MEDS: TAMSULOSIN HCL 0.4 MG CAP PO SCH (21:21)
[2024-05-02] MEDS: MIRTAZAPINE 15 MG TABLET (FP) PO SCH (21:21)
[2024-05-02] MEDS: THIAMINE 100 MG TABLET PO SCH (21:21)
[2024-05-03] MEDS ORDERED: methaDONE HCL 40 MG DISPERSABLE TABLET PO SCH (06:00)
[2024-05-03] MEDS: PRENATAL VITAMINS W/ FOLIC ACID TABLET (FP) PO SCH (09:17)
[2024-05-03] MEDS: amLODIPine BESYLATE 2.5 MG TABLET (FP) PO SCH (09:18)
[2024-05-04] MEDS: ACETAMINOPHEN 325 MG TABLET (FP) PO PRN (06:04)
[2024-05-04] MEDS: METHOCARBAMOL 500 MG TABLET PO PRN (21:11)
[2024-05-05] MEDS: IBUPROFEN 600 MG TABLET (FP) PO PRN (10:30)
[2024-05-05] MEDS: LACTULOSE 20 GM/30 ML UDC (FOR ORAL USE ONLY) PO SCH (21:15)
[2024-05-08] MEDS: MAG HYDROX/AL HYDROX/SIMETH 30 ML UNIT-DOSE CUP PO PRN (13:54)
[2024-05-09] MEDS: ONDANSETRON *ODT* 4 MG TABLET SL PRN (11:29)
[2024-05-10] MEDS: LOPERAMIDE HCL 2 MG CAPSULE PO PRN (14:19)
[2024-05-12] MEDS: IBUPROFEN 400 MG TABLET (FP) PO PRN (10:08)
[2024-05-13] MEDS: TOLNAFTATE 1% CREAM 15 GM TUBE TP SCH (14:23)
[2024-05-13] MEDS: GABAPENTIN 100 MG CAPSULE PO SCH (14:23)
[2024-05-13] MEDS: traZODone HCL 100 MG TABLET (FP) PO SCH (21:18)
[2024-05-13] MEDS: hydrOXYzine PAMOATE 25 MG CAPSULE (FP) PO PRN (21:19)
[2024-05-17 07:03] VITALS: RESP 18; TEMP 98
[2024-05-17 08:52] VITALS: BP 104/61; PULSE 90
[2024-05-17] MEDS: NALOXONE (NYS OPIOID OVERDOSE PROGRAM) 4 MG/0.1 ML SPRAY NS SCH (09:39)
== END 2024-05-17 09:47 | disposition home or self-care (01) | DRG 772 ==
LOC: Y3W 11:57
PROVIDERS: ADMIT Neuromusculoskeletal Medicine & OMM; ATTEND Psychiatry & Neurology Pain Medicine
PROC: HZ42ZZZ Group Counseling for Substance Abuse Treatment, Cognitive-Behavioral (ICD-10-PCS; principal; 2024-05-02)
DX: F10.20 Alcohol dependence, uncomplicated (principal); F11.20 Opioid dependence, uncomplicated; F12.20 Cannabis dependence, uncomplicated; F17.210 Nicotine dependence, cigarettes, uncomplicated; F19.282 Other psychoactive substance dependence with psychoactive substance-induced sleep disorder; F41.9 Anxiety disorder, unspecified; F32.A Depression, unspecified; F43.10 Post-traumatic stress disorder, unspecified; G47.00 Insomnia, unspecified; I10 Essential (primary) hypertension; J45.20 Mild intermittent asthma, uncomplicated; K21.9 Gastro-esophageal reflux disease without esophagitis; N40.1 Benign prostatic hyperplasia with lower urinary tract symptoms; N39.43 Post-void dribbling; R79.89 Other specified abnormal findings of blood chemistry; Z86.69 Personal history of other diseases of the nervous system and sense organs; Z56.0 Unemployment, unspecified; Z59.00 Homelessness unspecified
CPT/HCPCS: 82140; 83036; Q0162